=== PATIENT | female | born 1940 | race Caucasian/White ===

== ENCOUNTER 2018-07-02 14:19 | Emergency (ER) | payer OTHER ==
--- OUTSIDE RECORDS SUMMARY | 2018-07-02 14:24 | XMS REPORT | Clinical Summary ---
:1940 Author Organization [facility] Address [address] [place] [address] Care Team Providers Name Role Phone Asked, No Pcp Primary Care Provider Unavailable Allergies Active Allergy Reactions Severity Noted Date Comments Cephalexin Itching 01/17/2017 Current Medications Prescription Sig. Disp. Refills Start Date End Date Status metoprolol tartrate Take 12.5 mg by Active (LOPRESSOR) 25 MG tablet mouth 2 (two) times a day. metFORMIN (GLUCOPHAGE) Take 500 mg by Active 500 MG tablet mouth. haloperidol (HALDOL) 2 Take 2 mg by Active MG tablet mouth nightly. potassium chloride Take 10 mEq by Active (K-DUR,KLOR-CON) 10 MEQ mouth daily. CR tablet furosemide (LASIX) 20 MG Take 40 mg by Active tablet mouth daily. amLODIPine (NORVASC) 5 Take 5 mg by Active MG tablet mouth nightly. atorvastatin (LIPITOR) Take 20 mg by Active 20 MG tablet mouth. mupirocin (BACTROBAN) 2 Apply to the 22 g 0 08/11/2017 08/18/2017 % ointmentIndications: inside of each Primary osteoarthritis nostril BID 5 of right knee days prior to surgery Active Problems Problem Noted Date Primary osteoarthritis of right knee 08/11/2017 Overview: Added automatically from request for surgery [id number] Status post left hip replacement 01/23/2017 Acute blood loss anemia 04/19/2016 Hypophosphatemia 04/19/2016 Stenosis of carotid artery 04/18/2016 Left carotid stenosis 03/08/2016 Carotid artery narrowing 03/08/2016 HTN (hypertension) 03/08/2016 HLD (hyperlipidemia) 03/08/2016 Hyperglycemia due to type 2 diabetes mellitus (HCC) 03/08/2016 Coronary arteriosclerosis in [place] artery 03/08/2016 S/P carotid endarterectomy 03/08/2016 Benign essential hypertension 08/21/2014 Pure hypercholesterolemia 08/21/2014 Overview: Overview: No recent lipids. Diabetes mellitus (HCC) 08/21/2014 Encounters Date Type Specialty Care Team Description 12/28/2017 Telephone Orthopedic Surgery Isaac Mercado MD 10/02/2017 Procedure Pass General Surgery 09/28/2017 Pre-Admit Testing Pre-Admission Isaac Mercado No Show Appointment Testing MD Corie 08/11/2017 Orders Only Orthopedic Surgery Isaac Mercado Primary osteoarthritis MD Corie of right knee (Primary Dx) 08/02/2017 Telephone Orthopedic Surgery Isaac Mercado MD 07/05/2017 Procedure Pass General Surgery after 07/01/2017 Family History Medical History Relation Name Comments Cancer Brother Kidney disease Father Heart disease Mother Heart failure Mother Relation Name Status Comments Brother Father Mother Social History Tobacco Use Types Packs/Day Years Used Date Former Smoker Cigarettes 1 50 Quit: 09/14/2016 Alcohol Use Drinks/Week oz/Week Comments No Sex Assigned at Date Recorded Not on file Last Filed Vital Signs Not on file Plan of Treatment Health Maintenance Due Date Last Done Comments DIABETIC FOOT EXAM 1950 DIABETIC RETINAL EYE EXAM 1950 URINE MICROALBUMIN 1951 SHINGRIX VACCINE (#1) 1991 ZOSTER VACCINE 2001 PNEUMOCOCCAL POLYSACCHARIDE VACCINE AGE 65 AND OVER 2006 PNEUMOCOCCAL-13 2006 INFLUENZA VACCINE 04/04/2018 Implants Implanted Type Area Engraver Apprentice Decorative Device Expiration Model / Identifier Date Serial / Lot Dynasty Bf Shell Primary 54mm Group E - [id number] IPM IMPLANT Left: MICROPORT 12/16/2024 [id number] / Implanted: Qty: 1 on 01/23/2017 by Isaac Mercado MD DEVICES Hip ORTHOPEDICS / [id number] Dynasty A-Class Standard Poly Liner - [id number] [id number] IMPLANT Left: MICROPORT 10/28/2024 [id number] / Implanted: Qty: 1 on 01/23/2017 by Isaac Mercado MD DEVICES Hip ORTHOPEDICS / [id number] Femoral Head Biolox Delta Ceramic 08/17 L - [id number] [id number] IMPLANT Left: MICROPORT 11/17/2024 [id number] / Implanted: Qty: 1 on 01/23/2017 by Isaac Mercado MD DEVICES Hip ORTHOPEDICS / [id number] Profemur Plasma Z Classic Stem Sz 6 Extended Short Neck - [id number] [id number] IMPLANT Left: MICROPORT 08/03/2024 [id number] / Implanted: Qty: 1 on 01/23/2017 by Isaac Mercado MD DEVICES Hip ORTHOPEDICS / [id number] Kit Shunt Crtd Artery Rdopq Line 6in Strl [place] - [id number] Surgical Left: COVIDIEN LOPEZ 03/03/2019 [id number] / Implanted: Qty: 1 on 03/08/2016 by Cory Olivares MD Implants; Neck HEALTHCARE / Expanders; [id number] Extenders; Surgical Wires Fabric Vasclr Grft Velour 3in 3in 0.8cm 7.6cm [place] [employer] - [id number] - [id number] Vascular Left: [employer] 07/04/2020 [id number] / Implanted: Qty: 1 on 03/08/2016 by Cory Olivares MD Graft Neck KAYLIE [id number] / [id number] Fabric Vasclr Grft Velour 3in 3in 0.8cm 7.6cm [place] [employer] - [id number] - [id number] Vascular N/A: [employer] 05/05/2020 [id number] / Implanted: Qty: 1 on 04/18/2016 by Cory Olivares MD Graft N/A KAYLIE [id number] / [id number] Results Not on fileafter 07/01/2017 Insurance Payer Benefit Plan / Group Subscriber ID Type Phone Address MEDICARE MEDICARE PART A AND B xxxxxxxxxx Medicare [place], [place]
--- NOTE | 2018-07-02 18:29 | EDPHYS ---
Physician Documentation [facility] Name: Cristela Arriaza Age: 78 yrs Sex: Female : 1940 Arrival Date: 07/02/2018 Time: 14:20 Bed 30 Private MD: Ryder Kapoor E ED Physician Ricardo Curtis HPI: 07/02 17:57 This 78 yrs old Female presents to ER via Ambulatory with complaints of Back snw Pain. 17:57 The patient presents with pain that is acute. The symptoms are located in the low back snw area and left low back. Onset: The symptoms/episode began/occurred suddenly, and became persistent. The pain does not radiate. Associated signs and symptoms: The patient has no apparent associated signs or symptoms. The problem was sustained when lifting heavy object. Severity of symptoms: At their worst the symptoms were moderate. The patient has not experienced similar symptoms in the past. It is unknown whether or not the patient has recently seen a physician. pt had Tramadol for her knee and took one last pm with relief of s/s. Historical: - Allergies: 14:53 No Known Allergies; ph - PSHx: 14:53 Cholecystectomy; stent; ph - Immunization history:: Adult Immunizations up to date. - Social history:: Smoking status: Patient/guardian denies using tobacco. - Ebola Screening: : No symptoms or risks identified at this time. ROS: 17:56 Constitutional: Negative for fever, chills, and weight loss, Eyes: Negative for injury, snw pain, redness, and discharge, ENT: Negative for injury, pain, and discharge, Neck: Negative for injury, pain, and swelling, Cardiovascular: Negative for chest pain, palpitations, and edema, Respiratory: Negative for shortness of breath, cough, wheezing, and pleuritic chest pain, Abdomen/GI: Negative for abdominal pain, nausea, vomiting, diarrhea, and constipation, : Negative for injury, bleeding, discharge, and swelling, MS/Extremity: Negative for injury and deformity, Skin: Negative for injury, rash, and discoloration, Neuro: Negative for headache, weakness, numbness, tingling, and seizure, Psych: Negative for depression, anxiety, suicide ideation, homicidal ideation, and hallucinations. 17:56 Back: Positive for decreased range of motion, pain at rest, pain with movement, sitting and getting up from standing is painful. Exam: 17:55 Constitutional: This is a well developed, well nourished patient who is awake, alert, snw and in no acute distress. Head/Face: Normocephalic, atraumatic. Eyes: Pupils equal round and reactive to light, extra-ocular motions intact. Lids and lashes normal. Conjunctiva and sclera are non-icteric and not injected. Cornea within normal limits. Periorbital areas with no swelling, redness, or edema. ENT: Nares patent. No nasal discharge, no septal abnormalities noted. Tympanic membranes are normal and external auditory canals are clear. Oropharynx with no redness, swelling, or masses, exudates, or evidence of obstruction, uvula midline. Mucous membranes moist. Neck: Trachea midline, no thyromegaly or masses palpated, and no cervical lymphadenopathy. Supple, full range of motion without nuchal rigidity, or vertebral point tenderness. No Meningismus. Chest/axilla: Normal chest wall appearance and motion. Nontender with no deformity. No lesions are appreciated. Cardiovascular: Regular rate and rhythm with a normal S1 and S2. No gallops, murmurs, or rubs. Normal PMI, no JVD. No pulse deficits. Respiratory: Lungs have equal breath sounds bilaterally, clear to auscultation and percussion. No rales, rhonchi or wheezes noted. No increased work of breathing, no retractions or nasal flaring. Abdomen/GI: Soft, non-tender, with normal bowel sounds. No distension or tympany. No guarding or rebound. No evidence of tenderness throughout. Skin: Warm, dry with normal turgor. Normal color with no rashes, no lesions, and no evidence of cellulitis. MS/ Extremity: Pulses equal, no cyanosis. Neurovascular intact. Full, normal range of motion. Neuro: Awake and alert, GCS 15, oriented to person, place, time, and situation. Cranial nerves II-XII grossly intact. Motor strength 5/5 in all extremities. Sensory grossly intact. Cerebellar exam normal. Normal gait. 17:55 Back: pain, that is moderate, ROM is painful, normal spinal alignment noted, CVA tenderness, is absent, muscle spasm, is not present. Vital Signs: 15:04 BP 112 / 68; Pulse 59; Resp 16; Temp 97.9; Pulse Ox 96% on R/A; Weight 63.5 kg; Height ph 5 ft. 6 in. (167.64 cm); 15:04 Body Mass Index 22.60 (63.50 kg, 167.64 cm) ph MDM: 16:45 Patient medically screened. snw 18:30 Data reviewed: vital signs, nurses notes. Data interpreted: Pulse oximetry: on room air snw is 96 %. Interpretation: acceptable. Counseling: I had a detailed discussion with the patient and/or guardian regarding: the historical points, exam findings, and any diagnostic results supporting the discharge/admit diagnosis, radiology results, the need for outpatient follow up, to return to the emergency department if symptoms worsen or persist or if there are any questions or concerns that arise at home. Special discussion: Based on the history and exam findings, there is no indication for further emergent testing or inpatient evaluation. I discussed with the patient/guardian the need to see the orthopedic surgeon for further evaluation of the symptoms. I discussed with the patient/guardian the need to see the primary care provider for further evaluation of the symptoms. 07/02 17:34 Order name: XRAY Lumbar Spine (3 Views) snw Administered Medications: No medications were administered Disposition: 07/02/18 18:28 Discharged to Home. Impression: Low back pain. - Condition is Stable. - Discharge Instructions: Back Pain, Adult, Musculoskeletal Pain, Back Exercises, [id number]-[id number], Cryotherapy, Heat Therapy. - Prescriptions for Tramadol 50 mg Oral Tablet - take 1 tablet by ORAL route every 8 hours as needed; 12 tablet. orphenadrine citrate 100 mg Oral Tablet Sustained Release - take 1 tablet by ORAL route 2 times per day As needed; 20 tablet. - Medication Reconciliation Form, Thank You Letter, Antibiotic Education, Prescription Opioid Use form. - Follow up: Ryder Kapoor MD; When: 2 - 3 days; Reason: Recheck today's complaints, Continuance of care, Re-evaluation by your physician. Follow up: Emergency Department; When: As needed; Reason: Worsening of condition. Addendum: 07/09/2018 11:48 Co-signature as Attending Physician, Ricardo Curtis MD. g s Signatures: Dispatcher [employer] Magali Ruiz RN RN ajToña Poole RN RN aj Evelyn Mayes, CHIP-C PIANO STRINGER-Csnw Jacinta Hawk, RN RN ph CurtisRicardo MD MD gs Corrections: (The following items were deleted from the chart) 07/02 19:20 18:28 07/02/2018 18:28 Discharged to Home. Impression: Low back pain. Condition is aj1 Stable. Forms are Medication Reconciliation Form, Thank You Letter, Antibiotic Education, Prescription Opioid Use. Follow up: Ryder Kapoor; When: 2 - 3 days; Reason: Recheck today's complaints, Continuance of care, Re-evaluation by your physician. Follow up: Emergency Department; When: As needed; Reason: Worsening of condition. snw
--- NOTE | 2018-07-02 18:29 | ER ---
Nurse's Notes [facility] Name: Cristela Arriaza Age: 78 yrs Sex: Female : 1940 Arrival Date: 07/02/2018 Time: 14:20 Bed 30 Private MD: Ryder Kapoor E Diagnosis: Low back pain Presentation: 07/02 15:02 Presenting complaint: Patient states: " I was picking up a case of water and I hurt my ph back." Pt reports eliza low back pain, denies radiation, numbness, or tingling. Transition of care: patient was not received from another setting of care. Onset of symptoms was July 02, 2018. Risk Assessment: Do you want to hurt yourself or someone else? Patient reports no desire to harm self or others. Initial Sepsis Screen: Does the patient meet any 2 criteria? No. Patient's initial sepsis screen is negative. Does the patient have a suspected source of infection? No. Patient's initial sepsis screen is negative. Care prior to arrival: None. 15:02 Method Of Arrival: Ambulatory ph 15:02 Acuity: CHUCHO 4 ph Historical: - Allergies: 14:53 No Known Allergies; ph - PSHx: 14:53 Cholecystectomy; stent; ph - Immunization history:: Adult Immunizations up to date. - Social history:: Smoking status: Patient/guardian denies using tobacco. - Ebola Screening: : No symptoms or risks identified at this time. Screenin:07 Abuse screen: Denies threats or abuse. Denies injuries from another. Nutritional aj screening: No deficits noted. Tuberculosis screening: No symptoms or risk factors identified. Fall Risk None identified. Assessment: 17:07 General: Appears in no apparent distress. comfortable, Behavior is calm, cooperative, aj appropriate for age. Pain: Complains of pain in low back area. Neuro: Level of Consciousness is awake, alert, obeys commands, Oriented to person, place, time, situation, Appropriate for age. Respiratory: Airway is patent Respiratory effort is even, unlabored, Respiratory pattern is regular, symmetrical. : Denies burning with urination. Derm: Skin is intact, is healthy with good turgor, Skin is pink, warm \\T\\ dry. normal. Musculoskeletal: Reports pain in low back area. Vital Signs: 15:04 BP 112 / 68; Pulse 59; Resp 16; Temp 97.9; Pulse Ox 96% on R/A; Weight 63.5 kg; Height ph 5 ft. 6 in. (167.64 cm); 15:04 Body Mass Index 22.60 (63.50 kg, 167.64 cm) ph ED Course: 14:20 Patient arrived in ED. as 14:20 Ryder Kapoor MD is Private Physician. as 15:04 Triage completed. ph 15:04 Arm band placed on Patient placed in waiting room, Patient notified of wait time. ph 16:29 Evelyn Mayes [facility]-C [facility]. snw 16:29 Ricardo Curtis MD is Attending Physician. snw 16:44 Toña Diaz, RN is Primary Nurse. aj 17:07 Patient has correct armband on for positive identification. aj 18:28 Ryder Kapoor MD is Referral Physician. snw 18:37 XRAY Lumbar Spine (3 Views) In Process Unspecified. EDMS 19:20 No provider procedures requiring assistance completed. Patient did not have IV access aj1 during this emergency room visit. Administered Medications: No medications were administered Outcome: 18:28 Discharge ordered by . snw 19:19 Discharged to home ambulatory. aj1 19:19 Condition: good 19:19 Discharge instructions given to patient, Instructed on discharge instructions, follow up and referral plans. medication usage, Demonstrated understanding of instructions, follow-up care, medications, Prescriptions given X 1. 19:20 Patient left the ED. aj1 Signatures: Dispatcher [employer] EDMS Magali Zamora RN RN aj1 Toña Diaz, RN RN Evelyn Mayes FNP-C FNP-Rosy Wesley as Jaicnta Hawk, RN RN
--- NOTE | 2018-07-02 20:03 | RAD REPORT ---
EXAM DESCRIPTION: RAD - Lumbar Spine 3 Views - 07/02/2018 6:37 pm CLINICAL HISTORY: Back pain following lifting injury COMPARISON: None. FINDINGS: A three-view lumbar spine examination was performed. Lumbar bodies are normal in height an d alignment. No fracture or acute bony process seen. No significant disc space narrowing peer patient has advanced lower lumbar facet joint degenerative change. Endplate degenerative changes are present at multiple levels. No pars defects identified. IMPRESSION: Lumbar spine degenerative changes are present most notable in the lower lumbar facet darcy nts. An acute lumbar finding is not suspected. Concerns for disc herniation, central canal abnormality or occult bone process can be addressed with MR imaging.
[2018-07-02 20:16] VITALS: TEMP 97.8
[2018-07-02 20:17] VITALS: BP 194/101; O2SAT 100
== END 2018-07-02 19:20 | disposition home or self-care (01) ==
LOC: ER 14:19
DX: M54.5 Low back pain (principal)
CPT/HCPCS: 72100; 99283

== ENCOUNTER 2018-11-05 10:38 | Day surgery (SDC) | payer OTHER ==
--- OUTSIDE RECORDS SUMMARY | 2018-11-05 10:42 | XMS REPORT | Clinical Summary ---
:1940 Author Organization [facility] Address [address] [place] [address] Care Team Providers Name Role Phone Asked, No Pcp Primary Care Provider Unavailable Allergies Active Allergy Reactions Severity Noted Date Comments Cephalexin Itching 01/17/2017 Medications Medication Sig Dispensed Refills Start Date End Date Status metoprolol tartrate Take 12.5 mg by 0 Active (LOPRESSOR) 25 MG tablet mouth 2 (two) times a day. metFORMIN (GLUCOPHAGE) Take 500 mg by 0 Active 500 MG tablet mouth. haloperidol (HALDOL) 2 Take 2 mg by 0 Active MG tablet mouth nightly. potassium chloride Take 10 mEq by 0 Active (K-DUR,KLOR-CON) 10 MEQ mouth daily. CR tablet furosemide (LASIX) 20 MG Take 40 mg by 0 Active tablet mouth daily. amLODIPine (NORVASC) 5 Take 5 mg by 0 Active MG tablet mouth nightly. atorvastatin (LIPITOR) Take 20 mg by 0 Active 20 MG tablet mouth. Active Problems Problem Noted Date Primary osteoarthritis of right knee 08/11/2017 Overview: Added automatically from request for surgery [id number] Status post left hip replacement 01/23/2017 Acute blood loss anemia 04/19/2016 Hypophosphatemia 04/19/2016 Stenosis of carotid artery 04/18/2016 Left carotid stenosis 03/08/2016 Carotid artery narrowing 03/08/2016 HTN (hypertension) 03/08/2016 HLD (hyperlipidemia) 03/08/2016 Hyperglycemia due to type 2 diabetes mellitus 03/08/2016 Coronary arteriosclerosis in [place] artery 03/08/2016 S/P carotid endarterectomy 03/08/2016 Benign essential hypertension 08/21/2014 Pure hypercholesterolemia 08/21/2014 Overview: Overview: No recent lipids. Diabetes mellitus 08/21/2014 Encounters Date Type Specialty Care Team Description 12/28/2017 Telephone Orthopedic Surgery Isaac Mercado MD after 11/04/2017 Family History Medical History Relation Name Comments Cancer Brother Kidney disease Father Heart disease Mother Heart failure Mother Relation Name Status Comments Brother Father Mother Social History Tobacco Use Types Packs/Day Years Used Date Former Smoker Cigarettes 1 50 Quit: 09/14/2016 Alcohol Use Drinks/Week oz/Week Comments No Sex Assigned at Date Recorded Not on file Job Start Date Occupation Industry Not on file Not on file Not on file Travel History Travel Start Travel End No recent travel history available. Last Filed Vital Signs Not on file Plan of Treatment Health Maintenance Due Date Last Done Comments DIABETIC RETINAL EYE EXAM 1940 DIABETIC FOOT EXAM 1950 URINE MICROALBUMIN 1951 SHINGLES VACCINES (#1) 1991 65+ PNEUMOCOCCAL VACCINE (1 of 2 - PCV13) 2006 PNEUMOCOCCAL POLYSACCHARIDE VACCINE AGE 65 AND OVER 2006 INFLUENZA VACCINE 04/04/2018 Implants Implanted Type Area Curtain Drier Device Shelf Model / Identifier Expiration Serial / Lot Date Dynasty Bf Shell Primary 54mm Group E - [id number] IPM IMPLANT Left: MICROPORT 12/16/2024 [id number] / Implanted: Qty: 1 on 01/23/2017 by Isaac Mercado MD DEVICES Hip ORTHOPEDICS / [id number] Dynasty A-Class Standard Poly Liner - [id number] IPM IMPLANT Left: MICROPORT 10/28/2024 [id number] / Implanted: Qty: 1 on 01/23/2017 by Isaac Mercado MD DEVICES Hip ORTHOPEDICS / [id number] Femoral Head Biolox Delta Ceramic 08/17 L - [id number] IPM IMPLANT Left: MICROPORT 11/17/2024 [id number] / Implanted: Qty: 1 on 01/23/2017 by Isaac Mercado MD DEVICES Hip ORTHOPEDICS / [id number] Profemur Plasma Z Classic Stem Sz 6 Extended Short Neck - [id number] IPM IMPLANT Left: MICROPORT 08/03/2024 [id number] / Implanted: Qty: 1 on 01/23/2017 by Isaac Mercado MD DEVICES Hip ORTHOPEDICS / [id number] Kit Shunt Crtd Artery Rdopq Line 6in Strl [place] - [id number] Surgical Left: COVIDIEN LOPEZ 03/03/2019 [id number] / Implanted: Qty: 1 on 03/08/2016 by Cory Olivares MD Implants; Neck HEALTHCARE / Expanders; [id number] Extenders; Surgical Wires Fabric Vasclr Grft Velour 3in 3in 0.8cm 7.6cm [place] [employer] - [id number] - [id number] Vascular Left: [employer] 07/04/2020 [id number] / Implanted: Qty: 1 on 03/08/2016 by Cory Olivares MD Graft Neck KAYLIE [id number] / [id number] Fabric Vasclr Grft Velour 3in 3in 0.8cm 7.6cm [place] [employer] - [id number] - [id number] Vascular N/A: [employer] 05/05/2020 [id number] / Implanted: Qty: 1 on 04/18/2016 by Cory Olivares MD Graft N/A KAYLIE [id number] / [id number] Results Not on fileafter 11/04/2017 Insurance Payer Benefit Plan / Group Subscriber ID Type Phone Address MEDICARE MEDICARE PART A AND B xxxxxxxxxx Medicare [place], [place] Advance Directives Patient has advance care planning documents on file. For more information, please contact:[place] [address]
[2018-11-05] MEDS ORDERED: NA CHLORIDE 0.9% 500 ML ONE (11:06)
[2018-11-05] MEDS ORDERED: PHENYLEPHRINE 10% OPTH 5ML ONE (11:06)
[2018-11-05] MEDS ORDERED: CYCLOPENTOLATE 1% OPTH 2 ML ONE (11:07)
[2018-11-05] MEDS ORDERED: CYCLOPENTOLATE 1% OPTH 2 ML OPTH ONE ×2 (11:11→11:27)
[2018-11-05] MEDS ORDERED: PHENYLEPHRINE 10% OPTH 5ML OPTH ONE ×2 (11:11→11:27)
[2018-11-05] MEDS ORDERED: NS 0.9% VIAL 10 ML ONE (11:15)
[2018-11-05 11:58] VITALS: TEMP 97.7
[2018-11-05] MEDS: TETRACAINE HCL 0.5% 2ML OPTH ONE ×2 (12:24→12:48)
[2018-11-05] MEDS: LIDOCAINE 2% MPF 5 ML VIAL ONE ×2 (12:25→12:48)
[2018-11-05] MEDS: BUPIVACAINE 0.25% PF 10 ML VIAL ONE ×2 (12:25→12:48)
[2018-11-05] MEDS ORDERED: PROPOFOL 200 MG/20 ML VIAL IV ONE (12:49)
[2018-11-05] MEDS ORDERED: LIDOCAINE 2% MPF 5 ML VIAL ONE (12:49)
[2018-11-05] MEDS: BALANCED SALT IRRIG PLAIN 500 ML BTL IRR ONE ×2 (12:53→13:19)
[2018-11-05] MEDS: EPINEPHRINE/PF 1 MG/ML AMP ONE ×2 (12:53→13:19)
[2018-11-05] MEDS: MOXIFLOXACIN HCL 10 DROPS/ML **OR USE OPTH ONE ×2 (12:55→13:57)
[2018-11-05] MEDS: DUOVISC 1 KIT OPTH ONE ×2 (12:55→13:19)
--- NOTE | 2018-11-05 14:07 | P.BOP ---
Preoperative diagnosis: Nuclear sclerotic cataract and regular astigmatism OD Postoperative diagnosis: Same Primary procedure: Phacoemulsification with Toric IOL OD Estimated blood loss: None Anesthesia: Local (Subtenon's infusion with anesthesia for cataract surgery) Complications: None Implants: [id number] +17.5 @ 14 degrees Transferred to: Other (Day surgery) Condition: Good
[2018-11-05 14:16] VITALS: BP 177/80; O2SAT 100
--- NOTE | 2018-11-06 00:41 | OP ---
Date of Procedure: 11/05/2018 Surgeon: Bonny Manuel MD Anesthesiologist: Yomi Gonzalez CRNA and Girma Sung MD. Preoperative Diagnosis: Nuclear sclerotic cataract and regular astigmatism, right eye. Operation Performed: Phacoemulsification with toric with intraocular lens implant, right eye. Anesthesia: Per cataract surgery. Complications: None. Description Of Procedure: In day surgery, the patient was prepped with Betadine and draped. A conju nctival incision was made in the inferior nasal quadrant with Fartun scissors. A sub-Tenon block c onsisting of a 1:1 mixture of 2% Xylocaine and 0.25% bupivacaine was placed through the conjunctival incision with a blunt cannula. A Honan balloon was placed over the eye and the patient was transferr ed to the operating room. In the operating room the patient was prepped and draped in the usual sterile fashion for ophthalmic surgery. A lid speculum was placed in the right eye. Two paracentesis sites were made superiorly an d inferiorly in the limbal cornea. Viscoat was placed in the anterior chamber and a crescent blade w as used to make a corneal groove and tunnel, and a keratome was used to enter the anterior chamber. Provisc was placed in the anterior chamber and a 360 degree capsulotomy was performed with a cystitom e. The lens was hydrodissected with BSS and rotated freely. The lens was removed with a stop and ch op technique. 14.69 phaco CDE was used to remove the lens. Residual cortex was removed with the irr igation and aspiration. Provisc was placed in the capsular bag. A [id number] +17.5 at 14 degrees lens w as placed in the capsular bag without complications. Irrigation and aspiration was used to remove re sidual viscoelastic. The paracentesis sites were hydrated with BSS. The wound and paracentesis site s were inspected and found to be watertight. Vigamox 0.07 cc was placed intracamerally at the end of the procedure. The eye was irrigated with balanced salt solution. The eye was patched with a soft cotton patch and Hwang metal shield. The patient was returned to day surgery in good condition. Comments: Discharge Instructions: Ms. Arriaza is discharged to home in good condition and is to follow up with Kenna Manuel in the morning. ELVIN/NANETTE Voice ID: [id number] Report ID: [id number]
== END 2018-11-05 14:38 | disposition home or self-care (01) ==
LOC: OR 10:38
PROVIDERS: ATTEND Ophthalmology Retina Specialist
PROC: 08RJ3JZ Replacement of Right Lens with Synthetic Substitute, Percutaneous Approach (ICD-10-PCS; principal; 2018-11-05 11:15)
DX: H25.11 Age-related nuclear cataract, right eye (principal); H52.221 Regular astigmatism, right eye; H40.20X0 Unspecified primary angle-closure glaucoma, stage unspecified; H40.059 Ocular hypertension, unspecified eye; H04.123 Dry eye syndrome of bilateral lacrimal glands; I10 Essential (primary) hypertension; I25.10 Atherosclerotic heart disease of native coronary artery without angina pectoris; I25.2 Old myocardial infarction; E78.00 Pure hypercholesterolemia, unspecified; Z95.5 Presence of coronary angioplasty implant and graft; Z79.02 Long term (current) use of antithrombotics/antiplatelets; Z79.82 Long term (current) use of aspirin; Z82.49 Family history of ischemic heart disease and other diseases of the circulatory system
CPT/HCPCS: 66984; J2704; J0171; V2630

== ENCOUNTER 2018-12-17 10:24 | Day surgery (SDC) | payer OTHER ==
--- OUTSIDE RECORDS SUMMARY | 2018-12-17 11:30 | XMS REPORT | Clinical Summary ---
:1940 Author Organization [facility] Address [address] [place] [address] Care Team Providers Name Role Phone Asked, [...] Overview: Added automatically from request for surgery [id number] Status post left hip replacement 01/23/2017 Acute blood loss anemia 04/19/2016 Hypophosphatemia 04/19/2016 Stenosis of carotid artery 04/18/2016 Left carotid stenosis 03/08/2016 Carotid artery narrowing 03/08/2016 HTN (hypertension) 03/08/2016 HLD (hyperlipidemia) 03/08/2016 Hyperglycemia due to type 2 diabetes mellitus 03/08/2016 Coronary arteriosclerosis in [place] artery 03/08/2016 S/P carotid endarterectomy 03/08/2016 Benign essential hypertension 08/21/2014 Pure hypercholesterolemia 08/21/2014 Overview: Overview: No recent lipids. 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 Device Shelf Model / Identifier Expiration Serial / Lot Date Dynasty Bf Shell Primary 54mm Group E - [id number] IPM IMPLANT Left: MICROPORT 12/16/2024 [id number] / Implanted: Qty: 1 on 01/23/2017 by Isaac Mercado MD DEVICES Hip ORTHOPEDICS / [id number] Dynasty A-Class Standard Poly Liner - [id number] IPM IMPLANT Left: MICROPORT 10/28/2024 [id number] / Implanted: Qty: 1 on 01/23/2017 by Isaac Mercado MD DEVICES Hip ORTHOPEDICS / [id number] Femoral Head Biolox Delta Ceramic 08/17 L - [id number] IPM IMPLANT Left: MICROPORT 11/17/2024 [id number] / Implanted: Qty: 1 on 01/23/2017 by Isaac Mercado MD DEVICES Hip ORTHOPEDICS / [id number] Profemur Plasma Z Classic Stem Sz 6 Extended Short Neck - [id number] IPM IMPLANT Left: MICROPORT 08/03/2024 [id number] / Implanted: Qty: 1 on 01/23/2017 by Isaac Mercado MD DEVICES Hip ORTHOPEDICS / [id number] Kit Shunt Crtd Artery Rdopq Line 6in Strl [place] - [id number] Surgical Left: COVIDIEN LOPEZ 03/03/2019 [id number] / Implanted: Qty: 1 on 03/08/2016 by Cory Olivares MD Implants; Neck HEALTHCARE / Expanders; [id number] Extenders; Surgical Wires Fabric Vasclr Grft Velour 3in 3in 0.8cm 7.6cm [place] [employer] - [id number] - [id number] Vascular Left: [employer] 07/04/2020 [id number] / Implanted: Qty: 1 on 03/08/2016 by Cory Olivares MD Graft Neck KAYLIE [id number] / [id number] Fabric Vasclr Grft Velour 3in 3in 0.8cm 7.6cm [place] [employer] - [id number] - [id number] Vascular N/A: [employer] 05/05/2020 [id number] / Implanted: Qty: 1 on 04/18/2016 by Cory Olivares MD Graft N/A KAYLIE [id number] / [id number] Results Not on fileafter 12/16/2017 Insurance Payer Benefit Plan / Group Subscriber ID Type Phone Address MEDICARE MEDICARE PART A AND B xxxxxxxxxx Medicare [place], [place] Advance Directives Patient has advance care planning documents on file. For more information, please contact:[place] [address]
[2018-12-17] MEDS: TETRACAINE HCL 0.5% 4ML OPTH ONE ×2 (11:44→13:19)
[2018-12-17] MEDS ORDERED: CYCLOPENTOLATE 1% OPTH 2 ML ONE (11:51)
[2018-12-17] MEDS ORDERED: NA CHLORIDE 0.9% 500 ML ONE (11:52)
[2018-12-17] MEDS ORDERED: PHENYLEPHRINE 10% OPTH 5ML ONE (11:52)
[2018-12-17] MEDS ORDERED: PHENYLEPHRINE 10% OPTH 5ML OPTH ONE ×2 (11:54→12:00)
[2018-12-17] MEDS ORDERED: CYCLOPENTOLATE 1% OPTH 2 ML OPTH ONE ×2 (11:54→12:00)
[2018-12-17] MEDS ORDERED: EPINEPHRINE/PF 1 MG/ML AMP ONE (12:02)
[2018-12-17] MEDS ORDERED: DUOVISC 1 KIT OPTH ONE (12:02)
[2018-12-17] MEDS ORDERED: BALANCED SALT IRRIG PLAIN 500 ML BTL IRR ONE (12:02)
[2018-12-17] MEDS ORDERED: NS 0.9% VIAL 10 ML ONE (12:02)
[2018-12-17] MEDS: BUPIVACAINE 0.25% PF 10 ML VIAL ONE ×2 (12:04→13:20)
[2018-12-17] MEDS: LIDOCAINE 2% MPF 5 ML VIAL ONE ×2 (12:05→13:20)
[2018-12-17] MEDS: MOXIFLOXACIN HCL 10 DROPS/ML **OR USE OPTH ONE ×2 (12:08→14:09)
[2018-12-17] MEDS ORDERED: PROPOFOL 200 MG/20 ML VIAL IV ONE (13:10)
[2018-12-17] MEDS ORDERED: LIDOCAINE 2% MPF 5 ML VIAL ONE (13:10)
--- NOTE | 2018-12-17 14:16 | P.BOP ---
Preoperative diagnosis: Nuclear sclerotic cataract and regular astigmatism OS Postoperative diagnosis: Same Primary procedure: Phacoemulsification with Toric IOL OS Estimated blood loss: None Anesthesia: Local (Subtenon's infusion with anesthesia for cataract surgery) Complications: None Implants: [id number] +18.5 @ 173 Transferred to: Other (Day surgery) Condition: Good
[2018-12-17 14:27] VITALS: BP 166/70; TEMP 97.8; O2SAT 100
--- NOTE | 2018-12-18 00:12 | OP ---
Date of Procedure: 12/17/2018 Surgeon: Bonny Manuel MD Anesthesiologist: Walter Reinoso CRNA and Steve Mack MD. Preoperative Diagnoses: Nuclear sclerotic cataract and regular astigmatism, left eye. Operation Performed: Phacoemulsification with toric intraocular lens implant, left eye. Anesthesia: Per cataract surgery. Complications: None. Description Of Procedure: In day surgery, the patient was prepped with Betadine and draped. A conju nctival incision was made in the inferior nasal quadrant with Fartun scissors. A sub-Tenon block c onsisting of a 1:1 mixture of 2% Xylocaine and 0.25% bupivacaine was placed through the conjunctival incision with a blunt cannula. A [place] balloon was placed over the eye and the patient was transferr ed to the operating room. In the operating room the patient was prepped and draped in the usual sterile fashion for ophthalmic surgery. A lid speculum was placed in the left eye. Two paracentesis sites were made superiorly and inferiorly in the limbal cornea. Viscoat was placed in the anterior chamber and a crescent blade wa s used to make a corneal groove and tunnel, and a keratome was used to enter the anterior chamber. P rovisc was placed in the anterior chamber and a 360 degree capsulotomy was performed with a cystitome . The lens was hydrodissected with BSS and rotated freely. The lens was removed with a stop and cho p technique. 15.47 phaco CDE was used to remove the lens. Residual cortex was removed with the irri gation and aspiration. Provisc was placed in the capsular bag. A ZCT00 +18.5 at 173 degrees lens wa s placed in the capsular bag without complications. Irrigation and aspiration were used to remove re sidual viscoelastic. The paracentesis sites were hydrated with BSS. The wound and paracentesis site s were inspected and found to be watertight. Vigamox 0.07 cc was placed intracamerally at the end of the procedure. The eye was irrigated with balanced salt solution. The eye was patched with a soft cotton patch and Hwang metal shield. The patient was returned to day surgery in good condition. Comments: Discharge Instructions: Ms. Arriaza is discharged to home in good condition and is to follow up with Kenna Manuel in the morning. ELVIN/NANETTE Voice ID: [id number] Report ID: [id number]
== END 2018-12-17 14:42 | disposition home or self-care (01) ==
LOC: PRE 10:24
PROVIDERS: ATTEND Ophthalmology Retina Specialist
PROC: 08RK3JZ Replacement of Left Lens with Synthetic Substitute, Percutaneous Approach (ICD-10-PCS; principal; 2018-12-17 11:30)
DX: H25.12 Age-related nuclear cataract, left eye (principal); H52.222 Regular astigmatism, left eye; E78.00 Pure hypercholesterolemia, unspecified; I10 Essential (primary) hypertension; I25.2 Old myocardial infarction; Z79.02 Long term (current) use of antithrombotics/antiplatelets; Z79.82 Long term (current) use of aspirin; Z79.899 Other long term (current) drug therapy; Z95.5 Presence of coronary angioplasty implant and graft
CPT/HCPCS: 66984; J2704; J0171

== ENCOUNTER 2020-07-06 08:04 | Day surgery (SDC) | payer OTHER ==
[2020-07-02 12:01] LABS: Potassium 4.5 mmol/L (3.5-5.1)
--- OUTSIDE RECORDS SUMMARY | 2020-07-06 08:17 | XMS REPORT | Clinical Summary ---
:1940 Author Organization [facility] Address [address] [place] [address] Care Team Providers Name Role Phone Asked, Pcp Primary Care Provider Unavailable Allergies Active Allergy Reactions Severity Noted Date Comments Cephalexin Itching 01/17/2017 Medications Medication Sig Dispensed Refills Start End Date Status Date potassium chloride Take 10 mEq by 0 Active (K-DUR,KLOR-CON) 10 mouth daily. MEQ CR tablet furosemide (LASIX) Take 40 mg by 0 Active 20 MG tablet mouth daily. amLODIPine Take 5 mg by 0 Active (NORVASC) 5 MG mouth nightly. tablet atorvastatin Take 20 mg by 0 Act scott (LIPITOR) 20 MG mouth. tablet brimonidine-timoloL Administer 1 0 Active (COMBIGAN) 0.2-0.5 drop to both % ophthalmic eyes every 12 solution (twelve) hours. levothyroxine Take 175 mcg 0 Act scott (SYNTHROID) 175 mcg by mouth tablet daily. haloperidoL Take 1 mg by 0 Activ e (HALDOL) 1 MG mouth nightly. tablet clopidogreL Take 1 tablet 0 Acti ve (Plavix) 75 mg (75 mg total) 0 tablet by mouth daily. Starting post-op day 1 metoprolol tartrate Take 0.5 0 Active (LOPRESSOR) 25 mg tablets (12.5 0 tablet mg total) by mouth 2 (two) times a day. Hold for BP < 120/80 aspirin 81 mg Chew 1 tablet 0 Ac tive chewable tablet (81 mg total) 0 daily. Starting post-op day 1 sennosides-docusate Take 1 tablet 30 tablet 11 Active sodium (Senokot-S) by mouth 0 21 8.6-50 mg per daily. tablet metoprolol tartrate Take 12.5 mg 0 0 Discontinued (LOPRESSOR) 25 MG by mouth 2 20 ( Reorder) tablet (two) times a day. metFORMIN Take 500 mg by 0 03/23/20 Disco ntinued (GLUCOPHAGE) 500 MG mouth. 20 (Error) tablet haloperidol Take 1 mg by 0 03/23/20 Disco ntinued (HALDOL) 2 MG mouth nightly. 20 ( Dose tablet adjustment ) levothyroxine Take by mouth. 0 03/23/20 D iscontinued sodium (TIROSINT) 20 (D ose 150 mcg capsule adju stment) clopidogrel Take 75 mg by 0 03/25/20 Disc ontinued bisulfate (PLAVIX mouth. 20 ORAL) aspirin 81 mg Chew 81 mg. 0 03/25/20 Disc ontinued chewable tablet 20 (Reo rder) traMADoL (ULTRAM) Take 1 tablet 28 tablet 0 12/27/19 50 mg (50 mg total) 0 20 tabletIndications: by mouth every acute pain 6 (six) hours as needed for moderate pain for up to 28 days .acute pain. traMADoL (ULTRAM) acute pain. 1 60 tablet 0 01/02/20 50 mg po q 6 hrs prn 0 20 tabletIndications: acute pain traMADoL (ULTRAM) acute pain. 1 30 tablet 0 01/23/20 50 mg po Q 6 hrs prn 0 20 tabletIndications: pain acute pain mupirocin Apply to the 22 g 0 02/13/20 (BACTROBAN) 2 % inside of each 0 20 ointmentIndications nostril BID 5 : Primary days prior to osteoarthritis of surgery right knee traMADoL (ULTRAM) Take 50 mg by 0 05/06/20 Discontinued 50 mg mouth every 6 20 (Reord er) tabletIndications: (six) hours as acute pain needed for moderate pain .acute pain. oxyCODONE Take 1 tablet 0 04/01/20 d (ROXICODONE) 5 MG (5 mg total) 0 20 immediate release by mouth every tabletIndications: 6 (six) hours acute pain as needed for moderate pain or severe pain for up to 7 days .acute pain. Max Daily Amount: 20 mg gabapentin Take 2 90 capsule 11 05/29/20 Disconti nued (Neurontin) 100 mg capsules (200 0 20 capsule mg total) by mouth 3 (three) times a day. pantoprazole Take 1 tablet 30 tablet 0 04/24/20 Exp ired (Protonix) 40 MG EC (40 mg total) 0 20 tablet by mouth daily for 30 days. ondansetron Take 1 tablet 20 tablet 0 05/29/20 Disc ontinued (Zofran) 4 MG (4 mg total) 0 20 tablet by mouth every 8 (eight) hours as needed for nausea or vomiting. ibuprofen (ADVIL) Take 2 tablets 90 tablet 0 0 400 MG tablet (800 mg total) 0 20 by mouth every 6 (six) hours as needed for moderate pain for up to 30 days. traMADoL (ULTRAM) Take 1 tablet 20 tablet 0 05/16/20 50 mg (50 mg total) 0 20 tabletIndications: by mouth every acute pain 6 (six) hours as needed for moderate pain for up to 10 days .acute pain. Active Problems Problem Noted Date Primary osteoarthritis of right knee 08/11/2017 Overview: Added automatically from request for bridget macarena [id number] Status post left hip replacement 01/23/2017 Acute blood loss anemia 04/19/2016 Hypophosphatemia 04/19/2016 Stenosis of carotid artery 04/18/2016 Left carotid stenosis 03/08/2016 Carotid artery narrowing 03/08/2016 HTN (hypertension) 03/08/2016 HLD (hyperlipidemia) 03/08/2016 Hyperglycemia due to type 2 diabetes mellitus 03/08/20 16 Coronary arteriosclerosis in [place] artery 03/08/2016 S/P carotid endarterectomy 03/08/2016 Benign essential hypertension 08/21/2014 Pure hypercholesterolemia 08/21/2014 Overview: Overview: No recent lipids. Diabetes mellitus 08/21/2014 Encounters Date Type Specialty Care Team Description 05/29/2020 Office Visit Orthopedic Surgery Isaac Borges total knee MD Corie replacement, ri ght (Primary Dx) 05/29/2020 Travel 05/06/2020 Refill Orthopedic Surgery Kya Cope MA 04/17/2020 Office Visit Orthopedic Surgery Isaac Borges total knee MD Corie replacement, ri ght (Primary Dx) 04/17/2020 Travel 04/03/2020 Travel 03/30/2020 Travel 03/27/2020 Travel 03/27/2020 Telephone Orthopedic Surgery Stella Chisholm, ILENE 03/26/2020 Telephone Orthopedic Surgery Stella Chisholm PA 03/26/2020 Telephone Anesthesiology Manuela Wild, ECONOMIC SPECIALIST 03/25/2020 Anesthesia Event General Surgery Too Golden MD [place], Laverne Denecia, ECONOMIC SPECIALIST 03/25/2020 Surgery General Surgery Isaac Borges RIGHT TOTAL KNEE MD Corie REPLACEMENT 03/25/2020 Hospital Encounter General Surgery Isaac Borges MD osteoarthritis of right knee 03/19/2020 Travel 03/12/2020 Office Visit Orthopedic Surgery Phan, Primary Stella Wilburn, osteoarthrit is of PA right knee (Ghislaine jeferson Dx) 03/12/2020 Travel 03/05/2020 Travel 02/07/2020 Documentation Medical Records Provider, Unknown 02/07/2020 Travel 02/06/2020 Travel 01/20/2020 Refill Orthopedic Surgery Isaac Borges MD 01/20/2020 Telephone Orthopedic Surgery Isaac Borges MD 01/06/2020 Telephone Orthopedic Surgery Isaac Borges MD 12/23/2019 Orders Only Orthopedic Surgery Kya Cope MA 12/19/2019 Telephone Orthopedic Surgery Isaac Borges MD osteoarthritis of right knee 12/18/2019 Telephone Orthopedic Surgery Isaac Borges MD 12/12/2019 Travel 11/29/2019 Orders Only Orthopedic Surgery Kya Cope MA 11/29/2019 Telephone Orthopedic Surgery Isaac Borges MD 11/29/2019 Travel 11/21/2019 Travel 11/11/2019 Telephone Orthopedic Surgery Isaac Borges MD 11/11/2019 Travel 11/08/2019 Office Visit Orthopedic Surgery Isaac Borges o steoarthritis of right knee (Primary Dx); MD Corie Acute pain of r ight knee; Screening for v iral disease 11/06/2019 Telephone Orthopedic Surgery Isaac Borges MD after 07/06/2019 Surgical History Surgery Date Site/Laterality Comments CORONARY ANGIOPLASTY CARDIAC CATHETERIZATION CHOLECYSTECTOMY CHG ANGIO EXT CAROTD UNI SELECT 02/23/2016 N/A Procedure: Cv arteriogram N/A carotid single; Surgeon: Venita Graves MD ; Location: [facility] Lab Invasive Locatio n; Service: Cardiov ascular VA CATH PLACEMENT & NJX CORONARY 02/23/2016 N/A Procedure: Cv selective ART ANGIO IMG S&I N/A coronary angio graphy; Surgeon: Venita Graves MD; Location: [facility] Lab Invasive Locatio n; Service: Cardiov ascular VA THROMBOENDARTECTMY NECK,NECK 03/08/2016 Neck/Left Procedure: LEFT CAROTID INCIS ENDARTERECTOMY; Surgeon: Cory Olivares MD; Location: [facility] OR; Service: Thoraci c Medical devices from this surgery are in t he Implants section. ENDARTERECTOMY, CAROTID 04/18/2016 Neck/Right Procedur e: RIGHT CAROTID ENDARTERECTOMY, EXCISION OF KERATIN HORN RIG HT AXILLA; Surgeon: Cory Olivares MD; Location: [facility] OR; Service: oracic; Laterality: Righ t; Medical devices from this surgery are in t he Implants section. ARTHROSCOPY, HIP 01/23/2017 Hip/Left Procedure: LEFT TOTAL HIP REPLACEMENT; Beard rgeon: Isaac Borges MD; Location: [facility]; Service: Orthope dics; Laterality: Left ; Medical devices from this surgery are in t he Implants section. ARTHROPLASTY, KNEE, TOTAL 03/25/2020 Knee/Right Proced ure: RIGHT TOTAL KNEE REPLACEMENT; Beard rgeon: Isaac Borges MD; Location: [facility] OR; Servic e: Orthopedics; La terality: Right; Medical devices from this surgery are in t he Implants section. Medical History Medical History Date Comments Hypertension Hyperlipidemia Coronary artery disease Myocardial infarction (HCC) 2012 Wears glasses Immunizations reviewed and up to date 01/17/2017 Wears partial dentures Family History Medical History Relation Name Comments Cancer Brother Kidney disease Father Heart disease Mother Heart failure Mother Relation Name Status Comments Brother Father Mother Social History Tobacco Use Types Packs/Day Years Used Date Former Smoker Cigarettes 1 50 Quit: 09/14/19 17 Smokeless Tobacco: Never Used Alcohol Use Drinks/Week oz/Week Comments No Sex Assigned at Date Recorded Not on file Last Filed Vital Signs Vital Sign Reading Time Taken Comments Blood Pressure 116/61 03/25/2020 7:35 PM CDT Pulse 86 03/25/2020 7:35 PM CDT Temperature 36.6 C (97.9 F) 03/25/2020 7:35 PM CDT Respiratory Rate 19 03/25/2020 7:35 PM CDT Oxygen Saturation 95% 03/25/2020 7:35 PM CDT Inhaled Oxygen Concentration - - Weight 65.8 kg (145 lb) 05/29/2020 11:27 AM CDT Height 167.6 cm (5' 6") 05/29/2020 11:27 AM CDT Body Mass Index 23.4 05/29/2020 11:27 AM CDT Plan of Treatment Health Maintenance Due Date Last Done Comments DIABETES: RETINAL EYE EXAM 1950 DIABETIC FOOT EXAM 1950 URINE MICROALBUMIN 1951 SHINGLES VACCINES (#1) 1991 65+ PNEUMOCOCCAL VACCINE (1 of 1 - PPSV23) 2006 INFLUENZA VACCINE 04/04/2020 Implants Implanted Type Area Technical Publications Writer Device Shelf Model / Identifier Expiration Serial / Lot Date Cement Bone 40gr Smartset Mv Endurance - [id number] Bone Screw Right: DEPUY 02/01/2021 [id number] / Implanted: 03/25/2020 at [facility] (Quantity not on file) Knee ORTHO-KNEES / [id number] Dynasty Bf Shell Primary 54mm Group E - [id number] IPM IMPLANT Left: MICROPORT 12/16/2024 [id number] / Implanted: Qty: 1 on 01/23/2017 by Isaac Borges MD at [facility] DEVICES Hip ORTHOPEDICS / [id number] Dynasty A-Class Standard Poly Liner - [id number] IPM IMPLANT Left: MICROPORT 10/28/2024 [id number] / Implanted: Qty: 1 on 01/23/2017 by Isaac Borges MD at [facility] DEVICES Hip ORTHOPEDICS / [id number] Femoral Head Biolox Delta Ceramic 08/17 L - [id number] IPM I MPLANT Left: MICROPORT 11/17/2024 [id number] / Implanted: Qty: 1 on 01/23/2017 by Isaac Borges MD at [facility] DEVICES Hip ORTHOPEDICS / [id number] Profemur Plasma Z Classic Stem Sz 6 Extended Short Neck - Lo [id number] IPM IMPLANT Left: MICROPORT 08/03/2024 [id number] / Implanted: Qty: 1 on 01/23/2017 by Isaac Borges MD at [facility] DEVICES Hip ORTHOPEDICS / [id number] Evolution Mp Cs Insert Size 5 Standard 10mm Right - [id number] IPM IMPLANT Right: MICROPORT 07/10/2026 [id number] / Implanted: 03/25/2020 at [facility] (Quantity not on file) DE S Knee ORTHOPEDICS / [id number] Evolutionmp Tibial Keeled Nonpor Size 5 Standard Right - Log [id number] IPM IMPLANT Right: MICROPORT 12/20/2027 [id number] / Implanted: 03/25/2020 at [facility] (Quantity not on file) MOORES Knee ORTHOPEDICS / [id number] Evolutionmp Femoral Cs/Cr Non-Por Size 5 Primary Right - Log [id number] IPM IMPLANT Right: MICROPORT 09/09/2027 [id number] / Implanted: 03/25/2020 at [facility] (Quantity not on file) MOORES Knee ORTHOPEDICS / [id number] Kit Shunt Crtd Artery Rdopq Line 6in Strl Negley - [id number] Surg ical Left: COVIDIEN LOPEZ 03/03/2019 [id number] / Implanted: Qty: 1 on 03/08/2016 by Cory Olivares MD at [facility] Implants; Neck HEALTHCARE / Expanders; [id number] Extenders; Surgical Wires Fabric Vasclr Grft Velour 3in 3in 0.8cm 7.6cm [place] [employer] - [id number] - [id number] Vascular Left: [facility] 07/04/2020 [id number] CPUT / Implanted: Qty: 1 on 03/08/2016 by Cory Olivares MD at [facility] Graft Neck KAYLIE [id number] / [id number] Fabric Vasclr Grft Velour 3in 3in 0.8cm 7.6cm [place] [employer] - [id number] - [id number] Vascular N/A: [facility] [facility] 05/05/2020 [id number] CPUT / Implanted: Qty: 1 on 04/18/2016 by Cory Olivares MD at [facility] Graft N/A KAYLIE [id number] / [id number] Procedures Procedure Name Priority Date/Time Associated Diagnosis Comme nts XR KNEE 3 VW RIGHT Routine 04/17/2020 11:23 S/P total knee Res ults for this AM CDT replacement, right procedure are in the results section. XR KNEE 1 OR 2 VW Routine 03/25/2020 4:33 Result s for this RIGHT PM CDT procedure are i n the results section. SURGICAL PATHOLOGY Routine 03/25/2020 3:04 Resul ts for this REQUEST PM CDT procedure are i n the results section. ESTIMATED GFR Routine 03/25/2020 1:51 Results fo r this PM CDT procedure are i n the results section. BASIC METABOLIC Routine 03/25/2020 1:51 Results for this PANEL PM CDT procedure are i n the results section. HC COMPLETE BLD Routine 03/25/2020 1:51 Results for this COUNT W/AUTO DIFF PM CDT procedure are in the results section. VA AN ELECTIVE Routine 03/25/2020 11:18 Results f or this ENDOTRACHEAL AIRWAY AM CDT procedur e are in the results section. ARTHROPLASTY, KNEE, 03/25/2020 10:50 Primary osteoarth ritis TOTAL AM CDT of right knee Special Needs OUTPATIENT, GENERAL, SHAVE P ATIENT, MICROPORT REP CONTACTED, SX ASST REENA CONTACTED, STANDARD OR DR. Gretchen Corral KNEE POSITIONER AND SIDE POST, DR. BORGES KNEE SPECIALS VA AN PERIPHERAL Routine 03/25/2020 8:52 Results for this BLOCK PROCEDURE FOR AM CDT procedur e are in PAIN the results section. VA AN PERIPHERAL Routine 03/25/2020 8:51 Results for this BLOCK PROCEDURE FOR AM CDT procedur e are in PAIN the results section. TYPE AND SCREEN Routine 03/20/2020 1:59 Primary osteoarthriti s Results for this PM CDT of right knee procedure are in the results section. HEMOGLOBIN A1C Routine 03/20/2020 1:29 Pre-op testing Results for this PM CDT procedure are i n the results section. COVID-19 QUALITATIVE Routine 03/20/2020 1:29 Pre-op testing R esults for this PCR PM CDT procedure are i n the results section. XR KNEE 4+ VW RIGHT Routine 11/08/2019 9:20 Acute pain of rig ht Results for this AM DIRECTOR OF RETAIL MERCHANDISING knee procedure are i n the results section. after 07/06/2019 Results XR Knee 3 Vw Right (04/17/2020 11:23 AM CDT) Specimen Narrative Performed At This result has an attachment that is no t available. X-ray of the right knee demonstrates a well-aligned and well-fixed HM RADIANT appearing total knee replacement with no evidence of w ear, osteolysis, or loosening. Performing Organization Address [facility] Phon e Number RADIANT [address] [place] [address] XR Knee 1 Or 2 Vw Right (03/25/2020 4:33 PM CDT) Specimen Narrative Performed At EXAMINATION: XR KNEE 1 OR 2 VW RIGHT HM RADIANT CLINICAL HISTORY: Post operative COMPARISON: Knee x-ray November 08, 2019 IMPRESSION: Interval right knee total arthroplasty with cruciate r etaining prosthesis. No evidence of immediate postoperative com plication. Soft tissue changes consistent with recent surgical manipul ation, vascular calcifications incidentally noted. [facility]-[id number] Dictated and approved by radiology transporter/fellow: Laurie Nagy M.D. I, Tye Strong, personally reviewed the images and r guille's/fellow's findings and agree with the final report. Procedure Note Interface, Radiology Results Incoming - 03/25/2020 4:51 PM CDT EXAMINATION: XR KNEE 1 OR 2 VW RIGHT CLINICAL HISTORY: Post operative COMPARISON: Knee x-ray November 08, 2019 IMPRESSION: Interval right knee total arthroplasty w ith cruciate retaining prosthesis. No evidence of immediate postoperative complication. Soft tissue changes consistent with recent surgical manipulation, vascular calcifications incidentally noted. [facility]-[id number] Dictated and approved by radiology resid ent/fellow: Barrington Nagy M.D. I, Tye Strong, personally reviewed th e images and resident's/fellow's findings and agree with the final report. Performing Organization Address City/[facility] Code Phon e Number RAD[facility] [address] [place] [address] Surgical pathology request (03/25/2020 3:04 PM CDT) [facility] DEPARTMENT OF PATHOLOGY AND GENOMIC MEDICINE Surgical pathology See link below [facility] DEPARTMENT OF report for PDF Lab PATHOLOGY AND Report GENOMIC MEDICINE Result status This is Final [facility] DEPARTMENT OF Report for PATHOLOGY AND [id number] GENOMIC MEDICINE Specimen Performing Organization Address City/State/ZIP Code Phon e Number [facility] DEPARTMENT [facility]OLOGY [address] [facility] [address] [place], [place] [address] AND GENOMIC MEDICINE Estimated GFR (03/25/2020 1:51 PM CDT) Pathologist [facility] Estimated GFR 87 mL/min/1.73 DOYLINE EPISCOPALIAN Comment: m2 [place] Catergory Units Interpretation [facility]ITAL G1 >=90 Normal or high G2 60-89 Mildly decreased G3a 45-59 Mildly to moderately decreas ed G3b 30-44 Moderately to severely decre ased G4 15-29 Severely decreased G5 <15 Kidney failure The eGFR was calculated using the Chronic Kidney Disea se Epidemiology Collaboration (CKD-EPI) equation. Interpretation is based on recommendations of the National Kidney Foundation-Kidney Disease Outcomes Tom lity Initiative (NKF-KDOQI) published in 2014. Specimen Performing Organization Address City/State/ZIP Code Phon e Number [facility] DEPARTMENT OF PATHOLOGY [address] [facility] [address] [place], [place] [address] AND GENOMIC MEDICINE [facility] [address] [facility] [address] [place] [address] [facility] CBC with platelet and differential (03/25/2020 1:51 PM CDT) Pathologist [facility] WBC 17.4 (H) 4.5 - 11.0 [facility] k[facility]uL [facility] RBC 4.29 4.20 - 5.50 DOYLINE EPISCOPALIAN M/uL [facility] HGB 13.6 (L) 14.0 - 18.0 [facility] g/dL [facility] HCT 41.0 37.0 - 47.0 % [facility] MCV 95.6 82.0 - 100.0 [facility] MCH 31.7 27.0 - 34.0 [facility] MCHC 33.2 31.0 - 37.0 [facility] g/dL [facility] RDW - SD 47.8 37.0 - 55.0 [facility] MPV 10.0 8.8 - 13.2 fL [facility] Platelet count 220 150 - 400 [facility] K/uL [facility] Nucleated RBC 0.00 /100 WBC [facility] Neutrophils 82.4 (H) 39.0 - 69.0 % [facility] Lymphocytes 13.7 (L) 25.0 - 45.0 % [facility] Monocytes 1.8 0.0 - 10.0 % [facility] Eosinophils 0.8 0.0 - 5.0 % [facility] Basophils 0.5 0.0 - 1.0 % [facility] Immature granulocytes 0.8Comment: 0.0 - 1.0 % [facility] "Immature [place] granulocytes" [facility] (promyelocyt es, myelocytes, metamyelocyte s) Specimen Blood Performing Organization Address [facility] Phon e Number [facility] DEPARTMENT OF PATHOLOGY [address] [place] [address] AND [employer]ray! [address] Basic metabolic panel (03/25/2020 1:51 PM CDT) Pathologist Sig nature Sodium 141 135 - 148 mEq/L [facility] Potassium 3.9 3.5 - 5.0 mEq/L [facility] Chloride 105 99 - 109 mEq/L [facility] CO2 23 (L) 24 - 31 mEq/L [facility] Anion gap 13@ANIO 7 - 15 mEq/L [facility] BUN 18 8 - 24 mg/dL [facility] Creatinine 0.60 0.50 - 0.90 mg/dL [facility] Glucose 156 (H) 65 - 99 mg/dL [facility] Calcium 8.3 (L) 8.6 - 10.6 mg/dL [facility] Specimen Blood Performing Organization Address [facility] Phon e Number [facility] DEPARTMENT OF PATHOLOGY [address] [place] [address] AND GENOMIC MEDICINE [address] Airway (03/25/2020 11:18 AM CDT) Narrative Performed At Brittanie Powell CRNA 03/25/2020 11:19 AM Airway Performed by: Brittanie Powell CRNA Authorized by: Too Golden MD Location: OR Urgency: Elective Difficult Airway: No Resident/ESCALATOR OPERATOR/AA: Brittanie Powell C RNA Preoxygenated with 100% O2: Yes C-spine Precautions Maintained Throughou t: Yes Mask Ventilation: Not attempted Final Airway Type: Endotracheal airway Final Endotracheal Airway: ETT Cuffed: Yes Technique Used: Video laryngoscopy Devices/Methods Used in Placement: Int ubating stylet Insertion Site: Oral Blade Type: Tamara (Relative.ai) Laryngoscope Blade/Videolaryngoscope Laureano de Size: 3 ETT Size (mm): 7.0 Cuff at minimum occlusion pressure: Yes Measured from: Lips ETT to Lips (cm): 21 Placement Verified by: CO2 detection, di rect visualization and equal breath sounds Laryngoscopic view: Grade IIa - partia l view of glottis Rapid Sequence Induction (RSI): Yes Modified RSI: No Number of Attempts at Approach: 1 Atraumatic, lips and gums intact and unchanged Peripheral Block ipack (03/25/2020 8:52 AM CDT) Narrative Performed At Too Golden MD 03/25/2020 10:0 6 AM Peripheral Block ipack Performed by: Too Golden MD Authorized by: Isaac Borges MD Patient Location: PACU Start Time: 03/25/2020 9:51 AM End Time: 03/25/2020 9:53 AM Reason for Block: at surgeon's request, post-op pain m anagement, procedure for pain Staff: Anesthesiologist: Too Golden MD Preprocedure: patient identified, IV lesa cked, site and side verified, risks and benefits discussed, procedure verified, surgical consent complete, patient position confirmed, mo nitors and equipment checked, pre-op evaluation complete and site tamara ed Peripheral Nerve Block: Patient Position: Supine Prep: ChloraPrep Monitoring: Blood pressure monitoring, continuous pulse oximetry, CO2 and heart rate Block Type: IPACK Laterality: Right Injection Technique: Single injection Procedures: ultrasound guided Ultrasound documentation: Printed/plac ed in chart Needle: Needle Type: Pajunk Needle Gauge: 21 G Needle length: 100mm. Assessment: Injection Assessment: Visualized needle/local ane sthetic surrounding nerve, visualized pertinent vascular str uctures and nerves, needle tip visualized at all times during injection of medication, no symptoms of intraneural/intravenous injection and intermittent asp iration during local anesthetic administration Paresthesia Pain: None Heart Rate Change: No Slow Fractionated Injection: Yes Block outcome: No apparent complica tions, patient comfortable and patient tolerated procedure well Peripheral Block AC (03/25/2020 8:51 AM CDT) Narrative Performed At Too Golden MD 03/25/2020 10:0 6 AM Peripheral Block AC Performed by: Too Golden MD Authorized by: Isaac Borges MD Patient Location: Pre-op Start Time: 03/25/2020 9:54 AM End Time: 03/25/2020 9:56 AM Reason for Block: at surgeon's request, post-op pain m anagement, procedure for pain Staff: Anesthesiologist: Too Golden MD Performed by: Anesthesiologist Preprocedure: patient identified, IV lesa cked, site and side verified, risks and benefits discussed, procedure verified, surgical consent complete, patient position confirmed, mo nitors and equipment checked, pre-op evaluation complete, site marked and timeout performed prior to procedure Peripheral Nerve Block: Patient Position: Supine Prep: ChloraPrep Monitoring: Blood pressure monitoring, continuous pulse oximetry, CO2 and heart rate Block Type: Adductor canal Laterality: Right Injection Technique: Single injection Procedures: ultrasound guided Ultrasound documentation: Printed/plac ed in chart Local Infiltration (See MAR for details) : Lidocaine Needle: Needle Type: Pajunk Needle Gauge: 21 G Needle length: 100mm. Assessment: Injection Assessment: Visualized needle/local ane sthetic surrounding nerve, visualized pertinent vascular str uctures and nerves, needle tip visualized at all times during injection of medication, no symptoms of intraneural/intravenous injection and intermittent asp iration during local anesthetic administration Paresthesia Pain: None Heart Rate Change: No Slow Fractionated Injection: Yes Block outcome: No apparent complica tions, patient comfortable and patient tolerated procedure well Type and screen (03/20/2020 1:59 PM CDT) Pathologist Sig nature ABO grouping A [facility] Rh type POS [facility] Antibody screen (gel) NEG [facility] Specimen Blood Performing Organization Address City/[facility] Phon e Number [facility] DEPARTMENT OF PATHOLOGY [address] [facility] [address] [address] [facility] [address] [facility] [address] [facility] [place] [address] [facility] COVID-19 qualitative PCR (03/20/2020 1:29 PM CDT) Interpretation Negative results do not prec lude 2019-nCoV infection and should not be used as the sole basis for treatment or other patient management decisions. Negative results must be combined with clinical observations, patient history, and epidemiological DOYLINE information. [facility] COVID-19 qualitative Not-Detected Not-Detecte DOYLINE PCR result d [facility] See link below for DOYLINE PCR PDF Lab EPISCOPALIAN ReportComment: Case [facility] Number: [id number] Specimen Nasopharyngeal swab Performing Organization Address [facility] Phon e Number [facility] DEPARTMENT OF PATHOLOGY AND [address] [place], [place] [address] [facility] [address] [place] [address] [facility] Hemoglobin A1c (03/20/2020 1:29 PM CDT) Hemoglobin A1C 5.6 4.0 - 5.6 % [facility] Comment: [place] HbA1c cutoffs for diagnosing diabetes: [facility] 4.0% - 5.6% = normal 5.7% - 6.4% = increased risk for diabetes (prediabetes )9 >=6.5% = diabetes9 Goals for glycemic control (ADA 2016) < 7.0% Target for non adults with diabetes. More or less stringent targets may be appropriate for individual patients. <7.5% Target for Children and adolescents with type 1 diabetes. Specimen Blood Performing Organization Address City/[facility] Phon e Number [facility] [address] [facility]. 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 X-rays of the right knee, 4 views were reviewed today. There is HM [facility] [id number] medial compartment arthritis with subchon dral sclerosis, subchondral cystic changes, varus malalignment, and tr icompartmental secondary changes including marginal osteophytes. Th ere is severe right and less severe left patellofemoral involvement. The re is also severe degenerative changes to the left knee. There is yuliya s demineralization of bone. Significant calcification of the popliteal art eries bilaterally. 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
--- OUTSIDE RECORDS SUMMARY | 2020-07-06 08:18 | XMS REPORT | Continuity of Care Document ---
:1940 Author Organization [facility] t Address [address] [place] [address] Dr. [address]. [address] [place] [address] Care Team Providers Name Role Phone Asked, Pcp Primary Care Physician Unavailable Corie Borges MD Attending Clinician Prisca CARTY Attending Clinician Unavailable Akila Turner Attending Clinician Lennox Wild NP Attending Clinician Fabio Golden MD Attending Clinician Provider Attending Clinician Unavailable KATERINA Admitting Clinician Unavailable Payers Payer Name Policy Type Policy Effective Date Expiration Date Sour ce Number MEDICAREMEDICARE PART [id number] 2006 Wilmer Hernandez AND 00:00:00 [facility]abaptist [id number] 2005- [place], [facility] HospitalGILSHBONWBSCBWxlegd48 [id number] 2018 Sandra matthews 4 2018-PresentMil 00:00:00 Met sheri itary Problems Condition Condition Condition Status Onset Resolution Last Treating Co mments Source Name Details Category Date Date Treatment Clinician Date Primary Primary Disease Active 2016-09 Overview: [place] osteoarthr osteoarthr 2-08 Added [facility] [place] itis of itis of 00:00: automatic st right knee right knee 00 ally from request for surgery [id number] Status Status Disease Active [place] post left post left 5-22 Meth dragan hip hip 00:00: st replacemen replacemen 00 t t Acute Acute Disease Active [place] blood loss blood loss 8-16 Me thodi anemia anemia 00:00: st 00 Hypophosph Hypophosph Disease Active H yo atemia atemia 8-16 Methodi 00:00: st 00 Stenosis Stenosis Disease Active [place] of carotid of carotid 8-15 Me thodi artery artery 00:00: st 00 Left Left Disease Active [place] carotid carotid 7-05 Method[facility] stenosis stenosis 00:00: st 00 Carotid Carotid Disease Active [place] artery artery 7-05 Method[facility] narrowing narrowing 00:00: st 00 HTN HTN Disease Active [place] (hypertens (hypertens 7-05 Me thodi ion) ion) 00:00: st 00 HLD HLD Disease Active [place] (hyperlipi (hyperlipi 7-05 Me thodi demia) demia) 00:00: st 00 Hyperglyce Hyperglyce Disease Active H lewiscassie sowmya due to sowmya due to 7-05 Me thodi type 2 type 2 00:00: st diabetes diabetes 00 mellitus mellitus 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 Diabetes Diabetes Disease Active 2013-09 [place] mellitus mellitus 2-18 Method i 00:00: st 00 Allergies, Adverse Reactions, Alerts Allergy Allergy Status Severity Reaction(s) Onset Inactive Treating Comm ents Source Name Type Date Date Clinician Cephalex Propensi Active Itching [place] in ty to 5-16 Methodi adverse 00:00: st reaction 00 s to drug Family History Family Member Diagnosis Comments Start Date Stop Date Source Natural brother Cancer Hewitt Bryan bryandragan Natural father Kidney disease Jack[place] n [facility]ab[facility] Natural mother Heart disease [place] [facility] Natural mother Heart failure [place] [facility] Social History Social Habit Start Date Stop Date Quantity Comments Source Sex Assigned At [facility] Cigarettes smoked 2020-05-29 2020-05-29 Kash Bronson current (pack per 00:00:00 00:00:00 day) - Reported Cigarette 2020-05-29 2020-05-29 Hewitt Michelle ist pack-years 00:00:00 00:00:00 Tobacco use and 2020-05-29 2020-05-29 Never used Kash Adams ethodist exposure 00:00:00 00:00:00 Alcohol intake 2020-05-29 2020-05-29 Current Kash Santoyo thodist 00:00:00 00:00:00 non-drinker of alcohol (finding) History of tobacco 2016-09-14 Current smoker Wil[place] meadows Anab[facility] use 00:00:00 Smoking Status Start Date Stop Date Source Former smoker 2020-05-29 00:00:00 2020-05-29 00:00:00 Kash Bronson Medications Ordered Filled Start Stop Current Ordering Indication Dosage Frequency Signature Comments Components Source Medication Medication Date Date Medication? Clinician (SIG) Name Name potassium 2019-0 Yes 10meq QD Take 10 [place] chloride 9-25 mEq by Methodi (K-DUR,KLOR 11:27: mouth st -CON) 10 40 daily. MEQ CR tablet furosemide 2019-0 Yes 40mg QD Take 40 mg [place] (LASIX) 20 9-25 by mouth Metho di MG tablet 11:27: daily. st 40 amLODIPine 2020-0 Yes 5mg QD Take 5 mg Ho abdiel (NORVASC) 5 9-25 by mouth Meth dragan MG tablet 11:27: nightly. st 40 atorvastati 2020-0 Yes 20mg Take 20 mg Hewitt n (LIPITOR) 9-25 by mouth. Met hodi 20 MG 11:27: st tablet 40 brimonidine 2020-0 Yes 1[drp] Q12H Administer [place] -timoloL 9-25 1 drop to Method i (COMBIGAN) 11:27: both eyes st 0.2-0.5 % 40 every 12 ophthalmic (twelve) solution hours. levothyroxi 2020-0 Yes 175ug QD Take 175 [place] ne 9-25 mcg by Methodi (SYNTHROID) 11:27: mouth st 175 mcg 40 daily. tablet haloperidoL 2020-0 Yes 1mg QD Take 1 mg [place] (HALDOL) 1 -25 by mouth Metho di MG tablet 11:27: nightly. st 40 traMADoL 2020-0 2019- No acute pain 50mg Q6H Take 50 mg Hewitt (ULTRAM) 50 05-06- by mouth Met hodi mg tablet 16:25: 00:[address] 49 :00 (six) hours as needed for moderate pain .acute pain. traMADoL 2019- No acute pain 50mg Q6H Take 1 [place] (ULTRAM) 50 05-06-12 tablet (50 M ethodi mg tablet 00:00: 23:59 mg total) st 00 :00 by mouth every 6 (six) hours as needed for moderate pain for up to 10 days .acute pain. clopidogreL Yes 75mg QD Take 1 [place] (Plavix) 75 7-23 tablet (75 Me thodi mg tablet 00:00: mg total) st 00 by mouth daily. Starting post-op day 1 aspirin 81 Yes 81mg QD Chew 1 [place] mg chewable 7-23 tablet (81 Me thodi tablet 00:00: mg total) st 00 daily. Starting post-op day 1 metoprolol No 12.5mg Q.5D Take 12.5 [place] tartrate 7- 07-22 mg by Methodi (LOPRESSOR) 14:50: 00:[address] 25 MG 30 :00 (two) tablet times a day. clopidogrel 2019- No 75mg Take 75 mg Hewitt bisulfate 03-25- by mouth. Meth dragan (PLAVIX 14:50: 00:00 st ORAL) 30 :00 aspirin 81 2019- No 81mg Chew 81 Sandra ston mg chewable 7-22 07-22 mg. Methodi tablet 14:50: 00:00 st 30 :00 metoprolol 2019- Yes 12.5mg Q.5D Take 0.5 [place] tartrate 7-22 tablets Methodi (LOPRESSOR) 00:00: (12.[address] 25 mg 00 total) by tablet mouth 2 (two) times a day. Hold for BP < 120/80 sennosides- 2020- No 1{tbl} QD Take 1 [place] docusate 7-22 07-22 tablet by Metho di sodium 00:00: 23:[address] (Senokot-S) 00 :00 daily. 8.6-50 mg per tablet gabapentin 2019- No 200mg [id number] Take 2 [place] (Neurontin) 03-25 [id number] capsules Methodi 100 mg 00:00: 00:00 3D ([address] capsule 00 :00 total) by mouth 3 (three) times a day. ondansetron 2019- No 4mg Q8H Take 1 Sandra ston (Zofran) 4 03-25 tablet (4 Met hodi MG tablet 00:00: 00:00 mg total) st 00 :00 by mouth every 8 (eight) hours as needed for nausea or vomiting. pantoprazol 2019- No 40mg QD Take 1 Sandra ston e 03-25 tablet (40 Methodi (Protonix) 00:00: 23:59 mg total) s t 40 MG EC 00 :00 by mouth tablet daily for 30 days. ibuprofen 2019- No 800mg Q6H Take 2 [place] (ADVIL) 400 03-25 tablets Meth dragan MG tablet 00:00: 23:59 ([address] 00 :00 total) by mouth every 6 (six) hours as needed for moderate pain for up to 30 days. oxyCODONE 2019- No acute pain 5mg Q6H Take 1 [place] (ROXICODONE 03-25 tablet (5 Me thodi ) 5 MG 00:00: 23:59 mg total) st immediate 00 :00 by mouth release every 6 tablet (six) hours as needed for moderate pain or severe pain for up to 7 days .acute pain. Max Daily Amount: 20 mg haloperidol 2019- No 1mg QD Take 1 mg Kash (HALDOL) 2 03-23-20 by mouth Meth dragan MG tablet 17:13: 00:[address] 37 :00 metFORMIN 2019-2019- No 500mg Take 500 [place] (GLUCOPHAGE 7-20 07-20 mg by Method i ) 500 MG 17:12: 00:[address] tablet 35 :00 levothyroxi 2019- No Take by [place] ne sodium -20 07-20 mouth. Methodi (TIROSINT) 17:12: 00:00 st 150 mcg 00 :00 capsule mupirocin 2019- No Primary Apply to [place] (BACTROBAN) 02-05 06-11 osteoarthri the inside Methodi 2 % 00:00: 23:59 tis of of each st ointment 00 :00 right knee nostril BID 5 days prior to surgery traMADoL 2019- No acute pain acute [place] (ULTRAM) 50 5-18 05-21 pain. 1 po M ethodi mg tablet 00:00: 23:[address] 00 :00 prn pain traMADoL 2019- No [facility] 50 4-20 04-30 pain. 1 po M ethodi mg tablet 00:00: 23:[address] 00 :00 prn traMADoL 2019- No acute pain 50mg Q6H Take 1 [place] (ULTRAM) 50 3-27 04-24 tablet (50 M ethodi mg tablet 00:00: 23:59 mg total) st 00 :00 by mouth every 6 (six) hours as needed for moderate pain for up to 28 days .acute pain. Vital Signs Vital Name Observation Time Observation Value Comments Source Body height 2020-05-29 11:27:00 167.6 cm Kash Bronson Body weight 2020-05-29 11:27:00 65.772 kg Kash Bronson BMI 2020-05-29 11:27:00 23.40 kg/m2 Kash Bronson Systolic blood 2020-03-25 19:35:00 116 mm[Hg] Jackito n Anab[facility]ist pressure Diastolic blood 2020-03-25 19:35:00 61 mm[Hg] [place] [facility]ab[facility]ist pressure Heart rate 2020-03-25 19:35:00 86 /min Kash Bronson Body temperature 2020-03-25 19:35:00 36.61 Jen [place] [facility] Respiratory rate 2020-03-25 19:35:00 19 /min [place] [facility] Oxygen saturation in 2020-03-25 19:35:00 95 /min Kash Bronson Arterial blood by Pulse oximetry Procedures Procedure Date / Time Performed Performing Clinician Jone e XR KNEE 3 VW RIGHT 2020-04-17 11:23:54 Isaac Borges ethodist XR KNEE 1 OR 2 VW RIGHT 2020-03-25 16:33:34 Stella Chisholm SURGICAL PATHOLOGY 2020-03-25 15:04:00 Isaac Borges ethodist REQUEST HC COMPLETE BLD COUNT 2020-03-25 13:51:00 Stella Chisholm W/AUTO DIFF Akila BASIC METABOLIC PANEL 2020-03-25 13:51:00 Stella Chisholm ESTIMATED GFR 2020-03-25 13:51:00 Stella Chisholm Nc thodist Akila DC AN ELECTIVE 2020-03-25 11:18:17 Brittanie Powell Nc thodist ENDOTRACHEAL AIRWAY ARTHROPLASTY, KNEE, 2020-03-25 10:50:00 Isaac Borges TOTAL DC AN PERIPHERAL BLOCK 2020-03-25 08:52:34 Too Golden on Anabaptist PROCEDURE FOR PAIN DC AN PERIPHERAL BLOCK 2020-03-25 08:51:26 Too Golden on Anabaptist PROCEDURE FOR PAIN TYPE AND SCREEN 2020-03-20 13:59:00 Isaac Borges Meth odist COVID-19 QUALITATIVE PCR 2020-03-20 13:29:00 Isaac Borges stokaylie Bronson HEMOGLOBIN A1C 2020-03-20 13:29:00 Tawnya Means on Anabaptist XR KNEE 4+ VW RIGHT 2019-11-08 09:20:28 Isaac Borges Plan of Care Planned Activity Planned Date Details Comments Source Future Scheduled 2020-04-04 INFLUENZA VACCINE [facility] n [facility] Test 00:00:00 [code = INFLUENZA VACCINE] Future Scheduled 2006 65+ PNEUMOCOCCAL aKsh Anabaptist Test 00:00:00 VACCINE (1 of 1 - PPSV23) [code = 65+ PNEUMOCOCCAL VACCINE (1 of 1 - PPSV23)] Future Scheduled 1991 SHINGLES VACCINES (#1) [place] [facility] Test 00:00:00 [code = SHINGLES VACCINES (#1)] Future Scheduled 1951 DIABETES: RETINAL EYE Ho [place]diel [facility] Test 00:00:00 EXAM [code = DIABETES: RETINAL EYE EXAM] Future Scheduled 1951 DIABETIC FOOT EXAM [place] [facility] Test 00:00:00 [code = DIABETIC FOOT EXAM] Future Scheduled 1950 URINE MICROALBUMIN [place] [facility] Test 00:00:00 [code = URINE MICROALBUMIN] Encounters Start End Encounter Admission Attending Care Care Encounter Source Date/Time Date/Time Type Type Clinicians Facility Department ID 2020-05-29 2020-05-29 Outpatient ISAAC BORGES [facility] [id number] [place] 00:00:00 00:00:[address] 2020-04-17 2020-04-17 Outpatient ISAAC BORGES [facility] [id number] [place] 00:00:00 00:00:[address] 2020-04-17 2020-04-17 Outpatient ISAAC BORGES [facility] [id number] [place] 00:00:00 00:00:[address] 2020-04-03 2020-04-03 Outpatient [facility] [id number] [place] 00:00:00 00:00:[address] 2020-03-30 2020-03-30 Outpatient [facility] [id number] [place] 00:00:00 00:00:[address] 2020-03-25 2020-03-25 Outpatient ISAAC BORGES [facility] [id number] [place] 00:00:00 00:00:[address] 2020-03-25 2020-03-25 Outpatient ISAAC BORGES [place] [id number] [place] 00:00:00 00:00:[address] 2020-03-20 2020-03-20 Outpatient ISAAC BORGES [facility] [id number] [place] 00:00:00 00:00:[address] 2020-03-12 2020-03-12 Outpatient [facility] [id number] [place] 00:00:00 00:00:[address] 2019-11-08 2019-11-08 Outpatient ISAAC BORGES [facility] [id number] [place] 00:00:00 00:00:[address] 2019-11-08 2019-11-08 Outpatient ISAAC BORGES [facility] [id number] [place] 00:00:00 00:00:[address] Results Test Description Test Time Test Comments Results Result Comments Source Surgical pathology request 2020-03-30 17:02:18 Test Item Value Reference Range Interpretation Comme nts Case number (test code = 3936518) [id number] Surgical pathology report (test code = See link below for PDF Lab R eport 6227) Result status (test code = 0087732) This is Final Report for [id number] [place] MethodistXR Knee 1 Or 2 Vw Hahrj1723-12-32 16:48:44Hm Interface, Radiology Results 03/25/2020 4:51 PM CDTEXAMINATION: XR KNEE 1 OR 2 VW RIGHTCLINICAL HISTORY: Post operativeCOMPARISON: Knee x-ray November 08, 2019IMPRESSION:Interval right knee total arthroplasty with cruciate retaining prosthesis. No evidence of immediate postoperative complication. Soft tissue changes consistent with recent surgical manipulation, vascular calcifications in cidentally noted.[facility]-[id number] and approved by residential property tax appraiser/fellow: Barrington Nagy M.D.I, Tye Strong, personally reviewed the images and resident's/fellow's findings and agree with the final report. [place] MethodistBasic metabolic [id number] 14:19:25 Test Item Value Reference Range Interpretation Comments Sodium (test code = 2951-2) 141 135- 148 mEq/L Potassium (test code = 2823-3) 3.9 3.5- 5.0 mEq/L Chloride (test code = 2075-0) 105 99- 109 mEq/L CO2 (test code = 8-9) 23 24- 31 mEq/L L Anion gap (test code = 94753-3) 13@ANIO 7- 15 mEq/L BUN (test code = 3094-0) 18 mg/dL 8-24 Creatinine (test code = 2160-0) 0.60 mg/dL 0.5-0.9 Glucose (test code = 2345-7) 156 mg/dL 65-99 H Calcium (test code = 31289-1) 8.3 mg/dL 8.6-10.6 L Lab Interpretation (test code = Abnormal 43959-4) [place] MethodistEstimated [id number] 14:19:24 Test Item Value Reference Range Interpretation Comments Estimated GFR (test 87 mL/min/1.73 m2 [facility] Units code = 5488) InterpretationG 1 >=90 Normal or highG2 60-89 Mildly jwqfdyrixG8a 45-59 Mildly to mode rately qpnggvqyvN0e 30-44 Moderately to severely decreasedG4 15-29 Severely decre asedG5 <15 Kidn ey failureThe eGFR was calculated sadie g the Chronic Kidney Disease Epidemiology Co llaboration (CKD-EPI) equat ion. Interpretation is based on recommendations of the National Kidney Foundation-Kidn ey Disease Outcomes Qualit y Initiative (NKF-KDOQI) pub lished in 2014. [place] MethodistCBC with platelet and [id number] 14:03:38 Test Item Value Reference Range Interpretation Comments WBC (test code = 69568-2) 17.4 4.5- 11.0 k/uL H RBC (test code = 31092-9) 4.29 4.20- 5.50 M/uL HGB (test code = 718-7) 13.6 g/dL 14-18 L HCT (test code = 4544-3) 41.0 % 37-47 MCV (test code = 787-2) 95.6 fL 82-100 MCH (test code = 785-6) 31.7 pg 27-34 MCHC (test code = 786-4) 33.2 g/dL 31-37 RDW - SD (test code = 47.8 fL 37-55 16369-5) MPV (test code = 41390-4) 10.0 fL 8.8-13.2 Platelet count (test code 220 K/uL 150-400 = 66204-2) Nucleated RBC (test code 0.00 /100 WBC = 56231-7) Neutrophils (test code = 82.4 % 39-69 H 95835-2) Lymphocytes (test code = 13.7 % 25-45 L 57544-8) Monocytes (test code = 1.8 % 0-10 60229-6) Eosinophils (test code = 0.8 % 0-5 59577-3) Basophils (test code = 0.5 % 0-1 88736-6) Immature granulocytes 0.8 % 0-1 "Immat ure (test code = 80604-3) granul ocytes" (promyelocytes, myelocytes, metamyelocytes) Lab Interpretation (test Abnormal code = 05127-7) Kash [id number] 11:18:17TrBrittanie vu, LANDFILL ATTENDANT 03/25/2020 11:19 AMAirwayPerformed by: Brittanie Powell, CRNAAuthorized by: Too Golden MD Location: ORUrgency: ElectiveDifficult Airway: No Resident/LANDFILL ATTENDANT/AA: Brittanie Powell CRNAPreoxygenated with 100% O2: Yes C- spine Precautions Maintained Throughout: Yes Mask Ventilation: Not attemptedFinal Airway Type: Endotracheal airwayFinal Endotracheal Airway: ETTC uffed: Yes Technique Used: Video laryngoscopyDevices/Methods Used in Placement: Intubating styletInsertion Site: OralBlade Type: Tamara (Flipaste)Laryngoscope Blade/Videolaryngoscope Blade Size: 3ETT Size (mm): 7.0Cuff at minimum occlusion pressure: Yes Measured from: LipsETT to Lips (cm):21Placement Verified by: CO2 detection, direct visualization and equal breath sounds Laryngoscopic view: Grade IIa - partial view of glottisRapid Sequence Induction (RSI): Yes Modified RSI: No Number of Attempts at Approach: 1 Atraumatic, lips and gums intact and unchangedHouston MethodistPeripheral Block [id number] 08:52:34Too Golden MD 03/25/2020 10:06 AMPeripheral Block ipackPerformed by: Too Golden MDAuthorized by: Isaac Borges MD Patient Location: PACUStart Time: 03/25/2020 9:51 AMEnd Time: 03/25/2020 9:53 AMReason for Block: at surgeon's request, post-op pain management, procedure for pain Staff: Anesthesiologist: Too Golden MDPreprocedure: patient identified, IV checked, site and side verified, risks and benefits discussed, procedure verified, surgical consent complete, patient position confirmed, monitors and equipment checked, pre-op evaluation complete and site marked Peripheral Nerve Block: Patient Position: Supine Prep: ChloraPrep Monitoring: Blood pressure monitoring, continuous pulse oximetry, CO2 and heart rateBlock Type: IPACKLaterality: RightInjection Technique: Single injectionProcedures: ultrasound guided Ultrasound documentation: Printed/placed in chartNeedle: Needle Type: Ino Needle Gauge: 21 G Needle length: 100mm.Assessment: Injection Assessment: Visualized needle/local anesthetic surrounding nerve, visualized pertinent vascular struc tures and nerves, needle tip visualized at all times during injection of medication, no symptoms of intraneural/intravenous injection and intermittent aspiration during local anesthetic administrationParesthesia Pain: None Heart Rate Change: No Slow Fractionated Injection: Yes Block outcome: No apparent complications, patient comfortable and patient tolerated procedure well [place] MethodistPeripheral Block [id number] 08:51:26Too Golden MD 03/25/2020 10:06 AMPeripheral Block ACPerformed by: Too Golden MDAuthor ized by: Isaac Borges MD Patient Location: Pre-opStart Time: 03/25/2020 9:54 AMEnd Time: 03/25/2020 9:56 AMReason for Block: at surgeon's request, post- op pain management, procedure for pain Staff: Anesthesiologist: Too Golden MD Performed by: AnesthesiologistPreprocedure: patient identified, IV checked, site and side verified, risks and benefits discussed, procedure verified, surgical consent complete, patient position confirmed, monitors and equipment checked, pre-op evaluation complete, site marked and timeout performed prior to procedure Peripheral Nerve Block: Patient Position: Supine Prep: ChloraPrep Monitoring: Blood pressure monitoring, continuous pulse oximetry, CO2 and heart rateBlock Type: Adductor canalLaterality: RightInjection Technique: Single injectionProcedures: ultrasound guided Ultrasound documentation: Printed/placed in chartLocal Infiltration (See MAR for details): LidocaineNeedle: Needle Type: Ino Needle Gauge: 21 G Needle length: 1 00mm.Assessment: Injection Assessment: Visualized needle/local anesthetic surrounding nerve, visualized pertinent vascular structures and nerves, needle tip visualized at all times during injection of medication, no symptoms of intraneural/intravenous injection and intermittent aspiration during local anesthetic administration Paresthesia Pain: None Heart Rate Change: No Slow Fractionated Injection: Yes Block outcome: No apparent complications, patient comfortable and patient tolerated procedure wellW[place] [facility]
[2020-07-06] MEDS: Ringers Lactate 1,000 ML IV ONE (09:00)
[2020-07-06] MEDS ORDERED: CIPROFLOXACIN 400mg IV 400 MG/200 ML BAG IV ONE (09:25)
[2020-07-06] MEDS ORDERED: FENTANYL CITR 100 MCG/2 ML ONE (09:29)
[2020-07-06] MEDS ORDERED: LIDOCAINE 2% MPF 5 ML VIAL ONE (09:29)
[2020-07-06] MEDS ORDERED: KETOROLAC 30 MG/ML INJ ONE (09:29)
[2020-07-06] MEDS ORDERED: propofoL 200 MG/20 ML VIAL IV ONE (09:29)
[2020-07-06] MEDS ORDERED: ONDANSETRON 4 MG/2 ML VIAL ONE (09:30)
[2020-07-06] MEDS ORDERED: LIDOCAINE 1% MPF 30 ML VIAL ONE (09:48)
--- NOTE | 2020-07-06 11:00 | OP ---
Date of Procedure: 07/06/2020 Surgeon: Mitesh Olivier MD Grill Chef: LUCI Betancourt. Preoperative Diagnosis: Vision changes in left eye, rule out temporal arteritis. Postoperative Diagnosis: Vision changes in left eye, rule out temporal arteritis. Procedure: Left temporal artery biopsy. Estimated Blood Loss: Minimal. Specimen: Left temporal artery. Findings: As above. Anesthesia: MAC. Complications: None. The patient tolerated the procedure in stable condition, taken to Recovery in good general condition. Procedure In Detail: The patient was brought to the OR and placed in supine position. MAC anesthesi a was begun. The patient was prepped and draped in the usual sterile fashion and then lidocaine 1% i nfiltrated locally after doppler device was used to isolate the branch of the temporal artery anterio r and superior to the left ear and then a 4 cm incision was made. Subcutaneous tissue was divided. A branch of temporal artery was identified, proximal and distal control obtained with sharp and blunt dissection and then 4 cm segment excised, sent to Pathology, and then 4-0 silk used to tie off both ends. Wound was irrigated. Bleeding was controlled with cautery and 4-0 chromic was used to approxi mate the subcutaneous tissue and close the skin. Sterile dressing was applied. Patient was awakened and taken to Recovery in good general condition. Discharge Note: The patient will go to Day Surgery and home when stable. Disposition: Home. Condition: Stable. Discharge Instructions: Resume home medications and diet. Activity as tolerated. No heavy lifting. Remove outer dressing in 2 days. Shower. Keep Steri-Strips on at all times. Follow up in my offi ce in 2 weeks. Call for appointment. Tylenol No.3 one tablet p.o. q.4 p.r.n. pain. Follow up with Dr. Manuel in 1 week. /MIGUEL ANGELL Voice ID: [id number] Report ID: [id number]
[2020-07-06 11:11] VITALS: BP 159/78; TEMP 98.6; O2SAT 100
== END 2020-07-06 11:10 | disposition home or self-care (01) ==
LOC: OR 08:04
PROVIDERS: ATTEND Surgery
PROC: 03BT0ZX Excision of Left Temporal Artery, Open Approach, Diagnostic (ICD-10-PCS; principal; 2020-07-06 09:45)
DX: H53.9 Unspecified visual disturbance (principal); I10 Essential (primary) hypertension; I25.10 Atherosclerotic heart disease of native coronary artery without angina pectoris; I25.2 Old myocardial infarction; E07.9 Disorder of thyroid, unspecified; Z88.1 Allergy status to other antibiotic agents; Z20.828 Contact with and (suspected) exposure to other viral communicable diseases
CPT/HCPCS: 80048; 36415; 88305; 37609; U0002; J2704; J3010; J7120; J2405; J0744

== ENCOUNTER 2020-10-11 20:10 | Emergency (ER) | payer OTHER ==
--- OUTSIDE RECORDS SUMMARY | 2020-10-11 20:13 | XMS REPORT | Clinical Summary ---
:1940 Author Organization [facility] Address [address] [place] [address] Care Team Providers Name Role Phone Asked, [...] total) 0 daily. Starting post-op day 1 predniSONE Take 20 mg by 0 Activ e (DELTASONE) 20 mg mouth 2 (two) 0 tabletIndications: times a day. Temporal arteritis (HCC) omeprazole Take 20 mg by 0 Activ e (PriLOSEC) 20 MG mouth daily. 0 capsule brimonidine Administer 1 0 Activ e (ALPHAGAN) 0.15 % drop to both 0 ophthalmic solution eyes every 12 (twelve) hours. nitroglycerin PLACE 1 TABLET 0 A ctive (NITROSTAT) 0.4 MG UNDER THE 0 SL tablet TONGUE NEEDED FOR CHEST PAIN metoprolol tartrate Take 12.5 mg 0 0 [...] hours as needed for nausea or vomiting. sennosides-docusate Take 1 tablet 30 tablet 11 Discontinued sodium (Senokot-S) by mouth 0 20 8.6-50 mg per daily. tablet ibuprofen (ADVIL) Take 2 tablets 90 tablet [...] for up to 10 days .acute pain. traMADoL (ULTRAM) Take 1 tablet 30 tablet 0 08/17/20 50 mg (50 mg total) 0 20 tabletIndications: by mouth every acute pain 6 (six) hours as needed for moderate pain for up to 10 days .acute pain. traMADoL (ULTRAM) Take 1 tablet 5 tablet 0 08/31/20 50 mg (50 mg total) 0 20 tabletIndications: by mouth every acute pain 8 (eight) hours as needed for moderate pain for up to 10 days .acute pain. Active Problems Problem Noted Date Primary osteoarthritis of right knee 08/11/2017 Overview: Added automatically from request for bridget fiore [id number] Status post left hip replacement 01/23/2017 Acute blood loss anemia 04/19/2016 Hypophosphatemia 04/19/2016 Stenosis of carotid artery 04/18/2016 Left carotid stenosis 03/08/2016 Carotid artery narrowing 03/08/2016 HTN (hypertension) 03/08/2016 HLD (hyperlipidemia) 03/08/2016 Hyperglycemia due to type 2 diabetes mellitus 03/08/20 16 Coronary arteriosclerosis in douglas artery 03/08/2016 S/P carotid endarterectomy 03/08/2016 Benign essential hypertension 08/21/2014 Pure hypercholesterolemia 08/21/2014 Overview: Overview: No recent lipids. Diabetes mellitus 08/21/2014 Encounters Date Type Specialty Care Team Description 08/21/2020 Office Visit Rheumatology Bob Garcia ([facility]) (Primary Dx); MD Clara Acute intractab le headache, unspecified headache type; Double vision; Elevated C-reac tive protein (CRP); Spondylosis of lumbar region without myelopathy or radiculopathy; Spondylosis of cervical region without myelopathy or radiculopathy; Encounter for l jeremie-term (current) use of high-risk medication; Chronic fatigue ; Weight loss 08/21/2020 Travel 08/21/2020 Refill Orthopedic Surgery Kya Cope MA 08/07/2020 Refill Orthopedic Surgery Kya Cope MA 05/29/2020 Office Visit Orthopedic Surgery Isaac Borges MD replacement, ri ght (Primary Dx) 05/29/2020 Travel 05/06/2020 Refill Orthopedic Surgery Kya Cope MA 04/17/2020 Office Visit Orthopedic Surgery Isaac Borges MD replacement, ri ght (Primary Dx) 04/17/2020 Travel 04/03/2020 Travel 03/30/2020 Travel 03/27/2020 Travel 03/27/2020 Telephone Orthopedic Surgery Stella Chisholm PA 03/26/2020 Telephone Orthopedic Surgery Stella Chisholm PA 03/26/2020 Telephone Anesthesiology Manuela Wild NP 03/25/2020 Anesthesia Event General Surgery Too Golden MD [place], Laverne Denecia, NP 03/25/2020 Surgery General Surgery Isaac Borges RIGHT [...] Borges MD 12/23/2019 Orders Only Orthopedic Surgery PriscaKya lindo MA 12/19/2019 Telephone Orthopedic Surgery Isaac Borges [...] Telephone Orthopedic Surgery Isaac Borges MD after 10/11/2019 Surgical History Surgery Date Site/Laterality Comments CORONARY ANGIOPLASTY CARDIAC CATHETERIZATION CHOLECYSTECTOMY CHG ANGIO EXT CAROTD UNI SELECT 02/23/2016 N/A Procedure: Cv arteriogram N/A carotid single; Surgeon: Venita Graves MD ; Location: [facility]; Service: Cardiov ascular NC CATH PLACEMENT & NJX CORONARY 02/23/2016 N/A Procedure: Cv selective ART ANGIO IMG S&I N/A coronary angio graphy; Surgeon: Venita Graves MD; Location: [facility]; Service: Cardiov ascular NC THROMBOENDARTECTMY NECK,NECK 03/08/2016 Neck/Left Procedure: LEFT CAROTID INCIS ENDARTERECTOMY; Surgeon: Cory Olivares MD; Location: [facility] OR; Service: Thoraci c Medical devices from this surgery are in t he Implants section. ENDARTERECTOMY, CAROTID 04/18/2016 Neck/Right Procedur e: RIGHT CAROTID ENDARTERECTOMY, EXCISION OF KERATIN HORN RIG HT AXILLA; Surgeon: Cory Olivares MD; Location: [facility] OR; Service: oracic; Laterality: Righ t; Medical devices from this surgery are in t he Implants section. ARTHROSCOPY, HIP 01/23/2017 Hip/Left Procedure: LEFT TOTAL HIP REPLACEMENT; Beard rgeon: Isaac Borges MD; Location: [facility]; Service: Orthope dics; Laterality: Left ; Medical devices from this surgery are in t he Implants section. ARTHROPLASTY, KNEE, TOTAL 03/25/2020 Knee/Right Proced ure: RIGHT TOTAL KNEE REPLACEMENT; Beard rgeon: Isaac Borges MD; Location: [facility]; Servic e: Orthopedics; La terality: Right; Medical devices from this surgery are in t he Implants section. ARTHROPLASTY, HIP, TOTAL Right Medical History Medical History Date Comments Hypertension Hyperlipidemia Coronary artery disease Myocardial infarction (HCC) 2012 Wears glasses Immunizations reviewed and up to date 01/17/2017 Wears partial dentures Family History Medical History Relation Name Comments Prostate cancer Brother Kidney disease Father Heart disease Mother Heart failure Mother Hypertension Sister Relation Name Status Comments Brother Father Mother Sister Alive Social History Tobacco Use Types Packs/Day Years Used Date Current Some Day Smoker Cigarettes 1 50 Quit : 09/14/2016 Smokeless Tobacco: Never Used Alcohol Use Drinks/Week oz/Week Comments No Sex Assigned at Date Recorded Not on file Job Start Date Occupation Industry Not on file Not on file Not on file Obstetrics History Grav Para Term Pre Abrt (TAB) (SAB) (Ect) Mult Lvng Comments 5 5 Date Outcome GA Total Labor/2nd/3rd Weight Sex Delivery Anes PTL Rosanna A 1 A5 Name Clin Labor Para Para Para Para Para Last Filed Vital Signs Vital Sign Reading Time Taken Comments Blood Pressure 126/68 08/21/2020 2:56 PM CREDIT NEGOTIATOR Pulse 71 08/21/2020 2:56 PM CREDIT NEGOTIATOR Temperature 36.6 C (97.9 F) 03/25/2020 7:35 PM CDT Respiratory Rate 18 08/21/2020 2:56 PM CREDIT NEGOTIATOR Oxygen Saturation 96% 08/21/2020 2:56 PM CREDIT NEGOTIATOR Inhaled Oxygen Concentration - - Weight 60.8 kg (134 lb) 08/21/2020 2:56 PM CREDIT NEGOTIATOR Height 167.6 cm (5' 6") 08/21/2020 2:56 PM CREDIT NEGOTIATOR Body Mass Index 21.63 08/21/2020 2:56 PM CREDIT NEGOTIATOR Plan of Treatment Date Type Specialty Care Team Description 10/20/2020 Clinical Support Internal Medicine Health Maintenance Due Date Last Done Comments DIABETES: RETINAL EYE EXAM 1951 DIABETIC FOOT EXAM 1950 URINE MICROALBUMIN 1951 COVID-19 VACCINE (1 of 2) 1957 HEPATITIS C SCREENING 1959 SHINGLES VACCINES (#1) 1991 65+ PNEUMOCOCCAL VACCINE (1 of 1 - PPSV23) 2006 INFLUENZA VACCINE 04/04/2020 Implants Implanted Type Area Crew Dispatcher Device Shelf Model / Identifier Expiration Serial / Lot Date Cement Bone 40gr Smartset Mv Endurance - [id number] Bone Screw Right: DEPUY 02/01/2021 [id number] / Implanted: 03/25/2020 at [facility] (Quantity not on file) Knee ORTHO-KNEES / [id number] Dynasty Bf Shell Primary 54mm Group E - [id number] IPM IMPLANT Left: MICROPORT 12/16/2024 [id number] / Implanted: Qty: 1 on 01/23/2017 by Isaac Borges MD at [facility] DEVICES Hip ORTHOPEDICS / [id number] Dynasty A-Class Standard Poly Liner - [id number] IPM IMPLANT Left: MICROPORT 10/28/2024 [id number] / Implanted: Qty: 1 on 01/23/2017 by Isaac Borges MD at [facility] DEVICES Hip ORTHOPEDICS / [id number] Femoral Head Biolox Delta Ceramic 08/17 L - [id number] IPM I MPLANT Left: MICROPORT 11/17/2024 [id number] / Implanted: Qty: 1 on 01/23/2017 by Isaac Borges MD at [facility] DEVICES Hip ORTHOPEDICS / [id number] Profemur Plasma Z Classic Stem Sz 6 Extended Short Neck - Lo [id number] IPM IMPLANT Left: MICROPORT 08/03/2024 [id number] / Implanted: Qty: 1 on 01/23/2017 by Isaac Borges MD at [facility] DEVICES Hip ORTHOPEDICS / [id number] Evolution Mp Cs Insert Size 5 Standard 10mm Right - [id number] IPM IMPLANT Right: MICROPORT 07/10/2026 [id number] / Implanted: 03/25/2020 at [facility] (Quantity not on file) DE VICES Knee ORTHOPEDICS / [id number] Evolutionmp Tibial Keeled Nonpor Size 5 Standard Right - Log [id number] IPM IMPLANT Right: MICROPORT 12/20/2027 [id number] / Implanted: 03/25/2020 at [facility] (Quantity not on file) DE VICES Knee ORTHOPEDICS / [id number] Evolutionmp Femoral Cs/Cr Non-Por Size 5 Primary Right - Log [id number] IPM IMPLANT Right: MICROPORT 09/09/2027 [id number] / Implanted: 03/25/2020 at [facility] (Quantity not on file) DE VICES Knee ORTHOPEDICS / [id number] Kit Shunt Crtd Artery Rdopq Line 6in Strl [place] - [id number] Surg ical Left: COVIDIEN LOPEZ 03/03/2019 [id number] / Implanted: Qty: 1 on 03/08/2016 by Cory Olivares MD at [facility] Implants; Neck HEALTHCARE / Expanders; [id number] Extenders; Surgical Wires Fabric Vasclr Raphael Velour 3in 3in 0.8cm 7.6cm [place] [employer] - [id number] - [id number] Vascular Left: [facility] 07/04/2020 [id number] CPUT / Implanted: Qty: 1 on 03/08/2016 by Cory Olivares MD at [facility] Graft Neck KAYLIE [id number] / [id number] Fabric Vasclr Grft Velour 3in 3in 0.8cm 7.6cm [place] [employer] - [id number] - [id number] Vascular N/A: [facility] 05/05/2020 [id number] CPUT / Implanted: Qty: 1 on 04/18/2016 by Cory Olivares MD at [facility] Graft N/A KAYLIE [id number] / [id number] Procedures Procedure Name Priority Date/Time [...] CDT procedure are in the results section. NC AN ELECTIVE Routine 03/25/2020 11:18 Results f or this ENDOTRACHEAL AIRWAY AM CDT procedur e are in the results section. ARTHROPLASTY, KNEE, 03/25/2020 10:50 Primary osteoarth ritis TOTAL AM CDT of right knee Special Needs OUTPATIENT, GENERAL, SHAVE P ATIENT, MICROPORT REP CONTACTED, SX ASST REENA CONTACTED, STANDARD OR DR. Gretchen Corral KNEE POSITIONER AND SIDE POST, DR. BORGES KNEE SPECIALS NC AN PERIPHERAL Routine 03/25/2020 8:52 Results for this BLOCK PROCEDURE FOR AM CDT procedur e are in PAIN the results section. NC AN PERIPHERAL Routine 03/25/2020 8:51 Results for [...] of rig ht Results for this AM CREDIT NEGOTIATOR knee procedure are i n the results section. after 10/11/2019 Results XR Knee 3 Vw Right (04/17/2020 11:23 AM CDT) Specimen Narrative Performed At This result has an attachment that is no t available. X-ray of the right knee demonstrates a well-aligned and well-fixed HM RADIANT appearing total knee replacement with no evidence of w ear, osteolysis, or loosening. Performing Organization Address City/[facility] Code Phon e Number RADIANT [address] [place] [address] XR Knee 1 Or 2 Vw Right (03/25/2020 4:33 PM CDT) Specimen Narrative Performed At EXAMINATION: XR KNEE 1 OR 2 VW RIGHT RADIANT CLINICAL HISTORY: Post operative COMPARISON: Knee x-ray November 08, 2019 IMPRESSION: Interval right knee total arthroplasty with cruciate r etaining prosthesis. No evidence of immediate postoperative com plication. Soft tissue changes consistent with recent surgical manipul ation, vascular calcifications incidentally noted. [facility]-[id number] Dictated and approved by residential real estate agent/fellow: Laurie Nagy M.D. I, Tye Strong, personally reviewed the images and r esident's/fellow's findings and agree with the final report. [...] recent surgical manipulation, vascular calcifications incidentally noted. [facility]-[id number] Dictated and approved by radiology resid ent/fellow: Barrington Nagy M.D. I, Tye Strong, personally reviewed th e images and resident's/fellow's findings and agree with the final report. Performing Organization Address City/[facility]/ZIP Code Phon e Number RADIANT [address] [place] [address] Surgical pathology request (03/25/2020 3:04 PM CDT) [facility] DEPARTMENT OF PATHOLOGY AND GENOMIC MEDICINE Surgical pathology See link below [facility] DEPARTMENT OF report for PDF Lab PATHOLOGY AND Report GENOMIC MEDICINE Result status This is Final [facility] DEPARTMENT OF Report for PATHOLOGY AND [id number] GENOMIC MEDICINE Specimen Performing Organization Address City/State/ZIP Code Phon e Number [facility]PARTMENT [facility] PATHOLOGY [address] [facility] [address] [place] [address] AND GENOMIC MEDICINE Estimated GFR (03/25/2020 1:51 PM CDT) Estimated GFR 87 mL/min/1.73 [facility] Comment: m2 JBSA LACKLAND Catergory Units Interpretation HOS PITAL G1 >=90 [...] published in 2014. Specimen Performing Organization Address City/State/[facility] Phon e Number [facility] DEPARTMENT OF PATHOLOGY [address] [facility]. [address] [phone] AND GENOMIC MEDICINE [facility] [address] [facility] [address] [place] [address] [facility] CBC with platelet and differential (03/25/2020 1:51 PM CDT) WBC 17.4 (H) 4.5 - 11.0 [facility] k/uL [facility] RBC 4.29 4.20 - 5.50 [facility] M/uL [facility] HGB 13.6 (L) 14.0 - 18.0 [facility] g/dL [facility] HCT 41.0 37.0 - 47.0 % [facility] MCV 95.6 82.0 - 100.0 [facility] MCH 31.7 27.0 - 34.[address] [facility] pg [facility] MCHC 33.2 31.0 - 37.0 [facility] g/dL [facility] RDW - SD 47.8 37.0 - 55.0 [facility] MPV 10.0 8.8 - 13.2 fL [facility] Platelet count 220 150 - 400 [facility] K/uL [facility] Nucleated RBC 0.00 /100 WBC [facility] Neutrophils 82.4 (H) 39.0 - 69.0 % [facility] Lymphocytes 13.7 (L) 25.0 - 45.0 % [facility] Monocytes 1.8 0.0 - 10.0 % [facility] Eosinophils 0.8 0.0 - 5.0 % [facility] Basophils 0.5 0.0 - 1.0 % [facility] Immature granulocytes 0.8Comment: 0.0 - 1.0 % [facility] "Immature JBSA LACKLAND granulocytes"[facility] (promyelocyt es, myelocytes, metamyelocyte s) Specimen Blood Performing Organization Address City/[facility] Phon e Number [facility] DEPART[facility] OF [facility] [address] [place] [address]. [address] [place], [place] [address] AND GENOMIC MEDICINE [address] [place] [address] [facility] Basic metabolic panel (03/25/2020 1:51 PM CDT) Pathologist Sig nature Sodium 141 135 - 148 mEq/L [facility] Potassium 3.9 3.5 - 5.0 mEq/L [facility] Chloride 105 99 - 109 mEq/L [facility] CO2 23 (L) 24 - 31 mEq/L [facility] Anion gap 13@ANIO 7 - 15 mEq/L [facility] BUN 18 8 - 24 mg/dL [facility] Creatinine 0.60 0.50 - 0.90 mg/dL [facility] Glucose 156 (H) 65 - 99 mg/dL [facility] Calcium 8.3 (L) 8.6 - 10.6 mg/dL [facility] Specimen Blood Performing Organization Address City/[facility] Phon e Number [facility] DEPARTMENT OF PATHOLOGY [address] [address] AND GENOMIC MEDICINE [facility] [place] [address] [facility] [address] [place] [address] HOSPITAL Airway (03/25/2020 11:18 AM CDT) Narrative Performed At Brittanie Powell CRNA 03/25/2020 11:19 AM Airway Performed by: Brittanie Powell CRNA Authorized by: Too Golden MD Location: OR Urgency: Elective Difficult Airway: No Resident/AUTOMATIC LUMP MAKING MACHINE TENDER/AA: Brittanie Powell C RNA Preoxygenated with 100% O2: Yes C-spine Precautions Maintained Throughou t: Yes Mask Ventilation: Not attempted Final Airway Type: Endotracheal airway Final Endotracheal Airway: ETT Cuffed: Yes Technique Used: Video laryngoscopy Devices/Methods Used in Placement: Int ubating stylet Insertion Site: Oral Blade Type: Tamara (Koozoo) Laryngoscope Blade/Videolaryngoscope Laureano de Size: 3 ETT [...] Type and screen (03/20/2020 1:59 PM CDT) [facility] DARLEEN peters A [facility] Rh type POS [facility] Antibody screen (gel) NEG [facility] Specimen Blood Performing Organization Address City/[facility] Phon e Number [facility] DEPARTMENT OF PATHOLOGY [address] [facility]. [address] [place], [place] [address] AND [facility] [address] [facility] [address] [place] [address] [facility] COVID-19 qualitative PCR (03/20/2020 1:29 PM CDT) Interpretation Negative results do not prec lude 2019-nCoV infection and should not be used as the sole basis for treatment or other patient management decisions. Negative results must be combined with clinical observations, patient history, and epidemiological [facility] information. [facility] COVID-19 qualitative Not-Detected Not-Detecte [facility] PCR result d [facility] qualitative See link below for [facility] PCR PDF Lab [facility] ReportComment: Case HOSPITAL Number: [id number] Specimen Nasopharyngeal swab Performing Organization Address City/[facility] Phon e Number [facility] DEPARTMENT OF PATHOLOGY AND [address] [place], [place] [address] [facility] [address] [place] [address] [facility] Hemoglobin A1c (03/20/2020 1:29 PM CDT) Hemoglobin A1C 5.6 4.0 - 5.6 % [facility] Comment: JBSA LACKLAND HbA1c cutoffs for diagnosing diabetes: HO SPITAL [...] 1 diabetes. Specimen Blood Performing Organization Address City/[facility] Phon e Number [facility] DEPARTMENT OF PATHOLOGY [address] [facility]. [address] [address] AND [facility] [address] [facility] [address] [place] [address] [facility] XR Knee 4+ Vw Right (11/08/2019 9:20 AM CREDIT NEGOTIATOR) Specimen Narrative Performed At This result has an attachment that is no t available. X-rays of the right knee, 4 views were reviewed today. There is HM RADIANT [id number] medial compartment arthritis with subchon dral sclerosis, [...] Organization Address City/State/ZIP Code Phon e Number HM RADIANT [address] [place] [address] after 10/11/2019 Insurance Payer Benefit Plan / Subscriber ID Effective Dates Phone Addre ss Type Group MEDICARE MEDICARE PART A [id number] 2006-Present [place], [place] Medicare AND B [id number] 2018-Present [facility] Advance Directives For more information, please contact: [phone] Type Date Recorded Patient Hop Separator Explanati on Advance Directives, Living Will and Medical Power of Manager Of Program Advance Directives, 05/24/2020 10:48 PM Living Will and Medical Power of Manager Of Program Advance Directives, 05/24/2020 10:48 PM Living Will and Medical Power of Manager Of Program
--- OUTSIDE RECORDS SUMMARY | 2020-10-11 20:14 | XMS REPORT | Continuity of Care Document ---
:1940 Author Organization [facility] t Address [address] [place] [address] Dr. Hurley. [address] [place] [address] Care Team Providers Name Role Phone Asked, Pcp Primary Care Physician Unavailable Clara Garcia MD Attending Clinician Prisca CARTY Attending Clinician Unavailable Katerina HURTADO, Corie Attending Clinician Akila Turner Attending Clinician Junito LEDESMA, Lennox Attending Clinician Fabio Golden MD Attending Clinician Provider Attending Clinician Unavailable KATERINA Admitting Clinician Unavailable Payers Payer Name Policy Type Policy Effective Date Expiration Date Sour ce Number MEDICAREMEDICARE PART [id number] 2006 Wilmer Hernandez AND 00:00:00 Yazdanism [id number]/09/2005[place] [id number] 2018 Sandra matthews 4 2018-PresentMi 00:00:00 Met sheri blancoary Problems Condition Condition Condition Status Onset Resolution Last Treating Co mments Source Name Details Category Date Date Treatment Clinician Date Primary Primary Disease Active 2016-09 Overview: [place] osteoarthr osteoarthr 2-08 Added Me thodi itis of itis of 00:00: automatic st right knee right knee 00 ally from request for surgery [id number] Status Status Disease Active [place] post left post left 5-22 Meth dragan hip hip 00:00: st replacemen replacemen 00 t t Acute Acute Disease Active [place] blood loss blood loss 8-16 Me thodi anemia anemia 00:00: st 00 Hypophosph Hypophosph Disease Active [facility] [place] atemia atemia 8-16 Methodi 00:00: st 00 Stenosis Stenosis Disease Active [place] of carotid of carotid 8-15 Me thodi artery artery 00:00: st 00 Left Left Disease Active [place] carotid carotid 7-05 Method[facility] stenosis stenosis 00:00: st 00 Carotid Carotid Disease Active [place] artery artery 7-05 Method[facility] narrowing narrowing 00:00: st 00 HTN HTN Disease Active [place] (hypertens (hypertens 7-05 Me [facility] ion) ion) 00:00: st 00 HLD HLD Disease Active [place] (hyperlipi (hyperlipi 7-05 Me thodi demia) demia) 00:00: st 00 Hyperglyce Hyperglyce Disease Active H yo sowmya due to sowmya due to 7-05 Me thodi type 2 type 2 00:00: st diabetes diabetes 00 mellitus mellitus Coronary Coronary Disease Active [place] arterioscl arterioscl 7-05 Me thodi erosis in erosis in 00:00: [place] 00 artery artery S/P S/P Disease Active [place] carotid carotid 7-05 [facility] endarterec endarterec 00:00: st paolo paolo 00 Benign Benign Disease Active 2013-09 [place] essential essential 2-18 Meth dragan hypertensi hypertensi 00:00: st on on 00 Pure Pure Disease Active 2013-09 Overview: Alison n hyperchole hyperchole 2-18 Overview: [facility] sterolemia [...] Start Date Stop Date Source Natural brother Prostate cancer Jacki braxton Yazdanism Natural father Kidney disease Jackito n Yazdanism Natural mother Heart disease [place] [facility] Natural mother Heart failure [place] [facility] Natural sister Hypertension Kash Bronson Social History Social Habit Start Date Stop Date Quantity Comments Source Sex Assigned At [facility] ethodist Cigarettes smoked 2020-08-27 2020-08-27 Kash Bronson current (pack per 00:00:00 00:00:00 day) - Reported Cigarette 2020-08-27 2020-08-27 Kash Martinez ist pack-years 00:00:00 00:00:00 Tobacco use and 2020-08-27 2020-08-27 Never used Kash Adams ethodist exposure 00:00:00 00:00:00 Alcohol intake 2020-08-27 2020-08-27 Current Kash Santoyo thodist 00:00:00 00:00:00 non-drinker of alcohol (finding) History of tobacco 2016-09-14 Current some day Kash Bronson use 00:00:00 smoker Smoking Status Start Date Stop Date Source Current some day smoker 2020-08-27 00:00:00 Jacki Bronson Medications Ordered Filled Start Stop Current Ordering Indication Dosage Frequency Signature Comments Components Source Medication Medication Date Date Medication? Clinician (SIG) Name Name traMADoL 2019-09- No acute pain 50mg Q8H Take 1 [place] (ULTRAM) 50 2-18 12-28 tablet (50 M ethodi mg tablet 00:00: 23:59 mg total) st 00 :00 by mouth every 8 (eight) hours as needed for moderate pain for up to 10 days .acute pain. traMADoL 2019-09- No acute pain 50mg Q6H Take 1 [place] (ULTRAM) 50 2-04 12-14 tablet (50 M ethodi mg tablet 00:00: 23:59 mg total) st 00 :00 by mouth every 6 (six) hours as needed for moderate pain for up to 10 days .acute pain. omeprazole 2019-09 Yes 20mg QD Take 20 mg [place] (PriLOSEC) 1-20 by mouth Metho di 20 MG 00:00: daily. st capsule 00 nitroglycer 2019-[address] 1 Sandra ston in 1-20 TABLET Methodi (NITROSTAT) 00:00: UNDER THE s t 0.4 MG SL 00 TONGUE tablet NEEDED FOR CHEST PAIN predniSONE 2019-09 Yes Temporal 20mg Q.5D Take 20 mg [place] (DELTASONE) 1-09 arteritis by mouth 2 Methodi 20 mg 00:00: ([facility]) (two) st tablet 00 times a day. brimonidine 2020-1 Yes 1[drp] Q12H Administer [place] (ALPHAGAN) 0-25 1 drop to Meth dragan 0.15 % 00:00: both eyes st ophthalmic 00 every 12 solution (twelve) hours. potassium 2020-0 Yes 10meq QD Take 10 [place] chloride 9-25 mEq by Methodi (K-DUR,KLOR 11:27: mouth st -CON) 10 40 daily. MEQ CR tablet furosemide 2020-0 Yes 40mg QD Take 40 mg [place] (LASIX) 20 9-25 by mouth Metho di MG tablet 11:27: daily. st 40 amLODIPine 2020-0 Yes 5mg QD Take 5 mg [place] (NORVASC) 5 9-25 by mouth Meth dragan [...] Take 1 mg [place] (HALDOL) 1 25 by mouth Metho di MG tablet 11:27: nightly. st 40 traMADoL 2019-0 2020- No acute pain 50mg Q6H Take 50 mg [place] (ULTRAM) 50 05-06 by mouth Met hodi mg tablet 16:25: 00:[address] 49 :00 (six) hours as needed for moderate pain .acute pain. traMADoL 2019-0 2020- No acute pain 50mg Q6H Take 1 [place] (ULTRAM) 50 05-06 tablet (50 M ethodi mg tablet 00:00: 23:59 mg total) st 00 :00 by mouth every 6 (six) hours as needed for moderate pain for up to 10 days .acute pain. clopidogreL 2020-0 Yes 75mg QD Take 1 [place] (Plavix) 75 7-23 tablet (75 Me thodi mg tablet 00:00: mg total) st 00 by mouth daily. Starting post-op day 1 aspirin 81 2019-0 Yes 81mg QD Chew 1 [place] mg chewable -23 tablet (81 Me thodi tablet 00:00: mg total) st 00 daily. Starting post-op day 1 metoprolol 2019- No 12.5mg Q.5D Take 12.5 [place] tartrate 03-25 07-22 mg by Methodi (LOPRESSOR) 14:50: 00:[address] 25 MG 30 :00 (two) tablet times a day. clopidogrel 2019- No 75mg Take 75 mg [place] bisulfate 03-25- by mouth. Meth dragan (PLAVIX 14:50: 00:00 st ORAL) 30 :00 aspirin 81 2019- No 81mg Chew 81 Sandra ston mg chewable 03-25 07-22 mg. Methodi tablet 14:50: 00:00 st 30 :00 metoprolol Yes 12.5mg Q.5D Take 0.5 [place] tartrate -22 tablets Methodi (LOPRESSOR) 00:00: (12.[address] 25 mg 00 total) by tablet mouth 2 (two) times a day. Hold for BP < 120/80 sennosides- 2019- No 1{tbl} QD Take 1 [place] docusate 03-25 12-18 tablet by Metho di sodium 00:00: 00:[address] (Senokot-S) 00 :00 daily. 8.6-50 mg per tablet gabapentin 2019- No 200mg Q.[id number] Take 2 [place] (Neurontin) 03-25 [id number] capsules Methodi 100 mg 00:00: 00:00 3D ([address] capsule 00 :00 total) by mouth 3 (three) times a day. ondansetron 2019- No 4mg Q8H Take 1 Sandra ston (Zofran) 4 03-25-25 tablet (4 Met hodi MG tablet 00:00: [...] Q6H Take 2 [place] (ADVIL) 400 03-25- tablets Meth dragan MG tablet 00:00: 23:59 ([address] 00 :00 total) by mouth every 6 (six) hours as needed for moderate pain for up to 30 days. oxyCODONE 2020- No acute pain 5mg Q6H Take 1 [place] (ROXICODONE 03-25 tablet (5 Me thodi ) 5 MG 00:00: 23:59 mg total) st immediate 00 :00 by mouth release every 6 tablet (six) hours as needed for moderate pain or severe pain for up to 7 days .acute pain. Max Daily Amount: 20 mg haloperidol 2019- No 1mg QD Take 1 mg [place] (HALDOL) 2 03-23-20 by mouth Meth dragan MG tablet 17:13: 00:[address] 37 :00 metFORMIN 2019-2019- No 500mg Take 500 [place] (GLUCOPHAGE 7- 07-20 mg by Method i ) 500 MG 17:12: 00:[address] tablet 35 :00 levothyroxi 2019- No Take by [place] sodium 7-20 07-20 mouth. Methodi (TIROSINT) 17:12: 00:00 st 150 mcg 00 :00 capsule mupirocin 2019- No Primary Apply to [place] (BACTROBAN) 02-05 06-11 osteoarthri the inside Methodi 2 % 00:00: 23:59 tis of of each st ointment 00 :00 right knee nostril BID 5 days prior to surgery traMADoL 2019- 2020- No acute pain acute [place] (ULTRAM) 50 5-18 05-21 pain. 1 po M ethodi mg tablet 00:00: 23:[address] 00 :00 prn pain traMADoL 2019- 2020- No acute pain acute [place] (ULTRAM) 50 4-20 04-30 pain. 1 po M ethodi mg tablet 00:00: 23:[address] 00 :00 prn traMADoL 2019- No acute pain 50mg Q6H Take 1 Kash (ULTRAM) 50 3-27 04-24 tablet (50 M ethodi mg tablet 00:00: 23:59 mg total) st 00 :00 by mouth every 6 (six) hours as needed for moderate pain for up to 28 days .acute pain. Vital Signs Vital Name Observation Time Observation Value Comments Source Systolic blood 2020-08-21 14:56:00 126 mm[Hg] Jackito n Yazdanism pressure Diastolic blood 2020-08-21 14:56:00 68 mm[Hg] Radhames on Yazdanism pressure Heart rate 2020-08-21 14:56:00 71 /min Kash Bronson Respiratory rate 2020-08-21 14:56:00 18 /min Jacki Bronson Body height 2020-08-21 14:56:00 167.6 cm Kash Bronson Body weight 2020-08-21 14:56:00 60.782 kg Kash Bronson BMI 2020-08-21 14:56:00 21.63 kg/m2 Kash Bronson Oxygen saturation in 2020-08-21 14:56:00 96 /min Kash Bronson Arterial blood by Pulse oximetry Body temperature 2020-03-25 19:35:00 36.61 Jen Jacki Bronson Procedures Procedure Date / Time Performed Performing Clinician [facility] 3 VW RIGHT 2020-04-17 11:23:54 Isaac Mercado XR KNEE 1 OR 2 VW RIGHT 2020-03-25 16:33:34 Stella Chisholm SURGICAL PATHOLOGY 2020-03-25 15:04:00 Isaac Mercado REQUEST HC COMPLETE BLD COUNT 2020-03-25 13:51:00 Stella Chisholm W/AUTO DIFF Akila BASIC METABOLIC PANEL 2020-03-25 13:51:00 Stella Chisholm ESTIMATED GFR 2020-03-25 13:51:00 Stella Chisholm GA AN ELECTIVE 2020-03-25 11:18:17 Brittanie Powell ENDOTRACHEAL AIRWAY ARTHROPLASTY, KNEE, 2020-03-25 10:50:00 Isaac Mercado TOTAL GA AN PERIPHERAL BLOCK 2020-03-25 08:52:34 Too Golden on Yazdanism PROCEDURE FOR PAIN GA AN PERIPHERAL BLOCK 2020-03-25 08:51:26 Too Golden on Yazdanism PROCEDURE FOR PAIN TYPE AND SCREEN 2020-03-20 13:59:00 Isaac Mercado Meth odist COVID-19 QUALITATIVE PCR 2020-03-20 13:29:00 Isaac Mercado ston Yazdanism HEMOGLOBIN A1C 2020-03-20 13:29:00 Tawnya Means on Yazdanism XR KNEE 4+ VW RIGHT 2019-11-08 09:20:28 Isaac Mercado Yazdanism Plan of Care Planned Activity Planned Date Details Comments Source Future Scheduled 2020-04-04 INFLUENZA VACCINE [place] [facility] Test 00:00:00 [code = INFLUENZA VACCINE] Future Scheduled 2006 65+ PNEUMOCOCCAL [place] [facility]ism Test 00:00:00 VACCINE (1 of 1 - PPSV23) [code = 65+ PNEUMOCOCCAL VACCINE (1 of 1 - PPSV23)] Future Scheduled 1991 SHINGLES VACCINES (#1) [place] [facility] Test 00:00:00 [code = SHINGLES VACCINES (#1)] Future Scheduled 1959 Hepatitis C screening [place] [facility] Test 00:00:00 (procedure) [code = 585006183] Future Scheduled 1957 COVID-19 VACCINE (1 of [place] [facility] Test 00:00:00 2) [code = COVID-19 VACCINE (1 of 2)] Future Scheduled 1951 DIABETES: RETINAL EYE [place] [facility] Test 00:00:00 EXAM [code = DIABETES: RETINAL EYE EXAM] Future Scheduled 1951 DIABETIC FOOT EXAM [place] [facility] Test 00:00:00 [code = DIABETIC FOOT EXAM] Future Scheduled 1951 URINE MICROALBUMIN [place] [facility]ism Test 00:00:00 [code = URINE MICROALBUMIN] Encounters Start End Encounter Admission Attending Care Care Encounter Source Date/Time Date/Time Type Type Clinicians Facility Department ID 2020-08-21 2020-08-21 Outpatient RAJ [facility] [id number] [facility] 00:00:00 00:00:00 ARNULFO Alcocer [facility] 2020-05-29 2020-05-29 Outpatient LEISAAC [facility] [id number] [place] 00:00:00 00:00:[address] 2020-04-17 2020-04-17 Outpatient LEISAAC [facility] [id number] [place] 00:00:00 00:00:[address] 2020-04-17 2020-04-17 Outpatient LEISAAC [facility] [id number] [place] 00:00:00 00:00:[address] 2020-04-03 2020-04-03 Outpatient [facility] [id number] [place] 00:00:00 00:00:[address] 2020-03-30 2020-03-30 Outpatient [facility] [id number] [place] 00:00:00 00:00:[address] 2020-03-25 2020-03-25 Outpatient LE, ISAAC [facility] [id number] [place] 00:00:00 00:00:[address] 2020-03-25 2020-03-25 Outpatient [place] [id number] [place] 00:00:00 00:00:[address] 2020-03-20 2020-03-20 Outpatient LEISAAC [facility] [id number] [place] 00:00:00 00:00:[address] 2020-03-12 2020-03-12 Outpatient [facility] [id number] [place] 00:00:00 00:00:[address] 2019-11-08 2019-11-08 Outpatient LEISAAC [facility] [id number] [place] 00:00:00 00:00:[address] 2019-11-08 2019-11-08 Outpatient LEISAAC [facility] [id number] [place] 00:00:00 00:00:[address] Results Test Description Test Time Test Comments Results Result Comments Source Surgical pathology request 2020-03-30 17:02:18 Test Item Value Reference Range Interpretation Comme nts Case number (test code = [id number]) [id number] Surgical pathology report (test code = See link below for PDF Lab R eport 9235) Result status (test code = 7885103) This is Final Report for [id number] [place] MethodistXR Knee 1 Or 2 Vw [id number] 16:48:44Hm Interface, Radiology Results - 03/25/2020 4:51 PM CDTEXAMINATION: XR KNEE 1 OR 2 VW RIGHTCLINICAL HISTORY: Post operativeCOMPARISON: Knee x-ray November 08, 2019IMPRESSION:Interval right knee total arthroplasty with cruciate retaining prosthesis. No evidence of immediate postoperative complication. Soft tissue changes consistent with recent surgical manipulation, vascular calcifications in cidentally noted.[facility]-[id number] and approved by student services vice president/fellow: Barrington Nagy M.D.I, Tye Strong, personally reviewed the images and resident's/fellow's findings and agree with the final report. [place] MethodistBasic metabolic [id number] 14:19:25 Test Item Value Reference Range Interpretation Comments Sodium (test code = 2951-2) 141 135- 148 mEq/L Potassium (test code = 2823-3) 3.9 3.5- 5.0 mEq/L Chloride (test code = 2075-0) 105 99- 109 mEq/L CO2 (test code = 8-9) 23 24- 31 mEq/L L Anion gap (test code = 07722-9) 13@ANIO 7- 15 mEq/L BUN (test code = 3094-0) 18 mg/dL 8-24 Creatinine (test code = 2160-0) 0.60 mg/dL 0.5-0.9 Glucose (test code = 2345-7) 156 mg/dL 65-99 H Calcium (test code = 78654-9) 8.3 mg/dL 8.6-10.6 L Lab Interpretation (test code = Abnormal 31371-0) [place] MethodistEstimated [id number] 14:19:24 Test Item Value Reference Range Interpretation Comments Estimated GFR (test 87 mL/min/1.73 m2 [facility] Units code = 5488) InterpretationG 1 >=90 Normal or highG2 60-89 Mildly clldqtranX0j 45-59 Mildly to mode rately eynckkfliR3e 30-44 Moderately to severely decreasedG4 15-29 Severely decre asedG5 <15 Kidn ey failureThe eGFR was calculated usin g the Chronic Kidney Disease Epidemiology Co llaboration (CKD-EPI) equat ion. Interpretation is based on recommendations of the National Kidney Foundation-Kidn ey Disease Outcomes Qualit y Initiative (NKF-KDOQI) pub lished in 2013. [place] MethodistCBC with platelet and [id number] 14:03:38 Test Item Value Reference Range Interpretation Comments WBC (test code = 30299-8) 17.4 4.5- 11.0 k/uL H RBC (test code = 64910-3) 4.29 4.20- 5.50 M/uL HGB (test code = 718-7) 13.6 g/dL 14-18 L HCT (test code = 4544-3) 41.0 % 37-47 MCV (test code = 787-2) 95.6 fL 82-100 MCH (test code = 785-6) 31.7 pg 27-34 MCHC (test code = 786-4) 33.2 g/dL 31-37 RDW - SD (test code = 47.8 fL 37-55 24647-1) MPV (test code = 27557-1) 10.0 fL 8.8-13.2 Platelet count (test code 220 K/uL 150-400 = 66184-7) Nucleated RBC (test code 0.00 /100 WBC = 68455-1) Neutrophils (test code = 82.4 % 39-69 H 89236-6) Lymphocytes (test code = 13.7 % 25-45 L 74426-1) Monocytes (test code = 1.8 % 0-10 41808-4) Eosinophils (test code = 0.8 % 0-5 65728-4) Basophils (test code = 0.5 % 0-1 00129-3) Immature granulocytes 0.8 % 0-1 "Immat ure (test code = 17453-2) granul ocytes" (promyelocytes, myelocytes, metamyelocytes) Lab Interpretation (test Abnormal code = 64739-8) [place] [id number] 11:18:17TrBrittanie vu CRNA 03/25/2020 11:19 AMAirwayPerformed by: Brittanie Powell CRNAAuthorized by: Too Golden MD Location: ORUrgency: ElectiveDifficult Airway: No Resident/RADIATION TECHNICIAN/AA: Brittanie Powell, CRNAPreoxygenated with 100% O2: Yes C- spine Precautions Maintained Throughout: Yes Mask Ventilation: Not attemptedFinal Airway Type: Endotracheal airwayFinal Endotracheal Airway: ETTC uffed: Yes Technique Used: Video laryngoscopyDevices/Methods Used in Placement: Intubating styletInsertion Site: OralBlade Type: Tamara (Shepherd)Laryngoscope Blade/Videolaryngoscope Blade Size: 3ETT Size (mm): 7.0Cuff at minimum occlusion pressure: Yes Measured from: LipsETT to Lips (cm):21Placement Verified by: CO2 detection, direct visualization and equal breath sounds Laryngoscopic view: Grade IIa - partial view of glottisRapid Sequence Induction (RSI): Yes Modified RSI: No Number of Attempts at Approach: 1 Atraumatic, lips and gums intact and unchangedHouston MethodistPeripheral Block [id number] 08:52:34Too Golden MD 03/25/2020 10:06 AMPeripheral Block ipackPerformed by: Too Golden MDAuthorized by: Isaac Mercado MD Patient Location: PACUStart Time: 03/25/2020 9:51 [...] patient comfortable and patient tolerated procedure well [place] MethodroneyPeripheral Block [id number] 08:51:26Too Golden MD 03/25/2020 10:06 AMPeripheral Block ACPerformed by: Too Golden MDAuthor ized by: Isaac Mercado MD Patient Location: Pre-opStart Time: 03/25/2020 9:54 [...] (See MAR for details): LidocaineNeedle: Needle Type: Pajunk Needle Gauge: 21 G Needle length: 1 [...] complications, patient comfortable and patient tolerated procedure [facility]
--- NOTE | 2020-10-11 20:55 | RAD REPORT ---
EXAM DESCRIPTION: CT - Head Brain Wo Cont - 10/11/2020 8:45 pm CLINICAL HISTORY: PAIN Trauma, head injury, headache COMPARISON: Facial Bones W/ Mpr dated 10/11/2020 TECHNIQUE: All CT scans are performed using dose optimization technique as appropriate and may inclu de automated exposure control or mA/KV adjustment according to patient size. FINDINGS: No intracranial hemorrhage, hydrocephalus or extra-axial fluid collection.Mild generalized brain atrophy is present with mild periventricular and deep white matter chronic microvascular ische mariah changes.No areas of brain edema or evidence of midline shift. The paranasal sinuses and mastoids are clear. The calvarium is intact. IMPRESSION: No acute intracranial abnormality.
--- NOTE | 2020-10-11 21:00 | RAD REPORT ---
EXAM DESCRIPTION: RAD - Knee Left 3 View - 10/11/2020 8:36 pm CLINICAL HISTORY: Swelling;Pain COMPARISON: No comparisons FINDINGS: Lucency is seen in the inferior pole of the patella suspicious for nondisplaced fracture. The bones are mildly osteopenic. No joint effusion. Heavy atherosclerosis.
--- NOTE | 2020-10-11 21:09 | RAD REPORT ---
EXAM DESCRIPTION: CT - CTFB CLINICAL HISTORY: PAIN Trauma, pain and swelling COMPARISON: Head Brain Wo Cont dated 10/11/2020 TECHNIQUE: Axial 2 mm thick images of the face were obtained with sagittal and coronal reconstructio n images. All CT scans are performed using dose optimization technique as appropriate and may include automated exposure control or mA/KV adjustment according to patient size. FINDINGS: No acute facial bone fracture is seen.No mandibular fracture. Focal fatty mass is seen ant erior to the left parasymphyseal region of the mandible measuring 20 x 16 mm. There is underlying bon y thinning and remodeling of the mandible. The globes and orbital contents are grossly unremarkable.The paranasal sinuses and mastoids are clear . IMPRESSION: Negative for facial bone fracture. Fat attenuation 2 cm mass along the left anterior margin of the mandible parasymphyseal region. Consi jordana followup MR imaging with contrast to better assess this lesion. Differential considerations inclu de lipoma or low grade liposarcoma.
--- NOTE | 2020-10-11 21:32 | ER ---
Nurse's Notes [facility] Name: Cristela Arriaza Age: 80 yrs Sex: Female : 1940 Arrival Date: 10/11/2020 Time: 20:12 Bed 13 Private MD: Diagnosis: Fall-Mechanical;Facial Contusions;Head Contusion;Nondisplaced longitudinal fracture of left patella Presentation: 10/11 20:21 Chief complaint: Patient states: Reports she was running and fell on her left knee ea reports she hit her nose denies LOC reports she is on plavix. Care prior to arrival: None. Mechanism of Injury: Fall from standing position. Trauma event details: Injury occurred in the [facility], Injury occurred: on a street or highway. Injury occurred: October 11, 2020. 20:21 Acuity: CHUCHO 3 ea 20:21 Method Of Arrival: Ambulatory ea 20:25 Coronavirus screen: At this time, the client does not indicate any symptoms associated ea with coronavirus-19. Ebola Screen: No symptoms or risks identified at this time. Initial Sepsis Screen: Does the patient meet any 2 criteria? No. Patient's initial sepsis screen is negative. Does the patient have a suspected source of infection? No. Patient's initial sepsis screen is negative. Risk Assessment: Do you want to hurt yourself or someone else? Patient reports no desire to harm self or others. Onset of symptoms was October 11, 2020. Trauma Activation: Alert Physician: ED Physician; Name: ; Notified At: ; Arrived At: Physician: General Surgeon; Name: ; Notified At: ; Arrived At: Physician: Radiology; Name: ; Notified At: ; Arrived At: Physician: Respiratory; Name: ; Notified At: ; Arrived At: Physician: Lab; Name: ; Notified At: ; Arrived At: Historical: - Allergies: 20:26 cephalexin; ea - PSHx: 20:26 Cholecystectomy; stent; ea - Immunization history: Last tetanus immunization: unknown. - Social history:: Smoking status: Patient denies any tobacco usage or history of. Screenin:19 Abuse screen: Denies threats or abuse. Nutritional screening: No deficits noted. ea Tuberculosis screening: No symptoms or risk factors identified. Fall Risk No IV (0 pts). Primary Survey: 20:25 NO uncontrolled hemorrhage observed. Breathing/Chest: Respiratory pattern: regular, ea Respiratory effort: spontaneous, unlabored. Circulation: Skin color: pink. Disability Alert. Exposure/Environment: Obvious injury(ies) are noted at this time: abrasion and swelling to left knee, abrasion, swelling and bruising to nose. 22:02 Reassessment Breathing/Chest Respiratory pattern Regular Respiratory effort Spontaneous.ll2 Assessment: 20:24 General: Appears in no apparent distress. Behavior is appropriate for age. Pain: ea Complains of pain in left knee and nose. Neuro: Level of Consciousness is awake, alert, obeys commands, Oriented to person, place, time. Respiratory: Airway is patent Respiratory effort is even, unlabored, Respiratory pattern is regular, symmetrical. Derm: bruising noted to nose, left knee swelling noted. 21:15 Reassessment: Patient and/or family updated on plan of care and expected duration. Pain ll2 level reassessed. Patient is alert, oriented x 3, equal unlabored respirations, skin warm/dry/pink. 22:01 Reassessment: Patient and/or family updated on plan of care and expected duration. Pain ll2 level reassessed. Patient is alert, oriented x 3, equal unlabored respirations, skin warm/dry/pink. Vital Signs: 20:23 BP 127 / 60; Pulse 80; Resp 18; Temp 98.7; Pulse Ox 98% ; Weight 63.5 kg; Height 5 ft. ea 6 in. (167.64 cm); Pain 6/10; 20:23 Body Mass Index 22.60 (63.50 kg, 167.64 cm) ea [place] Coma Score: 20:23 Eye Response: spontaneous(4). Verbal Response: oriented(5). Motor Response: obeys ea commands(6). Total: 15. Trauma Score (Adult): 20:23 Eye Response: spontaneous(1); Verbal Response: oriented(1); Motor Response: obeys ea commands(2); Systolic BP: > 89 mm Hg(4); Respiratory Rate: 10 to 29 per min(4); [place] Score: 15; Trauma Score: 12 ED Course: 20:12 Patient arrived in ED. bp1 20:18 Seamus Schwartz MD is Attending Physician. 7 20:22 Triage completed. ea 20:22 Patient maintains SpO2 saturation greater than 95% on room air. ea 20:26 Arm band placed on right wrist. Patient placed in an exam room, on a stretcher, on ea pulse oximetry. 20:26 Patient has correct armband on for positive identification. Bed in low position. Call ea light in reach. Side rails up X 1. Pulse ox on. NIBP on. 20:36 XRAY Knee LEFT 3 view In Process Unspecified. EDMS 20:39 Veena Hussein, RN is Primary Nurse. ll2 20:45 CT Head Brain wo Cont In Process Unspecified. EDMS 20:45 CT Facial Bones W/O Con In Process Unspecified. EDMS 21:29 Mauricio Mcmahon MD is Referral Physician. 7 22:02 No provider procedures requiring assistance completed. Patient did not have IV access ll2 during this emergency room visit. Administered Medications: No medications were administered Outcome: 21:32 Discharge ordered by . 7 22:02 Discharged to home via wheelchair. ll2 22:02 Condition: stable 22:02 Discharge instructions given to patient, Instructed on discharge instructions, follow up and referral plans. medication usage, Demonstrated understanding of instructions, follow-up care, medications, Prescriptions given X 2. 22:02 Patient's length of stay was not longer than 2 hours. ll2 22:06 Patient left the ED. 2 Signatures: Dispatcher [employer] Alida Delaney, Veena Patton RN, ea, RN PATRICIA 2 Adilia Davenport Maurice, MD MD [facility]
--- NOTE | 2020-10-11 21:32 | EDPHYS ---
Physician Documentation [facility] Name: Cristela Arriaza Age: 80 yrs Sex: Female : 1940 Arrival Date: 10/11/2020 Time: 20:12 Bed 13 Private MD: ED Physician Seamus Schwartz HPI: 10/11 20:46 This 80 yrs old Female presents to ER via Ambulatory with complaints of Fall mh7 Injury, Facial Injury. 20:46 Details of fall: The patient fell from an upright position, while running. Onset: The mh7 symptoms/episode began/occurred today, at 13:30. Associated injuries: The patient sustained injury to the head, swelling, tenderness, left knee, ecchymosis, swelling. Severity of symptoms: At their worst the symptoms were moderate, earlier today, in the emergency department the symptoms have improved, moderately. Running outside and tripped and fell hitting her head, face and left knee on ground. Denies LOC, neck pain, chest pain, abdominal pain. Denies any symptoms prior to fall.. Historical: - Allergies: 20:26 cephalexin; ea - PSHx: 20:26 Cholecystectomy; stent; ea - Immunization history: Last tetanus immunization: unknown. - Social history:: Smoking status: Patient denies any tobacco usage or history of. ROS: 20:46 Constitutional: Negative for fever, chills, and weight loss, Eyes: Negative for injury, mh7 pain, redness, and discharge, Neck: Negative for injury, pain, and swelling, Cardiovascular: Negative for chest pain, palpitations, and edema, Respiratory: Negative for shortness of breath, cough, wheezing, and pleuritic chest pain, Abdomen/GI: Negative for abdominal pain, nausea, vomiting, diarrhea, and constipation, Back: Negative for injury and pain, : Negative for injury, bleeding, discharge, and swelling, Neuro: Negative for headache, weakness, numbness, tingling, and seizure, Psych: Negative for depression, anxiety, suicide ideation, homicidal ideation, and hallucinations, Allergy/Immunology: Negative for hives, rash, and allergies, Endocrine: Negative for neck swelling, polydipsia, polyuria, polyphagia, and marked weight changes, Hematologic/Lymphatic: Negative for swollen nodes, abnormal bleeding, and unusual bruising. Exam: 20:46 Constitutional: This is a well developed, well nourished patient who is awake, alert, mh7 and in no acute distress. 20:46 Eyes: Pupils equal round and reactive to light, extra-ocular motions intact. Lids and lashes normal. Conjunctiva and sclera are non-icteric and not injected. Cornea within normal limits. Periorbital areas with no swelling, redness, or edema. 20:46 Neck: Trachea midline, no thyromegaly or masses palpated, and no cervical lymphadenopathy. Supple, full range of motion without nuchal rigidity, or vertebral point tenderness. No Meningismus. Chest/axilla: Normal chest wall appearance and motion. Nontender with no deformity. No lesions are appreciated. Cardiovascular: Regular rate and rhythm with a normal S1 and S2. No gallops, murmurs, or rubs. Normal PMI, no JVD. No pulse deficits. Respiratory: Lungs have equal breath sounds bilaterally, clear to auscultation and percussion. No rales, rhonchi or wheezes noted. No increased work of breathing, no retractions or nasal flaring. Abdomen/GI: Soft, non-tender, with normal bowel sounds. No distension or tympany. No guarding or rebound. No evidence of tenderness throughout. Back: No spinal tenderness. No costovertebral tenderness. Full range of motion. 20:46 Neuro: Awake and alert, GCS 15, oriented to person, place, time, and situation. Cranial nerves II-XII grossly intact. Motor strength 5/5 in all extremities. Sensory grossly intact. Cerebellar exam normal. Normal gait. Psych: Awake, alert, with orientation to person, place and time. Behavior, mood, and affect are within normal limits. 20:46 Head/face: Noted is contusion, that is superficial, of the forehead and nose, ecchymosis, that is mild, of the nose, swelling, that is mild, of the nose. 20:46 ENT: External ear(s): are unremarkable, Ear canal(s): are normal, TM's: are normal, Nose: abrasion, that is superficial, on the bridge of nose and apex of the nose, Nasal contusion, ecchymosis, and swelling, Mouth: is normal, Posterior pharynx: is normal, Dental exam: normal, Voice: is normal. 20:46 Musculoskeletal/extremity: Extremities: noted in the left knee: decreased ROM, ecchymosis, pain, swelling, tenderness, ROM: limited active range of motion due to pain, in the left knee, limited passive range of motion due to pain, in the left knee, Circulation is intact in all extremities. Pulses: are normal with no appreciated deficits, Perfusion: the patient is normally perfused throughout, Perfusion: the extremity is normally perfused throughout, Sensation intact. Compartment Syndrome exam of affected extremity: is normal. no numbness, no tingling, no sensation deficit, no palor, no weak pulses, Joints: the left knee displays limited range of motion, painful range of motion, swelling, tenderness, Weight bearing: able to fully bear weight, Tendon exam: specific tendon testing normal through active and passive range of motion Calves: are non-tender, have equal circumference. 20:46 Skin: injury, contusion(s), that are superficial, of the nose and left knee. Vital Signs: 20:23 BP 127 / 60; Pulse 80; Resp 18; Temp 98.7; Pulse Ox 98% ; Weight 63.5 kg; Height 5 ft. ea 6 in. (167.64 cm); Pain 6/10; 20:23 Body Mass Index 22.60 (63.50 kg, 167.64 cm) ea [place] Coma Score: 20:23 Eye Response: spontaneous(4). Verbal Response: oriented(5). Motor Response: obeys ea commands(6). Total: 15. Trauma Score (Adult): 20:23 Eye Response: spontaneous(1); Verbal Response: oriented(1); Motor Response: obeys ea commands(2); Systolic BP: > 89 mm Hg(4); Respiratory Rate: 10 to 29 per min(4); [place] Score: 15; Trauma Score: 12 MDM: 21:27 Differential diagnosis: abrasion, closed head injury, contusion, fracture, sprain. Data [facility] reviewed: vital signs, nurses notes, radiologic studies, CT scan, plain films. Data interpreted: Pulse oximetry: on room air is 98 %. Interpretation: normal. 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 Response to treatment: the patient's symptoms have markedly improved after treatment. 21:[address] [facility] 10/11 20:21 Order name: XRAY Knee LEFT 3 view; Complete Time: 21:03 10/11 20:27 Order name: CT Head Brain wo Cont; Complete Time: 21:03 10/11 20:27 Order name: CT Facial Bones W/O Con; Complete Time: 21:19 10/11 21:28 Order name: Knee Immobilizer; Complete Time: 21:29 [facility] Administered Medications: No medications were administered Disposition: 10/11/20 21:32 Discharged to Home. Impression: Fall-Mechanical, Facial Contusions, Head Contusion, Nondisplaced longitudinal fracture of left patella. - Condition is Stable. - Discharge Instructions: Patellar Fracture, Adult, Facial or Scalp Contusion, [id number]. - Prescriptions for Tramadol 50 mg Oral Tablet - take 1 tablet by ORAL route every 8 hours as needed; 12 tablet. - Medication Reconciliation Form, Thank You Letter, Antibiotic Education, Prescription Opioid Use form. - Follow up: Private Physician; When: 1 - 2 days; Reason: Worsening of condition, Recheck today's complaints, Continuance of care, Re-evaluation by your physician. Follow up: Mauricio Mcmahon MD; When: 1 - 2 days; Reason: Worsening of condition, Recheck today's complaints. - Problem is new. - Symptoms have improved. Signatures: Dispatcher [employer] EDAlida Driver RN RN ea [place], Lacie, RN RN 2 Seamus Schwartz MD MD 7 Corrections: (The following items were deleted from the chart) 22:01 21:28 Crutches ordered. 7 ll2 22:06 21:32 10/11/2020 21:32 Discharged to Home. Impression: Fall-Mechanical; Facial ll2 Contusions; Head Contusion; Nondisplaced longitudinal fracture of left patella. Condition is Stable. Forms are Medication Reconciliation Form, Thank You Letter, Antibiotic Education, Prescription Opioid Use. Follow up: Private Physician; When: 1 - 2 days; Reason: Worsening of condition, Recheck today's complaints, Continuance of care, Re-evaluation by your physician. Follow up: Mauricio Mcmahon; When: 1 - 2 days; Reason: Worsening of condition, Recheck today's complaints. Problem is new. Symptoms have improved. mh7
[2020-10-11 22:11] VITALS: BP 127/60; TEMP 98.7; O2SAT 98
== END 2020-10-11 22:06 | disposition home or self-care (01) ==
LOC: ER 20:10
DX: S82.025A Nondisplaced longitudinal fracture of left patella, initial encounter for closed fracture (principal); S00.33XA Contusion of nose, initial encounter; W19.XXXA Unspecified fall, initial encounter; Y93.02 Activity, running; Y92.9 Unspecified place or not applicable; Z88.6 Allergy status to analgesic agent
CPT/HCPCS: 70450; 70486; 76377; 99284; G0390

== ENCOUNTER 2021-02-01 09:44 | Emergency (ER) | payer OTHER ==
--- OUTSIDE RECORDS SUMMARY | 2021-02-01 09:48 | XMS REPORT | Continuity of Care Document ---
:[address] [facility] t Address [address] [place] [address] Dr. Hurley. [address] [place] [address] Care Team Providers Name Role Phone Asked, Pcp Primary Care Physician Unavailable Corie Borges MD Attending Clinician Clara Anthony MD Attending Clinician Prisca CARTY Attending Clinician Unavailable Akila Turner Attending Clinician Lennox Wild NP Attending Clinician Fabio Golden MD Attending Clinician Provider Attending Clinician Unavailable KATERINA Admitting Clinician Unavailable Payers Payer Name Policy Type Policy Effective Date Expiration Date Sour ce Number MEDICAREMEDICARE PART [id number] 2006 Wilmer Hernandez AND 00:00:00 [place] [id number] 2005[place] [id number] 2018 Sandra matthews 4 2018-PresentMil 00:00:00 Met sheri blancoary Problems Condition Condition Condition Status Onset Resolution Last Treating Co mments Source Name Details Category Date Date Treatment Clinician Date Primary Primary Disease Active 2016-09 Overview: [place] osteoarthr osteoarthr 10-12 Formattin [facility] itis of itis of 00:00: g of this st right knee right knee 00 note might be different from the original. Added automatic ally from request for surgery [id number] Status Status Disease Active [place] post left post left 5-22 Meth dragan hip hip 00:00: st replacemen replacemen 00 t t Acute Acute Disease Active [place] blood loss blood loss 8-16 Me thodi anemia anemia 00:00: st 00 Hypophosph Hypophosph Disease Active H yo atemia atemia 8-16 Methodi 00:00: st 00 Stenosis Stenosis Disease Active [place] of carotid of carotid 8-15 Me [place] artery artery 00:00: st 00 Left Left Disease Active [place] carotid carotid 7-05 Method[facility] stenosis stenosis 00:00: st 00 Carotid Carotid Disease Active [place] artery artery 7-05 Method[facility] narrowing narrowing 00:00: st 00 HTN HTN Disease Active [place] (hypertens (hypertens 7-05 Me [place] ion) ion) 00:00: st 00 HLD HLD Disease Active [place] (hyperlipi (hyperlipi 7-05 Me thodi demia) demia) 00:00: st 00 Hyperglyce Hyperglyce Disease Active H yo sowmya due to sowmya due to 7-05 Me thodi type 2 type 2 00:00: st diabetes diabetes 00 mellitus mellitus 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 Overview: No recent lipids. Diabetes Diabetes Disease Active 2013-09 [place] [...] Comments Start Date Stop Date Source Natural mother Heart disease [place] [facility] Natural mother Heart failure [place] [facility] Natural sister Hypertension Kash Bronson Natural brother Prostate cancer [place] Natural father Kidney disease [place] Social History Social Habit Start Date Stop Date Quantity Comments Source Cigarettes smoked 2020-11-10 2020-11-10 Kash Bronson current (pack per 00:00:00 00:00:00 day) - Reported Cigarette 2020-11-10 2020-11-10 Kash Martinez ist pack-years 00:00:00 00:00:00 Tobacco use and 2020-11-10 2020-11-10 Never used Kash Adams ethodist exposure 00:00:00 00:00:00 Alcohol intake 2020-11-10 2020-11-10 Current Kash Santoyo thodist 00:00:00 00:00:00 non-drinker of alcohol (finding) History of tobacco 2016-09-14 Current some day Kash Bronson use 00:00:00 smoker Sex [birth year] Kash Adams ethodist 00:00:00 00:00:00 Smoking Status Start Date Stop Date Source Current some day smoker 2020-11-10 00:00:00 Jacki Bronson Medications Ordered Filled Start Stop Current Ordering Indication Dosage Frequency Signature Comments Components Source Medication Medication Date Date Medication? Clinician (SIG) Name Name potassium Yes 10meq QD Take 10 [place] chloride 3-09 mEq by Methodi (K-DUR,KLOR 11:11: mouth st -CON) 10 32 daily. MEQ CR tablet furosemide Yes 40mg QD Take 40 mg H [place] (LASIX) 20 3-09 by mouth Metho di MG tablet 11:11: daily. st 32 amLODIPine Yes 5mg QD Take 5 mg [place] (NORVASC) 5 3-09 by mouth Meth dragan MG tablet 11:11: nightly. st 32 atorvastati Yes 20mg Take 20 mg Kash lott (LIPITOR) 3-09 by mouth. Met hodi 20 MG 11:11: st tablet 32 brimonidine Yes 1[drp] Q12H Administer [place] -timoloL 3-09 1 drop to Method i (COMBIGAN) 11:11: both eyes st 0.2-0.5 % 32 every 12 ophthalmic (twelve) solution hours. levothyroxi Yes 175ug QD Take 175 [place] ne 3-09 mcg by Methodi (SYNTHROID) 11:11: mouth st 175 mcg 32 daily. tablet haloperidoL Yes 1mg QD Take 1 mg [place] (HALDOL) 1 3-09 by mouth Metho di MG tablet 11:11: nightly. st 32 traMADoL 2019-09- No acute pain 50mg Q8H [...] by mouth 2 Methodi 20 mg 00:00: ([facility]) (two) st tablet 00 times a day. brimonidine 2019-09 Yes 1[drp] Q12H Administer [place] (ALPHAGAN) 0-25 1 drop to Meth dragan 0.15 % 00:00: both eyes st ophthalmic 00 every 12 solution (twelve) hours. traMADoL 2019- No acute pain 50mg Q6H Take 50 mg [place] (ULTRAM) 50 05-06 by mouth Met hodi mg tablet 16:25: 00:[address] 49 :00 (six) hours as needed for moderate pain .acute pain. traMADoL 2019- No acute pain 50mg Q6H Take 1 [place] (ULTRAM) 50 9-02 09-12 tablet (50 M ethodi mg tablet 00:00: 23:59 mg total) st 00 :00 by mouth every 6 (six) hours as needed for moderate pain for up to 10 days .acute pain. clopidogreL 2019-0 Yes 75mg QD Take 1 [place] (Plavix) 75 7-23 tablet (75 Me thodi mg tablet 00:00: mg total) st 00 by mouth daily. Starting post-op day 1 aspirin 81 2019-0 Yes 81mg QD Chew 1 [place] mg chewable 7-23 tablet (81 Me thodi tablet 00:00: mg total) st 00 daily. Starting post-op day 1 metoprolol 2019-2019- No 12.5mg Q.5D Take 12.5 [place] tartrate 03-25 07-22 mg by Methodi (LOPRESSOR) 14:50: 00:[address] 25 MG 30 :00 (two) tablet times a day. clopidogrel 2019-2019- No 75mg Take 75 mg [place] bisulfate 03-25 by mouth. Meth dragan (PLAVIX 14:50: 00:00 st ORAL) 30 :00 aspirin 81 2019-0 2020- No 81mg Chew 81 Sandra ston mg chewable 03-25 07-22 mg. Methodi tablet 14:50: 00:00 st 30 :00 metoprolol 2019-0 Yes 12.5mg Q.5D Take 0.5 [place] tartrate -22 tablets Methodi (LOPRESSOR) 00:00: (12.[address] 25 mg 00 total) by tablet mouth 2 (two) times a day. Hold for BP < 120/80 sennosides- 2020- No 1{tbl} QD Take 1 [place] docusate 03-25 12-18 tablet by Metho di sodium 00:00: 00:[address] (Senokot-S) 00 :00 daily. 8.6-50 mg per tablet gabapentin 2019-2019- No 200mg [id number] Take 2 [place] (Neurontin) 03-25 [id number] capsules Methodi 100 mg 00:00: 00:00 3D [...] pain. Max Daily Amount: 20 mg haloperidol 2019-2019- No 1mg QD Take 1 mg Kash (HALDOL) 2 03-23-20 by mouth Meth dragan MG tablet 17:13: 00:[address] 37 :00 metFORMIN 2019-2019- No 500mg Take 500 [place] (GLUCOPHAGE 7-20 07-20 mg by Method i ) 500 MG 17:12: 00:[address] tablet 35 :00 levothyroxi 2019-2019- No Take by [place] ne sodium 7-20 07-20 mouth. Methodi (TIROSINT) 17:12: 00:00 st 150 mcg 00 :00 capsule mupirocin 2019- No Primary Apply to Kash (BACTROBAN) 02-05 osteoarthri the inside Methodi 2 % 00:00: 23:59 tis of of each st ointment 00 :00 right knee nostril BID 5 days prior to surgery Vital Signs Vital Name Observation Time Observation Value Comments Source Body height 2020-11-10 11:11:00 167.6 cm Kash Bronson Body weight 2020-11-10 11:11:00 63.504 kg Kash Bronson BMI 2020-11-10 11:11:00 22.60 kg/m2 [place] [facility] Systolic blood 2020-08-21 14:56:00 126 mm[Hg] [place] pressure Diastolic blood 2020-08-21 14:56:00 68 mm[Hg] [place] [facility]ish pressure Heart rate 2020-08-21 14:56:00 71 /min Kash Bronson Respiratory rate 2020-08-21 14:56:00 18 /min Jacki irais Amish Oxygen saturation in 2020-08-21 14:56:00 96 /min Kash Bronson Arterial blood by Pulse oximetry Body temperature 2020-03-25 19:35:00 36.61 Jen Jacki Bronson Procedures Procedure Date / Time Performed Performing Clinician Souralfie e XR KNEE 1 OR 2 VW RIGHT 2020-11-10 12:19:59 Isaac Borges XR KNEE 3 VW RIGHT 2020-04-17 11:23:54 Isaac Borges ethodist XR KNEE 1 OR 2 VW RIGHT 2020-03-25 16:33:34 Stella Chisholmton Aiyana Wilburn SURGICAL PATHOLOGY 2020-03-25 15:04:00 Isaac Borges ethodist REQUEST HC COMPLETE BLD COUNT 2020-03-25 13:51:00 Stella Chisholm W/AUTO DIFF Akila BASIC METABOLIC PANEL 2020-03-25 13:51:00 Stella Chisholm ESTIMATED GFR 2020-03-25 13:51:00 Stella Chisholm Me thodist Akila AL AN ELECTIVE 2020-03-25 11:18:17 Brittanie Powell Me thodist ENDOTRACHEAL AIRWAY ARTHROPLASTY, KNEE, 2020-03-25 10:50:00 Isaac Borges TOTAL AL AN PERIPHERAL BLOCK 2020-03-25 08:52:34 Too Golden on Amish PROCEDURE FOR PAIN AL AN PERIPHERAL BLOCK 2020-03-25 08:51:26 Too Golden on Amish PROCEDURE FOR PAIN TYPE AND SCREEN 2020-03-20 13:59:00 Isaac Borges Meth odist COVID-19 QUALITATIVE PCR 2020-03-20 13:29:00 Isaac Borges Sandra wankaylie Amish HEMOGLOBIN A1C 2020-03-20 13:29:00 Tawnya Means on Amish Plan of Care Planned Activity Planned Date Details Comments Source Future Scheduled 2021-04-04 INFLUENZA VACCINE [place] [facility] Test 00:00:00 [code = INFLUENZA VACCINE] Future Scheduled 2020-11-07 COVID-19 VACCINE (2 - [place] [facility] Test 00:00:00 Moderna 2-dose series) [code = COVID-19 VACCINE (2 - Moderna 2-dose series)] Future Scheduled 1996 Screening for [facility] thodist Test 00:00:00 malignant neoplasm of lung (procedure) [code = 133573978] Future Scheduled 1991 SHINGLES VACCINES (#1) [facility] Amish Test 00:00:00 [code = SHINGLES VACCINES (#1)] Future Scheduled 1959 Hepatitis C screening [place] [facility] Test 00:00:00 (procedure) [code = 449417001] Future Scheduled 1951 DIABETES: RETINAL EYE [place] [facility] Test 00:00:00 EXAM [code = DIABETES: RETINAL EYE EXAM] Future Scheduled 1951 DIABETIC FOOT EXAM [place] [facility] Test 00:00:00 [code = DIABETIC FOOT EXAM] Future Scheduled 1951 URINE MICROALBUMIN [place] [facility] Test 00:00:00 [code = URINE MICROALBUMIN] Future Scheduled 1947 65+ PNEUMOCOCCAL [place] [facility] Test 00:00:00 VACCINE (1 of 2 - PPSV23) [code = 65+ PNEUMOCOCCAL VACCINE (1 of 2 - PPSV23)] Encounters Start End Encounter Admission Attending Care Care Encounter Source Date/Time Date/Time Type Type Clinicians Facility Department ID 2020-11-10 2020-11-10 Outpatient ISAAC BORGES [facility] [id number] [place] 00:00:00 00:00:[address] 2020-11-10 2020-11-10 Outpatient ISAAC BORGES [facility] [id number] [place] 00:00:00 00:00:[address] 2020-10-16 2020-10-16 Outpatient ISAAC BORGES [facility] [id number] [place] 00:00:00 00:00:[address] 2020-08-21 2020-08-21 Outpatient ANTHONY, [facility] [id number] [place] 00:00:00 00:00:00 ARNULFO [address] 2020-05-29 2020-05-29 Outpatient LE, ISAAC [facility] [id number] [place] 00:00:00 00:00:[address] 2020-04-17 2020-04-17 Outpatient LE, ISAAC [facility] [id number] [place] 00:00:00 00:00:[address] 2020-04-17 2020-04-17 Outpatient LE, ISAAC [facility] [id number] [place] 00:00:00 00:00:[address] 2020-04-03 2020-04-03 Outpatient [facility] [id number] [place] 00:00:00 00:00:[address] 2020-03-30 2020-03-30 Outpatient [facility] [id number] [place] 00:00:00 00:00:[address] 2020-03-25 2020-03-25 Outpatient LE, ISAAC [facility] [id number] [place] 00:00:00 00:00:[address] 2020-03-25 2020-03-25 Outpatient LE, ISAAC [place] [id number] [place] 00:00:00 00:00:[address] 2020-03-20 2020-03-20 Outpatient LEISAAC [facility] 2100 [id number] [place] 00:00:00 00:00:[address] 2020-03-12 2020-03-12 Outpatient [facility] [id number] [place] 00:00:00 00:00:[address] 2019-11-08 2019-11-08 Outpatient LE, ISAAC [facility] [id number] [place] 00:00:00 00:00:[address] 2019-11-08 2019-11-08 Outpatient LE, ISAAC [facility] [id number] [place] 00:00:00 00:00:[address] Results Test Description Test Time Test Comments Results Result Comments Source Surgical pathology request 2020-03-30 17:02:18 Test Item Value Reference Range Interpretation Comme nts Case number (test code = [id number]) [id number] Surgical pathology report (test code = See link below for PDF Lab R eport 2258) Result status (test code = [id number]) This is Final Report for [id number] [place] [id number] 11:18:17TrBrittanie vu CRNA 03/25/2020 11:19 AMAirwayPerformed by: Brittanie Powell CRNAAuthorized by: Too Golden MD Location: ORUrgency: ElectiveDifficult Airway: No Resident/[employer]/AA: Brittanie Powell CRNAPreoxygenated with 100% O2: Yes C- spine Precautions Maintained Throughout: Yes Mask Ventilation: Not attemptedFinal Airway Type: Endotracheal airwayFinal Endotracheal Airway: ETTC uffed: Yes Technique Used: Video laryngoscopyDevices/Methods Used in Placement: Intubating styletInsertion Site: OralBlade Type: Tamara (UCT Coatings)Laryngoscope Blade/Videolaryngoscope Blade Size: 3ETT Size (mm): 7.0Cuff at minimum occlusion pressure: Yes Measured from: LipsETT to Lips (cm):21Placement Verified by: CO2 detection, direct visualization and equal breath sounds Laryngoscopic view: Grade IIa - partial view of glottisRapid Sequence Induction (RSI): Yes Modified RSI: No Number of Attempts at Approach: 1 Atraumatic, lips and gums intact and unchangedHouston MethodistPeripheral Block [id number] 08:52:34Too Golden MD 03/25/2020 10:06 AMPeripheral Block [...] Ultrasound documentation: Printed/placed in chartNeedle: Needle Type: Pajunk Needle Gauge: 21 G Needle length: 100mm.Assessment: [...] patient comfortable and patient tolerated procedure well [place] MethodistPeripheral Block [id number] 08:51:26VuToo MD 03/25/2020 10:06 AMPeripheral Block ACPerformed by: Too Golden MDAuthwaldo ized by: Isaac Borges MD Patient Location: [...] complications, patient comfortable and patient tolerated procedure wellHoucassie Bronson
--- NOTE | 2021-02-01 11:23 | RAD REPORT ---
EXAM DESCRIPTION: Stephen Single View02/01/2021 10:47 am CLINICAL HISTORY: Cough COMPARISON: 2019 FINDINGS: Bilateral interstitial lung opacities unchanged probably chronic Heart is normal size IMPRESSION: No acute abnormalities displayed
--- NOTE | 2021-02-01 11:52 | EDPHYS ---
Physician Documentation [facility] Name: Cristela Arriaza Age: 80 yrs Sex: Female : 1940 Arrival Date: 02/01/2021 Time: 09:47 Bed 15 Private MD: ED Physician Hemal Mcmanus HPI: 02/01 10:07 This 80 yrs old Female presents to ER via Ambulatory with complaints of jmm Cough, Congestion. 10:07 The patient or guardian reports cough. Onset: The symptoms/episode began/occurred jmm gradually, 3 day(s) ago. Modifying factors: The symptoms are alleviated by nothing, the symptoms are aggravated by nothing. Associated signs and symptoms: Pertinent positives: rhinorrhea. The patient has experienced similar episodes in the past. Patient states family members have similar symptoms. Historical: - Allergies: 10:04 Cephalexin; sv - PMHx: 10:04 Myocardial infarction; Hypertension; sv - PSHx: 10:04 Cholecystectomy; cardiac stent; eliza hip; Knee surgery; eliza carotid; sv - Immunization history:: Client reports receiving the 2nd dose of the Covid vaccine, Client reports receiving the 1st dose of the Covid vaccine. - Social history:: Smoking status: Patient reports the use of cigarette tobacco products, smokes one pack cigarettes per day. ROS: 10:07 Constitutional: Positive for body aches, fatigue. jmm 10:07 Respiratory: Positive for cough. 10:07 All other systems are negative. Exam: 10:07 Constitutional: This is a well developed, well nourished patient who is awake, alert, jmm and in no acute distress. Head/Face: atraumatic. Eyes: EOMI, no conjunctival erythema appreciated ENT: Moist Mucus Membranes Neck: Trachea midline, Supple Chest/axilla: Normal chest wall appearance and motion. Cardiovascular: Regular rate and rhythm. No edema appreciated 10:07 Back: Normal ROM Skin: General appearance color normal MS/ Extremity: Moves all extremities, no obvious deformities appreciated, no edema noted to the lower extremities Neuro: Awake and alert, normal gait Psych: Behavior is normal, Mood is normal, Patient is cooperative and pleasant 10:07 Respiratory: the patient does not display signs of respiratory distress, Respirations: normal, Breath sounds: wheezing: that is mild. Vital Signs: 10:02 Weight 66.68 kg; Height 5 ft. 6 in. (167.64 cm); Pain 0/10; sv 10:11 BP 142 / 75; Pulse 64; Resp 16; Temp 98.0(O); Pulse Ox 98% on R/A; vg1 11:14 BP 111 / 66; Pulse 62; Resp 16; Pulse Ox 98% on R/A; vg1 10:02 Body Mass Index 23.73 (66.68 kg, 167.64 cm) sv MDM: 10:05 Patient medically screened. [facility] 11:48 Data reviewed: vital signs, nurses notes. Counseling: I had a detailed discussion with leah the patient and/or guardian regarding: the historical points, exam findings, and any diagnostic results supporting the discharge/admit diagnosis, radiology results, the need for outpatient follow up, to return to the emergency department if symptoms worsen or persist or if there are any questions or concerns that arise at home. ED course: Patient is alert and non toxic in appearance in the ED. Patient is advised to follow up with pcp and otherwise given strict return precautions. Patient understood and agrees with the plan of care. . 02/01 10:06 Order name: Strep [facility] 02/01 10:06 Order name: Chest Single View XRAY; Complete Time: 11:24 [facility] Administered Medications: No medications were administered Disposition: 15:19 Co-signature as Attending Physician, Hemal Mcmanus MD. rn Disposition: 02/01/21 11:51 Discharged to Home. Impression: Acute upper respiratory infection, unspecified, Acute pharyngitis. - Condition is Stable. - Discharge Instructions: Pharyngitis. - Prescriptions for Prednisone 20 mg Oral Tablet - take 3 tablet by ORAL route once daily for 5 days; 15 tablet. Zithromax Z- Zia 250 mg Oral Tablet - take 1 tablet by ORAL route as directed for 5 days Day 1 - take two (2) tablets one time. Day 2, 3, 4 , 5 take one (1) tablet once daily.; 6 tablet. Albuterol Sulfate 90 mcg/actuation - inhale 1-2 puff by INHALATION route every 4-6 hours; 1 Inhaler. - Medication Reconciliation Form, Thank You Letter, Antibiotic Education, Prescription Opioid Use form. - Follow up: Private Physician; When: 2 - 3 days; Reason: Recheck today's complaints, Continuance of care, Re-evaluation by your physician. Signatures: Dispatcher [employer] Maki Mascorro, RN RN Stanton Rosenberg PA PA jmm Nieto, Roman, MD MD rn Garcia, Victoria, RN RN vg1 Corrections: (The following items were deleted from the chart) 11:57 11:51 02/01/2021 11:51 Discharged to Home. Impression: Acute upper respiratory vg1 infection, unspecified; Acute pharyngitis. Condition is Stable. Forms are Medication Reconciliation Form, Thank You Letter, Antibiotic Education, Prescription Opioid Use. Follow up: Private Physician; When: 2 - 3 days; Reason: Recheck today's complaints, Continuance of care, Re-evaluation by your physician. leah
--- NOTE | 2021-02-01 11:52 | ER ---
Nurse's Notes [facility] Joann Name: Cristela Arriaza Age: 80 yrs Sex: Female : 1940 Arrival Date: 02/01/2021 Time: 09:47 Bed 15 Private MD: Diagnosis: Acute upper respiratory infection, unspecified;Acute pharyngitis Presentation: 02/01 10:02 Chief complaint: Patient states: sneezing, productive cough, congestion, chest pain sv with cough, nasal drainage x 3 days. Denies fever. Coronavirus screen: Client denies travel out of the [place] in the last 14 days. Client presents with at least one sign or symptom that may indicate coronavirus-19. Standard/surgical mask placed on the client. Provider contacted for isolation considerations. Ebola Screen: No symptoms or risks identified at this time. Risk Assessment: Do you want to hurt yourself or someone else? Patient reports no desire to harm self or others. Onset of symptoms was January 29, 2021. 10:02 Method Of Arrival: Ambulatory sv 10:02 Acuity: CHUCHO 3 sv Triage Assessment: 10:05 General: Appears in no apparent distress. uncomfortable, Behavior is cooperative. Pain: sv Complains of pain in chest. Neuro: Level of Consciousness is awake, alert, obeys commands, Gait is steady. Respiratory: Respiratory effort is even, unlabored. Historical: - Allergies: 10:04 Cephalexin; sv - PMHx: 10:04 Myocardial infarction; Hypertension; sv - PSHx: 10:04 Cholecystectomy; cardiac stent; eliza hip; Knee surgery; eliza carotid; sv - Immunization history:: Client reports receiving the 2nd dose of the Covid vaccine, Client reports receiving the 1st dose of the Covid vaccine. - Social history:: Smoking status: Patient reports the use of cigarette tobacco products, smokes one pack cigarettes per day. Screenin:11 Abuse screen: Denies threats or abuse. Nutritional screening: No deficits noted. vg1 Tuberculosis screening: No symptoms or risk factors identified. Fall Risk No fall in past 12 months (0 pts). No secondary diagnosis (0 pts). No IV (0 pts). Ambulatory Aid- None/Bed Rest/Nurse Assist (0 pts). Gait- Normal/Bed Rest/Wheelchair (0 pts) Mental Status- Oriented to own ability (0 pts). Total Molina Fall Scale indicates No Risk (0-24 pts). Assessment: 10:09 General: Appears in no apparent distress. comfortable, Behavior is calm, cooperative. vg1 Pain: Denies pain. Neuro: Level of Consciousness is awake, alert, obeys commands, Oriented to person, place, time, situation. Cardiovascular: Patient's skin is warm and dry. Respiratory: Breath sounds are clear bilaterally. Respiratory: Airway is patent Respiratory effort is even, unlabored. GI: No signs and/or symptoms were reported involving the gastrointestinal system. : No signs and/or symptoms were reported regarding the genitourinary system. EENT: No signs and/or symptoms were reported regarding the EENT system. Derm: Skin is intact, is healthy with good turgor. Musculoskeletal: Circulation, motion, and sensation intact. 11:14 Reassessment: Patient appears in no apparent distress at this time. No changes from vg1 previously documented assessment. Patient and/or family updated on plan of care and expected duration. Pain level reassessed. Patient is alert, oriented x 3, equal unlabored respirations, skin warm/dry/pink. Vital Signs: 10:02 Weight 66.68 kg; Height 5 ft. 6 in. (167.64 cm); Pain 0/10; sv 10:11 BP 142 / 75; Pulse 64; Resp 16; Temp 98.0(O); Pulse Ox 98% on R/A; vg1 11:14 BP 111 / 66; Pulse 62; Resp 16; Pulse Ox 98% on R/A; vg1 10:02 Body Mass Index 23.73 (66.68 kg, 167.64 cm) sv ED Course: 09:47 Patient arrived in ED. ds1 09:55 Stanton Turner PA is PHCP. jmm 09:55 Hemal Mcmanus MD is Attending Physician. jmm 10:00 Mo Kim, RN is Primary Nurse. ll1 10:01 Primary Nurse role handed off by Mo Kim, RN vg1 10:01 Madhavi Glez, RN is Primary Nurse. vg1 10:04 Triage completed. sv 10:04 Arm band placed on. sv 10:11 Patient has correct armband on for positive identification. Bed in low position. Call vg1 light in reach. Side rails up X 1. 10:29 COVID swab sent to lab. Flu and/or RSV swab sent to lab. Strep swab sent to lab. vg1 10:47 Chest Single View XRAY In Process Unspecified. EDMS 11:57 No provider procedures requiring assistance completed. Patient did not have IV access vg1 during this emergency room visit. Administered Medications: No medications were administered Outcome: 11:51 Discharge ordered by . kaelyn 11:57 Discharged to home ambulatory. vg1 11:57 Condition: stable 11:57 Discharge instructions given to patient, Instructed on discharge instructions, follow up and referral plans. medication usage, Demonstrated understanding of instructions, follow-up care, medications, Prescriptions given X 3. 11:57 Patient left the ED. 1 Signatures: Dispatcher [employer] Maki Mascorro, RN RN Stanton Rosenberg PA PA jmm Sanford, Demi ds1 Madhavi Glez RN RN vg1 Mo Kim RN RN ll1
[2021-02-01 12:04] VITALS: TEMP 98; O2SAT 98
[2021-02-01 12:05] VITALS: BP 111/66
[2021-02-01 13:03] LABS: SARS-COV-2 RT PCR NEGATIVE (NEGATIVE)
== END 2021-02-01 11:57 | disposition home or self-care (01) ==
LOC: ER 09:44
DX: J06.9 Acute upper respiratory infection, unspecified (principal); J02.9 Acute pharyngitis, unspecified; I10 Essential (primary) hypertension; I25.2 Old myocardial infarction; F17.210 Nicotine dependence, cigarettes, uncomplicated; Z20.822 Contact with and (suspected) exposure to COVID-19; Z88.1 Allergy status to other antibiotic agents; Z95.818 Presence of other cardiac implants and grafts
CPT/HCPCS: 87070; 87081; 0240U; 71045; 99283

== ENCOUNTER 2021-05-07 06:37 | Day surgery (SDC) | payer OTHER ==
[2021-05-04 15:36] LABS: Absolute Lymphocytes (CBC) 1.1 K/uL (0.7-4.9); Basophils % 0.7 % (0-1.3); Hematocrit 43.9 % (36.0-45.0); MPV 7.2 fL (7.6-11.3); RBC Red Blood Cell Count 4.66 M/uL (3.86-4.86)
[2021-05-04 15:50] LABS: Potassium 3.7 mmol/L (3.5-5.1)
--- NOTE | 2021-05-05 12:52 | EKG ---
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
[2021-05-07] MEDS: Ringers Lactate 1,000 ML IV ONE ×2 (07:00→07:30)
[2021-05-07] MEDS ORDERED: FENTANYL CITR 100 MCG/2 ML ONE (07:28)
[2021-05-07] MEDS ORDERED: BUPIVACAINE 0.5% PF 10 ML VIAL ONE (07:29)
[2021-05-07] MEDS ORDERED: propofoL 200 MG/20 ML VIAL IV ONE (07:29)
[2021-05-07] MEDS ORDERED: LIDOCAINE 1% MPF 5 ML VIAL ONE (07:29)
[2021-05-07] MEDS ORDERED: KETOROLAC 30 MG/ML INJ ONE (08:27)
[2021-05-07 08:50] VITALS: BP 124/65; TEMP 98.2; O2SAT 100
--- NOTE | 2021-05-07 09:41 | OP ---
Date of Procedure: 05/07/2021 Surgeon: Mitesh Olivier MD Curriculum Director: Mike Torrez, surgical clinical reviewer certified. Preoperative Diagnosis: Back mass x2. Postoperative Diagnosis: Back mass x2 with the bottom mass being slightly inflamed. Procedure Performed: Wide excision, back mass x2. The entire incision was 8 x 3 cm with layered kwaku sure. This included both masses as they were next to each other. Estimated Blood Loss: Minimal. Specimen: Back mass x2. Findings: Likely sebaceous cyst. Anesthesia: MAC. Complications: None. Disposition: The patient tolerated the procedure in stable condition and taken to Recovery and [facility] in good, general condition. Operative Note: The patient was brought to the OR and placed in supine position. MAC anesthesia was begun. The patient was placed in left lateral position, prepped and draped in the usual sterile fas hion. The patient had 2 masses that were raised with punctum in the middle consistent with sebaceous cyst. They were next to each other, approximately 1.5 cm in diameter each, and so Marcaine 0.5% was infiltrated locally and I made a vertical incision 8 x 3 cm to include both cysts including the wall down through the deep subcutaneous tissue and excised and sent to Pathology as specimen. The wound was irrigated. Bleeding was controlled with cautery. Flaps created and then 2-0 chromic was used to approximate the deep and the superficial subcutaneous tissues, and then 3-0 nylon was used to close the skin. Sterile dressing was applied. The patient was awakened and taken to Recovery in good, gen eral condition. Discharge Note: The patient will go to Day Surgery and home when stable. Disposition: Home. Condition: Stable. Discharge Instructions: Resume home medications and diet. Activity as tolerated. No heavy lifting. Remove outer dressing in 2 days. Shower. Keep wound clean and dry. Follow up in my office in 2 w eesd, call for appointment. Tylenol No.3 one tablet p.o. q.4 p.r.n. pain, Cipro 500 mg p.o. q.12. /MODL Voice ID: [id number] Report ID: [id number]
== END 2021-05-07 09:07 | disposition home or self-care (01) ==
LOC: OR 06:37
PROVIDERS: ATTEND Surgery
PROC: 0JB70ZZ Excision of Back Subcutaneous Tissue and Fascia, Open Approach (ICD-10-PCS; principal; 2021-05-07 07:30)
DX: D48.5 Neoplasm of uncertain behavior of skin (principal); L72.0 Epidermal cyst; Z20.822 Contact with and (suspected) exposure to COVID-19
CPT/HCPCS: 93005; 85025; 80048; 36415; 88304; 11406; U0003; J2704; J3010; J7120; 88305

== ENCOUNTER 2022-06-24 16:55 | Emergency (ER) | payer OTHER ==
--- OUTSIDE RECORDS SUMMARY | 2022-06-24 16:59 | XMS REPORT | Continuity of Care Document ---
:1940 Author Organization [facility] t Address [address] [place] [address] Dr. Smith [address] [place] [id number] Care Team Providers Name Role Phone Asked, No Pcp Primary Care Physician Unavailable Gloria Attending Clinician Unavailable Maribel Mcdermott Attending Clinician [phone] Therapy, [facility] Infusion Attending Clinician Unavailable Verenice Mckinnon MD Attending Clinician VERENICE MCKINNON Attending Clinician Unavailable Doctor Unassigned, [place] Attending Clinician Unavailable FATMATA VILLASEÑOR Attending Clinician Unavailable Ryder Payton Attending Clinician Unavailable Asha Suarez PA-C Attending Clinician ASHA SUAREZ Attending Clinician Unavailable ISAÍAS COSTA Attending Clinician Unavailable Isaac Borges MD Attending Clinician ARNULFO ANTHONY Attending Clinician Unavailable MD ISAAC BORGES Attending Clinician Unavailable Gloria Admitting Clinician Unavailable Physician, No Primary or Family Admitting Clinician Unavaila ISAAC Figueroa Admitting Clinician Unavailable MD ISAAC BORGES Admitting Clinician Unavailable Payers Payer Name Policy Type Policy Number Effective Date Expiration Date S ource MEDICARE B-[place]: [id number] 2006 [place] 00:00:00 BIBI (BIBI) [id number] 2018 00:00:00 Problems Condition Condition Condition Status Onset Resolution Last Treating Co mments Source Name Details Category Date Date Treatment Clinician Date Primary Primary Disease Active 2016-09 Overview: Meth dragan osteoarthr osteoarthr 2-[address] itis of itis of 00:00: g of this Hospi ta right knee right knee 00 note l might be different from the original. 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 00:00: Hospita replacemen replacemen 00 l t t Acute Acute Disease Active Methodi blood loss blood loss 8-16 st anemia anemia 00:00: Hospita 00 l Hypophosph Hypophosph Disease Active M ethodi atemia atemia 8-16 st 00:00: Hospita 00 l Stenosis Stenosis Disease Active Metho di of carotid of carotid 8-15 st artery artery 00:00: Hospita 00 l Left Left Disease Active Methodi carotid carotid 7-05 st stenosis stenosis 00:00: Hospit a 00 l Carotid Carotid Disease Active Methodi artery artery 7-05 st narrowing narrowing 00:00: Hosp [facility]ad 00 l HTN HTN Disease Active Methodi (hypertens (hypertens 7-05 st ion) ion) 00:00: Hospita 00 l HLD HLD Disease Active Methodi (hyperlipi (hyperlipi 7-05 st demia) demia) 00:00: Hospita 00 l 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 2 00:00: Hospita diabetes diabetes 00 l mellitus mellitus Coronary Coronary Disease Active Metho di arterioscl arterioscl 7-05 st erosis in erosis in 00:00: Hosp behzad agdaagux agdaagux 00 l artery artery S/P S/P Disease Active Methodi carotid carotid 7-[address] endarterec endarterec 00:00: Ho spita paolo paolo 00 l Benign Benign Disease Active 2013-09 Methodi essential essential 2-18 st hypertensi hypertensi 00:00: Ho spita on on 00 l Pure Pure Disease Active 2013-09 Overview: Method i hyperchole hyperchole 2-[address] sterolemia sterolemia 00:00: g of this Hospita 00 note l might be different from the original. Overview: No recent lipids. Diabetes Diabetes Disease Active 2013-09 Metho di mellitus mellitus 2-18 st 00:00: Hospita 00 l Allergies, Adverse Reactions, Alerts Allergy Allergy Status Severity Reaction(s) Onset Inactive Treating Comm ents Source Name Type Date Date Clinician CEPHALEX DRUG Active ITCHING Univers IN INGREDI 6-24 ity of 00:00: [place] 00 [facility] Cephalex Propensi Active Rash Univer s in ty to 6-24 ity of adverse 00:00: [place] reaction 00 [facility] Cephalex Propensi Active Itching Metho di in ty to 5-16 st adverse 00:00: Hospita reaction 00 l s to drug NO KNOWN Drug Active Univers ALLERGIE Class ity of S [facility] Family History Family Member Diagnosis Comments Start Date Stop Date Source Natural brother Prostate cancer [facility] Natural father Kidney disease [facility] Natural mother Heart disease [facility] Natural mother Heart failure [facility] Natural sister [facility] Social History Social Habit Start Date Stop Date Quantity Comments Source Exposure to Not sure University of SARS-CoV-2 (event) [facility] Alcohol intake 2020-11-10 2020-11-10 Current Taoist 00:00:00 00:00:00 non-drinker of Hospital alcohol (finding) Tobacco use and 2020-08-21 2020-08-21 Smokeless Taoist exposure 00:00:00 00:00:00 tobacco non-user Hospital Cigarettes smoked 2020-08-21 2020-08-[address] current (pack per 00:00:00 00:00:00 Hospita l day) - Reported Cigarette 2020-08-21 2020-08-21 Taoist pack-years 00:00:00 00:00:00 Hospital History of tobacco 2016-09-14 Cigarette Smoker Taoist use 00:00:00 Hospital Sex Ass[birth year] At [birth year] Taoist 00:00:00 00:00:00 Hospital Smoking Status Start Date Stop Date Source Occasional tobacco smoker 2020-08-21 00:00:00 [facility] Current every day smoker 2017-07-10 00:00:00 [facility] REMOTVity [facility] Medications Ordered Filled Start Stop Current Ordering Indication Dosage Frequency Signature Comments Components Source Medication Medication Date Date Medication? Clinician (SIG) Name Name mani 2021- No [id number] 500mg 500 mg, IV Univers (XEVUDY) 09-06 Infusion, ity o f 500 mg in 17:45: 17:00 ONCE, [place] NaCl 0.9% 00 :00 Administer Medi candelaria (NS) 50 mL over 30 Branch MINI-BAG Minutes, On Mon09/06/21 at 1145, For [address] able 24 hours refrigerat ed or 6 hours at room temperatur e including transporta tion and infusion time.<b r> CLOPIDOGREL Yes Take by Uni vers BISULFATE 6-24 mouth. ity of (PLAVIX 18:46: [place] ORAL) [address] [place] [address] AMLODIPINE Yes Take by [facility] [place] ers BESYLATE 6-24 mouth. ity of (AMLODIPINE 18:46: [place] ORAL) [address] [place] [address] Levothyroxi Yes Take by Uni vers ne 150 mcg 6-24 mouth. ity of capsule 18:46: [address] aspirin 81 Yes 81mg Take 81 mg U nivers mg chewable -24 by mouth ity of tablet 18:46: daily. [address] METOPROLOL Yes Take by [facility] [place] ers SUCCINATE 6-24 mouth. ity of ORAL 18:46: [address] FUROSEMIDE, Yes [facility] s BULK, MISC 6-24 ity of 18:46: [address] potassium Yes Take by [facility] [place] [facility] rs phosphate 6-24 mouth. ity of Soln oral 18:46: [place] solution [address] [place] [address] haloperidol Yes 1mg Take 1 mg U nivers 1 mg tablet 6-24 by mouth 2 it y of 18:46: (two) [place] 18 times Medical daily. Branch CLOPIDOGREL 0 Yes Take by Uni vers BISULFATE 6-24 mouth. ity of (PLAVIX 18:46: [place] ORAL) 18 Medical Branch AMLODIPINE 0 Yes Take by Univ ers BESYLATE 6-24 mouth. ity of (AMLODIPINE 18:46: [place] ORAL) Medical Branch Levothyroxi Yes Take by Uni vers ne 150 mcg 6-24 mouth. ity of capsule 18:46: [address] Branch aspirin 81 0 Yes 81mg Take 81 mg U nivers mg chewable 6-24 by mouth ity of tablet 18:46: daily. [address] Branch METOPROLOL Yes Take by Univ ers SUCCINATE 6-24 mouth. ity of ORAL 18:46: [address] Branch FUROSEMIDE, 0 Yes Univer s BULK, MISC 6-24 ity of 18:46: [address] Branch potassium Yes Take by Unive rs phosphate 6-24 mouth. ity of Soln oral 18:46: [address] Branch haloperidol Yes 1mg Take 1 mg U nivers 1 mg tablet 6-24 by mouth 2 it y of 18:46: (two) [place] 18 times Medical daily. Branch CLOPIDOGREL Yes Take by Uni vers BISULFATE 6-24 mouth. ity of (PLAVIX 18:46: [place] ORAL) Medical Branch AMLODIPINE Yes Take by Univ ers BESYLATE 6-24 mouth. ity of (AMLODIPINE 18:46: [place] ORAL) Medical Branch Levothyroxi Yes Take by Uni vers ne 150 mcg 6-24 mouth. ity of capsule 18:46: [address] Branch aspirin 81 0 Yes 81mg Take 81 mg U nivers mg chewable 6-24 by mouth ity of tablet 18:46: daily. [address] Branch METOPROLOL 0 Yes Take by Univ ers SUCCINATE 6-24 mouth. ity of ORAL 18:46: [address] Branch FUROSEMIDE, 0 Yes Univer s BULK, MISC 6-24 ity of 18:46: [address] Branch potassium Yes Take by Unive rs phosphate 6-24 mouth. ity of Soln oral 18:46: [place] solution 18 Medical Branch haloperidol 2021-0 Yes 1mg Take 1 mg U nivers 1 mg tablet 6-24 by mouth 2 it y of 18:46: (two) [place] 18 times Medical daily. Branch CLOPIDOGREL 0 Yes Take by Uni vers BISULFATE 6-24 mouth. ity of (PLAVIX 18:46: [place] ORAL) 18 Medical Branch AMLODIPINE Yes Take by Univ ers BESYLATE 6-24 mouth. ity of (AMLODIPINE 18:46: [place] ORAL) 18 Medical Branch Levothyroxi Yes Take by Uni vers ne 150 mcg 6-24 mouth. ity of capsule 18:46: [address] Branch aspirin 81 Yes 81mg Take 81 mg U nivers mg chewable 6-24 by mouth ity of tablet 18:46: daily. [place] [address] Medical Branch METOPROLOL Yes Take by Univ ers SUCCINATE 6-24 mouth. ity of ORAL 18:46: [place] [address] Medical Branch FUROSEMIDE, Yes Univer s BULK, MISC 6-24 ity of 18:46: [place] [address] Medical Branch potassium 0 Yes Take by Unive rs phosphate 6-24 mouth. ity of Soln oral 18:46: [place] solution Medical Branch haloperidol Yes 1mg Take 1 mg U nivers 1 mg tablet 6-24 by mouth 2 it y of 18:46: (two) [place] 18 times Medical daily. Branch CLOPIDOGREL Yes Take by Uni vers BISULFATE 6-24 mouth. ity of (PLAVIX 18:46: [place] ORAL) 18 Medical Branch AMLODIPINE Yes Take by Univ ers BESYLATE 6-24 mouth. ity of (AMLODIPINE 18:46: [place] ORAL) Medical Branch Levothyroxi Yes Take by Uni vers ne 150 mcg 6-24 mouth. ity of capsule 18:46: [address] Branch aspirin 81 0 Yes 81mg Take 81 mg U nivers mg chewable 6-24 by mouth ity of tablet 18:46: daily. [place] [address] Medical Branch METOPROLOL 0 Yes Take by Univ ers SUCCINATE 6-24 mouth. ity of ORAL 18:46: [place] [address] Medical Branch FUROSEMIDE, 0 Yes Univer s BULK, MISC 6-24 ity of 18:46: [place] [address] Medical Branch potassium Yes Take by Unive rs phosphate 6-24 mouth. ity of Soln oral 18:46: [place] [address] Medical Branch haloperidol Yes 1mg Take 1 mg U nivers 1 mg tablet 6-24 by mouth 2 it y of 18:46: (two) [place] 18 times Medical daily. Branch CLOPIDOGREL Yes Take by Uni vers BISULFATE 6-24 mouth. ity of (PLAVIX 13:46: [place] ORAL) Medical Branch AMLODIPINE Yes Take by Univ ers BESYLATE 6-24 mouth. ity of (AMLODIPINE 13:46: [place] ORAL) Medical Branch Levothyroxi Yes Take by Uni vers ne 150 mcg 6-24 mouth. ity of capsule 13:46: [address] aspirin 81 Yes 81mg Take 81 mg U nivers mg chewable 6-24 by mouth ity of tablet 13:46: daily. [address] METOPROLOL Yes Take by Univ ers SUCCINATE 6-24 mouth. ity of ORAL 13:46: [address] FUROSEMIDE, 0 Yes Univer s BULK, MISC 6-24 ity of 13:46: [address] potassium Yes Take by Unive rs phosphate 6-24 mouth. ity of Soln oral 13:46: [address] Branch haloperidol Yes 1mg Take 1 mg U nivers 1 mg tablet 6-24 by mouth 2 it y of 13:46: (two) [place] 18 times Medical daily. Branch CLOPIDOGREL Yes Take by Uni vers BISULFATE 6-24 mouth. ity of (PLAVIX 13:46: [place] ORAL) Medical Branch AMLODIPINE Yes Take by Univ ers BESYLATE 6-24 mouth. ity of (AMLODIPINE 13:46: [place] ORAL) Medical Branch Levothyroxi Yes Take by Uni vers ne 150 mcg 6-24 mouth. ity of capsule 13:46: [address] aspirin 81 0 Yes 81mg Take 81 mg U nivers mg chewable 6-24 by mouth ity of tablet 13:46: daily. [address] METOPROLOL 0 Yes Take by Univ ers SUCCINATE 6-24 mouth. ity of ORAL 13:46: [address] Branch FUROSEMIDE, 0 Yes Univer s BULK, MISC 6-24 ity of 13:46: [place] 18 Medical Branch potassium 0 Yes Take by Unive rs phosphate 6-24 mouth. ity of Soln oral 13:46: [place] solution 18 Medical Branch haloperidol 0 Yes 1mg Take 1 mg U nivers 1 mg tablet 6-24 by mouth 2 it y of 13:46: (two) [place] 18 times Medical daily. Branch traMADoL 50 Yes TAKE 1 Univ ers mg tablet 6-16 TABLET BY ity o f 00:00: MOUTH [place] 00 TWICE Medical DAILY Branch NEEDED traMADoL 50 0 Yes TAKE 1 Univ ers mg tablet 6-16 TABLET BY ity o f 00:00: MOUTH [place] 00 TWICE Medical DAILY Branch NEEDED traMADoL 50 0 Yes TAKE 1 Univ ers mg tablet 6-16 TABLET BY ity o f 00:00: MOUTH [place] 00 TWICE Medical DAILY Branch NEEDED traMADoL 50 0 Yes TAKE 1 Univ ers mg tablet 6-16 TABLET BY ity o f 00:00: MOUTH [place] 00 TWICE Medical DAILY Branch NEEDED traMADoL 50 2020-0 Yes TAKE 1 Univ ers mg tablet 6-16 TABLET BY ity o f 00:00: MOUTH [place] 00 TWICE Medical DAILY Branch NEEDED traMADoL 50 2020-0 Yes TAKE 1 Univ ers mg tablet 6-16 TABLET BY ity o f 00:00: MOUTH [place] 00 TWICE Medical DAILY Branch NEEDED traMADoL 50 2020-0 Yes TAKE 1 Univ ers mg tablet 6-16 TABLET BY ity o f 00:00: MOUTH [place] 00 TWICE Medical DAILY Branch NEEDED predniSONE 2020-0 Yes TAKE 1 Unive rs 5 mg tablet 5-17 TABLET BY ity of 00:00: MOUTH ONCE [place] 00 DAILY Medical DIRECTED Branch predniSONE 2020-0 Yes TAKE 1 Unive rs 5 mg tablet 5-17 TABLET BY ity of 00:00: MOUTH ONCE [place] 00 DAILY Medical DIRECTED Branch predniSONE 2020-0 Yes TAKE 1 Unive rs 5 mg tablet 5-17 TABLET BY ity of 00:00: MOUTH ONCE [place] 00 DAILY Medical DIRECTED Branch predniSONE 2020-0 Yes TAKE 1 Unive rs 5 mg tablet 5-17 TABLET BY ity of 00:00: MOUTH ONCE [place] 00 DAILY Medical DIRECTED Branch predniSONE 2021-0 Yes TAKE 1 Unive rs 5 mg tablet 5-17 TABLET BY ity of 00:00: MOUTH ONCE 00 DAILY Medical DIRECTED Branch predniSONE Yes TAKE 1 Unive rs 5 mg tablet 5-17 TABLET BY ity of 00:00: MOUTH ONCE 00 DAILY Medical DIRECTED Branch predniSONE Yes TAKE 1 Unive rs 5 mg tablet 5-17 TABLET BY ity of 00:00: MOUTH ONCE 00 DAILY Medical DIRECTED Branch brimonidine Yes INSTILL 1 U nivers 0.15 % 5-16 DROP INTO ity of ophthalmic 00:00: BOTH EYES [place] drops 00 EVERY 12 Medical HOURS Branch brimonidine Yes INSTILL 1 U nivers 0.15 % 5-16 DROP INTO ity of ophthalmic 00:00: BOTH EYES [place] drops 00 EVERY 12 Medical HOURS Branch brimonidine Yes INSTILL 1 U nivers 0.15 % 5-16 DROP INTO ity of ophthalmic 00:00: BOTH EYES [place] drops 00 EVERY 12 Medical HOURS Branch brimonidine Yes INSTILL 1 U nivers 0.15 % 5-16 DROP INTO ity of ophthalmic 00:00: BOTH EYES [place] drops 00 EVERY 12 Medical HOURS Branch brimonidine Yes INSTILL 1 U nivers 0.15 % 5-16 DROP INTO ity of ophthalmic 00:00: BOTH EYES [place] drops 00 EVERY 12 Medical HOURS Branch brimonidine Yes INSTILL 1 U nivers 0.15 % 5-16 DROP INTO ity of ophthalmic 00:00: BOTH EYES [place] drops 00 EVERY 12 Medical HOURS Branch brimonidine Yes INSTILL 1 U nivers 0.15 % 5-16 DROP INTO ity of ophthalmic 00:00: BOTH EYES [place] drops 00 EVERY 12 Medical HOURS Branch potassium Yes 10meq QD Take 10 Meth dragan chloride 3-[address] (K-DUR,KLOR 11:11: mouth Hospi ta -CON) 10 32 daily. l MEQ CR tablet furosemide Yes 40mg QD Take 40 mg M ethodi (LASIX) 20 3-[address] MG tablet 11:11: daily. Hospit a 32 l amLODIPine 2021-0 Yes 5mg QD Take 5 mg Me thodi (NORVASC) 5 3-[address] MG tablet 11:11: nightly. Hosp behzad 32 l atorvastati 2020-0 Yes 20mg Take 20 mg Methodi n (LIPITOR) 3-[address] 20 MG 11:11: Hospita tablet 32 l brimonidine 2020-0 Yes 1[drp] Q12H Administer Methodi -timoloL 3-[address] (COMBIGAN) 11:11: both eyes Ho spita 0.2-0.5 % 32 every 12 l ophthalmic (twelve) solution hours. levothyroxi 2020-0 Yes 175ug QD Take 175 M ethodi ne 3-[address] (SYNTHROID) 11:11: mouth Hospi ta 175 mcg 32 daily. l tablet haloperidoL 0 Yes 1mg QD Take 1 mg M ethodi (HALDOL) 1 3-[address] MG tablet 11:11: nightly. Hosp behzad 32 l potassium 2020-0 Yes 10meq QD Take 10 Meth dragan chloride 3-[address] (K-DUR,KLOR 11:11: mouth Hospi ta -CON) 10 32 daily. l MEQ CR tablet furosemide 2020-0 Yes 40mg QD Take 40 mg M ethodi (LASIX) 20 3-[address] MG tablet 11:11: daily. Hospit a 32 l amLODIPine 2020-0 Yes 5mg QD Take 5 mg Me thodi (NORVASC) 5 3-[address] MG tablet 11:11: nightly. Hosp behzad 32 l atorvastati 2020-0 Yes 20mg Take 20 mg Methodi n (LIPITOR) 3-[address] 20 MG 11:11: Hospita tablet 32 l brimonidine 2020-0 Yes 1[drp] Q12H Administer Methodi -timoloL 3-[address] (COMBIGAN) 11:11: both eyes Ho spita 0.2-0.5 % 32 every 12 l ophthalmic (twelve) solution hours. levothyroxi 2020-0 Yes 175ug QD Take 175 M ethodi ne 3-[address] (SYNTHROID) 11:11: mouth Hospi ta 175 mcg 32 daily. l tablet haloperidoL 2021-0 Yes 1mg QD Take 1 mg M ethodi (HALDOL) 1 3-[address] MG tablet 11:11: nightly. Hosp behzad 32 l omeprazole 2019-09 Yes 20mg QD Take 20 mg M ethodi (PriLOSEC) 1-[address] 20 MG 00:00: daily. Hospita capsule 00 l nitroglycer 2019-[address] 1 Met hodi in 1-[address] (NITROSTAT) 00:00: UNDER THE H ospita 0.4 MG SL 00 TONGUE l tablet NEEDED FOR CHEST PAIN omeprazole 2019-09 Yes 20mg QD Take 20 mg M ethodi (PriLOSEC) 1-[address] 20 MG 00:00: daily. Hospita capsule 00 l nitroglycer 2019-[address] 1 Met hodi in 1-[address] (NITROSTAT) 00:00: UNDER THE H ospita 0.4 MG SL 00 TONGUE l tablet NEEDED FOR CHEST PAIN predniSONE 2019-09 Yes [id number] 20mg Q.5D Take 20 mg Methodi (DELTASONE) 1-[address] 20 mg 00:00: (two) Hospita tablet 00 times a l day. predniSONE 2019-09 Yes [id number] 20mg Q.5D Take 20 mg Methodi (DELTASONE) 1-[address] 20 mg 00:00: (two) Hospita tablet 00 times a l day. brimonidine 2019-09 Yes 1[drp] Q12H Administer Methodi (ALPHAGAN) 0-[address] 0.15 % 00:00: both eyes Hospit a ophthalmic 00 every 12 l solution (twelve) hours. brimonidine 2019-09 Yes 1[drp] Q12H Administer Methodi (ALPHAGAN) 0-[address] 0.15 % 00:00: both eyes Hospit a ophthalmic 00 every 12 l solution (twelve) hours. clopidogreL 2019- Yes 75mg QD Take 1 Meth dragan (Plavix) 75 7-23 tablet (75 st mg tablet 00:00: mg total) Hos sophia 00 by mouth l daily. Starting post-op day 1 aspirin 81 2020-0 Yes 81mg QD Chew 1 Metho di mg chewable 7-23 tablet (81 st tablet 00:00: mg total) Hospit a 00 daily. l Starting post-op day 1 clopidogreL 2020-0 Yes 75mg QD Take 1 Meth dragan (Plavix) 75 7-23 tablet (75 st mg tablet 00:00: mg total) Hos sophia 00 by mouth l daily. Starting post-op day 1 aspirin 81 2020-0 Yes 81mg QD Chew 1 Metho di mg chewable 7-23 tablet (81 st tablet 00:00: mg total) Hospit a 00 daily. l Starting post-op day 1 metoprolol 2019-0 Yes 12.5mg Q.5D Take 0.5 M ethodi tartrate 7-[address] (LOPRESSOR) 00:00: (12.5 mg Ho spita 25 mg 00 total) by l tablet mouth 2 (two) times a day. Hold for BP < 120/80 metoprolol 2020-0 Yes 12.5mg Q.5D Take 0.5 M ethodi tartrate 7-[address] (LOPRESSOR) 00:00: (12.5 mg Ho spita 25 mg 00 total) by l tablet mouth 2 (two) times a day. Hold for BP < 120/80 AMLODIPINE 2016-09 Yes Take by [facility] [place] ers BESYLATE 1-06 mouth. ity of (AMLODIPINE 21:41: [place] ORAL) [facility] Levothyroxi 2016-09 Yes Take by Uni vers ne 150 mcg -06 mouth. ity of capsule 21:41: [address] aspirin 81 2016-09 Yes 81mg Take 81 mg U nivers mg chewable 06 by mouth ity of tablet 21:41: daily. [address] METOPROLOL 2016-09 Yes Take by [facility] [place] ers SUCCINATE -06 mouth. ity of ORAL 21:41: [address] FUROSEMIDE, 2016-09 Yes [facility], MISC 09-09 ity of 21:41: [address] potassium 2016-09 Yes Take by [facility] [place] [facility] rs phosphate -06 mouth. ity of Soln oral 21:41: [place] [address] haloperidol 2016-09 Yes 1mg Take 1 mg U nivers 1 mg tablet 06 by mouth 2 it y of 21:41: (two) [place] [id number] times Medical daily. Branch CLOPIDOGREL 2016-09 Yes Take by Uni vers BISULFATE -06 mouth. ity of (PLAVIX 21:41: [place] ORAL) 01 Medical Branch Immunizations Ordered Filled Immunization Date Status Comments [facility] e Immunization Name Name SARS-COV-2 COVID-19 2020-11-30 Completed Unive rsity of MODERNA VACCINE 00:00:00 [place] Med ical Branch SARS-COV-2 COVID-19 2020-11-30 Completed Unive rsity of MODERNA VACCINE 00:00:00 [place] [facility] ical Branch SARS-COV-2 COVID-19 2020-11-30 Completed Unive rsity of MODERNA VACCINE 00:00:00 [place] [facility] ical Branch SARS-COV-2 COVID-19 2020-11-30 Completed Unive rsity of MODERNA VACCINE 00:00:00 [place] [facility] ical Branch SARS-COV-2 COVID-19 2020-11-30 Completed Unive rsity of MODERNA VACCINE 00:00:00 [place] [facility] ical Branch SARS-COV-2 COVID-19 2020-11-30 Completed Unive rsity of MODERNA VACCINE 00:00:00 [place] [facility] ical Branch SARS-COV-2 COVID-19 2020-11-30 Completed Unive rsity of MODERNA VACCINE 00:00:00 [place] [facility] ical Branch SARS-COV-2 COVID-19 2020-11-30 Completed Unive rsity of MODERNA VACCINE 00:00:00 [place] [facility] ical Branch SARS-COV-2 COVID-19 2020-10-10 Completed Unive rsity of MODERNA VACCINE 00:00:00 [facility] ical Branch SARS-COV-2 COVID-19 2020-10-10 Completed Unive rsity of MODERNA VACCINE 00:00:00 [place] [facility] ical Branch SARS-COV-2 COVID-19 2020-10-10 Completed Unive rsity of MODERNA VACCINE 00:00:00 [facility] ical Branch SARS-COV-2 COVID-19 2020-10-10 Completed Unive rsity of MODERNA VACCINE 00:00:00 [place] [facility] ical Branch SARS-COV-2 COVID-19 2020-10-10 Completed Unive rsity of MODERNA VACCINE 00:00:00 [facility] ical Branch SARS-COV-2 COVID-19 2020-10-10 Completed Unive rsity of MODERNA VACCINE 00:00:00 [facility] ical Branch SARS-COV-2 COVID-19 2020-10-10 Completed Unive rsity of MODERNA VACCINE 00:00:00 [facility] ical [place] SARS-COV-2 COVID-19 2020-10-10 Completed Unive rsity of MODERNA VACCINE 00:00:00 [facility] Vital Signs Vital Name Observation Time Observation Value Comments Source Systolic blood 2021-09-06 17:50:00 142 mm[Hg] Univer sity of pressure [facility] Diastolic blood 2021-09-06 17:50:00 73 mm[Hg] Unive rsity of pressure [facility] Heart rate 2021-09-06 17:50:00 56 /min Universi ty of [facility] Body temperature 2021-09-06 17:50:00 35.89 Jen Univ ersity of [facility] Respiratory rate 2021-09-06 17:50:00 16 /min Univ ersity of [facility] Oxygen saturation in 2021-09-06 17:50:00 97 /min University Arterial blood by [facility] Pulse oximetry Branch Body height 2021-09-06 16:07:00 167.6 cm [facility] [place] [facility] Body weight 2021-09-06 16:07:00 63.504 kg [facility] [place] [facility] BMI 2021-09-06 16:07:00 22.60 kg/m2 Universi ty of [facility] Branch Systolic blood 2021-02-25 18:43:00 131 mm[Hg] Univer sity of pressure [facility] Diastolic blood 2021-02-25 18:43:00 67 mm[Hg] Unive rsity of pressure [facility] Heart rate 2021-02-25 18:43:00 64 /min [facility] [place] [facility] Body temperature 2021-02-25 18:43:00 36.72 Jen Univ ersity of [facility] Branch Respiratory rate 2021-02-25 18:43:00 18 /min Univ ersity of [facility] Branch Body height 2021-02-25 18:43:00 167.6 cm [facility] [place] [facility] Body weight 2021-02-25 18:43:00 66.225 kg [facility] [place] [facility] BMI 2021-02-25 18:43:00 23.57 kg/m2 [facility]i ty [facility] Branch BMI 2020-11-10 17:11:00 22.60 kg/m2 [facility] Body height 2020-11-10 17:11:00 167.6 cm [facility] Body weight 2020-11-10 17:11:00 63.504 kg [facility] Procedures Procedure Date / Time Performed Performing Clinician [facility] e CONSENT/REFUSAL FOR 2021-09-06 06:01:00 Doctor Unassigned, No [facility] DIAGNOSIS AND Name Medical Branch TREATMENT US PELVIS COMPLETE 2021-03-15 16:05:22 Asha Suarez [facility] NON-OB Medical Branch ASSIGNMENT OF BENEFITS 2021-02-25 18:30:27 Doctor Unassigned, No [facility] Name Medical Branch XR KNEE 1 OR 2 VW 2020-11-10 18:19:59 Isaac Borges [facility] RIGHT Plan of Care Planned Activity Planned Date Details Comments Source Future Scheduled 2022-05-04 HEPATITIS B VACCINES [facility] Test 16:29:24 (1 of 3 - 3-dose series) [code = HEPATITIS B VACCINES (1 of 3 - 3-dose series)] Future Scheduled 2022-05-04 65+ [facility]CCAL [facility] 16:29:24 VACCINE (1 - PCV) [code = 65+ PNEUMOCOCCAL VACCINE (1 - PCV)] Future Scheduled 2022-05-04 DIABETES: RETINAL EYE [facility] Test 16:29:24 EXAM [code = DIABETES: RETINAL EYE EXAM] Future Scheduled 2022-05-04 DIABETIC FOOT EXAM [facility] Test 16:29:24 [code = DIABETIC FOOT EXAM] Future Scheduled 2022-05-04 URINE MICROALBUMIN [facility] Test 16:29:24 [code = URINE MICROALBUMIN] Future Scheduled 2022-05-04 SHINGLES VACCINES (1 [facility] Test 16:29:24 of 2) [code = SHINGLES VACCINES (1 of 2)] Future Scheduled 2022-05-04 COVID-19 VACCINE (2 - Me [facility] Test 16:29:24 Moderna series) [code = COVID-19 VACCINE (2 - Moderna series)] Future Scheduled 2022-05-04 INFLUENZA VACCINE [facility] Test 16:29:24 [code = INFLUENZA VACCINE] Future Scheduled 2021-08-22 65+ [facility] 02:18:19 VACCINE (1 of 2 - PPSV23) [code = 65+ PNEUMOCOCCAL VACCINE (1 of 2 - PPSV23)] Future Scheduled 2021-08-22 DIABETES: RETINAL EYE [facility] Test 02:18:19 EXAM [code = DIABETES: RETINAL EYE EXAM] Future Scheduled 2021-08-22 DIABETIC FOOT [facility]AM [facility] Test 02:18:19 [code = DIABETIC FOOT EXAM] Future Scheduled 2021-08-22 URINE [facility]ALBUMIN [facility] Test 02:18:19 [code = URINE MICROALBUMIN] Future Scheduled 2021-08-22 SHINGLES VACCINES (#[facility]) [facility] 02:18:19 [code = SHINGLES VACCINES (#1)] Future Scheduled 2021-08-22 [facility] Test 02:18:19 malignant neoplasm of lung (procedure) [code = 131588818] Future Scheduled 2021-08-22 COVID-19 VACCINE (2 - Me [facility] Test 02:18:19 Moderna 3-dose series) [code = COVID-19 VACCINE (2 - Moderna 3-dose series)] Future Scheduled 2021-08-22 INFLUENZA VACCINE [facility] Test 02:18:19 [code = INFLUENZA VACCINE] Encounters Start End Encounter Admission Attending Care Care Encounter Source Date/Time Date/Time Type Type Clinicians Facility Department ID 2022-03-01 2022-03-01 Outpatient FOG_Jones_H AOSM AO [id number] Bev 00:00:00 00:00:00 Frannie [id number] [facility] 2022-02-28 2022-02-28 Outpatient FOG_Jones_H AOSM AO [id number] Bev 12:54:00 12:54:00 Frannie [id number] Orthop e [facility] 2022-02-28 2022-02-28 Outpatient EDITH Mcdermott [id number] 00:00:00 00:00:00 Maribel Stephen [id number] 2022-01-11 2022-01-11 Outpatient FOG_Jones_H AOSM AOSM [id number] Bev 01:46:00 01:46:00 Frannie [id number] Orthop e dic Sports [facility] e 2021-09-06 2021-09-06 Nurse Therapy, Clc Covid Infusion [facility] 1.2.840.114 [id number] Univers 10:30:00 11:30:00 Visit Verenice Mckinnon [facility] [id number] [place] [phone] [facility] 053 Branch OFFICE BUILDING 2021-09-06 2021-09-06 Outpatient Jordan MCKINNON [facility] [id number] Univers 10:30:00 10:30:00 VERENICE william [facility] 2021-09-06 2021-09-06 Orders Doctor ADAM 1.2.840.114 [id number] Univers 00:00:00 00:00:00 Only Unassigned, [place] 350.1.13.10 ity of [place] [facility] 4.2.7.2.686 Haja as [phone] [facility] 009 Branch 2021-06-03 2021-06-03 Outpatient Jordan VILLASEÑOR [facility] [id number] Univers 11:00:00 11:00:00 FATMATA william [facility] 2021-03-25 2021-03-25 Outpatient ABHAY Payton, [facility] RADI [id number] [facility] 11:12:00 11:12:[address] [facility] 2021-03-16 2021-03-16 Telephone [facility] 1.2.840.114 [id number] Univers 00:00:00 00:00:00 Asha Morin 350.1.13.10 [place] [phone] Me dical nal 134 Branch [facility] 2021-03-15 2021-03-15 [facility] MookFormerly [facility] 1.2.840.114 [id number] Univers 10:44:27 23:59:00 Encounter Asha Morin 350.1.13.10 [place] [phone] [facility] 806 Branch 2021-03-15 2021-03-15 [facility] [id number] Univers 00:00:00 00:00:00 ASHA william [facility] 2021-03-15 2021-03-15 Telephone Mookandreanimco [facility] 1.2.840.114 [id number] Univers 00:00:00 00:00:00 Asha Morin 350.1.13.10 [place] [phone] [place] dic[address] 2021-02-25 2021-02-25 Office Daniela [facility] 1.2.997.[id number] [facility] 13:33:40 14:20:34 Visit Asha Morin 350.1.13.10 [place] [phone] [address] 2021-02-25 2021-02-25 [facility] [id number] Univers 13:30:00 13:30:00 ASHA william [facility] 2021-02-25 2021-02-25 Orders Doctor ADAM 1.2.840.114 [id number] Univers 00:00:00 00:00:00 Only Unassigned, SHEILA 350.1.13.10 ity of [place] [facility] 4.2.7.2.686 [place]aja as [phone] [address] 2020-11-30 2020-11-30 Outpatient Jordan COSTA [facility] [id number] Univers 09:00:00 09:00:00 ISAÍAS nataliia [facility] 2020-11-10 2020-11-10 Office Isaac Borges 1.2.840.1 [id number] Methodi 10:35:16 12:44:11 Visit [place] [address].1.[address] 3.430.2.7 Hospit a .3.925818 l .8 2020-11-10 2020-11-10 Outpatient ISAAC BORGES [facility] [id number] [place] 00:00:00 00:00:[address] 2020-11-10 2020-11-10 Travel 1.2.840.1 1.2.191.411 [id number] Methodi 00:00:00 00:00:[address] 3.430.2.7 0.2.7.3.698 Ho spita .3.535801 084.8 l .8 2020-11-07 2020-11-07 [facility] [id number] Univers 09:55:00 09:55[facility] 2020-11-05 2020-11-05 Travel 1.2.840.1 1.2.730.889 [id number] Methodi 00:00:00 00:00:[address] 3.430.2.7 0.2.7.3.698 Ho spita .3.474191 084.8 l .8 2020-11-05 2020-11-05 Telephone Isaac Borges 1.2.840.1 [id number] Methodi 00:00:00 00:00:[address] [place] [address] 3.430.2.7 Hospit a .3.021082 l .8 2020-10-16 2020-10-16 Office Isaac Borges 1.2.840.1 [id number] Methodi 14:06:30 15:46:24 Visit [place] [address]752.1.[address] 3.430.2.7 Hospit a .3.392555 l .8 2020-10-16 2020-10-16 Travel 1.2.840.1 1.2.358.547 [id number] Methodi 00:00:00 00:00:[address] 3.430.2.7 0.2.7.3.698 Ho spita .3.770919 084.8 l .8 2020-10-13 2020-10-13 Telephone Isaac Borges 1.2.840.1 [id number] Methodi 00:00:00 00:00:[address] [place] [address] 3.430.2.7 Hospit a .3.525584 l .8 2020-10-10 2020-10-10 Outpatient [facility] [id number] Univers 09:30:00 09:30:00 [facility] 2020-08-21 2020-08-21 Outpatient ANTHONY, [facility] [id number] [place] 00:00:00 00:00:00 ARNULFO [address] 2020-05-29 2020-05-29 Outpatient LE, ISAAC [facility] 2100 [id number] [place] 00:00:00 00:00:[address] 2020-04-17 2020-04-17 Outpatient LE, ISAAC [facility] 2100 [id number] [place] 00:00:00 00:00:[address] 2020-04-17 2020-04-17 Outpatient LE, ISAAC [facility] 2100 [id number] [place] 00:00:00 00:00:[address] 2020-04-03 2020-04-03 Outpatient [facility] [id number] [place] 00:00:00 00:00:[address] 2020-03-30 2020-03-30 Outpatient [facility] [id number] [place] 00:00:00 00:00:[address] 2020-03-25 2020-03-25 Outpatient LE, ISAAC [facility] 2100 [id number] [place] 00:00:00 00:00:[address] 2020-03-25 2020-03-25 Outpatient LE, ISAAC [place] [address] 2100 [id number] [place] 00:00:00 00:00:[address] 2020-03-20 2020-03-20 Outpatient LE, ISAAC [facility] 2100 [id number] [place] 00:00:00 00:00:[address] 2020-03-12 2020-03-12 Outpatient [facility] [id number] [place] 00:00:00 00:00:[address] 2019-11-08 2019-11-08 Outpatient LE, ISAAC [facility] 2100 [id number] [place] 00:00:00 00:00:[address] 2019-11-08 2019-11-08 Outpatient LE, ISAAC [facility] [id number] [place] 00:00:00 00:00:[address] Results Test Description Test Time Test Comments Results Result [facility] rosaura Comments - XR ENEMA 2021-03-05 2 13:19:00 [facility] 1940 Sex: F Name: TIAN ARRIAZA [facility] : 1940 Age/S: 80 / F [id number] [place] Unit #: [id number] Loc: [place] [address] Phys: Ryder Payton MD Acct: [id number] Dis Date: Status: REG CLI PHONE #: [phone] Exam Date: 03/25/2021 1230 FAX #: Reason: DIVERTICULOSIS OF INTESTINE, PART UNSPECIFIED EXAMS: CPT: [id number] XR ENEMA 36589 Fluoro Time: 354 DAP (Gy m2): Air Kerma (mGy): 30.46 EXAM: - XR ENEMA LOCATION: S17 HISTORY: Incomplete colonoscopy; history of diverticulosis EXAM: Single contrast barium enema. Findings: The watch commander film is unremarkable. After barium was introduced into the rectum, the colon was seen to fill in a retrograde fashion to the splenic flexure. However, patient could not tolerate the examination further. On post void exams, minimal contrast is seen opacifying the transverse colon and portions of the right hemicolon. There is a short segment of mild colonic narrowing in the mid descending colon which appears to demonstrate minimal mucosal irregularity. However, the mucosal irregularity is not seen throughout the entire exam so findings are nonspecific. Extensive diverticulosis noted with very redundant sigmoid colon. Visualized portions of the transverse colon appear grossly unremarkable. IMPRESSION: Patient cannot tolerate the entire exam, limiting evaluation to the left hemicolon. There is a short segment of mild colonic narrowing in the mid descending colon with transient appearance of minimal mucosal irregularity, which is nonspecific. Given failed colonoscopy, recommend supplementation with contrast-enhanced CT abdomen pelvis to assess the right hemicolon and the area noted in the mid descending colon. Extensive diverticulosis. at 1319 Reported and signed by: Kehinde Montenegro D.O. CC: Ryder Kapoor Jr, MD; Ryedr Payton MD PAGE 1 Signed Report Name: TIAN ARRIAZA [place] : 1940 Age/S: 80 / F [address] [address] Unit #: [id number] Loc: [place] [address] Phys: Ryder Payton MD Acct: [id number] Dis Date: Status: REG CLI PHONE #: [phone] Exam Date: 03/25/2021 1230 FAX #: Reason: DIVERTICULOSIS OF INTESTINE, PART UNSPECIFIED EXAMS: CPT: [id number] XR ENEMA 54927 Fluoro Time: 354 DAP (Gy m2): Air Kerma (mGy): 30.46 (Continued) Technologist: Lupillo Monaco, RT(R)(CT) Trnscb Date/Time: 03/25/2021 (1319) [email or web address] Orig Print D/T: S: 03/25/2021 (8951) PAGE 2 Signed Report US PELVIS 2021-03-04 Normal [facility] NON-OB 2 transabdominal pelvic [facility] 16:29:44 ultrasound. Trace Branch free fluid in the pelvis. TRANSABDOMINAL AND TRANSVAGINAL PELVIC ULTRASOUND HISTORY: Follow-up ovarian cyst. Per patient ovarian cyst noted on outsideultrasound. COMPARISON: None. TECHNIQUE: Transabdominal sonography of the pelvis was performed. Thepatient refused transvaginal ultrasound. FINDINGS: The uterus is anteverted and measures 8.0 x 3.0 x 5.1 cm. Expected arcuateartery calcification is noted.The endometrial stripe measures 0.5 cm. The right ovary measures 2.7 x 1.1 x 2.3 cm. No adnexal masses.The left ovary measures 2.6 x 1.7 x 2.6 cm. No adnexal masses. ? Trace fluid is present in the cul-de-sac. ? [facility], Radiant Results Inft User - 03/15/2021 11:30 AM CDT TRANSABDOMIN AL AND TRANSVAGINAL PELVIC ULTRASOUNDHISTORY: Follow-up ovarian cyst. Per patient ovarian cyst noted on outsideultrasound. COMPARISON: None.TECHNIQUE: Transabdominal sonography of the pelvis was performed. Thepatient refused transvaginal ultrasound.FINDINGS: The uterus is anteverted and measures 8.0 x 3.0 x 5.1 cm. Expected arcuateartery calcification is noted.The endometrial stripe measures 0.5 cm. The right ovary measures 2.7 x 1.1 x 2.3 cm. No adnexal masses.The left ovary measures 2.6 x 1.7 x 2.6 cm. No adnexal masses. Trace fluid is present in the cul-de-sac. IMPRESSIONNormal transabdominal pelvic ultrasound.Trace free fluid in the pelvis. SARS-CoV-2 (COVID-19) RNA [Presence] in Respiratory sp ecimen by 2020-03-21 05:03:14 CARMELITA with probe detection Test Item Value Reference Range Interpretation Comme nts SARS-CoV-2 (COVID-19) RNA [Presence] in Respiratory Not detected No t-Detected specimen by CARMELITA with probe detection (test code = 06063-9) [id number]
--- NOTE | 2022-06-24 19:32 | RAD REPORT ---
EXAM DESCRIPTION: CT - CTHCSPWOC - 06/24/2022 7:11 pm CLINICAL HISTORY: left arm numbness, pain COMPARISON: No comparisons TECHNIQUE: Axial 5 mm thick images of the head were obtained. Axial 2 mm thick images of the cervic al spine were obtained with sagittal and coronal reconstruction images generated and reviewed. All CT scans are performed using dose optimization technique as appropriate and may include automated exposure control or mA/KV adjustment according to patient size. FINDINGS: No intracranial hemorrhage, mass, edema or acute intracranial finding. No suspicion for ac tuscarora infarction. Atrophy changes are mild. Ventricles are in proportion to any volume loss. Mild to mo derate chronic ischemic change seen in the cerebral white matter. Mastoid air cells and paranasal sin uses are clear. No globe or orbit abnormality seen. Cervical bodies are normal height. No subluxation abnormalities. C5-6 and C6-7 disc space narrowing s een with endplate spurring. No fracture or acute bony abnormality. Prominent facet joint degenerative change present. Multilevel foraminal. Central canal detail is inherently limited. No paraspinal mass or hematoma. IMPRESSION: No acute intracranial finding. Atrophy is mild with mild to moderate chronic ischemic ch maile. Prominent cervical spine degenerative change with no acute finding.
--- NOTE | 2022-06-24 19:45 | ER ---
Nurse's Notes [facility] Name: Cristela Arriaza Age: 82 yrs Sex: Female : 1940 Arrival Date: 06/24/2022 Time: 16:56 Bed 9 Private MD: Sharita Graves A Diagnosis: Radiculopathy, cervical region Presentation: 06/24 17:06 Chief complaint: Patient states: Patient reports intermittent tingling in left hand and kb3 left arm and intermittent headache x1 week. Coronavirus screen: Vaccine status: Client denies travel out of the [place] in the last 14 days. Ebola Screen: Patient negative for fever greater than or equal to 101.5 degrees Fahrenheit, and additional compatible Ebola Virus Disease symptoms Patient denies exposure to infectious person. Patient denies travel to an Ebola-affected area in the 21 days before illness onset. No symptoms or risks identified at this time. Initial Sepsis Screen: Does the patient meet any 2 criteria? No. Patient's initial sepsis screen is negative. Does the patient have a suspected source of infection? No. Patient's initial sepsis screen is negative. Risk Assessment: Do you want to hurt yourself or someone else? Patient reports no desire to harm self or others. Onset of symptoms was June 18, 2022. 17:06 Method Of Arrival: Ambulatory kb3 17:06 Acuity: CHUCHO 3 kb3 Triage Assessment: 17:08 Headache History: Denies prior headaches. General: Appears in no apparent distress. kb3 Behavior is calm, cooperative. Pain: Complains of pain in forehead Pain does not radiate. Pain currently is 0 out of 10 on a pain scale. Quality of pain is described as aching, Pain began 1 week Also complains of no other associated symptoms. 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 Gait is steady, Speech is normal, Historical: - Allergies: 17:08 Cephalexin; kb3 - PMHx: 17:08 Hypertension; Myocardial infarction; kb3 - PSHx: 17:08 Carotid endarterectomy; Cardiac stents; kb3 - Immunization history:: Adult Immunizations up to date, Client reports receiving the 2nd dose of the Covid vaccine, Last tetanus immunization: up to date. - Social history:: Smoking status: Patient reports the use of cigarette tobacco products, smokes one pack cigarettes per day. Screenin:21 Abuse screen: Denies threats or abuse. Denies injuries from another. Nutritional hb screening: No deficits noted. Tuberculosis screening: No symptoms or risk factors identified. Fall Risk None identified. Assessment: 19:05 General: Appears in no apparent distress. Behavior is calm, cooperative. Pain: Denies hb pain. Neuro: Level of Consciousness is awake, alert, obeys commands, Oriented to person, place, time. Cardiovascular: Patient's skin is warm and dry. Respiratory: Respiratory effort is even, unlabored, Respiratory pattern is regular, symmetrical. GI: No signs and/or symptoms were reported involving the gastrointestinal system. : No signs and/or symptoms were reported regarding the genitourinary system. EENT: No signs and/or symptoms were reported regarding the EENT system. Derm: Skin is pink, warm \T\ dry. Musculoskeletal: Reports generalized weakness. 19:23 Reassessment: Pt ambulating in hallway with steady gait, no apparent distress. hb Vital Signs: 17:06 BP 157 / 73; Pulse 73; Resp 20; Temp 98; Pulse Ox 96% ; Weight 62.6 kg; Height 5 ft. 6 kb3 in. (167.64 cm); Pain 0/10; 17:06 Body Mass Index 22.27 (62.60 kg, 167.64 cm) kb3 ED Course: 16:56 Patient arrived in ED. am2 16:56 Sharita Graves MD is Private Physician. am2 17:08 Triage completed. kb3 17:08 Arm band placed on right wrist. kb3 18:15 Stanton Turner PA is PHCP. jmm 18:15 Frederic Rader MD is Attending Physician. jmm 19:01 Maria Del Carmen Pa, PATRICIA is Primary Nurse. hb 19:13 Head C Spine Mpr Wo Con In Process Unspecified. EDMS 19:44 Gino Hollingsworth MD is Referral Physician. jmm 19:51 Patient has correct armband on for positive identification. hb 19:51 No provider procedures requiring assistance completed. Patient did not have IV access hb during this emergency room visit. Administered Medications: No medications were administered Medication: 19:51 VIS not applicable for this client. hb Outcome: 19:44 Discharge ordered by MD. lynn 19:51 Discharged to home ambulatory. 19:51 Condition: stable 19:51 Discharge instructions given to patient, Instructed on discharge instructions, follow up and referral plans. medication usage, Demonstrated understanding of instructions, follow-up care, medications, Prescriptions given X 1. 19:51 Patient left the ED. hb Signatures: Dispatcher [employer] EDMS Stanton Turner PA PA jmm Baxter, Heather, RN RN Toña Colon [facility] Hyacinth Membreno, PATRICIA RN kb3
--- NOTE | 2022-06-24 19:45 | EDPHYS ---
Physician Documentation [facility] Name: Cristela Arriaza Age: 82 yrs Sex: Female : 1940 Arrival Date: 06/24/2022 Time: 16:56 Bed 9 Private MD: Sharita Graves, A ED Physician Frederic Rader HPI: 06/24 18:20 This 82 yrs old Female presents to ER via Ambulatory with complaints of General jmm Weakness, Arm Problem - weakness/tingling, Headache. 18:20 The patient or guardian complains of weakness. 82-year-old female with history of jmm hypertension CAD the presents emerged part with complaints of numbness tingling and pain to the left arm. Patient also complains of mild headache. Denies any recent injury but does states she did perform heavy lifting approximately a week ago. Denies chest pain, difficulty with speech.. Historical: - Allergies: 17:08 Cephalexin; kb3 - PMHx: 17:08 Hypertension; Myocardial infarction; kb3 - PSHx: 17:08 Carotid endarterectomy; Cardiac stents; kb3 - Immunization history:: Adult Immunizations up to date, Client reports receiving the 2nd dose of the Covid vaccine, Last tetanus immunization: up to date. - Social history:: Smoking status: Patient reports the use of cigarette tobacco products, smokes one pack cigarettes per day. ROS: 18:20 Constitutional: Negative for fever, chills, and weight loss, Cardiovascular: Negative jmm for chest pain, palpitations, and edema, Respiratory: Negative for shortness of breath, cough, wheezing, and pleuritic chest pain, Abdomen/GI: Negative for abdominal pain, nausea, vomiting, diarrhea, and constipation. 18:20 MS/extremity: Positive for paresthesias. 18:20 All other systems are negative. Exam: 18:20 Constitutional: This is a well developed, well nourished patient who is awake, alert, jmm and in no acute distress. Head/Face: atraumatic. Eyes: EOMI, no conjunctival erythema appreciated ENT: Moist Mucus Membranes Neck: Trachea midline, Supple Chest/axilla: Normal chest wall appearance and motion. Cardiovascular: Regular rate and rhythm. No edema appreciated Respiratory: Normal respirations, no respiratory distress appreciated Abdomen/GI: Non distended Back: Normal ROM Skin: General appearance color normal 18:20 Musculoskeletal/extremity: ROM: intact in all extremities, Positive Tinel's sign, full lime supervisor strength, full radial pulse, sensation is intact. 18:20 Skin: Appearance: Color: normal in color. 18:20 Neuro: Orientation: is normal, Mentation: is normal, Memory: is normal. 18:20 Psych: Behavior/mood is pleasant, cooperative. Vital Signs: 17:06 BP 157 / 73; Pulse 73; Resp 20; Temp 98; Pulse Ox 96% ; Weight 62.6 kg; Height 5 ft. 6 kb3 in. (167.64 cm); Pain 0/10; 17:06 Body Mass Index 22.27 (62.60 kg, 167.64 cm) kb3 MDM: 18:20 Patient medically screened. [facility] 19:38 Data reviewed: vital signs, nurses notes. Counseling: I had a detailed discussion with leah the patient and/or guardian regarding: the historical points, exam findings, and any diagnostic results supporting the discharge/admit diagnosis, radiology results, the need for outpatient follow up, to return to the emergency department if symptoms worsen or persist or if there are any questions or concerns that arise at home. Refusal of service: The patient/guardian displays adequate decision making capability and despite a detailed discussion of alternatives, benefits, risks, and consequences refuses: Admission to the hospital for further work-up and treatment, Refused admission for MRI evaluation. . Medical screen evaluation completed. EMTALA emergency medical condition absent. ED course: Patient advised to follow up with neuro/spine for further evaluation. patient otherwise given strict return precautions. Patient understood and agrees with the plan of care. . 06/24 18:42 Order name: Head C Spine Mpr Wo Con; Complete Time: 19:37 EDMS Administered Medications: No medications were administered Disposition Summary: 06/24/22 19:44 Discharge Ordered Location: Home [facility] Condition: Stable leah Diagnosis - Radiculopathy, cervical region [facility] Followup: [facility] - With: Gino Hollingsworth MD - When: 2 - 3 days - Reason: Recheck today's complaints, Continuance of care, Re-evaluation by your physician Discharge Instructions: - Discharge Summary Sheet leah - Cervical Radiculopathy [facility] Forms: - Medication Reconciliation Form leah - Thank You Letter jmm - Antibiotic Education jmm - Prescription Opioid Use [facility] Prescriptions: - orphenadrine citrate 100 mg Oral Tablet Sustained Release - take 1 tablet by ORAL route 2 times per day As needed; 20 tablet; Refills: 0, [facility] Product Selection Permitted Addendum: 06/28/2022 04:11 Co-signature as Attending Physician, Frederic Rader MD I agree with the assessment and c figueredo plan of care. Signatures: Dispatcher [employer] EDFrederic Maza MD MD cha Mickail, Joel, PA PA jmm Bradberry, Kelly, RN RN kb3 Corrections: (The following items were deleted from the chart) 06/24 18:42 18:37 CT HEAD,C-SPINT W/O ordered. [facility] EDMS
[2022-06-24 20:38] VITALS: BP 157/73; TEMP 98; O2SAT 96
== END 2022-06-24 19:51 | disposition home or self-care (01) ==
LOC: ER 16:55
DX: M54.12 Radiculopathy, cervical region (principal); Z88.8 Allergy status to other drugs, medicaments and biological substances; I10 Essential (primary) hypertension; I25.2 Old myocardial infarction; F17.210 Nicotine dependence, cigarettes, uncomplicated
CPT/HCPCS: 70450; 72125; 99283

== ENCOUNTER 2023-08-02 12:39 | Emergency (ER) | payer OTHER ==
--- OUTSIDE RECORDS SUMMARY | 2023-08-02 12:44 | XMS REPORT | Continuity of Care Document ---
:1940 Author Organization [facility] t Address [address] [facility] [address] [place] [id number] Care Team Providers Name Role Phone Asked, No Pcp Primary Care Physician Unavailable Gloria Attending Clinician Unavailable PHAN FOSTER Attending Clinician Unavailable Phan Foster DO Attending Clinician [email or web address]_S Attending Clinician Unavailable GARY PAINTER Attending Clinician Unavailable Gary Mancuso Attending Clinician Bryan Javier MD Attending Clinician Ely HURTADO, Venita Small Attending Clinician [phone] MILAGRO COHEN Attending Clinician Unavailable Milagro Cohen DO Attending Clinician Maribel Mcdermott Attending Clinician [phone] Therapy, [facility] Covid Infusion Attending Clinician Unavailable Grant Mckinnon MD Attending Clinician GRANT MCKINNON Attending Clinician Unavailable Doctor Unassigned, [place] Attending Clinician Unavailable FATMATA VILLASEÑOR Attending Clinician Unavailable Tata, Ryder H Attending Clinician Unavailable Rubens Suarez PA-C Attending Clinician RUBENS SUAREZ Attending Clinician Unavailable ISAÍAS COSTA Attending Clinician Unavailable Isaac Borges MD Attending Clinician ARNULFO ANTHONY Attending Clinician Unavailable MD ISAAC BORGES Attending Clinician Unavailable Gloria Admitting Clinician Unavailable [email or web address]_S Admitting Clinician Unavailable GARY PAINTER Admitting Clinician Unavailable MILAGRO COHEN Admitting Clinician Unavailable Physician, No Primary or Family Admitting Clinician Unavaila ISAAC Figueroa Admitting Clinician Unavailable MD ISAAC BORGES Admitting Clinician Unavailable Payers Payer Name Policy Type Policy Number Effective Date Expiration Date Danielle kim MEDICARE B-[place]: [id number] 2006 [employer] 00:00:00 () [id number] 2018 00:00:00 MEDICARE PART A [id number] 2006 \T\ B 00:00:00 [id number] 2023 00:00:00 [id number] 2022 00:00:00 Problems Condition Condition Condition Status Onset Resolution Last Treating Co mments Source Name Details Category Date Date Treatment Clinician Date Cervical Cervical Problem Active Azale a radiculopa Radiculopa 2-24 Or thope thy thy 00:00: dic 00 Sports Medicin e Gout Gout Problem Active Bev 6-24 Orthope 00:00: dic 00 Sports Medicin e Peripheral Peripheral Problem Active A zalea vascular Vascular 6-24 Orthop e disease Disease 00:00: dic 00 Sports Medicin e 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 Arteritis 6-24 Orth ope without without 00:00: dic polymyalgi Polymyalgi 00 Sp orts a a Medicin rheumatica Rheumatica e Secondary Secondary Problem Active Aza jo ann polycythem Polycythem 4-05 Or thope ia ia 00:00: dic 00 Sports Medicin e Chronic Chronic Problem Active Bev diarrhea Diarrhea 4-05 Orthop e 00:00: dic 00 Sports Medicin e Spasm of Spasm of Problem Active Azale a back Back 1-12 Orthope muscles Muscles 00:00: dic 00 Sports Medicin e Giant cell Giant Cell Problem Active 2019-09 David hanna arteritis Arteritis 2-22 Orth ope 00:00: dic 00 Sports Medicin e Degenerati Degenerati Problem Active 2019-09 David hanna on of on of 2-22 Orthope lumbar Lumbar 00:00: dic interverte Interverte 00 Sp orts bral disc bral Disc Medi keyur e Cramp Cramp Problem Active 2019-09 Bev 2-22 Orthope 00:00: dic 00 Sports Medicin e Osteoporos Osteoporos Problem Active 2019-09 David hanna is is 2-22 Orthope 00:00: dic 00 Sports Medicin e Fatigue Fatigue Problem Active 2019-09 Bev 2-22 Orthope 00:00: dic 00 Sports Medicin e Primary Primary Disease Active 2016-09 Overview: Meth dragan osteoarthr osteoarthr 2-[address] itis of itis of 00:00: g of this Hospi ta right knee right knee 00 note l might be different from the original. 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 [address] erosis in erosis in 00:00: [facility] [place] artery artery S/P S/P Disease Active [facility]i carotid carotid 05 st endarterec endarterec 00:00: Ho spita paolo [...] Disease Active 2013-09 Metho di mellitus mellitus 218 st 00:00: Hospita 00 l Allergies, Adverse Reactions, Alerts Allergy Allergy Status Severity Reaction(s) Onset Inactive Treating Comm ents Source Name Type Date Date Clinician CEPHALEX DRUG Active ITCHING Univers IN INGREDI 24 ity of 00:00: [place] 00 Medical Branch Cephalex Propensi Active Rash Univer s in ty to 6-24 ity of adverse 00:00: [place] reaction 00 Medical s Branch Keflex Allergy Active 2019-09 Bev to 10-26 Orthope substanc 00:00: dic e 00 Sports Medicin e Cephalex Propensi Active Itching Metho di in ty to 5-16 st adverse 00:00: Hospita reaction 00 l s to drug NO KNOWN Drug Active Univers ALLERGIE Class ity of S [place] [facility] [place] Family History Family Member Diagnosis Comments Start Date Stop Date Source Natural brother Prostate cancer [facility] Natural father Kidney disease [facility] Natural mother [facility] Natural mother [facility] Natural sister Hypertension [facility] Social History Social Habit Start Date Stop Date Quantity Comments Source Sexual orientation [facility] Exposure to 2022-07-17 2022-07-27 Not sure University SARS-CoV-2 (event) 00:00:00 14:49:00 [facility] [place] [facility] Alcohol intake 2020-11-10 2020-11-10 Current [facility] 00:00:00 00:00:00 non-drinker of Hospital alcohol (finding) History of Social 2020-11-10 2020-11-[address] function 00:00:00 00:00:00 Hospital Cigarettes smoked 2020-08-21 2020-08-[address] current (pack per 00:00:00 00:00:00 Hospita l day) - Reported Cigarette 2020-08-21 2020-08-21 [facility] pack-years 00:00:00 00:00:00 Hospital Tobacco use and 2017-07-10 2017-07-10 Smokeless Universit y of exposure 00:00:00 00:00:00 tobacco non-user [facility] History of tobacco 2016-09-14 Cigarette Smoker [facility] use 00:00:00 Hospital Sex [birth year] At [birth year] [facility] 00:00:00 00:00:00 Hospital Smoking Status Start Date Stop Date Source Light Tobacco Smoker [facility] Occasional tobacco smoker 2020-08-21 00:00:00 [facility] Smokes tobacco daily 2017-07-10 00:00:00 [facility] Medications Ordered Filled Start Stop Current Ordering Indication Dosage Frequency Signature Comments Components Source Medication Medication Date Date Medication? Clinician (SIG) Name Name clindamycin 2022-09 Yes [id number] 300mg Take 2 Univers 150 mg 1-03 capsules ity of capsule 00:00: by mouth [place] 00 in the Medical morning Branch and 2 capsules at noon and 2 capsules in the evening. clindamycin 2022-09- No [id number] 300mg Take 2 Univers 150 mg 1- 11-03 capsules ity of capsule 00:00: 00:00 by mouth [place] 00 :00 in the Medical morning Branch and 2 capsules at noon and 2 capsules in the evening. Do all this for 10 days. acetaminoph 2023-1 2023- No 650mg 650 mg, U nivers en -18 06-21 Oral, ity of (TYLENOL) 04:45: 04:07 ONCE, 1 [place] tablet 650 00 :00 dose, On Medic al mg Tue Branch 06/20/23 at 2345, LORE ibuprofen 2021-09- No 600mg 600 mg, Uni vers (IBU) 09-26 Oral, ity of tablet 600 21:15: 21:35 ONCE, 1 [place] as mg 00 :00 dose, On Medical Wed Branch 07/27/22 at 1515, LORE prednisone prednisone 2021- No prednisone Bev 1 mg tablet 1 mg tablet 09-07 1 mg Orthope Take 2 Take 2 00:00: 00:00 tablet dic tablet by tablet by 00 :00 Take 2 Spo rts mouth every mouth every tablet by Medicin morning morning mouth e every morning sotrovimab 2021- No [id number] 500mg 500 mg, IV Univers (XEVUDY) 09-06 Infusion, ity o f 500 mg in 17:45: 17:00 ONCE, Srinivasa NaCl 0.9% 00 :00 Administer Medi candelaria (NS) 50 mL over 30 Branch MINI-BAG Minutes, On 09/06/21 at 1145, For [address] able 24 hours refrigerat ed or 6 hours at room temperatur e including transporta tion and infusion time.<b r> CLOPIDOGREL Yes Take by [employer] [facility] BISULFATE 6-24 mouth. ity of (PLAVIX 18:46: [place] ORAL) [address] [place] [address] AMLODIPINE Yes Take by [facility] ers BESYLATE 6-24 mouth. ity of (AMLODIPINE 18:46: [place] ORAL) [address] [place] [address] Levothyroxi Yes Take by [employer] ne 150 mcg 6-24 mouth. ity of capsule 18:46: [address] aspirin 81 Yes 81mg Take 81 mg U nivers mg chewable -24 by mouth ity of tablet 18:46: daily. [address] METOPROLOL Yes Take by [facility] ers SUCCINATE 6-24 mouth. ity of ORAL 18:46: [address] FUROSEMIDE, 2021-0 Yes Univer s BULK, MISC 6-24 ity of 18:46: [place] [address] Medical Branch potassium 0 Yes Take by Unive rs phosphate 6-24 mouth. ity of Soln oral 18:46: [place] solution 18 Medical Branch haloperidol 0 [...] mcg 6-24 mouth. ity of capsule 18:46: [address] Branch aspirin 81 0 Yes 81mg Take 81 mg U nivers mg chewable 6-24 by mouth ity of tablet 18:46: daily. [place] [address] Medical Branch METOPROLOL 0 Yes Take by Univ ers SUCCINATE 6-24 mouth. ity of ORAL 18:46: [place] [address] Medical Branch FUROSEMIDE, 0 Yes Univer s BULK, MISC 6-24 ity of 18:46: [place] [address] Medical Branch potassium 0 Yes Take by Unive rs phosphate 6-24 mouth. ity of Soln oral 18:46: [place] [address] Medical Branch haloperidol Yes 1mg Take 1 [...] (AMLODIPINE 18:46: [place] ORAL) Medical Branch Levothyroxi 0 Yes Take by Uni vers ne 150 mcg 6-24 mouth. ity of capsule 18:46: [address] Branch aspirin 81 0 Yes 81mg Take 81 mg U nivers mg chewable 6-24 by mouth ity of tablet 18:46: daily. [place] [address] Medical Branch METOPROLOL Yes Take by Univ ers SUCCINATE 6-24 mouth. ity of ORAL 18:46: [place] [address] Medical Branch FUROSEMIDE, 0 Yes Univer s BULK, MISC 6-24 ity of 18:46: [address] Branch potassium Yes Take by Unive rs phosphate 6-24 mouth. ity of Soln oral 18:46: [place] [address] Medical Branch haloperidol Yes 1mg Take 1 [...] mcg 6-24 mouth. ity of capsule 18:46: [address] Branch aspirin 81 Yes 81mg Take 81 mg U nivers mg chewable 24 by mouth ity of tablet 18:46: daily. [place] [address] Medical [place] METOPROLOL Yes Take by Univ ers SUCCINATE 6-24 mouth. ity of ORAL 18:46: [address] Branch FUROSEMIDE, 0 Yes Univer s BULK, MISC 6-24 ity of 18:46: [address] potassium Yes Take by Unive rs phosphate 6-24 mouth. ity of Soln oral 18:46: [place] [address] Medical Branch haloperidol Yes 1mg Take 1 [...] mcg 6-24 mouth. ity of capsule 18:46: [address] Branch aspirin 81 0 Yes 81mg Take 81 mg U nivers mg chewable 6-24 by mouth ity of tablet 18:46: daily. [place] [address] Medical Branch METOPROLOL 0 Yes Take by Univ ers SUCCINATE 6-24 mouth. ity of ORAL 18:46: [place] [address] Medical Branch FUROSEMIDE, 0 Yes Univer s BULK, MISC 6-24 ity of 18:46: [place] [address] Medical Branch potassium Yes Take by Unive rs phosphate 6-24 mouth. ity of Soln oral 18:46: [place] [address] Medical Branch haloperidol Yes 1mg Take 1 [...] mcg 6-24 mouth. ity of capsule 13:46: [address] aspirin 81 Yes 81mg Take 81 mg U nivers mg chewable 6-24 by mouth ity of tablet 13:46: daily. [place] [address] Medical Branch METOPROLOL Yes Take by Univ ers SUCCINATE 6-24 mouth. ity of ORAL 13:46: [address] FUROSEMIDE, 0 Yes Univer s BULK, MISC 6-24 ity of 13:46: [place] [address] Medical [place] potassium 0 Yes Take by Unive rs phosphate 6-24 mouth. ity of Soln oral 13:46: [place] [address] Medical Branch haloperidol Yes 1mg Take 1 mg U nivers 1 mg tablet 6-24 by mouth 2 it y of 13:46: (two) [place] 18 times Medical daily. Branch CLOPIDOGREL 0 Yes Take by Un emerita BISULFATE 6-24 mouth. ity of (PLAVIX 13:46: [place] ORAL) Medical Branch AMLODIPINE Yes Take by Univ ers BESYLATE 6-24 mouth. ity of (AMLODIPINE 13:46: [place] ORAL) Medical Branch Levothyroxi Yes Take by Uni vers ne 150 mcg 6-24 mouth. ity of capsule 13:46: [address] aspirin 81 0 Yes 81mg Take 81 mg U nivers mg chewable 6-24 by mouth ity of tablet 13:46: daily. [address] Branch METOPROLOL 0 Yes Take by Univ ers SUCCINATE 6-24 mouth. ity of ORAL 13:46: [address] Branch FUROSEMIDE, 0 Yes Univer s BULK, MISC 6-24 ity of 13:46: [address] Branch potassium Yes Take by Unive rs phosphate 6-24 mouth. ity of Soln oral 13:46: [address] Branch haloperidol Yes 1mg Take 1 mg U nivers 1 mg tablet 6-24 by mouth 2 it y of 13:46: (two) [place] 18 times Medical daily. Branch CLOPIDOGREL Yes Take by Uni vers BISULFATE 6-24 mouth. ity of (PLAVIX 13:46: [place] ORAL) Medical Branch AMLODIPINE Yes Take by Univ ers BESYLATE 6-24 mouth. ity of (AMLODIPINE 13:46: [place] ORAL) [address] [place] [address] Levothyroxi Yes Take by Uni vers ne 150 mcg 6-24 mouth. ity of capsule 13:46: [address] aspirin 81 0 Yes 81mg Take 81 mg U nivers mg chewable 6-24 by mouth ity of tablet 13:46: daily. [address] METOPROLOL 0 Yes Take by Univ ers SUCCINATE 6-24 mouth. ity of ORAL 13:46: [address] Branch FUROSEMIDE, 0 Yes Univer s BULK, MISC 6-24 ity of 13:46: [address] potassium 0 Yes Take by Unive rs phosphate 6-24 mouth. ity of Soln oral 13:46: [address] Branch haloperidol Yes 1mg Take 1 mg U nivers 1 mg tablet 6-24 by mouth 2 it y of 13:46: (two) [place] 18 times Medical daily. Branch CLOPIDOGREL 0 Yes Take by Uni vers BISULFATE 6-24 mouth. ity of (PLAVIX 13:46: [place] ORAL) 18 Medical Branch AMLODIPINE Yes Take by Univ ers BESYLATE 6-24 mouth. ity of (AMLODIPINE 13:46: [place] ORAL) Medical Branch Levothyroxi Yes Take by Uni vers ne 150 mcg 6-24 mouth. ity of capsule 13:46: [address] aspirin 81 0 Yes 81mg Take 81 mg U nivers mg chewable 6-24 by mouth ity of tablet 13:46: daily. [address] Branch METOPROLOL Yes Take by Univ ers SUCCINATE 6-24 mouth. ity of ORAL 13:46: [address] Branch FUROSEMIDE, Yes Univer s BULK, MISC 6-24 ity of 13:46: [place] [address] Medical Branch potassium Yes Take by Unive rs phosphate 6-24 mouth. ity of Soln oral 13:46: [address] Branch haloperidol Yes 1mg Take 1 mg U nivers 1 mg tablet 6-24 by mouth 2 it y of 13:46: (two) [place] 18 times Medical daily. Branch CLOPIDOGREL Yes Take by Uni vers BISULFATE 6-24 mouth. ity of (PLAVIX 13:46: [place] ORAL) Medical Branch AMLODIPINE Yes Take by Univ ers BESYLATE 6-24 mouth. ity of (AMLODIPINE 13:46: [place] ORAL) [address] [place] [address] Branch Levothyroxi Yes Take by Uni vers ne 150 mcg 6-24 mouth. ity of capsule 13:46: [address] aspirin 81 Yes 81mg Take 81 mg U nivers mg chewable 6-24 by mouth ity of tablet 13:46: daily. [address] METOPROLOL Yes Take by Univ ers SUCCINATE 6-24 mouth. ity of ORAL 13:46: [address] Branch FUROSEMIDE, 0 Yes Univer s BULK, MISC 6-24 ity of 13:46: [address] potassium Yes Take by Unive rs phosphate 6-24 mouth. ity of Soln oral 13:46: [place] [address] Medical Branch haloperidol Yes 1mg Take 1 mg U nivers 1 mg tablet 6-24 by mouth 2 it y of 13:46: (two) [place] 18 times Medical daily. Branch traMADoL 50 [...] ONCE 00 DAILY Medical DIRECTED Branch predniSONE 2020-0 Yes TAKE 1 Unive rs 5 mg tablet 5-17 TABLET BY ity of 00:00: MOUTH ONCE 00 DAILY Medical DIRECTED Branch predniSONE 2020-0 Yes TAKE 1 Unive rs 5 mg tablet 5-17 TABLET BY ity of 00:00: MOUTH ONCE 00 DAILY Medical DIRECTED Branch predniSONE 2020-0 Yes TAKE 1 Unive rs 5 mg tablet 5-17 TABLET BY ity of 00:00: MOUTH ONCE 00 DAILY Medical DIRECTED Branch brimonidine 2020-0 Yes INSTILL 1 U nivers 0.15 % 5-16 DROP INTO ity of ophthalmic 00:00: BOTH EYES [place] drops 00 EVERY 12 Medical HOURS Branch brimonidine 2020-0 Yes INSTILL 1 U nivers 0.15 % 5-16 DROP INTO ity of ophthalmic 00:00: BOTH EYES [place] drops 00 EVERY 12 Medical HOURS Branch brimonidine 2020-0 Yes INSTILL 1 U nivers 0.15 % 5-16 DROP INTO ity of ophthalmic 00:00: BOTH EYES [place] drops 00 EVERY 12 Medical HOURS Branch brimonidine 2020-0 Yes INSTILL 1 U nivers 0.15 % 5-16 DROP INTO ity of ophthalmic 00:00: BOTH EYES [place] drops 00 EVERY 12 Medical HOURS Branch brimonidine 2020-0 Yes INSTILL 1 U nivers 0.15 % 5-16 DROP INTO ity of ophthalmic 00:00: BOTH EYES [place] drops 00 EVERY 12 Medical HOURS Branch brimonidine 2020-0 Yes INSTILL 1 U nivers 0.15 % 5-16 DROP INTO ity of ophthalmic 00:00: BOTH EYES [place] drops 00 EVERY 12 Medical HOURS Branch brimonidine 2020-0 Yes INSTILL 1 U nivers 0.15 % 5-16 DROP INTO ity of ophthalmic 00:00: BOTH EYES [place] drops 00 EVERY 12 Medical HOURS Branch brimonidine Yes INSTILL 1 U nivers 0.15 % 5-16 DROP INTO ity of ophthalmic 00:00: BOTH EYES [place] drops 00 EVERY 12 Medical HOURS Branch brimonidine 0 Yes INSTILL 1 U nivers 0.15 % 5-16 DROP INTO ity of ophthalmic 00:00: BOTH EYES [place] drops 00 EVERY 12 Medical HOURS Branch brimonidine 0 Yes INSTILL 1 U nivers 0.15 % 5-16 DROP INTO ity of ophthalmic 00:00: BOTH EYES [place] drops 00 EVERY 12 Medical HOURS Branch furosemide Yes 40mg QD Take 40 mg M ethodi (LASIX) 20 3-[address] MG tablet 11:11: daily. Hospit a 32 l amLODIPine 0 Yes 5mg QD Take 5 mg Me thodi (NORVASC) 5 3-[address] MG tablet 11:11: nightly. Hosp behzad 32 l atorvastati 0 Yes 20mg Take 20 mg Methodi n (LIPITOR) 3-[address] 20 MG 11:11: Hospita tablet 32 l brimonidine 0 Yes 1[drp] Q12H Administer Methodi -timoloL 3-[address] (COMBIGAN) 11:11: both eyes Ho spita 0.2-0.5 % 32 every 12 l ophthalmic (twelve) solution hours. levothyroxi Yes 175ug QD Take 175 M ethodi ne 3-[address] (SYNTHROID) 11:11: mouth Hospi ta 175 mcg 32 daily. l tablet haloperidoL Yes 1mg QD Take 1 mg M [...] 32 daily. l MEQ CR tablet furosemide 0 Yes 40mg QD Take 40 mg M ethodi (LASIX) 20 3-[address] MG tablet 11:11: daily. Hospit a 32 l amLODIPine 2020-0 Yes 5mg QD Take 5 mg Me thodi (NORVASC) 5 3-[address] MG tablet 11:11: nightly. Hosp behazd 32 l atorvastati 2020-0 Yes 20mg Take [...] 175 mcg 32 daily. l tablet haloperidoL Yes 1mg QD Take 1 mg M ethodi (HALDOL) 1 3-[address] MG tablet 11:11: nightly. Hosp behzad 32 l potassium Yes 10meq QD Take 10 Meth dragan chloride 3-[address] (K-DUR,KLOR 11:11: mouth Hospi ta -CON) 10 32 daily. l MEQ CR tablet prednisone prednisone No prednisone Bev 10 mg 10 mg 1-13 10 mg Orthope tablet 3 tablet 3 00:00: tablet 3 d ic tablet by tablet by 00 tablet by Sports mouth every mouth every mouth Medicin morning morning every e morning prednisone prednisone No prednisone Bev 10 mg 10 mg -13 10 mg Orthope tablet 3 tablet 3 00:00: tablet 3 d ic tablet by tablet by 00 tablet by Sports mouth every mouth every mouth Medicin morning morning every e morning omeprazole 2019-09 Yes 20mg QD Take 20 [...] NEEDED FOR CHEST PAIN predniSONE 2019-09 Yes [id number] 20mg Q.5D Take 20 mg Methodi (DELTASONE) 1-[address] 20 mg 00:00: (two) Hospita tablet 00 times a l day. predniSONE 2020-1 Yes [id number] 20mg Q.5D Take 20 mg Methodi (DELTASONE) 1-[address] 20 mg 00:00: (two) Hospita tablet 00 times a l day. predniSONE 2020-1 Yes [id number] 20mg Q.5D Take 20 mg [facility]i (DELTASONE) 1-[address] 20 mg 00:00: (two) Hospita tablet 00 times a l day. brimonidine 2020-1 Yes 1[drp] Q12H Administer [facility]i (ALPHAGAN) 0-[address] 0.15 % 00:00: both eyes Hospit a ophthalmic 00 every 12 l solution (twelve) hours. brimonidine 2020-1 Yes 1[drp] Q12H Administer [facility] (ALPHAGAN) 0-[address] 0.15 % 00:00: both eyes Hospit a ophthalmic 00 every 12 l solution (twelve) hours. brimonidine 2020-1 Yes 1[drp] Q12H Administer [facility]i (ALPHAGAN) 0-[address] 0.15 % 00:00: both eyes Hospit a ophthalmic 00 every 12 l solution (twelve) hours. clopidogreL 2020-0 Yes 75mg QD Take 1 [...] daily. l Starting post-op day 1 metoprolol 2020-0 Yes 12.5mg Q.5D Take 0.5 [...] < 120/80 AMLODIPINE 2016-09 Yes Take by [facility] ers BESYLATE 1-06 mouth. ity of (AMLODIPINE 21:41: [place] ORAL) [address] [place] [address] Levothyroxi 2016-09 Yes Take by Uni vers ne 150 mcg 1-06 mouth. ity of capsule 21:41: [address] aspirin 81 2016-09 Yes 81mg Take 81 mg U nivers mg chewable 06 by mouth ity of tablet 21:41: daily. [address] METOPROLOL 2016-09 Yes Take by [facility] ers SUCCINATE -06 mouth. ity of ORAL 21:41: [address] FUROSEMIDE, 2016-09 Yes [facility]-09 ity of 21:41: [address] potassium 2016-09 Yes Take by [facility] rs phosphate -06 mouth. ity of Soln oral 21:41: [address] haloperidol 2016-09 Yes 1mg Take 1 mg U nivers 1 mg tablet 06 by mouth 2 it y of 21:41: (two) [place] [address] times Medical daily. Branch CLOPIDOGREL 2016-09 Yes Take by Uni vers BISULFATE -06 mouth. ity of (PLAVIX 21:41: [place] ORAL) 01 Medical Branch amlodipine amlodipine No amlodipine Bev 2.5 mg 2.5 mg 2.5 mg Orthope tablet TAKE tablet TAKE tablet dic 1 TABLET BY 1 TABLET BY TAKE 1 Sports MOUTH IN MOUTH IN TABLET BY Me jefferson THE MORNING THE MORNING MOUTH IN e AND 2 TABS AND 2 TABS THE AT NIGHT AT NIGHT MORNING AND 2 TABS AT NIGHT atorvastati atorvastati No atorvastat Bev n 20 mg n 20 mg in 20 mg Ortho pe tablet TAKE tablet TAKE tablet dic 1 TABLET BY 1 TABLET BY TAKE 1 Sports MOUTH ONCE MOUTH ONCE TABLET BY Medicin DAILY DAILY MOUTH ONCE e DAILY brimonidine brimonidine No brimonidin Bev 0.15 % eye 0.15 % eye e 0.15 % Orthope drops drops eye drops dic INSTILL 1 INSTILL 1 INSTILL 1 Sports DROP INTO DROP INTO DROP INTO Medicin EACH EYE EACH EYE EACH EYE e EVERY 12 EVERY 12 EVERY 12 HOURS HOURS HOURS cilostazol cilostazol No cilostazol Bev Orthope dic Sports Medicin e cilostazol cilostazol No cilostazol Bev 100 mg 100 mg 100 mg Orthope tablet TAKE tablet TAKE tablet dic 1 TABLET BY 1 TABLET BY TAKE 1 Sports MOUTH TWICE MOUTH TWICE TABLET BY Medicin DAILY 30 DAILY 30 MOUTH e MINUTES MINUTES TWICE BEFORE OR 2 BEFORE OR 2 DAILY 30 HOURS AFTER HOURS AFTER MINUTES MEALS ( MEALS ( BEFORE OR BREAKFAST BREAKFAST 2 HOURS AND DINNER) AND DINNER) AFTER MEALS ( BREAKFAST AND DINNER) furosemide furosemide No 1 Q1D furosemide Bev 40 mg 40 mg 40 mg Orthope tablet Take tablet Take tablet dic 1 tablet 1 tablet Take 1 Sport s every day every day tablet Med icin by oral by oral every day e route. route. by oral route. haloperidol haloperidol No haloperido Bev 0.5 mg 0.5 mg l 0.5 mg Orthope tablet TAKE tablet TAKE tablet dic 1 TABLET BY 1 TABLET BY TAKE 1 Sports MOUTH AT MOUTH AT TABLET BY Me jefferson BEDTIME BEDTIME MOUTH AT e BEDTIME levothyroxi levothyroxi No levothyrox Bev ne 175 mcg ne 175 mcg ine 175 Orthope tablet TAKE tablet TAKE mcg tablet dic 1 TABLET BY 1 TABLET BY TAKE 1 Sports MOUTH ONCE MOUTH ONCE TABLET BY Medicin DAILY ON AN DAILY ON AN MOUTH ONCE e EMPTY EMPTY DAILY ON STOMACH IN STOMACH IN AN EMPTY THE MORNING THE MORNING STOMACH IN THE MORNING metoprolol metoprolol No 1 BID metoprolol Bev tartrate 25 tartrate 25 tartrate Orthope mg tablet mg tablet 25 mg dic Take 1 Take 1 tablet Sports tablet tablet Take 1 Medicin twice a day twice a day tablet e by oral by oral twice a route. route. day by oral route. montelukast montelukast No montelukas Bev 10 mg 10 mg t 10 mg Orthope tablet TAKE tablet TAKE tablet dic 1 TABLET BY 1 TABLET BY TAKE 1 Sports MOUTH ONCE MOUTH ONCE TABLET BY Medicin DAILY AT DAILY AT MOUTH ONCE e BEDTIME BEDTIME DAILY AT BEDTIME nitroglycer nitroglycer No nitroglyce Bev in 0.4 mg in 0.4 mg rin 0.4 mg Orthope sublingual sublingual sublingual dic tablet tablet tablet Sports PL[address] 1 Medici n TABLET TABLET TABLET e UNDER THE UNDER THE UNDER THE TONGUE TONGUE TONGUE NEEDED FOR NEEDED FOR NEEDED FOR CHEST PAIN CHEST PAIN CHEST PAIN omeprazole omeprazole No omeprazole Bev 20 mg 20 mg 20 mg Orthope capsule,del capsule,del capsule,de dic ayed ayed layed Sports release release release Medici n TAKE 1 TAKE 1 TAKE 1 e CAPSULE BY CAPSULE BY CAPSULE BY MOUTH IN MOUTH IN MOUTH IN THE MORNING THE MORNING THE MORNING potassium potassium No potassium Bev chloride ER chloride ER chloride [facility] 10 mEq 10 mEq ER 10 mEq dic tablet,exte tablet,exte tablet,ext Sports nded nded ended Medicin release release release e TAKE 1 TAKE 1 TAKE 1 TABLET BY TABLET BY TABLET BY MOUTH ONCE MOUTH ONCE MOUTH ONCE DAILY DAILY DAILY prednisone prednisone No 1 Q1D prednisone Bev 10 mg 10 mg 10 mg [facility] tablet Take tablet Take tablet dic 1 tablet 1 tablet Take 1 Sport s every day every day tablet Med icin by oral by oral every day e route. route. by oral route. tramadol 50 tramadol 50 No tramadol Bev mg tablet mg tablet 50 mg [facility] TAKE 1 TAKE 1 tablet dic TABLET BY TABLET BY TAKE 1 Spo rts MOUTH TWICE MOUTH TWICE TABLET BY Medicin DAILY DAILY MOUTH e NEEDED NEEDED TWICE DAILY NEEDED amlodipine amlodipine No amlodipine Bev 2.5 mg 2.5 mg 2.5 mg [facility] tablet TAKE tablet TAKE tablet dic 1 TABLET BY 1 TABLET BY TAKE 1 Sports MOUTH IN MOUTH IN TABLET BY Me dicin THE MORNING THE MORNING MOUTH IN e AND 2 TABS AND 2 TABS THE AT NIGHT AT NIGHT MORNING AND 2 TABS AT NIGHT amoxicillin amoxicillin No amoxicilli Bev [id number] n 875 [facility] mg-potassiu mg-potassiu mg-potassi dic m m um Sports clavulanate clavulanate clavulanat Medicin 125 mg 125 mg e 125 mg e tablet TAKE tablet TAKE tablet 1 TABLET BY 1 TABLET BY TAKE 1 MOUTH EVERY MOUTH EVERY TABLET BY 12 HOURS 12 HOURS MOUTH FOR 10 DAYS FOR 10 DAYS EVERY 12 HOURS FOR 10 DAYS atorvastati atorvastati No atorvastat Bev n 20 mg n 20 mg in 20 mg [facility] pe tablet TAKE tablet TAKE tablet dic 1 TABLET BY 1 TABLET BY TAKE 1 Sports MOUTH ONCE MOUTH ONCE TABLET BY Medicin DAILY DAILY MOUTH ONCE e DAILY brimonidine brimonidine No brimonidin Bev 0.15 % eye 0.15 % eye e 0.15 % [facility] drops drops eye drops dic INSTILL 1 INSTILL 1 INSTILL 1 Sports DROP INTO DROP INTO DROP INTO Medicin EACH EYE EACH EYE EACH EYE e EVERY 12 EVERY 12 EVERY 12 HOURS HOURS HOURS cilostazol cilostazol No cilostazol Bev [facility] Sports Medicin e cilostazol cilostazol No cilostazol Bev 100 mg 100 mg 100 mg [facility] tablet TAKE tablet TAKE tablet dic 1 TABLET BY 1 TABLET BY TAKE 1 Sports MOUTH TWICE MOUTH TWICE TABLET BY Medicin DAILY 30 DAILY 30 MOUTH e MINUTES MINUTES TWICE BEFORE OR 2 BEFORE OR 2 DAILY 30 HOURS AFTER HOURS AFTER MINUTES MEALS ( MEALS ( BEFORE OR BREAKFAST BREAKFAST 2 HOURS AND DINNER) AND DINNER) AFTER MEALS ( BREAKFAST AND DINNER) ciprofloxac ciprofloxac No ciprofloxa Bev in 500 mg in 500 mg keyur 500 mg [facility] tablet TAKE tablet TAKE tablet dic 1 TABLET BY 1 TABLET BY TAKE 1 Sports MOUTH EVERY MOUTH EVERY TABLET BY Medicin 12 HOURS 12 HOURS MOUTH e FOR 10 DAYS FOR 10 DAYS EVERY 12 HOURS FOR 10 DAYS clindamycin clindamycin No clindamyci Bev HCl 150 mg HCl 150 mg n HCl 150 [facility] capsule capsule mg capsule dic TAKE 2 TAKE 2 TAKE 2 Sports CAPSULES BY CAPSULES BY CAPSULES Medicin MOUTH IN MOUTH IN BY MOUTH e THE MORNING THE MORNING IN THE AND 2 AND 2 MORNING CAPSULES AT CAPSULES AT AND 2 NOON AND 2 NOON AND 2 CAPSULES CAPSULES IN CAPSULES IN AT NOON THE THE AND 2 EVENING. EVENING. CAPSULES IN THE EVENING. colchicine colchicine No colchicine Bev 0.6 mg 0.6 mg 0.6 mg [facility] tablet TAKE tablet TAKE tablet dic 2 TABLETS 2 TABLETS TAKE 2 Spo rts BY MOUTH BY MOUTH TABLETS BY M micheleicin IMMEDIATELY IMMEDIATELY MOUTH e , THEN TAKE , THEN TAKE IMMEDIATEL ONE TABLET ONE TABLET Y, THEN ONE HOUR ONE HOUR TAKE ONE LATER (CAN LATER (CAN TABLET ONE REPEAT ONCE REPEAT ONCE HOUR LATER A DAY) A DAY) (CAN REPEAT ONCE A DAY) doxycycline doxycycline No doxycyclin Bev hyclate 100 hyclate 100 e hyclate [facility] mg capsule mg capsule 100 mg d ic TAKE 1 TAKE 1 capsule Sports CAPSULE BY CAPSULE BY TAKE 1 M edicin MOUTH TWICE MOUTH TWICE CAPSULE BY e DAILY FOR DAILY FOR MOUTH 10 DAYS 10 DAYS TWICE DAILY FOR 10 DAYS famotidine famotidine No famotidine Bev 20 mg 20 mg 20 mg [facility] tablet TAKE tablet TAKE tablet dic 1 TABLET BY 1 TABLET BY TAKE 1 Sports MOUTH EVERY MOUTH EVERY TABLET BY Medicin DAY AT DAY AT MOUTH e BEDTIME BEDTIME EVERY DAY AT BEDTIME furosemide furosemide No furosemide Bev 40 mg 40 mg 40 mg [facility] tablet TAKE tablet TAKE tablet dic 1 TABLET BY 1 TABLET BY TAKE 1 Sports MOUTH ONCE MOUTH ONCE TABLET BY Medicin DAILY DAILY MOUTH ONCE e DAILY haloperidol haloperidol No haloperido Bev 0.5 mg 0.5 mg l 0.5 mg [facility] tablet TAKE tablet TAKE tablet dic 1 TABLET BY 1 TABLET BY TAKE 1 Sports MOUTH AT MOUTH AT TABLET BY Pa dicin BEDTIME BEDTIME MOUTH AT e BEDTIME haloperidol haloperidol No haloperido Bev 1 mg tablet 1 mg tablet l 1 mg [facility] TAKE 1 TAKE 1 tablet dic TABLET BY TABLET BY TAKE 1 Spo rts MOUTH AT MOUTH AT TABLET BY Me dicin BEDTIME BEDTIME MOUTH AT e BEDTIME indomethaci indomethaci No indomethac Bev n 50 mg n 50 mg in 50 mg [facility] pe capsule capsule capsule dic TAKE 1 TAKE 1 TAKE 1 Sports CAPSULE BY CAPSULE BY CAPSULE BY Medicin MOUTH THREE MOUTH THREE MOUTH e TIMES TIMES THREE DAILY, TAKE DAILY, TAKE TIMES WITH FOOD WITH FOOD DAILY, OR MILK OR MILK TAKE WITH FOOD OR MILK levothyroxi levothyroxi No levothyrox Bev ne 175 mcg ne 175 mcg ine 175 [facility] tablet TAKE tablet TAKE mcg tablet dic 1 TABLET BY 1 TABLET BY TAKE 1 Sports MOUTH ONCE MOUTH ONCE TABLET BY Medicin DAILY IN DAILY IN MOUTH ONCE e THE MORNING THE MORNING DAILY IN ON AN EMPTY ON AN EMPTY THE STOMACH STOMACH MORNING ON AN EMPTY STOMACH methylpredn methylpredn No methylpred Bev isolone 4 isolone 4 nisolone 4 [facility] mg tablets mg tablets mg tablets dic in a dose in a dose in a dose Sports pack TAKE 6 pack TAKE 6 pack TAKE Medicin TABLETS ON TABLETS ON 6 TABLETS e DAY 1 DAY 1 ON DAY 1 DIRECTED ON DIRECTED ON PACKAGE AND PACKAGE AND DIRECTED DECREASE BY DECREASE BY ON PACKAGE 1 TAB EACH 1 TAB EACH AND DAY FOR A DAY FOR A DECREASE TOTAL OF 6 TOTAL OF 6 BY 1 TAB DAYS DAYS EACH DAY FOR A TOTAL OF 6 DAYS metoprolol metoprolol No metoprolol Bev tartrate 25 tartrate 25 tartrate [facility] mg tablet mg tablet 25 mg dic TAKE 1 TAKE 1 tablet Sports TABLET BY TABLET BY TAKE 1 Med icin MOUTH TWICE MOUTH TWICE TABLET BY e DAILY WITH DAILY WITH MOUTH FOOD FOOD TWICE DAILY WITH FOOD metronidazo metronidazo No metronidaz Bev le 500 mg le 500 mg ole 500 mg [facility] tablet TAKE tablet TAKE tablet dic 1 TABLET BY 1 TABLET BY TAKE 1 Sports MOUTH EVERY MOUTH EVERY TABLET BY Medicin 8 HOURS FOR 8 HOURS FOR MOUTH e 4 DAYS 4 DAYS EVERY 8 HOURS FOR 4 DAYS montelukast montelukast No montelukas Bev 10 mg 10 mg t 10 mg [facility] tablet TAKE tablet TAKE tablet dic 1 TABLET BY 1 TABLET BY TAKE 1 Sports MOUTH ONCE MOUTH ONCE TABLET BY Medicin DAILY AT DAILY AT MOUTH ONCE e BEDTIME BEDTIME DAILY AT BEDTIME mupirocin 2 mupirocin 2 No mupirocin Bev % topical % topical 2 % [facility] pe ointment ointment topical dic APPLY APPLY ointment Sports OINTMENT OINTMENT APPLY Medici n TOPICALLY TOPICALLY OINTMENT e TWICE DAILY TWICE DAILY TOPICALLY FOR 5 DAYS FOR 5 DAYS TWICE DAILY FOR 5 DAYS naproxen naproxen No naproxen Aza jo ann 500 mg 500 mg 500 mg [facility] tablet TAKE tablet TAKE tablet dic 1 TABLET BY 1 TABLET BY TAKE 1 Sports MOUTH EVERY MOUTH EVERY TABLET BY Medicin 12 HOURS 12 HOURS MOUTH e NEEDED NEEDED EVERY 12 HOURS NEEDED nitroglycer nitroglycer No nitroglyce Bev in 0.4 mg in 0.4 mg rin 0.4 mg [facility] sublingual sublingual sublingual dic tablet tablet tablet Sports PLACE [address] 1 Medici n TABLET TABLET TABLET e UNDER THE UNDER THE UNDER THE TONGUE TONGUE TONGUE NEEDED FOR NEEDED FOR NEEDED FOR CHEST PAIN CHEST PAIN CHEST PAIN omeprazole omeprazole No omeprazole Bev 20 mg 20 mg 20 mg [facility] capsule,del capsule,del capsule,de dic ayed ayed layed Sports release release release Medici n TAKE 1 TAKE 1 TAKE 1 e CAPSULE BY CAPSULE BY CAPSULE BY MOUTH IN MOUTH IN MOUTH IN THE MORNING THE MORNING THE MORNING potassium potassium No potassium Bev chloride ER chloride ER chloride [facility] 10 mEq 10 mEq ER 10 mEq dic tablet,exte tablet,exte tablet,ext Sports nded nded ended Medicin release release release e TAKE 1 TAKE 1 TAKE 1 TABLET BY TABLET BY TABLET BY MOUTH ONCE MOUTH ONCE MOUTH ONCE DAILY DAILY DAILY prednisone prednisone No prednisone Bev 1 mg tablet 1 mg tablet 1 mg O [facility]ope TAKE 4 TAKE 4 tablet dic TABLETS BY TABLETS BY TAKE 4 S ports MOUTH ONCE MOUTH ONCE TABLETS BY Medicin DAILY DAILY MOUTH ONCE e -TAPER DOWN -TAPER DOWN DAILY BY 1 TABLET BY 1 TABLET -TAPER EVERY 4 EVERY 4 DOWN BY 1 WEEKS WHEN WEEKS WHEN TABLET SYMPTOMS SYMPTOMS EVERY 4 ALLOW ALLOW WEEKS WHEN DIRECTED BY DIRECTED BY SYMPTOMS YOUR DOCTOR YOUR DOCTOR ALLOW DIRECTED BY YOUR DOCTOR prednisone prednisone No 1 Q1D prednisone Bev 10 mg 10 mg 10 mg [facility] tablet Take tablet Take tablet dic 1 tablet 1 tablet Take 1 Sport s every day every day tablet Med icin by oral by oral every day e route. route. by oral route. prednisone prednisone No prednisone Bev 20 mg 20 mg 20 mg [facility] tablet TAKE tablet TAKE tablet dic 1 TABLET BY 1 TABLET BY TAKE 1 Sports MOUTH ONCE MOUTH ONCE TABLET BY Medicin DAILY FOR 5 DAILY FOR 5 MOUTH ONCE e DAYS DAYS DAILY FOR 5 DAYS prednisone prednisone No 4 Q1D prednisone Bev 5 mg tablet 5 mg tablet 5 mg O [facility] Take 4 Take 4 tablet dic tablets tablets Take 4 Sports every day every day tablets Me dicin by oral by oral every day e route as route as by oral directed directed route as for 90 for 90 directed days. days. for 90 days. sulfamethox sulfamethox No sulfametho Bev azole 800 azole 800 xazole 800 [facility] mg-trimetho mg-trimetho mg-trimeth dic prim 160 mg prim 160 mg oprim 160 Sports tablet TAKE tablet TAKE mg tablet Medicin 1 TABLET BY 1 TABLET BY TAKE 1 e MOUTH TWICE MOUTH TWICE TABLET BY A DAY FOR 7 A DAY FOR 7 MOUTH DAYS DAYS TWICE A DAY FOR 7 DAYS tramadol 50 tramadol 50 No tramadol Bev mg tablet mg tablet 50 mg [facility] TAKE 1 TAKE 1 tablet dic TABLET BY TABLET BY TAKE 1 Spo rts MOUTH TWICE MOUTH TWICE TABLET BY Medicin A DAY A DAY MOUTH e NEEDED FOR NEEDED FOR TWICE A 30 DAYS 30 DAYS DAY NEEDED FOR 30 DAYS amlodipine amlodipine No amlodipine Bev 2.5 mg 2.5 mg 2.5 mg [facility] tablet TAKE tablet TAKE tablet dic 1 TABLET BY 1 TABLET BY TAKE 1 Sports MOUTH IN MOUTH IN TABLET BY Me dicin THE MORNING THE MORNING MOUTH IN e AND 2 TABS AND 2 TABS THE AT NIGHT AT NIGHT MORNING AND 2 TABS AT NIGHT amlodipine amlodipine No amlodipine Bev 5 mg tablet 5 mg tablet 5 mg O [facility]ope TAKE 1 TAKE 1 tablet dic TABLET BY TABLET BY TAKE 1 Spo rts MOUTH TWICE MOUTH TWICE TABLET BY Medicin DAILY DAILY MOUTH e TWICE DAILY atorvastati atorvastati No atorvastat Bev n 20 mg n 20 mg in 20 mg [facility] pe tablet TAKE tablet TAKE tablet dic 1 TABLET BY 1 TABLET BY TAKE 1 Sports MOUTH ONCE MOUTH ONCE TABLET BY Medicin DAILY DAILY MOUTH ONCE e DAILY azelastine- azelastine- No azelastine Bev fluticasone fluticasone -fluticaso [facility] 137 mcg-50 137 mcg-50 ne 137 d ic mcg/spray mcg/spray mcg-50 Spo rts nasal spray nasal spray mcg/spray Medicin USE 1 USE 1 nasal e SPRAY(S) SPRAY(S) spray USE INTO EACH INTO EACH 1 SPRAY(S) NOSTRIL NOSTRIL INTO EACH TWICE DAILY TWICE DAILY NOSTRIL TWICE DAILY azithromyci azithromyci No azithromyc Bev n 250 mg n 250 mg in 250 mg Or [facility] tablet TAKE tablet TAKE tablet dic 2 TABLETS 2 TABLETS TAKE 2 Spo rts BY MOUTH ON BY MOUTH ON TABLETS BY Medicin DAY 1, AND DAY 1, AND MOUTH ON e THEN TAKE 1 THEN TAKE 1 DAY 1, AND TABLET BY TABLET BY THEN TAKE MOUTH ONCE MOUTH ONCE 1 TABLET A DAY ON A DAY ON BY MOUTH DAY 2 DAY 2 ONCE A DAY THROUGH DAY THROUGH DAY ON DAY 2 5 5 THROUGH DAY 5 brimonidine brimonidine No brimonidin Bev 0.15 % eye 0.15 % eye e 0.15 % [facility] drops drops eye drops dic INSTILL 1 INSTILL 1 INSTILL 1 Sports DROP INTO DROP INTO DROP INTO Medicin EACH EYE EACH EYE EACH EYE e EVERY 12 EVERY 12 EVERY 12 HOURS HOURS HOURS cilostazol cilostazol No cilostazol Bev [facility] Sports Medicin e cilostazol cilostazol No cilostazol Bev 100 mg 100 mg 100 mg [facility] tablet TAKE tablet TAKE tablet dic 1 TABLET BY 1 TABLET BY TAKE 1 Sports MOUTH TWICE MOUTH TWICE TABLET BY Medicin DAILY 30 DAILY 30 MOUTH e MINUTES MINUTES TWICE BEFORE OR 2 BEFORE OR 2 DAILY 30 HOURS AFTER HOURS AFTER MINUTES MEALS ( MEALS ( BEFORE OR BREAKFAST BREAKFAST 2 HOURS AND DINNER) AND DINNER) AFTER MEALS ( BREAKFAST AND DINNER) ciprofloxac ciprofloxac No ciprofloxa Bev in 500 mg in 500 mg keyur 500 mg [facility] tablet TAKE tablet TAKE tablet dic 1 TABLET BY 1 TABLET BY TAKE 1 Sports MOUTH EVERY MOUTH EVERY TABLET BY Medicin 12 HOURS 12 HOURS MOUTH e EVERY 12 HOURS clopidogrel clopidogrel No clopidogre Bev 75 mg 75 mg l 75 mg [facility] tablet TAKE tablet TAKE tablet dic 1 TABLET BY 1 TABLET BY TAKE 1 Sports MOUTH ONCE MOUTH ONCE TABLET BY Medicin DAILY DAILY MOUTH ONCE e DAILY cyclobenzap cyclobenzap No cyclobenza Bev rine 5 mg rine 5 mg nallely 5 mg [facility] tablet TAKE tablet TAKE tablet dic 1 TABLET BY 1 TABLET BY TAKE 1 Sports MOUTH ONCE MOUTH ONCE TABLET BY Medicin DAILY AT DAILY AT MOUTH ONCE e BEDTIME BEDTIME DAILY AT NEEDED NEEDED BEDTIME NEEDED Euthyrox Euthyrox No Euthyrox Aza jo ann 175 mcg 175 mcg 175 mcg [facility] e tablet TAKE tablet TAKE tablet dic 1 TABLET BY 1 TABLET BY TAKE 1 Sports MOUTH ONCE MOUTH ONCE TABLET BY Medicin DAILY ON AN DAILY ON AN MOUTH ONCE e EMPTY EMPTY DAILY ON STOMACH IN STOMACH IN AN EMPTY THE MORNING THE MORNING STOMACH IN THE MORNING famotidine famotidine No famotidine Bev 40 mg 40 mg 40 mg [facility] tablet TAKE tablet TAKE tablet dic 1 TABLET BY 1 TABLET BY TAKE 1 Sports MOUTH AT MOUTH AT TABLET BY Pa dicin BEDTIME BEDTIME MOUTH AT e BEDTIME furosemide furosemide No furosemide Bev 40 mg 40 mg 40 mg [facility] tablet TAKE tablet TAKE tablet dic 1 TABLET BY 1 TABLET BY TAKE 1 Sports MOUTH ONCE MOUTH ONCE TABLET BY Medicin DAILY DAILY MOUTH ONCE e DAILY haloperidol haloperidol No haloperido Bev 0.5 mg 0.5 mg l 0.5 mg [facility] tablet TAKE tablet TAKE tablet dic 1 TABLET BY 1 TABLET BY TAKE 1 Sports MOUTH AT MOUTH AT TABLET BY Pa dicin BEDTIME BEDTIME MOUTH AT e BEDTIME haloperidol haloperidol No haloperido Bev 1 mg tablet 1 mg tablet l 1 mg [facility] TAKE 1 TAKE 1 tablet dic TABLET BY TABLET BY TAKE 1 Spo rts MOUTH AT MOUTH AT TABLET BY Pa dicin BEDTIME BEDTIME MOUTH AT e BEDTIME indomethaci indomethaci No indomethac Bev n 50 mg n 50 mg in 50 mg [facility] pe capsule capsule capsule dic TAKE 1 TAKE 1 TAKE 1 Sports CAPSULE BY CAPSULE BY CAPSULE BY Medicin MOUTH THREE MOUTH THREE MOUTH e TIMES DAILY TIMES DAILY THREE WITH FOOD WITH FOOD TIMES OR MILK FOR OR MILK FOR DAILY WITH 3 DAYS 3 DAYS FOOD OR MILK FOR 3 DAYS metoprolol metoprolol No metoprolol Bev tartrate 25 tartrate 25 tartrate [facility] mg tablet mg tablet 25 mg dic TAKE 1 TAKE 1 tablet Sports TABLET BY TABLET BY TAKE 1 Med icin MOUTH TWICE MOUTH TWICE TABLET BY e DAILY WITH DAILY WITH MOUTH FOOD FOOD TWICE DAILY WITH FOOD metoprolol metoprolol No metoprolol Bev tartrate 50 tartrate 50 tartrate [facility] mg tablet mg tablet 50 mg dic TAKE 1 TAKE 1 tablet Sports TABLET BY TABLET BY TAKE 1 Med icin MOUTH TWICE MOUTH TWICE TABLET BY e DAILY WITH DAILY WITH MOUTH FOOD FOOD TWICE DAILY WITH FOOD montelukast montelukast No montelukas Bev 10 mg 10 mg t 10 mg [facility] tablet TAKE tablet TAKE tablet dic 1 TABLET BY 1 TABLET BY TAKE 1 Sports MOUTH ONCE MOUTH ONCE TABLET BY Medicin DAILY AT DAILY AT MOUTH ONCE e BEDTIME BEDTIME DAILY AT BEDTIME nitroglycer nitroglycer No nitroglyce Bev in 0.4 mg in 0.4 mg rin 0.4 mg [facility] sublingual sublingual sublingual dic tablet tablet tablet Sports PLACE [address] 1 Medici n TABLET TABLET TABLET e UNDER THE UNDER THE UNDER THE TONGUE TONGUE TONGUE NEEDED FOR NEEDED FOR NEEDED FOR CHEST PAIN CHEST PAIN CHEST PAIN orphenadrin orphenadrin No orphenadri Bev e citrate e citrate ne citrate [facility] ER 100 mg ER 100 mg ER 100 mg dic tablet,exte tablet,exte tablet,ext Sports nded nded ended Medicin release release release e TAKE 1 TAKE 1 TAKE 1 TABLET BY TABLET BY TABLET BY MOUTH TWICE MOUTH TWICE MOUTH DAILY DAILY TWICE NEEDED NEEDED DAILY NEEDED oseltamivir oseltamivir No oseltamivi Bev 75 mg 75 mg r 75 mg [facility] capsule capsule capsule dic TAKE 1 TAKE 1 TAKE 1 Sports CAPSULE BY CAPSULE BY CAPSULE BY Medicin MOUTH TWICE MOUTH TWICE MOUTH e DAILY DAILY TWICE DAILY potassium potassium No potassium Bev chloride ER chloride ER chloride [facility] 10 mEq 10 mEq ER 10 mEq dic tablet,exte tablet,exte tablet,ext Sports nded nded ended Medicin release release release e TAKE 1 TAKE 1 TAKE 1 TABLET BY TABLET BY TABLET BY MOUTH ONCE MOUTH ONCE MOUTH ONCE DAILY DAILY DAILY prednisone prednisone No prednisone Bev 1 mg tablet 1 mg tablet 1 mg O [facility] TAKE 2 TAKE 2 tablet dic TABLETS BY TABLETS BY TAKE 2 S ports MOUTH ONCE MOUTH ONCE TABLETS BY Medicin DAILY IN DAILY IN MOUTH ONCE e THE MORNING THE MORNING DAILY IN THE MORNING prednisone prednisone No 1 Q1D prednisone Bev 5 mg tablet 5 mg tablet 5 mg O [facility] Take 1 Take 1 tablet dic tablet tablet Take 1 Sports every day every day tablet Med icin by oral by oral every day e route. route. by oral route. tramadol 50 tramadol 50 No tramadol Bev mg tablet mg tablet 50 mg [facility] TAKE 1 TAKE 1 tablet dic TABLET BY TABLET BY TAKE 1 Spo rts MOUTH TWICE MOUTH TWICE TABLET BY Medicin DAILY DAILY MOUTH e NEEDED FOR NEEDED FOR TWICE 30 DAYS 30 DAYS DAILY NEEDED FOR 30 DAYS varenicline varenicline No vareniclin Bev 0.5 mg 0.5 mg e 0.5 mg [facility] tablet TAKE tablet TAKE tablet dic 1 TABLET BY 1 TABLET BY TAKE 1 Sports MOUTH ONCE MOUTH ONCE TABLET BY Medicin DAILY DAILY MOUTH ONCE e DAILY cilostazol cilostazol No cilostazol Bev [facility] dic Sports Medicin e Immunizations Ordered Filled Date Status Comments Source Immunization Name Immunization Name SARS-COV-2 COVID-19 2020-11-30 Completed [facility] [...] COVID-19 2020-11-30 Completed [facility] of [facility] 12+ YRS 00:00:00 [place] [facility] SARS-COV-2 COVID-19 2020-11-30 Completed [facility] VACC[facility] 00:00:00 [place] [facility] SARS-COV-2 COVID-19 2020-11-30 Completed [facility] VACCINE 00:00:00 [place] [facility] SARS-COV-2 COVID-19 2020-11-30 Completed [facility] VACCINE 00:00:00 [place] [facility] SARS-COV-2 COVID-19 2020-10-10 Completed [facility] VACCINE 00:00:00 [place] [facility] SARS-COV-2 COVID-19 2020-10-10 Completed [facility] VACCINE 00:00:00 [place] [facility] SARS-COV-2 COVID-19 2020-10-10 Completed [facility] VACCINE 00:00:00 [place] [facility] SARS-COV-2 COVID-19 2020-10-10 Completed [facility] VACCINE 00:00:00 [place] [facility] SARS-COV-2 COVID-19 2020-10-10 Completed [facility] VACCINE 00:00:00 [place] [facility] SARS-COV-2 COVID-19 2020-10-10 Completed [facility] 12+ YRS 00:00:00 [place] [facility] SARS-COV-2 COVID-19 2020-10-10 Completed [facility] VACCINE 00:00:00 [place] [facility] SARS-COV-2 COVID-19 2020-10-10 Completed [facility] VACCINE 00:00:00 [place] [facility] SARS-COV-2 COVID-19 2020-10-10 Completed [facility] VACCINE 00:00:00 [place] [facility] SARS-COV-2 COVID-19 Unknown Completed [facility] 12+ YRS [place] [facility] SARS-COV-2 COVID-19 Unknown Completed [facility] 12+ YRS [place] [facility] SARS-COV-2 COVID-19 Unknown Completed [facility] 12+ YRS [place] [facility] SARS-COV-2 COVID-19 Unknown Completed [facility] 12+ YRS [place] [facility] Vital Signs Vital Name Observation Time Observation Value Comments Source Height 2023-07-18 00:00:00 66 [in_i] [facility] BMI (Body Mass 2023-07-18 00:00:00 22.1 kg/m2 [facility] BP Systolic 2023-07-18 00:00:00 164 mm[Hg] [facility] Body Weight 2023-07-18 00:00:00 137 [lb_av] [facility] BP Diastolic 2023-07-18 00:00:00 84 mm[Hg] [facility] Systolic blood 2023-07-08 00:08:00 142 mm[Hg] [facility] Diastolic blood 2023-07-08 00:08:00 81 mm[Hg] [facility]ive rsity of pressure [facility] Heart rate 2023-07-08 00:08:00 85 /min [facility] Body temperature 2023-07-08 00:08:00 37 Jen [facility] ersity [facility] Respiratory rate 2023-07-08 00:08:00 16 /min [facility] height 2023-07-08 00:08:00 165.1 cm [facility] Body weight 2023-07-08 00:08:00 63.776 kg [facility] BMI 2023-07-08 00:08:00 23.40 kg/m2 [facility] Oxygen saturation in 2023-07-08 00:08:00 97 /min [facility] Arterial blood by [facility] Pulse oximetry Branch Systolic blood 2023-06-21 05:35:00 149 mm[Hg] [facility] pressure [facility] Diastolic blood 2023-06-21 05:35:00 77 mm[Hg] [facility] pressure [facility] Heart rate 2023-06-21 05:35:00 77 /min [facility] Respiratory rate 2023-06-21 05:35:00 20 /min [facility] Oxygen saturation in 2023-06-21 05:35:00 96 /min [facility] Arterial blood by [facility] Pulse oximetry Branch Body temperature 2023-06-21 03:58:00 36.78 Jen [facility] Body height 2023-06-21 03:58:00 165.1 cm [facility] Body weight 2023-06-21 03:58:00 62.143 kg [facility] BMI 2023-06-21 03:58:00 22.80 kg/m2 [facility] BP Diastolic 2022-10-28 00:00:00 66 mm[Hg] [facility] Height 2022-10-28 00:00:00 65 [in_i] [facility] BMI (Body Mass 2022-10-28 00:00:00 22.7 kg/m2 [facility] BP Systolic 2022-10-28 00:00:00 125 mm[Hg] [facility] Body Weight 2022-10-28 00:00:00 136.2 [lb_av] [facility] Systolic blood 2022-07-27 20:49:00 127 mm[Hg] [facility] Diastolic blood 2022-07-27 20:49:00 80 mm[Hg] [facility] Heart rate 2022-07-27 20:49:00 92 /min [facility] Body temperature 2022-07-27 20:49:00 37.39 Jen [facility] Respiratory rate 2022-07-27 20:49:00 16 /min [facility] Body height 2022-07-27 20:49:00 167.6 cm [facility] Body weight 2022-07-27 20:49:00 61.236 kg [facility] BMI 2022-07-27 20:49:00 21.79 kg/m2 [facility] Oxygen saturation in 2022-07-27 20:49:00 97 /min [facility] Arterial blood by [facility] Pulse oximetry Branch BP Diastolic 2022-06-27 00:00:00 69 mm[Hg] [facility] Height 2022-06-27 00:00:00 65 [in_i] [facility] BMI (Body Mass 2022-06-27 00:00:00 22 kg/m2 [facility] BP Systolic 2022-06-27 00:00:00 139 mm[Hg] [facility] Body Weight 2022-06-27 00:00:00 132 [lb_av] [facility] BP Diastolic 2022-02-28 00:00:00 55 mm[Hg] [facility] Height 2022-02-28 00:00:00 65 [in_i] [facility] BMI (Body Mass 2022-02-28 00:00:00 23.1 kg/m2 [facility] BP Systolic 2022-02-28 00:00:00 97 mm[Hg] [facility] Body Weight 2022-02-28 00:00:00 139 [lb_av] [facility] Systolic blood 2021-09-06 17:50:00 142 mm[Hg] [facility] Diastolic blood 2021-09-06 17:50:00 73 mm[Hg] [facility]ive [facility] Heart rate 2021-09-06 17:50:00 56 /min [facility] Body temperature 2021-09-06 17:50:00 35.89 Jen [facility] Respiratory rate 2021-09-06 17:50:00 16 /min [facility] Oxygen saturation in 2021-09-06 17:50:00 97 /min [facility] blood by [facility] Pulse oximetry Branch Body height 2021-09-06 16:07:00 167.6 cm [facility] [place] Body weight 2021-09-06 16:07:00 63.504 kg [facility] BMI 2021-09-06 16:07:00 22.60 kg/m2 [facility] Systolic blood 2021-02-25 18:43:00 131 mm[Hg] [facility] Diastolic blood 2021-02-25 18:43:00 67 mm[Hg] [facility] Heart rate 2021-02-25 18:43:00 64 /min [facility] [place] Body temperature 2021-02-25 18:43:00 36.72 Jen [facility] Respiratory rate 2021-02-25 18:43:00 18 /min [facility] Body height 2021-02-25 18:43:00 167.6 cm [facility] [place] Body weight 2021-02-25 18:43:00 66.225 kg [facility] [place] BMI 2021-02-25 18:43:00 23.57 kg/m2 [facility] Body height 2020-11-10 17:11:00 167.6 cm [facility] Body weight 2020-11-10 17:11:[address] [facility] BMI 2020-11-10 17:11:00 22.60 kg/m2 [facility] Procedures Procedure Date / Time Performing Clinician Source Performed CONSENT/REFUSAL FOR 2023-07-08 00:01:25 Doctor Unassigned, No [facility] DIAGNOSIS AND [facility] [place] TREATMENT ASSIGNMENT OF BENEFITS 2023-06-21 05:23:28 Doctor Unassigned, No [facility] XR FOOT 3+ VW RIGHT 2023-06-21 05:06:29 Gary [facility] CONSENT/REFUSAL FOR 2023-06-21 03:44:36 Doctor Unassigned, No [facility] [place] [facility] Name Medical Branch TREATMENT CT CHEST WO CONTRAST 2023-05-11 15:36:01 Bryan Javier [facility] CT CHEST WO CONTRAST 2022-11-17 18:20:00 Bryan Javier [facility] DEXA, axial skeleton + 2022-10-28 00:00:00 Azale a Orthopedic vertebral fracture Sports Medici ne assessment XR CHEST 2 VW 2022-10-19 21:08:00 Bryan Javier Ho spital XR CHEST 2 VW 2022-08-25 20:19:00 Venita Graves Ho spital Karen-Jose XR HIPS 3 VW RIGHT 2022-07-27 21:45:41 Milagro Cohen [facility] CONSENT/REFUSAL FOR 2022-07-27 20:45:23 Doctor Unassigned, No [facility] [place] [facility] AND Name Medical Branch TREATMENT CONSENT/REFUSAL FOR 2021-09-06 06:01:00 [facility] Branch TREATMENT US PELVIS COMPLETE 2021-03-15 16:05:22 Daniela [facility] NON-OB Medical Branch ASSIGNMENT OF BENEFITS 2021-02-25 18:30:27 Doctor Unassigned, No [facility] XR KNEE 1 OR 2 VW 2020-11-10 18:19:59 Isaac Borges [facility] RIGHT Plan of Care Planned Activity Planned Date Details Comments Source Diagnostic Test 2023-07-18 erythrocyte Bev Ortho pedic Pending 00:00:00 sedimentation rate by Sports Medicine westergren method [code = erythrocyte sedimentation rate by westergren method] Diagnostic Test 2023-07-18 CBC [code = CBC] Bev O rthopedic Pending 00:00:00 Sports Medicine Diagnostic Test 2023-07-18 CMP, serum or plasma [facility]opedic Pending 00:00:00 [code = CMP, serum or Sports Medicine plasma] Diagnostic Test 2023-07-18 vitamin D, 25-hydroxy, Az sandee Orthopedic Pending 00:00:00 total, serum [code = Sports Medicine vitamin D, 25-hydroxy, total, serum] Future Scheduled 2023-06-29 65+ PNEUMOCOCCAL [facility] Test 09:43:22 VACCINE (1 - PCV) [code = 65+ PNEUMOCOCCAL VACCINE (1 - PCV)] Future Scheduled 2023-06-29 DIABETES: RETINAL EYE Me [facility] Hospital Test 09:43:22 EXAM [code = DIABETES: RETINAL EYE EXAM] Future Scheduled 2023-06-29 DIABETIC FOOT EXAM [facility] Test 09:43:22 [code = DIABETIC FOOT EXAM] Future Scheduled 2023-06-29 URINE MICROALBUMIN [facility] Test 09:43:22 [code = URINE MICROALBUMIN] Future Scheduled 2023-06-29 SHINGLES VACCINES (1 Met [facility] Test 09:43:22 of 2) [code = SHINGLES VACCINES (1 of 2)] Future Scheduled 2023-06-29 COVID-19 VACCINE (5 - [facility] Hospital Test 09:43:22 season) [code = COVID-19 VACCINE (5 - season)] Future Scheduled 2023-06-29 INFLUENZA VACCINE (#1) M [facility] Hospital Test 09:43:22 [code = INFLUENZA VACCINE (#1)] Future Scheduled 2022-05-04 HEPATITIS B VACCINES Met [facility] Test 16:29:24 (1 of 3 - 3-dose series) [code = HEPATITIS B VACCINES (1 of 3 - 3-dose series)] Future Scheduled 2022-05-04 65+ [facility]CCAL [facility] Test 16:29:24 VACCINE (1 - PCV) [code = 65+ PNEUMOCOCCAL VACCINE (1 - PCV)] Future Scheduled 2022-05-04 DIABETES: RETINAL EYE Me [facility] Hospital Test 16:29:24 EXAM [code = DIABETES: RETINAL EYE EXAM] Future Scheduled 2022-05-04 DIABETIC FOOT EXAM [facility] Test 16:29:24 [code = DIABETIC FOOT EXAM] Future Scheduled 2022-05-04 URINE MICROALBUMIN [facility] Test 16:29:24 [code = URINE MICROALBUMIN] Future Scheduled 2022-05-04 SHINGLES VACCINES (1 Met [facility] Hospital Test 16:29:24 of 2) [code = SHINGLES VACCINES (1 of 2)] Future Scheduled 2022-05-04 COVID-19 VACCINE (2 - [facility] Test 16:29:24 Moderna series) [code = COVID-19 VACCINE (2 - Moderna series)] Future Scheduled 2022-05-04 INFLUENZA VACCINE [facility] Test 16:29:24 [code = INFLUENZA VACCINE] Future Scheduled 2021-08-22 65+ [facility]OCOCCAL [facility] Test 02:18:19 VACCINE (1 of 2 - PPSV23) [code = 65+ PNEUMOCOCCAL VACCINE (1 of 2 - PPSV23)] Future Scheduled 2021-08-22 DIABETES: RETINAL EYE [facility] Test 02:18:19 EXAM [code = DIABETES: RETINAL EYE EXAM] Future Scheduled 2021-08-22 DIABETIC FOOT EXAM [facility] Test 02:18:19 [code = DIABETIC FOOT EXAM] Future Scheduled 2021-08-22 URINE MICROALBUMIN [facility] Test 02:18:19 [code = URINE MICROALBUMIN] Future Scheduled 2021-08-22 SHINGLES VACCINES (#1) [facility] Test 02:18:19 [code = SHINGLES VACCINES (#1)] Future Scheduled 2021-08-22 [facility] Test 02:18:19 malignant neoplasm of lung (procedure) [code = 444277452] Future Scheduled 2021-08-22 COVID-19 VACCINE (2 - [facility] Test 02:18:19 Moderna 3-dose series) [code = COVID-19 VACCINE (2 - Moderna 3-dose series)] Future Scheduled 2021-08-22 INFLUENZA VACCINE [facility] Test 02:18:19 [code = INFLUENZA VACCINE] Future Appointment 2024-01-16 Maribel Mcdermott, [address] Bev Orthopedic 10:30:00 [facility] , [place], [place] Sports Med icine [id number] Encounters Start End Encounter Admission Attending Care Care Encounter Source Date/Time Date/Time Type Type Clinicians Facility Department ID 2023-07-18 2023-07-18 Maribel Stephen [facility] [place] - Ortho [id number] Bev 00:00:00 00:00:00 MD Baldemar: Liliane Carson - Orthope [address] FOG_Ofc dic [facility] [place] [phone] , Ph. [phone] 2023-07-17 2023-07-17 Outpatient FOG_Jones_H AOSM AOSM 604 [id number] Bev 00:00:00 00:00:00 Frannie [id number] Orthop e dic Sports Medicin e 2023-07-17 2023-07-17 Outpatient FOG_Jones_H AOSM AOSM 604 8949-20 Bev 00:00:00 00:00:00 Frannie [id number] Orthop e dic Sports Medicin e 2023-07-07 2023-07-07 Emergency X FOSTER, [facility] ERT [id number] Univers 19:11:00 20:03:00 PHAN [facility] 2023-07-07 2023-07-07 Emergency [facility] [id number] Univers 19:11:00 20:03:00 Phan MENDOZA 350.1.13.10 i ty [facility] 4.2.7.2.686 [facility] [phone] [address] 2023-07-04 2023-07-04 Outpatient GC_GCBZW_Ka PRIV PRIV [id number] [facility] 00:00:00 00:00:00 diyala_S [id number] Medic al 2023-07-03 2023-07-03 Outpatient GC_GCBZW_Ka PRIV PRIV [id number] [facility] 00:00:00 00:00:00 diyala_S [id number] Medic al 2023-06-20 2023-06-21 Emergency X RIDDLE, [facility] ERT [id number] Univers 23:04:00 00:39:00 GARY coley [facility] 2023-06-20 2023-06-21 Emergency Banks, [facility] 1.2.843.911 [id number] Univers 23:04:00 00:39:00 Gary MENDOZA 350.1.13.10 ity [facility] 4.2.7.2.686 [facility] [phone] [address] 2023-05-11 2023-05-11 Bryan Arreola 1.2.840.1 [id number] Methodi 09:30:00 23:59:00 Encounter Annette 68703.1.[address] 3.430.2.7 Hospit a .3.659241 l .8 2023-05-11 2023-05-11 Bryan Jimenez [facility] [id number] [facility] 00:00:00 00:00:[address] 2023-03-20 2023-03-20 Kenneth Javier, M G 1.2.840.1 [id number] Methodi 00:00:00 00:00:00 Only Annette 91648.1.[address] 3.430.2.7 Hospit a .3.530773 l .8 2023-03-16 2023-03-16 Bryan Lobo G 1.2.840.1 [id number] 2 [id number] Methodi 00:00:00 00:00:[address] 3.430.2.7 Hospit a .3.583147 l .8 2023-03-13 2023-03-13 Kenneth Javier, M G 1.2.840.1 [id number] Methodi 00:00:00 00:00:00 Only Annette 18108.1.[address] 3.430.2.7 Hospit a .3.367858 l .8 2023-03-03 2023-03-03 Eriberto Javier, M G 1.2.840.1 [id number] 2 [id number] Methodi 00:00:00 00:00:[address] 3.430.2.7 Hospit a .3.241530 l .8 2023-03-01 2023-03-01 Eriberto Javier, M G 1.2.840.1 [id number] 2 [id number] Methodi 00:00:00 00:00:[address] 3.430.2.7 Hospit a .3.659394 l .8 2022-11-29 2022-11-29 Bryan Arreola G 1.2.840.1 [id number] 21 [id number] Methodi 15:33:57 23:59:00 Encounter Annette 85485.1.[address] 3.430.2.7 Hospit a .3.326199 l .8 2022-11-29 2022-11-29 Outpatient Bryan JAVIER [facility] [id number] [facility] 00:00:00 00:00:[address] 2022-11-29 2022-11-29 Orders Bryan Javier G 1.2.840.1 [id number] Methodi 00:00:00 00:00:00 Only Annette 11663.1.[address] 3.430.2.7 Hospit a .3.004695 l .8 2022-11-17 2022-11-17 [facility] Bryan Javier G 1.2.840.1 [id number] 21 [id number] Methodi 12:09:09 23:59:00 Encounter Annette 28087.1.[address] 3.430.2.7 Hospit a .3.693602 l .8 2022-11-17 2022-11-17 Outpatient Bryan JAVIER [facility] [id number] [facility] 00:00:00 00:00:[address] 2022-11-17 2022-11-17 Travel 1.2.840.1 1.2.028.353 [id number] [id number] Methodi 00:00:00 00:00:[address] 3.430.2.7 0.2.7.3.698 Ho spita .3.691461 084.8 l .8 2022-10-28 2022-10-28 Maribel Stephen AO [place] - Ortho [id number] Bev 00:00:00 00:00:00 MD Baldemar: [place] - Orthope [address] FOG_Ofc dic [facility] S[facility], [place] [address] , Ph. [phone] 2022-10-27 2022-10-27 Outpatient FOG_Baldemar_H AO AO 604 8949-20 Bev 00:00:00 00:00:00 Frannie [id number] Orthop e dic Sports Medicin e 2022-10-27 2022-10-27 Outpatient FOG_Jones_H AOSM AOSM 604 8949-20 Bev 00:00:00 00:00:00 Frannie [id number] Orthop e dic Sports Medicin e 2022-10-27 2022-10-27 Outpatient FOG_Jones_H AOSM AOSM 604 8949-20 Bev 00:00:00 00:00:00 Frannie [id number] Orthop e dic Sports Medicin e 2022-10-27 2022-10-27 Outpatient FOG_Jones_H AOSM AOSM 604 8949-20 Bev 00:00:00 00:00:00 Frannie [id number] Orthop e dic Sports Medicin e 2022-10-27 2022-10-27 Outpatient FOG_Jones_H AOSM AOSM 604 8949-20 Bev 00:00:00 00:00:00 Frannie [id number] Orthop e dic Sports Medicin e 2022-10-27 2022-10-27 Outpatient FOG_Jones_H AOSM AOSM 604 8949-20 Bve 00:00:00 00:00:00 Frannie [id number] Orthop e dic Sports Medicin e 2022-10-19 2022-10-19 Hospital Concepcion Bryan G 1.2.840.1 [id number] 21 [id number] Methodi 14:53:28 23:59:00 Encounter Annette 58146.1.[address] 3.430.2.7 Hospit a .3.805721 l .8 2022-10-19 2022-10-19 Outpatient Bryan JAVIER [facility] [id number] [facility] 00:00:00 00:00:[address] 2022-10-19 2022-10-19 Documentat Bryan Javier G 1.2.840.1 [id number] Methodi 00:00:00 00:00:00 [address] Annette 77018.1.[address] 3.430.2.7 Hospit a .3.795382 l .8 2022-10-19 2022-10-19 Orders Bryan Javier G 1.2.840.1 [id number] 076 [id number] Methodi 00:00:00 00:00:00 Only Annette 12867.1.[address] 3.430.2.7 Hospit a .3.875586 l .8 2022-10-19 2022-10-19 Travel 1.2.840.1 1.2.435.122 9710 [id number] Methodi 00:00:00 00:00:[address] 3.430.2.7 0.2.7.3.698 Ho spita .3.461413 084.8 l .8 2022-10-19 2022-10-19 TranscriBryan Ayers 1.2.840.1 [id number] Methodi 00:00:00 00:00:00 Orders Annette 41521.1.[address] 3.430.2.7 Hospit a .3.998042 l .8 2022-08-25 2022-08-25 [facility], 1.2.840.1 [id number] Methodi 14:00:00 23:59:00 Encounter [address]iroor 74710.1.[address] Karen-Jose 3.430.2.7 Ho spita .3.333137 l .8 2022-08-25 2022-08-25 [facility] [id number] 318 [facility] 00:00:00 00:00:[address] 2022-08-25 2022-08-25 Travel 1.2.840.1 1.2.868.440 2464 [id number] Methodi 00:00:00 00:00:[address] 3.430.2.7 0.2.7.3.698 Ho spita .3.866907 084.8 l .8 2022-08-25 2022-08-25 [facility] 1.2.840.1 [id number] 587 [id number] Methodi 00:00:00 00:00:00 Orders [address]roor 76655.1.[address] Akren-Jose 3.430.2.7 Ho spita .3.172964 l .8 2022-07-27 2022-07-27 Emergency [facility] [id number] Univers 14:57:00 16:12:00 MILAGRO [facility] 2022-07-27 2022-07-27 Emergency [facility] 1.2.840.114 [id number] Univers 14:57:00 16:12:00 Milagro MENDOZA 350.1.13.10 itvianca [facility] 4.2.7.2.686 [facility] [phone] [address] 2022-06-27 2022-06-27 Outpatient FOG_Jones_H AOSM AOSM 604 8949-20 Bev 00:00:00 00:00:00 Frannie [id number] Orthop e dic Sports Medicin e 2022-06-27 2022-06-27 Maribel BAUTISTA [place] - Ortho [id number] Bev 00:00:00 00:00:00 MD Baldemar: Liliane Carson - Orthope [address] FOG_Ofc dic [facility] [place] [address] , Ph. [phone] 2022-03-01 2022-03-01 Outpatient FOG_Jones_H AOSM AOSM 604 8949-20 Bev 00:00:00 00:00:00 Frannie [id number] Orthop e dic Sports Medicin e 2022-02-28 2022-02-28 Outpatient FOG_Jones_H AOSM AOSM 604 8949-20 Bev 12:54:00 12:54:00 Frannie [id number] Orthop e dic Sports Medicin e 2022-02-28 2022-02-28 Maribel BAUTISTA [place] - Ortho [id number] Bev 00:00:00 00:00:00 MD Baldemar: Liliane Carson - Orthope [address] FOG_Ofc dic [facility] [place] [id number] , Ph. [phone] 2022-02-28 2022-02-28 Outpatient EDITH McdermottSM [id number] 6-f 00:00:00 00:00:00 Maribel Stephen [id number] 2022-01-11 2022-01-11 Outpatient FOG_Jones_H AOSM AOSM 604 8949-20 Bev 01:46:00 01:46:00 Frannie [id number] Orthop e dic Sports Medicin e 2021-09-06 2021-09-06 Nurse Therapy, Clc Covid Infusion [facility] 1.2.840.114 [id number] Univers 10:30:00 11:30:00 Visit Grant Mckinnon [facility] 350.1.13.10 it[place] [phone] [facility] [address] OFFICE BUILDING 2021-09-06 2021-09-06 Outpatient Jordan MCKINNON [facility] [id number] Univers 10:30:00 10:30:00 GRANT [facility] 2021-09-06 2021-09-06 Orders Doctor ADAM 1.2.840.114 [id number] Univers 00:00:00 00:00:00 Only Unassigned, SHEILA 350.1.13.10 ity of [place] [facility] 4.2.7.2.686 Haja as [phone] [facility] [address] 2021-06-03 2021-06-03 Outpatient Jordan VILLASEÑOR [facility] [id number] Univers 11:00:00 11:00:00 FATMATA [facility] 2021-03-25 2021-03-25 Outpatient ABHAY De La Vegat, HCAPM RADI [id number] [facility] 11:12:00 11:12:00 Ryder Rodriguez [facility] 2021-03-16 2021-03-16 Telephone [facility] 1.2.840.114 [id number] Univers 00:00:00 00:00:00 Rubens Mendoza 350.1.13.10 i ty [place] [phone] Me dical nal [address] 2021-03-15 2021-03-15 [facility] 1.2.840.114 [id number] Univers 10:44:27 23:59:00 Encounter Rubens Mendoza 350.1.13.10 it[place] [phone] [facility] [address] [place] 2021-03-15 2021-03-15 Outpatient R DAINELA [facility] [id number] Univers 00:00:00 00:00:00 RUBENS [facility] 2021-03-15 2021-03-15 Telephone [facility] 1.2.840.114 [id number] Univers 00:00:00 00:00:00 Rubensmelissa [place] 350.1.13.10 i ty [place] [phone] Pa dic[address] 2021-02-25 2021-02-25 Office Daniela [facility] 1.2.870.715 [id number] Univers 13:33:40 14:20:34 Visit Rubens Mendoza 350.1.13.10 i ty [place] [phone] Pa dic[address] 2021-02-25 2021-02-25 Outpatient R DANIELA [facility] [id number] Univers 13:30:00 13:30:00 RUBENS [facility] 2021-02-25 2021-02-25 Orders Doctor ADAM 1.2.840.114 [id number] Univers 00:00:00 00:00:00 Only Unassigned, SHEILA 350.1.13.10 ity of [place] [facility] 4.2.7.2.686 Haja as [phone] [facility] [address] 2020-11-30 2020-11-30 Outpatient R JULISSA [facility] [id number] Univers 09:00:00 09:00:00 ISAÍAS nataliia [facility] 2020-11-10 2020-11-10 Office Isaac Borges 1.2.840.1 [id number] 097 [id number] Methodi 10:35:16 12:44:11 Visit [place] 45610.1.[address] 3.430.2.7 Hospit a .3.225145 l .8 2020-11-10 2020-11-10 Outpatient ISAAC BORGES [facility] [id number] [facility] 00:00:00 00:00:[address] 2020-11-10 2020-11-10 Travel 1.2.840.1 1.2.855.441 2092 [id number] Methodi 00:00:00 00:00:[address] 3.430.2.7 0.2.7.3.698 Ho spita .3.353217 084.8 l .8 2020-11-07 2020-11-07 Outpatient [facility] [id number] Univers 09:55:00 09:55[facility] 2020-11-05 2020-11-05 Travel 1.2.840.1 1.2.900.888 5705 [id number] Methodi 00:00:00 00:00:[address] 3.430.2.7 0.2.7.3.698 Ho spita .3.486242 084.8 l .8 2020-11-05 2020-11-05 Telephone Isaac Borges 1.2.840.1 [id number] 2 [id number] Methodi 00:00:00 00:00:[address] [place] [address] 3.430.2.7 Hospit a .3.069520 l .8 2020-10-16 2020-10-16 Office Isaac Borges 1.2.840.1 [id number] 013 [id number] Methodi 14:06:30 15:46:24 Visit [place] 58381.1.[address] 3.430.2.7 Hospit a .3.887040 l .8 2020-10-16 2020-10-16 Travel 1.2.840.1 1.2.160.516 6110 [id number] Methodi 00:00:00 00:00:[address] 3.430.2.7 0.2.7.3.698 Ho spita .3.290746 084.8 l .8 2020-10-13 2020-10-13 Telephone LeIsaac 1.2.840.1 [id number] 2 [id number] Methodi 00:00:00 00:00:[address] [place] [address] 3.430.2.7 Hospit a .3.854339 l .8 2020-10-10 2020-10-10 Outpatient [facility] [id number] Univers 09:30:00 09:30:00 [facility] 2020-08-21 2020-08-21 Outpatient RAJ, [facility] [id number] 361 [facility] 00:00:00 00:00:00 [address]NULFO [address] 2020-05-29 2020-05-29 Outpatient ISAAC BORGES [facility] [id number] [facility] 00:00:00 00:00:[address] 2020-04-17 2020-04-17 Outpatient LEISAAC [facility] [id number] [id number] [facility] 00:00:00 00:00:[address] 2020-04-17 2020-04-17 Outpatient LEISAAC [facility] [id number] [id number] [facility] 00:00:00 00:00:[address] 2020-04-03 2020-04-03 Outpatient [facility] [id number] [facility] 00:00:00 00:00:[address] 2020-03-30 2020-03-30 Outpatient [facility] [id number] 214 [facility] 00:00:00 00:00:[address] 2020-03-25 2020-03-25 Outpatient LEISAAC [facility] 2099 [id number] [facility] 00:00:00 00:00:[address] 2020-03-25 2020-03-25 Outpatient LEISAAC [place] [id number] [facility] 00:00:00 00:00:[address] 2020-03-20 2020-03-20 Outpatient ISAAC BORGES [facility] 2099 [id number] [facility] 00:00:00 00:00:[address] 2020-03-12 2020-03-12 Outpatient [facility] [id number] [facility] 00:00:00 00:00:[address] 2019-11-08 2019-11-08 Outpatient ISAAC BORGES [facility] 2099 [id number] [facility] 00:00:00 00:00:[address] 2019-11-08 2019-11-08 Outpatient ISAAC BORGES [facility] 2100 [id number] [facility] 00:00:00 00:00:[address] Results Test Description Test Time Test Comments Results Result Sourc e Comments CT Chest Wo EXAMINATION:CT CHEST Met sheri Hayden 7 WO CONTRAST CLINICAL Hosp ital 16:29:47 HISTORY: R91.1 Solitary pulmonary nodule, Abnormal xray - lung nodule > 1 cm, f u 1.4 cm lung nodule and another ground glass lesion. on last CT TECHNIQUE:Multiple axial images of the chest were obtained without contrast. Sagittal and coronal computerized reformatted images were also obtained. All CT images were acquired using radiation dose lowering technique with automated exposure control and / or iterative reconstruction.The chest acquisition includes a dedicated high-resolution dataset (less than 2 mm slice thickness with high frequency reconstruction kernel). COMPARISON:CT 11/17/2022 IMPRESSION:1.Solid noncalcified 11 mm nodule superior right lower lobe with adjacent mild bronchial dilation, is stable. Adjacent tree-in-bud nodularity and groundglass density is likewise stable. This could be focal bronchial plugging and bronchiolitis, though additional follow-up in 3 months is advised. 2.A part solid 9 mm nodule anteriorly in the superior left lower lobe abutting the fissure, is slightly more discrete than the prior, though overall stable in size. The solid component is 7 mm, which is minimally increased since prior however. 3 month follow-up is recommended. 3.A 3 mm right lung apex nodule on series 301 image 17 is new. Attention on follow-up. 4.Similar-sized tiny nodules elsewhere are stable. Mild bibasilar atelectasis and or scarring. 5.Scattered cystic changes centrally in the lungs is stable. Moderate centrilobular emphysema likewise stable. 6.Upper normal mediastinal lymph nodes are likely reactive, stable. No axillary or definite hilar lymphadenopathy detected on noncontrast exam 7.Heart is upper normal. No pericardial or pleural effusion 8.Heavy coronary calcifications. Mild to moderate calcified thoracic aorta. 9.Stippled breast calcifications can be correlated with a mammogram 10.Persistent pneumobilia and mild to moderate intrahepatic bile duct dilation, suggests sphincterotomy. This could be confirmed with the clinical history and correlated with liver enzymes. MRI/MRCP could be obtained for further evaluation if indicated 11.Vertebral body hemangioma midthoracic spine. Visualized bones show no suspicious lesion. SUMMARY:A part solid 9 mm nodule in the left lower lobe, with the solid component minimally increased since prior. A stable 11 mm right lower lobe nodule with adjacent bronchial dilation and tree-in-bud nodularity, suggests mucous plugging and bronchiolar dilation. Additional follow-up in 3 months for each of these findings is recommended. A 3 mm right lung apex nodule is new, though additional numerous similar size nodules elsewhere are stable, likely all benign, attention on follow-up Stable moderate centrilobular emphysema scattered cystic changes. Persistent pneumobilia and bile duct dilation, may be from reservoir effect post cholecystectomy and sphincterotomy. Details and other findings see above [id number] XR Chest 2 2022-10-05 EXAMINATION: XR CHEST [facility] 5 2 [facility] 21:11:06 HISTORY: J84.9 Interstitial pulmonary disease unspecified, J84.9 COMPARISON: 08/25/2022 IMPRESSION: Heart size and pulmonary vasculature are normal. Mild interstitial thickening throughout both lungs is similar to prior study accounting for differences in technique. Correlation with chest CT can be obtained for further evaluation. No focal infiltrate, pleural effusion or pneumothorax seen. Visualized osseous structures are intact. [id number] - XR ENEMA 2021-03-05 2 13:19:00 [facility] 1940 Sex: F Name: TIAN ARRIAZA [facility] : 1940 Age/S: 80 / F [id number] Unit #: [id number] Loc: [place] [address] Phys: Ryder Payton MD Acct: [id number] Dis Date: Status: REG CLI PHONE #: [phone] Exam Date: 03/25/2021 1230 FAX #: Reason: DIVERTICULOSIS OF INTESTINE, PART UNSPECIFIED EXAMS: CPT: [id number] XR ENEMA [id number] Fluoro Time: 354 DAP (Gy m2): Air Kerma (mGy): 30.46 EXAM: - XR ENEMA LOCATION: S17 HISTORY: Incomplete colonoscopy; history of diverticulosis EXAM: Single contrast barium enema. Findings: The certified medicine aide film is unremarkable. After barium was introduced [...] Montenegro D.O. CC: Ryder Kapoor Jr, MD; Ryder Payton MD PAGE 1 Signed Report Name: TIAN ARRIAZA [facility] : 1940 Age/S: 80 / F [id number] Unit #: [id number] Loc: [place] [address] Phys: Ryder Payton MD Acct: [id number] Dis Date: Status: REG CLI PHONE #: [phone] Exam Date: 03/25/2021 1230 FAX #: Reason: DIVERTICULOSIS OF INTESTINE, PART UNSPECIFIED EXAMS: CPT: [id number] XR ENEMA [id number] Fluoro Time: 354 DAP (Gy m2): Air Kerma (mGy): 30.46 (Continued) Technologist: Lupillo Monaco, RT(R)(CT) Trnscb Date/Time: 03/25/2021 (1318) [email or web address] Orig Print D/T: S: 03/25/2021 (8894) PAGE 2 Signed Report US PELVIS 2021-03-04 Normal [facility] NON-OB 2 transabdominal pelvic [facility] 16:29:44 ultrasound. Trace Branch free [...] CARMELITA with probe detection (test code = 42607-9) [id number]
[2023-08-02 13:11] LABS: Hematocrit 44.6 % (36.0-45.0); Lymphocytes % 13.5 % (15.3-44.8); MCV 93.7 fL (80-100); MPV 7.5 fL (7.6-11.3); Platelets 203 thou/uL (152-406); RBC Red Blood Cell Count 4.76 M/uL (3.86-4.86)
[2023-08-02 13:12] LABS: Protime INR 1.05
[2023-08-02 13:20] LABS: Specific Gravity 1.014 (1.005-1.030); Urine Bacteria None Seen /HPF (<20); Urine Bilirubin NEGATIVE (Negative); Urine Blood 1+ (Negative); Urine Clarity Clear (Clear); Urine Color Light-Yellow (Yellow); Urine Glucose NEGATIVE (Negative); Urine Protein NEGATIVE (Negative); Urine Urobilinogen Normal (Normal); Urine pH 6.5 (5.0-7.0)
[2023-08-02] MEDS ORDERED: NA CHLORIDE 0.9% 1,000 ML ONE (13:33)
[2023-08-02 13:46] LABS: Albumin 3.2 g/dL (3.4-5.0); Bilirubin Direct 0.2 mg/dL (0-0.2); Bilirubin Indirect, Calculated 0.5 mg/dL (0.2-0.8); Bilirubin Total 0.7 mg/dL (0.2-1.0); Magnesium 2.3 mg/dL (1.6-2.4); Potassium 3.2 mEq/L (3.5-5.1); Protein, Total 6.7 g/dL (6.4-8.2); Troponin High Sensitivity 7.6 pg/mL (<58.9)
--- NOTE | 2023-08-02 14:37 | RAD REPORT ---
EXAM DESCRIPTION: CT - Abdomen Pelvis W Contrast - 08/02/2023 1:56 pm CLINICAL HISTORY: ABD PAIN COMPARISON: Abdomen Pelvis W Contrast dated 02/11/2021; CT ABD PELVIS W CONTRAST dated 05/27/2015 TECHNIQUE: Thin cut axial CT imaging of the abdomen and pelvis was performed following intravenous a dministration of 100 mL Isovue 300. Multiplanar reformats were generated and reviewed. All CT scans are performed using dose optimization technique as appropriate and may include automated exposure control or mA/KV adjustment according to patient size. FINDINGS: No suspicious findings in the lung bases. The liver, spleen, adrenal glands, and pancreas show no suspicious findings. Gallbladder was surgical ly removed. Stable central pneumobilia and prominence of the common bile duct and central intrahepati c biliary radicles, compatible with post cholecystectomy status. Essentially stable thin wall fluid density cyst along the left retroperitoneum, today measuring 3.3 c m, may be of ovarian origin or representing an inclusion cyst. Symmetric renal function is seen with no hydronephrosis or suspicious renal mass. No dilated bowel loops. Colonic diverticulosis. Essentially stable segment of apparent wall thickenin g along the proximal to mid sigmoid colon, nonspecific and may relate to underdistention or sequelae of prior attacks of diverticulitis. Appendix is unremarkable. No free air, free fluid or inflammatory stranding. No hernia, mass or bulky lymphadenopathy. The urinary bladder is without significant find ing. No suspicious bony findings. Bilateral hip arthroplasty in place, resulting in some streak artifact w hich limits evaluation. IMPRESSION: Stable appearance of segmental wall thickening of the proximal to mid sigmoid colon. Thi s may relate to underdistention or sequelae of prior attacks of diverticulitis. No focal masses. Plea se correlate with colonoscopic findings if patient is eligible for screening colonoscopy. No acute intra-abdominal process. Stable findings as above including a left retroperitoneal low-density 3.3 cm cyst, which may be of ad nexal origin.
[2023-08-02] MEDS ORDERED: CIPROFLOXACIN 400mg IV 400 MG/200 ML BAG IV ONE (14:47)
[2023-08-02] MEDS ORDERED: METRONIDAZOLE 500mg IVPB 500 MG/100 ML BAG IV ONE (14:47)
--- NOTE | 2023-08-02 14:52 | RAD REPORT ---
EXAM DESCRIPTION: RADChest Single View08/02/2023 1:45 pm CLINICAL HISTORY: COUGH COMPARISON: Chest Single View dated 02/01/2021; Chest Pa And Lat (2 Views) dated 03/05/2020; CHEST SING LE VIEW dated 08/15/2013; Abdomen Pelvis W/Wo Contrast dated 05/31/2023; Abdomen Pelvis W Contrast dated 08/02/2023 TECHNIQUE: Portable AP view of the chest. FINDINGS: The lungs show no focal consolidation. Diffuse reticular opacities, may be acute or chroni c. No pneumothorax or effusion. The cardiomediastinal contours are unremarkable. IMPRESSION: No focal consolidation. Reticular opacities which may relate to interstitial pneumonitis , of acute or chronic nature.
--- NOTE | 2023-08-02 15:32 | EDPHYS ---
Physician Documentation [facility] Name: Cristela Arriaza Age: 83 yrs Sex: Female : 1940 Arrival Date: 08/02/2023 Time: 12:39 Bed 16 Private MD: ED Physician Frederic Rader HPI: 08/02 15:14 This 83 yrs old Female presents to ER via Ambulatory with complaints of monica Rectal Bleeding, Urinary Problem. 15:14 The patient presents to the emergency department with bleeding from the rectum/anus, monica that is moderate. Onset: The symptoms/episode began/occurred 3 day(s) ago. Context: the patient has no known special context relating to the rectal area complaint(s). Modifying factors: The symptoms are alleviated by. Associate signs and symptoms: Pertinent positives: abdominal pain in the left lower quadrant, constipation. The patient has experienced similar episodes in the past, several times. Historical: - Allergies: 12:49 Cephalexin; aa5 - PMHx: 12:49 Myocardial infarction; Hypertension; aa5 - PSHx: 12:49 cardiac stents; Carotid endarterectomy; aa5 - Immunization history:: Adult Immunizations unknown. - Social history:: Smoking status: Patient reports the use of cigarette tobacco products. ROS: 15:20 Constitutional: Negative for fever, chills, and weight loss, Eyes: Negative for injury, monica pain, redness, and discharge, ENT: Negative for injury, pain, and discharge, Neck: Negative for injury, pain, and swelling, Cardiovascular: Negative for chest pain, palpitations, and edema, Respiratory: Negative for shortness of breath, cough, wheezing, and pleuritic chest pain, Back: Negative for injury and pain, : Negative for injury, bleeding, discharge, and swelling, MS/Extremity: Negative for injury and deformity, Skin: Negative for injury, rash, and discoloration, Neuro: Negative for headache, weakness, numbness, tingling, and seizure, Psych: Negative for depression, anxiety, suicide ideation, homicidal ideation, and hallucinations, Allergy/Immunology: Negative for hives, rash, and allergies, Endocrine: Negative for neck swelling, polydipsia, polyuria, polyphagia, and marked weight changes, Hematologic/Lymphatic: Negative for swollen nodes, abnormal bleeding, and unusual bruising, 15:20 Abdomen/GI: Positive for abdominal pain, of the left lower quadrant, Exam: 15:20 Constitutional: This is a well developed, well nourished patient who is awake, alert, monica and in no acute distress. Head/Face: Normocephalic, atraumatic. Eyes: Pupils equal round and reactive to light, extra-ocular motions intact. Lids and lashes normal. Conjunctiva and sclera are non-icteric and not injected. Cornea within normal limits. Periorbital areas with no swelling, redness, or edema. ENT: Nares patent. No nasal discharge, no septal abnormalities noted. Tympanic membranes are normal and external auditory canals are clear. Oropharynx with no redness, swelling, or masses, exudates, or evidence of obstruction, uvula midline. Mucous membranes moist. Neck: Trachea midline, no thyromegaly or masses palpated, and no cervical lymphadenopathy. Supple, full range of motion without nuchal rigidity, or vertebral point tenderness. No Meningismus. Chest/axilla: Normal chest wall appearance and motion. Nontender with no deformity. No lesions are appreciated. Cardiovascular: Regular rate and rhythm with a normal S1 and S2. No gallops, murmurs, or rubs. Normal PMI, no JVD. No pulse deficits. Respiratory: Lungs have equal breath sounds bilaterally, clear to auscultation and percussion. No rales, rhonchi or wheezes noted. No increased work of breathing, no retractions or nasal flaring. Back: No spinal tenderness. No costovertebral tenderness. Full range of motion. Female : Normal external genitalia. Skin: Warm, dry with normal turgor. Normal color with no rashes, no lesions, and no evidence of cellulitis. MS/ Extremity: Pulses equal, no cyanosis. Neurovascular intact. Full, normal range of motion. Neuro: Awake and alert, GCS 15, oriented to person, place, time, and situation. Cranial nerves II-XII grossly intact. Motor strength 5/5 in all extremities. Sensory grossly intact. Cerebellar exam normal. Normal gait. Psych: Awake, alert, with orientation to person, place and time. Behavior, mood, and affect are within normal limits. 15:20 Abdomen/GI: Inspection: abdomen appears normal, Bowel sounds: normal, Palpation: moderate abdominal tenderness, in the left lower quadrant, Liver: no appreciated palpable abnormalities, Hernia: not appreciated, 15:29 ECG was reviewed by the Attending Physician. [facility] Vital Signs: 12:47 BP 130 / 77; Pulse 91; Resp 15 S; Temp 98.2(TE); Pulse Ox 99% on R/A; Weight 62.14 kg aa5 (R); Height 5 ft. 6 in. (R); 13:00 BP 135 / 72; Pulse 88; Resp 16; Pulse Ox 100% ; ko1 12:47 Body Mass Index 22.11 (62.14 kg, 167.64 cm) aa5 MDM: 12:47 Patient medically screened. monica 15:21 Differential diagnosis: hemorrhoids, fissure, abscess, bowel obstruction, monica diverticulitis, gastritis, Mesenteric ischemia or infarction, non-specific abd pain, pancreatitis, Peritonitis, Ureterolithiasis, urinary tract infection. Data reviewed: vital signs, nurses notes, lab test result(s), EKG, radiologic studies, plain films. Consideration of Admission/Observation Patient was admitted/placed on observation. Escalation of care including admission/observation considered. I considered the following discharge prescriptions or medication management in the emergency department Medications were administered in the Emergency Department. See MAR. Test considered but Not performed: EKG: no abd usg. Care significantly affected by the following chronic conditions: Hypertension. 15:24 Historians other than the Patient: pt well informed. Counseling: I had a detailed [facility] discussion with the patient and/or guardian regarding the historical points, exam findings, and any diagnostic results supporting the discharge/admit diagnosis, lab results, radiology results. 08/02 12:50 Order name: Basic Metabolic Panel; Complete Time: 14:23 [facility] 08/02 12:50 Order name: CBC with Diff; Complete Time: 14: [facility] 08/02 12:50 Order name: LFT's; Complete Time: 14:23 [facility] 08/02 12:50 Order name: Magnesium; Complete Time: 14:23 [facility] 08/02 12:50 Order name: NT PRO-BNP; Complete Time: 14:23 [facility] 08/02 12:50 Order name: PT-INR; Complete Time: 14:23 [facility] 08/02 12:50 Order name: Troponin HS; Complete Time: 14:23 [facility] 08/02 12:50 Order name: Lipase; Complete Time: 14: [facility] 08/02 12:50 Order name: Urinalysis w/ reflexes; Complete Time: 14:23 [facility] 08/02 12:50 Order name: XRAY Chest (1 view); Complete Time: 15:00 [facility] 08/02 12:50 Order name: CT Abd/Pelvis - IV Contrast Only; Complete Time: 15:00 [facility] 08/02 12:50 Order name: EKG; Complete Time: 12:53 [facility] 08/02 12:50 Order name: Cardiac monitoring; Complete Time: 13:11 [facility] 08/02 12:50 Order name: EKG - Nurse/Tech; Complete Time: 13:12 [facility] 08/02 12:50 Order name: IV Saline Lock; Complete Time: 13:11 [facility] 08/02 12:50 Order name: Labs collected and sent; Complete Time: 13:11 [facility] 08/02 12:50 Order name: O2 Per Protocol; Complete Time: 13:12 [facility] 08/02 12:50 Order name: O2 Sat Monitoring; Complete Time: 13:12 [facility] EC: Rate is 86 beats/min. Rhythm is regular. QRS [place] is Normal. LA interval is normal. QRS monica interval is normal. QT interval is normal. No Q waves. No ST changes noted. Clinical impression: NSR w/ Non-specific ST/T Changes and No evidence of ischemia. Interpreted by me. Reviewed by me. Administered Medications: 13:24 Drug: NS 0.9% IV 500 ml IV at bolus once Route: IV; Rate: bolus; Site: left forearm; ko1 14:13 Drug: NS 0.9% IV 1000 ml IV at 125 ml/hr continuous Route: IV; Rate: 125 ml/hr; Site: ko1 left antecubital; 14:33 Drug: Ciprofloxacin IVPB 400 mg 200 ml IVPB once over 60 mins Volume: 200 ml; Route: ko1 IVPB; Infused Over: 60 mins; Site: left forearm; 15:13 Drug: metroNIDAZOLE IVPB 500 mg 100 ml IVPB at 200 ml/hr once over 30 mins Volume: 100 ko1 ml; Route: IVPB; Rate: 200 ml/hr; Infused Over: 30 mins; Site: left forearm; 15:38 Not Given (being dischargedd): nicoderm cqpatch 21 mg/24 hr 21 mg Transdermal once ll1 15:43 Drug: Potassium PO Effervescent Tablet 25 mEq PO once; dissolve in 4 ounces of water or ll1 juice Route: PO; Disposition Summary: 08/02/23 15:31 Discharge Ordered Notes: Location: Home monica Problem: new monica Symptoms: have improved monica Condition: Stable monica Diagnosis - GI Bleed/ Gastrointestinal hemorrhage, unspecified - lower monica - Left sided colitis with rectal bleeding monica - Tobacco abuse counseling monica - Tobacco use monica - Hypokalemia monica - Elevated white blood cell count monica Followup: monica - With: Private Physician - When: 2 - 3 days - Reason: Recheck today's complaints, Continuance of care, Re-evaluation by your physician Discharge Instructions: - Discharge Summary Sheet monica - Potassium Content of Foods monica - Gastrointestinal Bleeding monica - Rectal Bleeding monica - Steps to Quit Smoking monica - Steps to Quit Smoking, Jjyr-fc-Swor monica - Rectal Bleeding, Uppz-su-Rtct monica - Colitis monica - Lower Gastrointestinal Bleeding [facility] Forms: - Medication Reconciliation Form [facility] - Thank You Letter [facility] - Antibiotic Education monica - Prescription Opioid Use monica - Patient Portal Instructions monica - Leadership Thank You Letter monica Prescriptions: - Flagyl 500 mg Oral Tablet - take 1 tablet ORAL route every 8 hours for 10 days; 30 tablet; Refills: 0, [facility] Product Selection Permitted - Cipro 500 mg Oral tablet - take 1 tablet ORAL route every 12 hours for 10 days; 20 tablet; Refills: 0, [facility] Product Selection Permitted - dicyclomine 20 mg Oral tablet - take 1 tablet ORAL route 4 times per day; 20 tablet; Refills: 0, Product [facility] Selection Permitted Signatures: Dispatcher [employer] Frederic Javier MD MD cha Calderon, Audri RN RN aa5 Mo Kim RN RN ll1 Alesha Chapa RN RN ko1
--- NOTE | 2023-08-02 15:32 | ER ---
Nurse's Notes [facility] Name: Cristela Arriaza Age: 83 yrs Sex: Female : 1940 Arrival Date: 08/02/2023 Time: 12:39 Bed 16 Private MD: Diagnosis: GI Bleed/ Gastrointestinal hemorrhage, unspecified-lower ;Left sided colitis with rectal bleeding;Tobacco abuse counseling;Tobacco use;Hypokalemia;Elevated white blood cell count Presentation: 08/02 12:47 Chief complaint: Patient states: "I've been constipated and today I was straining a aa5 little bit and noticed some dark blood in the toilet". Pt also reports some abd pain. Coronavirus screen: At this time, the client does not indicate any symptoms associated with coronavirus-19. Ebola Screen: Patient denies travel to an Ebola-affected area in the 21 days before illness onset. Initial Sepsis Screen: Does the patient meet any 2 criteria? No. Patient's initial sepsis screen is negative. Does the patient have a suspected source of infection? No. Patient's initial sepsis screen is negative. Risk Assessment: Do you want to hurt yourself or someone else? Patient reports no desire to harm self or others. Onset of symptoms was August 02, 2023. 12:47 Acuity: CHUCHO 3 aa5 12:47 Method Of Arrival: Ambulatory aa5 Historical: - Allergies: 12:49 Cephalexin; aa5 - PMHx: 12:49 Myocardial infarction; Hypertension; aa5 - PSHx: 12:49 cardiac stents; Carotid endarterectomy; aa5 - Immunization history:: Adult Immunizations unknown. - Social history:: Smoking status: Patient reports the use of cigarette tobacco products. Screenin:00 [facility] ED Fall Risk Assessment (Adult) History of falling in the last 3 months, ko1 including since admission No falls in past 3 months (0 pts) Confusion or Disorientation No (0 pts) Intoxicated or Sedated No (0 pts) Impaired Gait No (0 pts) Mobility Assist Device Used No (0 pt) Altered Elimination No (0 pt) Score/Fall Risk Level 0 - 2 = Low Risk Oriented to surroundings, Maintained a safe environment, Educated pt \\T\\ family on fall prevention, incl call for assistance when getting out of bed, Assessed \\T\\ reinforced patient's understanding of fall precautions, Provided non-skid footwear, Hourly rounding (assess needs \\T\\ fall precautionary measures) done, Used ambulatory aids as needed (educated on \\T\\ assisted with). Abuse screen: Denies threats or abuse. Denies injuries from another. Nutritional screening: No deficits noted. Tuberculosis screening: No symptoms or risk factors identified. Assessment: 13:00 Pain: Denies pain. ko1 15:11 Reassessment: Patient went to the restroom, I smelled cigarette smoke as I walked by, ko1 informed charge nurse and went to tell the patient to come out of the restroom, at that point patient was coming out of the bathroom and when told she could not smoke in the hospital she stated that "I didn't know". Vital Signs: 12:47 BP 130 / 77; Pulse 91; Resp 15 S; Temp 98.2(TE); Pulse Ox 99% on R/A; Weight 62.14 kg aa5 (R); Height 5 ft. 6 in. (R); 13:00 BP 135 / 72; Pulse 88; Resp 16; Pulse Ox 100% ; ko1 12:47 Body Mass Index 22.11 (62.14 kg, 167.64 cm) aa5 ED Course: 12:44 Patient arrived in ED. mg5 12:47 Frederic Rader MD is Attending Physician. [facility] 12:47 Arm band placed on. aa5 12:49 Triage completed. aa5 13:00 Alesha Chapa, PATRICIA is Primary Nurse. ko1 13:00 Patient has correct armband on for positive identification. Bed in low position. Call ko1 light in reach. Side rails up X 1. Provided Education on: medications, labs, not smoking in the hospital. Pulse ox on. NIBP on. Door closed. Noise minimized. Lights dimmed. Warm blanket given. 13:00 No provider procedures requiring assistance completed. ko1 13:11 Urinalysis w/ reflexes Sent. bc6 13:11 Basic Metabolic Panel Sent. bc6 13:11 LFT's Sent. bc6 13:12 Magnesium Sent. bc6 13:12 NT PRO-BNP Sent. bc6 13:12 Troponin HS Sent. bc6 13:12 Inserted saline lock: 20 gauge in left forearm, using aseptic technique. Blood bc6 collected. 13:47 XRAY Chest (1 view) In Process Unspecified. EDMS 13:58 CT Abd/Pelvis - IV Contrast Only In Process Unspecified. EDMS 15:51 IV discontinued, intact, bleeding controlled, No redness/swelling at site. Pressure ko1 dressing applied. Administered Medications: 13:24 Drug: NS 0.9% IV 500 ml IV at bolus once Route: IV; Rate: bolus; Site: left forearm; ko1 14:13 Drug: NS 0.9% IV 1000 ml IV at 125 ml/hr continuous Route: IV; Rate: 125 ml/hr; Site: ko1 left antecubital; 14:33 Drug: Ciprofloxacin IVPB 400 mg 200 ml IVPB once over 60 mins Volume: 200 ml; Route: ko1 IVPB; Infused Over: 60 mins; Site: left forearm; 15:13 Drug: metroNIDAZOLE IVPB 500 mg 100 ml IVPB at 200 ml/hr once over 30 mins Volume: 100 ko1 ml; Route: IVPB; Rate: 200 ml/hr; Infused Over: 30 mins; Site: left forearm; 15:38 Not Given (being dischargedd): nicoderm cqpatch 21 mg/24 hr 21 mg Transdermal once ll1 15:43 Drug: Potassium PO Effervescent Tablet 25 mEq PO once; dissolve in 4 ounces of water or ll1 juice Route: PO; Medication: 13:00 VIS not applicable for this client. ko1 Outcome: 15:31 Discharge ordered by . monica 15:51 Discharged to home ambulatory, ko1 15:51 Condition: stable 15:51 Discharge instructions given to patient, Instructed on discharge instructions, follow up and referral plans. medication usage, benefits of quitting smoking, Demonstrated understanding of instructions, follow-up care, medications, Prescriptions given X 3, 15:51 Patient left the ED. ko1 Signatures: Dispatcher [employer] EDMS Frederic Rader MD MD cha Calderon, Audri, RN RN minerva5 Mo Kim RN RN ll1 Alesha Chapa RN RN ko1 Monica Chavez [facility] Paulette Grimaldo mg5
[2023-08-02] MEDS ORDERED: POTASSIUM 25 MEQ EFFERV TAB ONE (15:53)
[2023-08-02 16:00] VITALS: TEMP 98.2
[2023-08-02 16:14] VITALS: BP 135/72; O2SAT 100
--- NOTE | 2023-08-03 15:15 | EKG ---
Test Date: 2023-08-02 Test Time: 13:06:50 Aeronautical Inspector: JULIO MEASUREMENT RESULTS: Intervals: Rate: 84 ME: 176 QRSD: 100 QT: 380 QTc: 449 [place]: P: 267 ME: 176 QRS: 59 T: 56 INTERPRETIVE STATEMENTS: Unusual P axis, possible ectopic atrial rhythm Abnormal ECG Compared to ECG 08/02/2023 13:05:25 No significant changes Electronically Signed On 08-03-23 15:11:34 TELESCOPE OPERATOR by Jonah Rivera
--- NOTE | 2023-08-03 15:15 | EKG ---
Test Date: 2023-08-02 Test Time: 13:05:25 Tents Assembler: JULIO MEASUREMENT RESULTS: Intervals: Rate: 82 KS: 156 QRSD: 96 QT: 364 QTc: 425 [place]: P: 265 KS: 156 QRS: 63 T: 58 INTERPRETIVE STATEMENTS: Unusual P axis, possible ectopic atrial rhythm Abnormal ECG Compared to ECG 05/04/2021 14:00:21 Sinus rhythm no longer present Electronically Signed On 08-03-23 15:11:38 TELECOM BILLING ANALYST by Jonah Rivera
== END 2023-08-02 15:51 | disposition home or self-care (01) ==
LOC: ER 12:39
DX: K51.50 Left sided colitis without complications (principal); E87.6 Hypokalemia; D72.829 Elevated white blood cell count, unspecified; Z72.0 Tobacco use; Z71.6 Tobacco abuse counseling
CPT/HCPCS: 93005 ×2; 85025; 81001; 80048; 36415; 83735; 85610; 80076; 84484; 83690; 83880; 74177; 71045; 96375; 96374; 99284; Q9967; J0744; J7030

== ENCOUNTER 2024-05-04 08:26 | Emergency (ER) | payer OTHER ==
[2024-05-04 09:29] LABS: Specific Gravity 1.022 (1.005-1.030); Sqamous Epithelial <5 /HPF (None Seen); Urine Bacteria <20 /HPF (<20); Urine Bilirubin NEGATIVE (Negative); Urine Blood Trace (Negative); Urine Clarity Turbid (Clear); Urine Color Light-Yellow (Yellow); Urine Culture Reflex Order NOT NEEDED; Urine Glucose NEGATIVE (Negative); Urine Ketones NEGATIVE (Negative); Urine Microscopic Reflex YN ORDER UMIC; Urine Mucus Slight /HPF (None Seen); Urine Nitrite NEGATIVE (Negative); Urine Protein NEGATIVE (Negative); Urine RBC <5 /HPF (None Seen); Urine Urobilinogen Normal (Normal); Urine WBC None Seen /HPF (<5); Urine pH 6.5 (5.0-7.0)
[2024-05-04 09:39] LABS: Absolute Basophils 0.1 K/uL (0-0.5); Absolute Eosinophils 0.1 K/uL (0-0.5); Absolute Lymphocytes (CBC) 1.5 K/uL (0.7-4.9); Absolute Monocytes 0.4 K/uL (0.1-1.3); Basophils % 0.8 % (0-1.3); Eosinophils % 2.2 % (0-4.4); Hematocrit 44.4 % (36.0-45.0); Hemoglobin 14.7 g/dL (12.0-15.0); Lymphocytes % 24.2 % (15.3-44.8); MCH 32.1 pg (27.0-35.0); MCHC 33.2 g/dL (32.0-36.0); MCV 96.5 fL (80-100); MPV 8.3 fL (7.6-11.3); Monocytes % 6.8 % (3.3-12.3); Platelets 176 thou/uL (152-406); Red Cell Distribution Width 13.5 % (12.1-15.2)
[2024-05-04 09:54] LABS: Albumin 3.4 g/dL (3.4-5.0); Anion Gap 6.8 mEq/L (5.0-15.0); Bilirubin Total 0.6 mg/dL (0.2-1.0); Globulin 3.3 g/dL (2.3-3.5); Potassium 3.8 mEq/L (3.5-5.1); Protein, Total 6.7 g/dL (6.4-8.2)
--- NOTE | 2024-05-04 10:26 | RAD REPORT ---
EXAM DESCRIPTION: CT - Abdomen Pelvis W Contrast - 05/04/2024 10:11 am CLINICAL HISTORY: Abdominal pain COMPARISON: 2022 TECHNIQUE: Computed axial tomography of the abdomen pelvis was obtained. 100 cc Isovue-300 was admin istered intravenously. Oral contrast was not requested which limits evaluation of bowel and appendix All CT scans are performed using dose optimization technique as appropriate and may include automated exposure control or mA/KV adjustment according to patient size. FINDINGS: Chronic pneumobilia. Cholecystectomy hepatic granuloma Spleen, pancreas, adrenals kidneys unremarkable Bilateral hip arthroplasties Diverticula stem from the colon. Thickening of wall of the sigmoid colon. No stranding within adjacen t fat. 4.4 x 3.9 centimeter left adnexal cystic mass mildly enlarged from prior exam No ascites Appendix is normal caliber and contains contrast IMPRESSION: Thickening of the wall of the sigmoid colon probably muscular hypertrophy secondary to d iverticulosis 4.4 centimeter left adnexal cystic mass. Pelvic ultrasound is recommended to assess internal characte ristics
--- NOTE | 2024-05-04 10:59 | EDPHYS ---
Physician Documentation [facility] Name: Cristela Arriaza Age: 83 yrs Sex: Female : 1940 Arrival Date: 05/04/2024 Time: 08:26 Bed 7 Private MD: ED Physician Eddie Torres HPI: 05/04 11:22 This 83 yrs old Female presents to ER via Ambulatory with complaints of Abdominal Pain. rt 11:22 Patient presents to the ED with right lower quadrant pain starting overnight. Patient rt states this is similar to when she has had previous episodes of diverticulitis. Reports nausea no vomiting. States that symptoms have been, not completely resolved. Also reports a sinusitis for about a week. Denies other acute complaint at this time, symptoms are moderate in severity, no other aggravating or elevating factors.. Historical: - Allergies: 09:02 Cephalexin; hb - Home Meds: 09:02 Metoprolol Tartrate Oral [Active]; amlodipine oral [Active]; atorvastatin oral hb [Active]; Lasix Oral [Active]; Aspirin Oral [Active]; - PMHx: 09:02 Hypertension; Myocardial infarction; hb - PSHx: 09:02 cardiac stents; Carotid endarterectomy; hb 09:05 Hip - Bilateral; Knee - Right; hb 09:08 Cholecystectomy; hb - Immunization history:: Adult Immunizations up to date. - Infectious Disease History:: Denies. - Social history:: Smoking status: Patient reports the use of cigarette tobacco products, smokes 1.5 packs per day. - Family history:: not pertinent. ROS: 11:22 Constitutional: Negative for fever, chills, and weight loss, Cardiovascular: Negative rt for chest pain, palpitations, and edema, Respiratory: Negative for shortness of breath, cough, wheezing, and pleuritic chest pain, MS/Extremity: Negative for injury and deformity, Skin: Negative for injury, rash, and discoloration, Neuro: Negative for headache, weakness, numbness, tingling, and seizure, 11: ENT: Positive for ear pain, sinus pain, : Abdomen/GI: Positive for abdominal pain, nausea, Exam: 11: Constitutional: This is a well developed, well nourished patient who is awake, alert, rt and in no acute distress. Head/Face: Normocephalic, atraumatic. Chest/axilla: Normal chest wall appearance and motion. Nontender with no deformity. No lesions are appreciated. Cardiovascular: Regular rate and rhythm with a normal S1 and S2. No gallops, murmurs, or rubs. Normal PMI, no JVD. No pulse deficits. Respiratory: Lungs have equal breath sounds bilaterally, clear to auscultation and percussion. No rales, rhonchi or wheezes noted. No increased work of breathing, no retractions or nasal flaring. Abdomen/GI: Soft, non-tender, with normal bowel sounds. No distension or tympany. No guarding or rebound. No evidence of tenderness throughout. Skin: Warm, dry with normal turgor. Normal color with no rashes, no lesions, and no evidence of cellulitis. MS/ Extremity: Pulses equal, no cyanosis. Neurovascular intact. Full, normal range of motion. 11:22 ENT: Cerumen in the right EAC, left EAC is clear. Vital Signs: 08:55 BP 188 / 81; Pulse 69; Resp 16 S; Temp 98.2(O); Pulse Ox 96% on R/A; Weight 59.87 kg; hb Height 5 ft. 6 in. ; Pain 6/10; 09:34 BP 137 / 81; Pulse 59; Resp 16; Pulse Ox 97% ; ko1 10:59 BP 158 / 74; Pulse 59; Resp 16; Pulse Ox 97% ; ko1 08:55 Body Mass Index 21.31 (59.87 kg, 167.64 cm) hb 08:55 Pain Scale: Adult hb MDM: 08:55 Patient medically screened. rt 11:22 Differential Diagnosis Nonspecific abdominal pain, diverticulitis, bowel obstruction, rt sinusitis. Data reviewed: vital signs, nurses notes, lab test result(s), radiologic studies. I considered the following discharge prescriptions or medication management in the emergency department Medications were administered in the Emergency Department. See MAR. Independent interpretation of the following test(s) in the Emergency Department CT Scan: My interpretation is No bowel obstruction seen on interpretation of CT scan images. Care significantly affected by the following chronic conditions: Hypertension. Counseling: I had a detailed discussion with the patient and/or guardian regarding the historical points, exam findings, and any diagnostic results supporting the discharge/admit diagnosis, lab results, radiology results, the need for outpatient follow up, to return to the emergency department if symptoms worsen or persist or if there are any questions or concerns that arise at home. Response to treatment: the patient's symptoms have markedly improved after treatment. 05/04 09:01 Order name: CBC with Diff; Complete Time: 09:58 rt 05/04 09:01 Order name: CMP; Complete Time: 09:58 rt 05/04 09:01 Order name: Lipase; Complete Time: 09:58 rt 05/04 09:01 Order name: Urinalysis w/ reflexes; Complete Time: 09:58 rt 05/04 09:01 Order name: CT Abd/Pelvis - IV Contrast Only; Complete Time: 10:43 rt 05/04 09:01 Order name: IV Saline Lock; Complete Time: :33 rt 05/04 09:01 Order name: Labs collected and sent; Complete Time: :33 rt Administered Medications: : Drug: NS 0.9% IV 1000 ml IV at 1 bolus Per protocol; 1000 mL bolus Route: IV; Rate: 1 ko1 bolus; Site: left antecubital; 10:59 Follow up: Response: No adverse reaction; IV Status: Completed infusion; IV Intake: ko1 1000ml Disposition Summary: 05/04/24 10:58 Discharge Ordered Notes: Location: Home rt Problem: new rt Symptoms: have improved rt Condition: Stable rt Diagnosis - Abdominal pain, unspecified rt - Other acute sinusitis rt Followup: rt - With: Private Physician - When: 2 - 3 days - Reason: Discharge Instructions: - Discharge Summary Sheet rt - Abdominal Pain, Adult rt - Diverticulitis rt - Sinusitis, Adult rt Forms: - Medication Reconciliation Form rt - Antibiotic Education rt - Prescription Opioid Use rt - Patient Portal Instructions rt - Leadership Thank You Letter rt Prescriptions: - Augmentin 875-125 mg Oral Tablet - take 1 tablet ORAL route every 12 hours for 10 days; 20 tablet; Refills: 0, rt Product Selection Permitted - Prednisone 20 mg Oral Tablet - take 2 tablets ORAL route once daily for 5 days; 10 tablet; Refills: 0, Product rt Selection Permitted Signatures: Dispatcher [employer] Maria Del Carmen Conteh RN RN hb Oliver, Kathy, RN RN ko1 Eddie Torres MD MD rt Corrections: (The following items were deleted from the chart) 09:02 09:02 CBC+H.LAB.BRZ ordered. EDMS EDMS 09:02 09:02 COMPREHENSIVE METABOLIC PANEL+C.LAB.BRZ ordered. EDMS EDMS :02 09:02 LIPASE+C.LAB.BRZ ordered. EDMS EDMS 09:02 09:02 Urinalysis+U.LAB.BRZ ordered. EDMS EDMS :02 09:02 Abdomen Pelvis W Con+CT.RAD.BRZ ordered. EDMS EDMS
--- NOTE | 2024-05-04 10:59 | ER ---
Nurse's Notes [facility] Name: Cristela Arriaza Age: 83 yrs Sex: Female : 1940 Arrival Date: 05/04/2024 Time: 08:26 Bed 7 Private MD: Diagnosis: Abdominal pain, unspecified;Other acute sinusitis Presentation: 05/04 08:55 Chief complaint: RLQ pain that radiates to back and nausea since this morning. hb Coronavirus screen: At this time, the client does not indicate any symptoms associated with coronavirus-19. Ebola Screen: No symptoms or risks identified at this time. Initial Sepsis Screen: Does the patient meet any 2 criteria? No. Patient's initial sepsis screen is negative. Does the patient have a suspected source of infection? No. Patient's initial sepsis screen is negative. Risk Assessment: Do you want to hurt yourself or someone else? Patient reports no desire to harm self or others. Onset of symptoms was May 04, 2024. 08:55 Method Of Arrival: Ambulatory hb 08:55 Acuity: CHUCHO 3 hb Historical: - Allergies: 09:02 Cephalexin; hb - Home Meds: 09:02 Metoprolol Tartrate Oral [Active]; amlodipine oral [Active]; atorvastatin oral hb [Active]; Lasix Oral [Active]; Aspirin Oral [Active]; - PMHx: 09:02 Hypertension; Myocardial infarction; hb - PSHx: 09:02 cardiac stents; Carotid endarterectomy; hb 09:05 Hip - Bilateral; Knee - Right; hb 09:08 Cholecystectomy; hb - Immunization history:: Adult Immunizations up to date. - Infectious Disease History:: Denies. - Social history:: Smoking status: Patient reports the use of cigarette tobacco products, smokes 1.5 packs per day. - Family history:: not pertinent. Screenin:34 [facility] ED Fall Risk Assessment (Adult) History of falling in the last 3 months, ko1 including since admission No falls in past 3 months (0 pts) Confusion or Disorientation No (0 pts) Intoxicated or Sedated No (0 pts) Impaired Gait No (0 pts) Mobility Assist Device Used No (0 pt) Altered Elimination No (0 pt) Score/Fall Risk Level 0 - 2 = Low Risk Oriented to surroundings, Maintained a safe environment, Educated pt \T\ family on fall prevention, incl call for assistance when getting out of bed, Assessed \T\ reinforced patient's understanding of fall precautions, Provided non-skid footwear, Hourly rounding (assess needs \T\ fall precautionary measures) done, Used ambulatory aids as needed (educated on \T\ assisted with), Used gait belt as appropriate. Abuse screen: Denies threats or abuse. Denies injuries from another. Nutritional screening: No deficits noted. Tuberculosis screening: No symptoms or risk factors identified. Assessment: 09:05 General: Appears in no apparent distress. Behavior is calm, cooperative, appropriate ko1 for age. Pain: Complains of pain in abdomen. Neuro: No deficits noted. Cardiovascular: No deficits noted. Respiratory: No deficits noted. GI: Bowel sounds present X 4 quads. Abd is soft and non tender X 4 quads. : No deficits noted. EENT: No deficits noted. Derm: No deficits noted. Musculoskeletal: No deficits noted. 10:07 Reassessment: Patient and/or family updated on plan of care and expected duration. Pain rs5 level reassessed. Patient is alert, oriented x 3, equal unlabored respirations, skin warm/dry/pink. Patient denies pain at this time. Patient states feeling better. Patient states symptoms have improved. 11:00 Reassessment: No changes from previously documented assessment. rs5 Vital Signs: 08:55 BP 188 / 81; Pulse 69; Resp 16 S; Temp 98.2(O); Pulse Ox 96% on R/A; Weight 59.87 kg; hb Height 5 ft. 6 in. ; Pain 6/10; 09:34 BP 137 / 81; Pulse 59; Resp 16; Pulse Ox 97% ; ko1 10:59 BP 158 / 74; Pulse 59; Resp 16; Pulse Ox 97% ; ko1 08:55 Body Mass Index 21.31 (59.87 kg, 167.64 cm) hb 08:55 Pain Scale: Adult hb ED Course: 08:45 Patient arrived in ED. mg5 08:54 Eddie Torres MD is Attending Physician. rt 09:02 Triage completed. hb 09:05 No provider procedures requiring assistance completed. ko1 09:08 Yoel Zacarias, PATRICIA is Primary Nurse. rs5 09:08 Arm band placed on. hb 09:33 CBC with Diff Sent. ko1 09:33 CMP Sent. ko1 :33 Lipase Sent. ko1 09:34 Patient has correct armband on for positive identification. Allergy band placed. Bed in ko1 low position. Call light in reach. Provided Education on: labs, tests, call light. Pulse ox on. NIBP on. Door closed. Noise minimized. Lights dimmed. Warm blanket given. Pillow given. Assisted to bathroom. :34 Inserted saline lock: 20 gauge in left antecubital area, using aseptic technique. Blood ko1 collected. Flushed with 10 mL NS. 10:13 CT Abd/Pelvis - IV Contrast Only In Process Unspecified. EDMS 11:03 IV discontinued, intact, bleeding controlled, No redness/swelling at site. Pressure ko1 dressing applied. Administered Medications: : Drug: NS 0.9% IV 1000 ml IV at 1 bolus Per protocol; 1000 mL bolus Route: IV; Rate: 1 ko1 bolus; Site: left antecubital; :59 Follow up: Response: No adverse reaction; IV Status: Completed infusion; IV Intake: ko1 1000ml Medication: 09: VIS not applicable for this client. ko1 Intake: :59 IV: 1000ml; Total: 1000ml. ko1 Outcome: 10:58 Discharge ordered by . rt 11:03 Discharged to home ambulatory, with family, ko1 11:03 Condition: stable 11:03 Discharge instructions given to patient, family, Instructed on discharge instructions, follow up and referral plans. medication usage, Demonstrated understanding of instructions, follow-up care, medications, Prescriptions given X 2, 11:03 Patient left the ED. ko1 Signatures: Dispatcher [employer] EDNC Maria Del Carmen Pa, PATRICIA GOMEZ Alesha Chapa RN RN ko1 Eddie Torres MD MD rt Yeol Zacarias RN RN 5 Paulette Grimaldo mg5
[2024-05-04 11:35] VITALS: TEMP 98.2
[2024-05-04 11:37] VITALS: O2SAT 97
[2024-05-04 11:39] VITALS: BP 158/74
== END 2024-05-04 11:03 | disposition home or self-care (01) ==
LOC: ER 08:26
DX: R10.31 Right lower quadrant pain (principal); J01.80 Other acute sinusitis; I10 Essential (primary) hypertension; F17.210 Nicotine dependence, cigarettes, uncomplicated; Z95.818 Presence of other cardiac implants and grafts; Z79.82 Long term (current) use of aspirin
CPT/HCPCS: 85025; 81001; 36415; 83690; 80053; 74177; 96360; 99284; Q9967

== ENCOUNTER 2024-08-31 14:43 | Emergency (ER) | payer OTHER ==
--- NOTE | 2024-08-31 15:57 | RAD REPORT ---
EXAM: Chest Single View HISTORY: ABDOMINAL DISTENTION COMPARISON: 02/01/2021 FINDINGS: LUNGS/PLEURA: Similar coarsening of the pulmonary interstitium as was seen on the radiograph from . No new acute process identified. No consolidation. No definite edema. MEDIASTINUM: The mediastinal silhouette is within normal limits. CARDIAC: Within normal limits. UPPER ABDOMEN: No significant abnormality. BONES: No acute fracture. LINES/TUBES/OTHER: N/A IMPRESSION: Chronic appearing findings without evidence of a new superimposed acute process.
[2024-08-31 16:42] LABS: Absolute Basophils 0.1 K/uL (0-0.5); Absolute Eosinophils 0.2 K/uL (0-0.5); Absolute Lymphocytes (CBC) 1.8 K/uL (0.7-4.9); Absolute Monocytes 0.6 K/uL (0.1-1.3); Absolute Neutrophil 4.6 K/uL (1.8-8.0); Basophils % 0.8 % (0-1.3); Eosinophils % 2.8 % (0-4.4); Hematocrit 50.1 % (36.0-45.0); Lymphocytes % 24.3 % (15.3-44.8); MCHC 33.8 g/dL (32.0-36.0); MCV 97.4 fL (80-100); MPV 7.7 fL (7.6-11.3); Monocytes % 8.3 % (3.3-12.3); Neutrophils % 63.8 % (41.7-73.7); Platelets 198 thou/uL (152-406); RBC Red Blood Cell Count 5.14 M/uL (3.86-4.86); Red Cell Distribution Width 13.6 % (12.1-15.2)
[2024-08-31 16:50] LABS: Specific Gravity 1.013 (1.005-1.030); Sqamous Epithelial <5 /HPF (None Seen); Urine Bacteria None Seen /HPF (<20); Urine Bilirubin NEGATIVE (Negative); Urine Blood Trace (Negative); Urine Clarity Clear (Clear); Urine Color Light-Yellow (Yellow); Urine Culture Reflex Order NOT NEEDED; Urine Glucose NEGATIVE (Negative); Urine Ketones NEGATIVE (Negative); Urine Microscopic Reflex YN ORDER UMIC; Urine Nitrite NEGATIVE (Negative); Urine Protein NEGATIVE (Negative); Urine RBC <5 /HPF (None Seen); Urine Urobilinogen Normal (Normal); Urine WBC <5 /HPF (<5); Urine pH 6.5 (5.0-7.0)
[2024-08-31] MEDS ORDERED: NA CHLORIDE 0.9% 1,000 ML ONE (16:50)
--- NOTE | 2024-08-31 17:08 | ER ---
Nurse's Notes [facility] Name: Cristela Arriaza Age: 84 yrs Sex: Female : 1940 Arrival Date: 08/31/2024 Time: 14:43 Bed 10 Private MD: Diagnosis: Abdominal pain, unspecified-right LQ Presentation: 08/31 14:55 Chief complaint: Upper abdominal pain x 1 week. Coronavirus screen: At this time, the hb client does not indicate any symptoms associated with coronavirus-19. Ebola Screen: No symptoms or risks identified at this time. Initial Sepsis Screen: Does the patient meet any 2 criteria? No. Patient's initial sepsis screen is negative. Does the patient have a suspected source of infection? No. Patient's initial sepsis screen is negative. Risk Assessment: Do you want to hurt yourself or someone else? Patient reports no desire to harm self or others. Onset of symptoms was August 24, 2024. 14:55 Method Of Arrival: Ambulatory 14:55 Acuity: CHUCHO 3 hb Triage Assessment: 15:00 General: Appears in no apparent distress. comfortable, Behavior is calm, cooperative. rs5 Historical: - Allergies: 14:56 Cephalexin; hb - PMHx: 14:56 Hypertension; Myocardial infarction; hb - PSHx: 14:56 cardiac stents; Carotid endarterectomy; Cholecystectomy; Hip - bilateral; Knee - Right; hb - Immunization history:: Adult Immunizations up to date. - Infectious Disease History:: Denies. - Social history:: Smoking status: Patient reports the use of cigarette tobacco products. - Family history:: not pertinent. Screenin:00 [facility] ED Fall Risk Assessment (Adult) History of falling in the last 3 months, rs5 including since admission No falls in past 3 months (0 pts) Confusion or Disorientation No (0 pts) Intoxicated or Sedated No (0 pts) Impaired Gait No (0 pts) Mobility Assist Device Used No (0 pt) Altered Elimination No (0 pt) Score/Fall Risk Level 0 - 2 = Low Risk Oriented to surroundings, Maintained a safe environment. Abuse screen: Denies threats or abuse. Nutritional screening: No deficits noted. Tuberculosis screening: No symptoms or risk factors identified. Assessment: 15:10 General: Appears in no apparent distress. uncomfortable, Behavior is calm, cooperative. rs5 15:10 Pain: Complains of pain in abdomen Pain currently is 3 out of 10 on a pain scale. rs5 Quality of pain is described as aching, Is continuous. Neuro: Level of Consciousness is awake, alert, obeys commands, Oriented to person, place, time, situation. Cardiovascular: Patient's skin is warm and dry. Respiratory: Airway is patent Respiratory effort is even, unlabored, Respiratory pattern is regular, symmetrical. GI: Abdomen is round non-distended, Abd is soft and non tender X 4 quads. : No signs and/or symptoms were reported regarding the genitourinary system. EENT: No signs and/or symptoms were reported regarding the EENT system. Derm: Skin is intact, Skin is pink, warm \T\ dry. Musculoskeletal: Range of motion: intact in all extremities. 16:15 Reassessment: Patient and/or family updated on plan of care and expected duration. Pain rs5 level reassessed. Patient is alert, oriented x 3, equal unlabored respirations, skin warm/dry/pink. 16:40 Reassessment: pt brought back to room . rs5 17:10 Reassessment: Patient and/or family updated on plan of care and expected duration. Pain rs5 level reassessed. Patient is alert, oriented x 3, equal unlabored respirations, skin warm/dry/pink. Vital Signs: 14:55 BP 140 / 81; Pulse 70; Resp 16; Temp 97.2(TE); Pulse Ox 100% on R/A; Pain 7/10; hb 17:15 BP 145 / 79; Pulse 77; Resp 17; Pulse Ox 99% on R/A; rs5 14:55 Pain Scale: Adult hb ED Course: 14:48 Patient arrived in ED. im 14:56 Triage completed. hb 14:56 Arm band placed on. hb 15:00 Patient has correct armband on for positive identification. Placed in gown. Bed in low rs5 position. Call light in reach. Side rails up X2. 15:00 No provider procedures requiring assistance completed. rs5 15:01 Frederic Rdaer MD is Attending Physician. monica 15:07 Inserted saline lock: 20 gauge in right forearm, using aseptic technique. Blood rs5 collected. Flushed with 10 mL NS. 15:53 XRAY Chest (1 view) In Process Unspecified. EDMS 16:15 Provided Education on: discharge instructions . rs5 16:40 Yoel Zacarias, RN is Primary Nurse. rs5 16:48 EKG done, by ED staff. kb4 17:20 IV discontinued, intact, bleeding controlled, No redness/swelling at site. Pressure rs5 dressing applied. Administered Medications: 15:05 Drug: NS 0.9% IV 500 ml IV at bolus once; to be given as a bolus over 30 minutes Route: rs5 IV; Rate: bolus; Site: right forearm; 16:01 Follow up: IV Status: Completed infusion; IV Intake: 500ml rs5 15:10 Drug: NS 0.9% IV 500 ml 500 ml IV at 125 ml/hr once Volume: 500 ml; Route: IV; Rate: rs5 125 ml/hr; Site: right forearm; 16:20 Follow up: Response: No adverse reaction; IV Status: IV converted to saline lock; IV rs5 Intake: 222ml 17:21 Not Given (Patient Refused): [id number] mg 200 ml IVPB once over 60 mins rs5 17:21 Not Given (Patient Refused): [id number] mg 100 ml IVPB at 200 ml/hr once over 30 rs5 mins Medication: 17:59 VIS not applicable for this client. rs5 Intake: 16:01 IV: 500ml; Total: 500ml. rs5 16:20 IV: 222ml; Total: 722ml. rs5 Outcome: 17:07 Discharge ordered by . monica 17:20 Discharged to home ambulatory, rs5 17:20 Condition: stable 17:20 Discharge instructions given to patient, family, Instructed on discharge instructions, follow up and referral plans. Demonstrated understanding of instructions, follow-up care, 17:25 Patient left the ED. rs5 Signatures: Dispatcher [employer] EDIL Frederic Rader MD MD cha Baxter, Heather, RN RN Yoel Zacarias RN RN rs5 Iliana Moncada Kayla kb4 Corrections: (The following items were deleted from the chart) 17:58 15:01 BP 145 / 79; Pulse 77bpm; Resp 17bpm; Pulse Ox 99% RA; rs5 rs5 18:59 16:30 Inserted saline lock: 20 gauge in right forearm, using aseptic technique. Blood rs5 collected. Flushed with 10 mL NS kb4 18:59 16:30 Initial lab(s) drawn, by me, sent to lab. Urine collected: clean catch specimen, rs5 clear, kb4
--- NOTE | 2024-08-31 17:08 | EDPHYS ---
Physician Documentation [facility] Name: Cristela Arriaza Age: 84 yrs Sex: Female : 1940 Arrival Date: 08/31/2024 Time: 14:43 Bed 10 Private MD: ED Physician Frederic Rader HPI: 08/31 17:00 This 84 yrs old Female presents to ER via Ambulatory with complaints of monica Abdominal Pain. 17:00 The patient presents with abdominal pain in the lower abdomen. Onset: The monica symptoms/episode began/occurred 2 day(s) ago. The symptoms do not radiate. Associated signs and symptoms: Pertinent positives: nausea. The symptoms are described as crampy, intermittent. Modifying factors: The symptoms are alleviated by nothing, the symptoms are aggravated by nothing. Severity of pain: At its worst the pain was moderate in the emergency department the pain is unchanged. The patient has experienced similar episodes in the past, several times. Historical: - Allergies: 14:56 Cephalexin; hb - PMHx: 14:56 Hypertension; Myocardial infarction; hb - PSHx: 14:56 cardiac stents; Carotid endarterectomy; Cholecystectomy; Hip - bilateral; Knee - Right; hb - Immunization history:: Adult Immunizations up to date. - Infectious Disease History:: Denies. - Social history:: Smoking status: Patient reports the use of cigarette tobacco products. - Family history:: not pertinent. ROS: 17:00 Constitutional: Negative for fever, chills, and weight loss, Eyes: Negative for injury, monica pain, redness, and discharge, ENT: Negative for injury, pain, and discharge, Neck: Negative for injury, pain, and swelling, Cardiovascular: Negative for chest pain, palpitations, and edema, Respiratory: Negative for shortness of breath, cough, wheezing, and pleuritic chest pain, Back: Negative for injury and pain, : Negative for injury, bleeding, discharge, and swelling, MS/Extremity: Negative for injury and deformity, Skin: Negative for injury, rash, and discoloration, Neuro: Negative for headache, weakness, numbness, tingling, and seizure, Psych: Negative for depression, anxiety, suicide ideation, homicidal ideation, and hallucinations, Allergy/Immunology: Negative for hives, rash, and allergies, Endocrine: Negative for neck swelling, polydipsia, polyuria, polyphagia, and marked weight changes, Hematologic/Lymphatic: Negative for swollen nodes, abnormal bleeding, and unusual bruising, 17:00 Abdomen/GI: Positive for abdominal pain, nausea, abdominal cramps, of the right lower quadrant, Exam: 17:00 Constitutional: This is a well developed, well nourished patient who is awake, alert, monica and in no acute distress. Head/Face: Normocephalic, atraumatic. Eyes: Pupils equal round and reactive to light, extra-ocular motions intact. Lids and lashes normal. Conjunctiva and sclera are non-icteric and not injected. Cornea within normal limits. Periorbital areas with no swelling, redness, or edema. ENT: Nares patent. No nasal discharge, no septal abnormalities noted. Tympanic membranes are normal and external auditory canals are clear. Oropharynx with no redness, swelling, or masses, exudates, or evidence of obstruction, uvula midline. Mucous membranes moist. Neck: Trachea midline, no thyromegaly or masses palpated, and no cervical lymphadenopathy. Supple, full range of motion without nuchal rigidity, or vertebral point tenderness. No Meningismus. Chest/axilla: Normal chest wall appearance and motion. Nontender with no deformity. No lesions are appreciated. Cardiovascular: Regular rate and rhythm with a normal S1 and S2. No gallops, murmurs, or rubs. Normal PMI, no JVD. No pulse deficits. Respiratory: Lungs have equal breath sounds bilaterally, clear to auscultation and percussion. No rales, rhonchi or wheezes noted. No increased work of breathing, no retractions or nasal flaring. Back: No spinal tenderness. No costovertebral tenderness. Full range of motion. Female : Normal external genitalia. Skin: Warm, dry with normal turgor. Normal color with no rashes, no lesions, and no evidence of cellulitis. MS/ Extremity: Pulses equal, no cyanosis. Neurovascular intact. Full, normal range of motion., bilateral aka Neuro: Awake and alert, GCS 15, oriented to person, place, time, and situation. Cranial nerves II-XII grossly intact. Motor strength 5/5 in all extremities. Sensory grossly intact. Cerebellar exam normal. Normal gait. Psych: Awake, alert, with orientation to person, place and time. Behavior, mood, and affect are within normal limits. 17:00 Abdomen/GI: Inspection: abdomen appears normal, Bowel sounds: normal, Palpation: moderate abdominal tenderness, in the right lower quadrant, Liver: no appreciated palpable abnormalities, Hernia: not appreciated, 17:06 ECG was reviewed by the Attending Physician. [facility] Vital Signs: 14:55 BP 140 / 81; Pulse 70; Resp 16; Temp 97.2(TE); Pulse Ox 100% on R/A; Pain 7/10; hb 17:15 BP 145 / 79; Pulse 77; Resp 17; Pulse Ox 99% on R/A; rs5 14:55 Pain Scale: Adult hb MDM: 15:01 Medical Screening Exam initiated monica 17:02 Differential diagnosis: appendicitis, diverticulitis, gastritis, gastroesophageal monica reflux disease, Mesenteric ischemia or infarction, non-specific abd pain, pancreatitis, Peptic Ulcer Disease, Peritonitis, Pyelonephritis, Ureterolithiasis, urinary tract infection. Data reviewed: vital signs, nurses notes, lab test result(s), EKG. Consideration of Admission/Observation Escalation of care including admission/observation considered. I considered the following discharge prescriptions or medication management in the emergency department Medications were administered in the Emergency Department. See MAR. Independent interpretation of the following test(s) in the Emergency Department EKG: See my EKG interpretation above. Test considered but Not performed: Ultrasound no abd usg. Historians other than the Patient: pt well informed. Care significantly affected by the following chronic conditions: Hypertension, mi. Counseling: I had a detailed discussion with the patient and/or guardian regarding the historical points, exam findings, and any diagnostic results supporting the discharge/admit diagnosis, lab results, radiology results, the need for outpatient follow up, for definitive care, 17:04 ED course: PT DOES NOT WANT TO WAIT, DOES NOT WANT THE CT SCAN, EXPLAINED CANT SAT monica DIVERTICULITIS VS APPENDICITIS OR OTHER PATHOLOGY, PT UNDERSTAND , WANTS TO GO , NO TEST , NO MEDICINES. 08/31 15:03 Order name: Basic Metabolic Panel [facility] 08/31 15:03 Order name: CBC with Diff; Complete Time: 16:56 [facility] 08/31 15:03 Order name: LFT's [facility] 08/31 15:03 Order name: Magnesium [facility] 08/31 15:03 Order name: NT PRO-BNP [facility] 08/31 15:03 Order name: Troponin HS [facility] 08/31 15:03 Order name: Lipase [facility] 08/31 15:03 Order name: Urinalysis w/ reflexes; Complete Time: 16:56 [facility] 08/31 15:03 Order name: XRAY Chest (1 view); Complete Time: 16:56 [facility] 08/31 15:03 Order name: Cardiac monitoring; Complete Time: 16:48 [facility] 08/31 15:03 Order name: EKG - Nurse/Tech; Complete Time: 16:48 [facility] 08/31 15:03 Order name: IV Saline Lock; Complete Time: 16:48 [facility] 08/31 15:03 Order name: Labs collected and sent; Complete Time: 16:48 [facility] 08/31 15:03 Order name: O2 Per Protocol; Complete Time: 16:48 [facility] 08/31 15:03 Order name: O2 Sat Monitoring; Complete Time: 16:48 [facility] 08/31 16:48 Order name: Labs - recollect needed: recollect blue top/ short per Isaac; Complete eb Time: 18:00 EC:06 Rate is 72 beats/min. Rhythm is regular. QRS [place] is Normal. SC interval is normal. QRS monica interval is normal. QT interval is normal. No Q waves. T waves are Normal. No ST changes noted. Clinical impression: NSR w/ Non-specific ST/T Changes and No evidence of ischemia. Interpreted by me. Reviewed by me. Administered Medications: 15:05 Drug: NS 0.9% IV 500 ml IV at bolus once; to be given as a bolus over 30 minutes Route: rs5 IV; Rate: bolus; Site: right forearm; 16:01 Follow up: IV Status: Completed infusion; IV Intake: 500ml rs5 15:10 Drug: NS 0.9% IV 500 ml 500 ml IV at 125 ml/hr once Volume: 500 ml; Route: IV; Rate: rs5 125 ml/hr; Site: right forearm; 16:20 Follow up: Response: No adverse reaction; IV Status: IV converted to saline lock; IV rs5 Intake: 222ml 17:21 Not Given (Patient Refused): [id number] mg 200 ml IVPB once over 60 mins rs5 17:21 Not Given (Patient Refused): [id number] mg 100 ml IVPB at 200 ml/hr once over 30 rs5 mins Disposition Summary: 08/31/24 17:07 Discharge Ordered Notes: Location: Home monica Problem: new monica Symptoms: have improved monica Condition: Stable monica Diagnosis - Abdominal pain, unspecified - right LQ monica Followup: monica - With: Private Physician - When: 2 - 3 days - Reason: Recheck today's complaints, Continuance of care, Re-evaluation by your physician Discharge Instructions: - Discharge Summary Sheet monica - Abdominal Pain, Adult monica - Diverticulitis monica - Diverticulosis monica - Pain Without a Known Cause monica - Diverticulitis, [id number] monica Forms: - Medication Reconciliation Form monica - Antibiotic Education monica - Prescription Opioid Use monica - Patient Portal Instructions monica - Leadership Thank You Letter monica Signatures: Dispatcher [employer] EDMS Frederic Rader MD MD cha Baxter, Heather, RN RN Maria Victoria Estrella Ricky, RN RN rs5 Corrections: (The following items were deleted from the chart) 15:04 15:04 BASIC METABOLIC PANEL+C.LAB.BRZ ordered. EDMS EDMS 15:04 15:04 CBC+H.LAB.BRZ ordered. EDMS EDMS 15:04 15:04 HEPATIC FUNCTION+C.LAB.BRZ ordered. EDMS EDMS 15:04 15:04 MAGNESIUM+C.LAB.BRZ ordered. EDMS EDMS 15:04 15:04 PROBNP+C.LAB.BRZ ordered. EDMS EDMS 15:04 15:04 PROTIME (+INR)+COAG.LAB.BRZ ordered. EDMS EDMS 15:04 15:04 Troponin High Sensitivity+C.LAB.BRZ ordered. EDMS EDMS 15:04 15:04 LIPASE+C.LAB.BRZ ordered. EDMS EDMS 15:04 15:04 Urinalysis+U.LAB.BRZ ordered. EDMS EDMS 15:04 15:04 Chest Single View+RAD.RAD.BRZ ordered. EDMS EDMS 15:04 15:04 Abdomen Pelvis W Con+CT.RAD.BRZ ordered. EDMS EDMS 16:09 15:04 Abdomen Limited+US.RAD.BRZ ordered. EDMS EDMS
[2024-08-31 17:10] LABS: Albumin 3.9 g/dL (3.4-5.0); Albumin/Globulin Ratio 1.1 (1.1-1.8); Anion Gap 9.9 mEq/L (5.0-15.0); Bilirubin Direct 0.3 mg/dL (0-0.2); Bilirubin Indirect, Calculated 0.3 mg/dL (0.2-0.8); Bilirubin Total 0.6 mg/dL (0.2-1.0); Globulin 3.4 g/dL (2.3-3.5); Magnesium 2.4 mg/dL (1.6-2.4); Potassium 2.9 mEq/L (3.5-5.1); Protein, Total 7.3 g/dL (6.4-8.2); Troponin High Sensitivity 8.1 pg/mL (<58.9)
[2024-08-31 17:57] VITALS: BP 140/81; TEMP 97.2; O2SAT 100
--- NOTE | 2024-09-02 11:13 | EKG ---
Test Date: 2024-08-31 Test Time: 16:40:40 Regulatory Compliance Manager: EVENS MEASUREMENT RESULTS: Intervals: Rate: 72 MA: 194 QRSD: 108 QT: 410 QTc: 448 [place]: P: 54 MA: 194 QRS: 71 T: 60 INTERPRETIVE STATEMENTS: Sinus rhythm with premature atrial complexes Septal infarct, age undetermined Abnormal ECG Compared to ECG 08/02/2023 13:06:50 Atrial premature complex(es) now present Myocardial infarct finding now present Electronically Signed On 09-02-24 11:09:50 SALES PROJECT MANAGER by Guilherme Hodgson
== END 2024-08-31 17:25 | disposition home or self-care (01) ==
LOC: ER 14:43
DX: R10.31 Right lower quadrant pain (principal); Z95.818 Presence of other cardiac implants and grafts; Z72.0 Tobacco use
CPT/HCPCS: 93005; 85025; 81001; 80048; 36415; 83735; 80076; 84484; 83690; 83880; 71045; 96360; 99284; J7040

== ENCOUNTER 2025-01-11 19:03 | Emergency (ER) | payer OTHER ==
[2025-01-11 19:52] LABS: Absolute Basophils 0.1 K/uL (0-0.5); Absolute Eosinophils 0.2 K/uL (0-0.5); Absolute Lymphocytes (CBC) 2.1 K/uL (0.7-4.9); Absolute Monocytes 0.6 K/uL (0.1-1.3); Absolute Neutrophil 3.4 K/uL (1.8-8.0); Basophils % 1.1 % (0-1.3); Eosinophils % 3.2 % (0-4.4); Hematocrit 41.3 % (36.0-45.0); Hemoglobin 14.6 g/dL (12.0-15.0); Lymphocytes % 32.6 % (15.3-44.8); MCH 33.2 pg (27.0-35.0); MCHC 35.4 g/dL (32.0-36.0); MCV 93.9 fL (80-100); MPV 7.7 fL (7.6-11.3); Monocytes % 9.7 % (3.3-12.3); Neutrophils % 53.4 % (41.7-73.7); Platelets 177 thou/uL (152-406); Red Cell Distribution Width 13.5 % (12.1-15.2)
[2025-01-11] MEDS ORDERED: NA CHLORIDE 0.9% 1,000 ML ONE (19:54)
[2025-01-11 19:57] LABS: PT Prothrombin Time 11.4 SECONDS (10-13.0)
[2025-01-11 20:02] LABS: Specific Gravity 1.023 (1.005-1.030); Sqamous Epithelial <5 /HPF (None Seen); Urine Bacteria <20 /HPF (<20); Urine Bilirubin NEGATIVE (Negative); Urine Blood Negative (Negative); Urine Clarity Extremely Turbid (Clear); Urine Color Yellow (Yellow); Urine Culture Reflex Order REFLEXED; Urine Glucose NEGATIVE (Negative); Urine Ketones NEGATIVE (Negative); Urine Microscopic Reflex YN ORDER UMIC; Urine Mucus Slight /HPF (None Seen); Urine Nitrite NEGATIVE (Negative); Urine Protein NEGATIVE (Negative); Urine RBC <5 /HPF (None Seen); Urine Urobilinogen Normal (Normal); Urine pH 5.5 (5.0-7.0)
[2025-01-11 20:08] LABS: Albumin 3.3 g/dL (3.4-5.0); Albumin/Globulin Ratio 1.1 (1.1-1.8); Anion Gap 7.7 mEq/L (5.0-15.0); Bilirubin Direct 0.2 mg/dL (0-0.2); Bilirubin Indirect, Calculated 0.3 mg/dL (0.2-0.8); Bilirubin Total 0.5 mg/dL (0.2-1.0); Magnesium 2.5 mg/dL (1.6-2.4); Potassium 3.7 mEq/L (3.5-5.1); Protein, Total 6.3 g/dL (6.4-8.2); Troponin High Sensitivity 7.3 pg/mL (<58.9)
--- NOTE | 2025-01-11 21:10 | RAD REPORT ---
EXAM: Chest Abdomen Pelvis W Cont CLINICAL INDICATION: Chest and abdominal pain TECHNIQUE: CT chest, abdomen and pelvis was performed, with 100 cc Isovue-300 IV contrast, as per de partment protocol. Axial, sagittal and coronal reconstructions were obtained. One or more of the following dose reduction techniques were used: Automated exposure control, adjustment of the mA and/o r kV according to the patient size, and/or iterative reconstruction. Unless otherwise specified, incidental findings do not require dedicated imaging follow-up. [id number]. Oral contrast not given. This limits evaluation of the bowel. COMPARISON: [address] abdomen [address] CT chest FINDINGS: Moderate COPD. 14 mm nodule superior right lower lobe. 11 mm part solid nodule left lower lobe. 12 mm left hilar lymph node. No mediastinal lymphadenopathy. Coronary arterial calcifications. No pleural effusion.. No pericardial effusion Cholecystectomy. Chronic pneumobilia with chronic dilatation of the biliary tree. Spleen, pancreas, adrenals and left kidney unremarkable. Small right renal cyst. There is no evidence of diverticulitis 3.8 cm left ovarian cyst without significant change. Bilateral hip arthroplasties. Diverticula stem from colon without visualization of diverticulitis. Normal appendix. Stippled lesion T9 vertebral body has the appearance of a hemangioma. IMPRESSION: 14 mm right lung nodule. 11 mm left lung nodule Mild left hilar lymphadenopathy. PET scan recommended for further evaluation 3.8 cm left ovarian cystic mass unchanged probably benign. This also can be evaluated with the PET sc an.
[2025-01-11] MEDS ORDERED: CIPROFLOXACIN 400mg IV 400 MG/200 ML BAG IV ONE (21:12)
--- NOTE | 2025-01-11 21:14 | RAD REPORT ---
Procedure: Chest Single View HISTORY: Cough COMPARISON: 2023 FINDINGS: Lungs are moderately hyperaerated. 14 mm nodule superior to the right hilum. It is better seen on the CT chest same date. Previous descr ibed left lung nodule on the CT is not clearly visualized on this exam. No significant pleural effusion noted. The heart is normal size. Please refer to the CT chest same date for recommendation
--- NOTE | 2025-01-11 21:52 | EDPHYS ---
Physician Documentation [facility] Name: Cristela Arriaza Age: 84 yrs Sex: Female : 1940 Arrival Date: 01/11/2025 Time: 19:03 Bed 18 Private MD: ED Physician Frederic Rader HPI: 01/11 20:28 This 84 yrs old Other Female presents to ER via Ambulatory with complaints of Abdominal monica Pain, Back Pain. 20:28 The patient presents with pain that is acute, with no known mechanism of injury. The monica symptoms are located in the low back, right low back. Onset: The symptoms/episode began/occurred 2 day(s) ago. The pain does not radiate. Associated signs and symptoms: The patient has no apparent associated signs or symptoms. The problem was sustained from unknown cause. Modifying factors: The patient symptoms are alleviated by nothing, the patient symptoms are aggravated by any movement, bending. Severity of symptoms: At their worst the symptoms were mild, in the emergency department the symptoms are unchanged. The patient has not experienced similar symptoms in the past. Historical: - Allergies: 19:16 Cephalexin; kd3 - PMHx: 19:16 Hypertension; Myocardial infarction; kd3 - PSHx: 19:16 cardiac stents; Carotid endarterectomy; Cholecystectomy; Hip - bilateral; Knee - Right; kd3 - Immunization history:: Adult Immunizations up to date. - Infectious Disease History:: Denies. - Social history:: Smoking status: Patient reports the use of cigarette tobacco products, smokes one pack cigarettes per day. - Family history:: not pertinent. ROS: 20:28 Constitutional: Negative for fever, chills, and weight loss, Eyes: Negative for injury, monica pain, redness, and discharge, ENT: Negative for injury, pain, and discharge, Neck: Negative for injury, pain, and swelling, Cardiovascular: Negative for chest pain, palpitations, and edema, Respiratory: Negative for shortness of breath, cough, wheezing, and pleuritic chest pain, : Negative for injury, bleeding, discharge, and swelling, MS/Extremity: Negative for injury and deformity, Skin: Negative for injury, rash, and discoloration, Neuro: Negative for headache, weakness, numbness, tingling, and seizure, Psych: Negative for depression, anxiety, suicide ideation, homicidal ideation, and hallucinations, Allergy/Immunology: Negative for hives, rash, and allergies, Endocrine: Negative for neck swelling, polydipsia, polyuria, polyphagia, and marked weight changes, Hematologic/Lymphatic: Negative for swollen nodes, abnormal bleeding, and unusual bruising, 20:28 Abdomen/GI: Positive for abdominal pain, 20:28 Back: Positive for pain at rest, pain with movement, of the lumbar area and right low back, Exam: 20:27 ECG was reviewed by the Attending Physician. monica 20:28 Constitutional: This is a well developed, well nourished patient who is awake, alert, monica and in no acute distress. Head/Face: Normocephalic, atraumatic. Eyes: Pupils equal round and reactive to light, extra-ocular motions intact. Lids and lashes normal. Conjunctiva and sclera are non-icteric and not injected. Cornea within normal limits. Periorbital areas with no swelling, redness, or edema. ENT: Nares patent. No nasal discharge, no septal abnormalities noted. Tympanic membranes are normal and external auditory canals are clear. Oropharynx with no redness, swelling, or masses, exudates, or evidence of obstruction, uvula midline. Mucous membranes moist. Neck: Trachea midline, no thyromegaly or masses palpated, and no cervical lymphadenopathy. Supple, full range of motion without nuchal rigidity, or vertebral point tenderness. No Meningismus. Chest/axilla: Normal chest wall appearance and motion. Nontender with no deformity. No lesions are appreciated. Cardiovascular: Regular rate and rhythm with a normal S1 and S2. No gallops, murmurs, or rubs. Normal PMI, no JVD. No pulse deficits. Respiratory: Lungs have equal breath sounds bilaterally, clear to auscultation and percussion. No rales, rhonchi or wheezes noted. No increased work of breathing, no retractions or nasal flaring. Abdomen/GI: Soft, non-tender, with normal bowel sounds. No distension or tympany. No guarding or rebound. No evidence of tenderness throughout. Female : Normal external genitalia. Skin: Warm, dry with normal turgor. Normal color with no rashes, no lesions, and no evidence of cellulitis. MS/ Extremity: Pulses equal, no cyanosis. Neurovascular intact. Full, normal range of motion., bilateral aka Neuro: Awake and alert, GCS 15, oriented to person, place, time, and situation. Cranial nerves II-XII grossly intact. Motor strength 5/5 in all extremities. Sensory grossly intact. Cerebellar exam normal. Normal gait. Psych: Awake, alert, with orientation to person, place and time. Behavior, mood, and affect are within normal limits. 20:28 Back: pain, that is mild, ROM is painful, normal spinal alignment noted, CVA tenderness, is absent, vertebral tenderness, is not appreciated, Vital Signs: 19:12 BP 133 / 71; Pulse 79; Resp 18; Pulse Ox 98% on R/A; Weight 58.97 kg; Height 5 ft. 0 kd3 in. ; 20:00 BP 138 / 74; Pulse 70; Resp 18; Pulse Ox 98% on R/A; Pain 4/10; rg5 19:12 Body Mass Index 25.39 (58.97 kg, 152.4 cm) kd3 20:00 Pain Scale: Adult rg5 MDM: 19:09 Medical Screening Exam initiated monica 20:31 Differential diagnosis: Cholelithiasis chronic back pain, Fatigue Fracture Metastatic monica Disease Myeloma Neoplasm Osteoarthritis Osteoporosis Pyelonephritis Renal Infarction ruptured disc, Scoliosis sprain, Ureterolithiasis vertebral fracture. Data reviewed: vital signs, nurses notes, lab test result(s), EKG, radiologic studies, CT scan, plain films. Consideration of Admission/Observation Escalation of care including admission/observation considered. I considered the following discharge prescriptions or medication management in the emergency department Medications were administered in the Emergency Department. See MAR. Independent interpretation of the following test(s) in the Emergency Department CT Scan: My interpretation is ct c/a/p. Historians other than the Patient: pt well informed. Care significantly affected by the following chronic conditions: Hypertension, cad, no trauma. Counseling: I had a detailed discussion with the patient and/or guardian regarding the historical points, exam findings, and any diagnostic results supporting the discharge/admit diagnosis, lab results, radiology results, the need for outpatient follow up, for definitive care, a family practitioner. 01/11 19:20 Order name: Basic Metabolic Panel; Complete Time: 20:50 [facility] 01/11 19:20 Order name: CBC with Diff; Complete Time: 20:50 [facility] 01/11 19:20 Order name: LFT's; Complete Time: 20:50 [facility] 01/11 19:20 Order name: Magnesium; Complete Time: 20:50 [facility] 01/11 19:20 Order name: NT PRO-BNP; Complete Time: 20:50 [facility] 01/11 19:20 Order name: PT-INR; Complete Time: 20:50 [facility] 01/11 19:20 Order name: Troponin HS; Complete Time: 20:50 [facility] 01/11 19:20 Order name: Lipase; Complete Time: 20:50 [facility] 01/11 19:20 Order name: UA Rfx Hank Cult if indicated; Complete Time: 20:50 [facility] 01/11 20:09 Order name: Urine Culture EDMS 05 19:20 Order name: XRAY Chest (1 view); Complete Time: 21:49 [facility] 01/11 19:21 Order name: CT Chest, Abdomen, Pelvis - W/Contrast; Complete Time: 21:49 [facility] 01/11 19:20 Order name: Cardiac monitoring; Complete Time: 20:11 [facility] 01/11 19:20 Order name: EKG - Nurse/Tech; Complete Time: 20:11 [facility] 01/11 19:20 Order name: IV Saline Lock; Complete Time: 20:11 [facility] 01/11 19:20 Order name: Labs collected and sent; Complete Time: 20:11 [facility] 01/11 19:20 Order name: O2 Per Protocol; Complete Time: 20:11 [facility] 01/11 19:20 Order name: O2 Sat Monitoring; Complete Time: 20:11 [facility] EC:27 Rate is 66 beats/min. Rhythm is regular. QRS [place] is Normal. NC interval is normal. QRS monica interval is normal. QT interval is normal. No Q waves. T waves are Normal. No ST changes noted. Clinical impression: Normal ECG and No evidence of ischemia. Interpreted by me. Reviewed by me. Administered Medications: 19:45 Drug: NS 0.9% IV 500 ml 500 ml IV at 1 bolus once; to be given as a bolus over 30 rg5 minutes Volume: 500 ml; Route: IV; Rate: 1 bolus; Site: right forearm; 20:30 Follow up: IV Status: Completed infusion; IV Intake: 500ml rg5 20:58 Drug: NS 0.9% IV 500 ml 500 ml IV at 125 ml/hr once Volume: 500 ml; Route: IV; Rate: rg5 125 ml/hr; Site: right antecubital; 22:04 Follow up: IV Status: Completed infusion; IV Intake: 500ml rg5 21:13 Drug: Ciprofloxacin IVPB 400 mg 200 ml IVPB once over 60 mins Volume: 200 ml; Route: rg5 IVPB; Infused Over: 60 mins; Site: right forearm; Disposition Summary: 01/11/25 21:51 Discharge Ordered Notes: Location: Home monica Problem: new monica Symptoms: have improved monica Condition: Stable monica Diagnosis - Abdominal tenderness monica - Low back pain monica - UTI/ Urinary tract infection, site not specified monica Followup: monica - With: Private Physician - When: 2 - 3 days - Reason: Recheck today's complaints, Continuance of care, Re-evaluation by your physician Discharge Instructions: - Discharge Summary Sheet monica - Abdominal Pain, Adult monica - Chronic Back Pain monica - Musculoskeletal Pain monica - Urinary Tract Infection, Adult monica - Back Injury Prevention, [id number] monica - Urinary Tract Infection, Adult, Vpki-[id number] monica - Abdominal Pain, Adult, [id number] monica - Chronic Back Pain, [id number] [facility] Forms: - Medication Reconciliation Form [facility] - Antibiotic Education monica - Prescription Opioid Use monica - Patient Portal Instructions [facility] - Leadership Thank You Letter [facility] Prescriptions: - Cipro 250 mg Oral tablet - take 1 tablet ORAL route every 12 hours; 14 tablet; Refills: 0, Product [facility] Selection Permitted - Tylenol-Codeine #3 300mg-30mg Oral tablet - take 1 tablet ORAL route every 4 hours As needed; 20 tablet; Refills: 0, [facility] Product Selection Permitted Signatures: Dispatcher [employer] EDFrederic Maza MD MD cha Doucette, Kyli RN RN kd3 Gino Wilkerson, PATRICIA RN rg5 Corrections: (The following items were deleted from the chart) 19:20 19:20 BASIC METABOLIC PANEL+C.LAB.BRZ ordered. EDMS EDMS 19:20 19:20 CBC+H.LAB.BRZ ordered. EDMS EDMS 19:20 19:20 HEPATIC FUNCTION+C.LAB.BRZ ordered. EDMS EDMS 19:20 19:20 MAGNESIUM+C.LAB.BRZ ordered. EDMS EDMS 19:20 19:20 PROBNP+C.LAB.BRZ ordered. EDMS EDMS 19:20 19:20 PROTIME (+INR)+COAG.LAB.BRZ ordered. EDMS EDMS 19:20 19:20 Troponin High Sensitivity+C.LAB.BRZ ordered. EDMS EDMS 19:20 19:20 LIPASE+C.LAB.BRZ ordered. EDMS EDMS 19:20 19:20 UA Rfx Hank Cult if indicated+U.LAB.BRZ ordered. EDMS EDMS 19:20 19:20 Chest Single View+RAD.RAD.BRZ ordered. EDMS EDMS
--- NOTE | 2025-01-11 21:52 | ER ---
Nurse's Notes [facility] Name: Cristela Arriaza Age: 84 yrs Sex: Female : 1940 Arrival Date: 01/11/2025 Time: 19:03 Bed 18 Private MD: Diagnosis: Abdominal tenderness;Low back pain;UTI/ Urinary tract infection, site not specified Presentation: 01/11 19:13 Chief complaint: Patient states: I have pain in my right lower belly and it goes around kd3 to my right back. 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 The pain started Monday night and has progressed since then. I have had no bloody stools. My appetite is poor because of the discomfort. Coronavirus screen: Vaccine status: Patient reports being unvaccinated. Ebola Screen: No symptoms or risks identified at this time. Initial Sepsis Screen: Does the patient meet any 2 criteria? No. Patient's initial sepsis screen is negative. Does the patient have a suspected source of infection? No. Patient's initial sepsis screen is negative. Risk Assessment: Do you want to hurt yourself or someone else? Patient reports no desire to harm self or others. Onset of symptoms was January 07, 2025. 19:13 Method Of Arrival: Ambulatory kd3 19:13 Acuity: CHUCHO 3 kd3 Triage Assessment: 19:16 General: Appears in no apparent distress. Behavior is calm, cooperative. Pain: Pain kd3 currently is 5 out of 10 on a pain scale. at worst was 8 out of 10 on a pain scale. GI: Abdomen is non-distended. Historical: - Allergies: 19:16 Cephalexin; kd3 - PMHx: 19:16 Hypertension; Myocardial infarction; kd3 - PSHx: 19:16 cardiac stents; Carotid endarterectomy; Cholecystectomy; Hip - bilateral; Knee - Right; kd3 - Immunization history:: Adult Immunizations up to date. - Infectious Disease History:: Denies. - Social history:: Smoking status: Patient reports the use of cigarette tobacco products, smokes one pack cigarettes per day. - Family history:: not pertinent. Screenin:30 [facility] ED Fall Risk Assessment (Adult) History of falling in the last 3 months, rg5 including since admission No falls in past 3 months (0 pts) Confusion or Disorientation No (0 pts) Intoxicated or Sedated No (0 pts) Impaired Gait No (0 pts) Mobility Assist Device Used No (0 pt) Altered Elimination No (0 pt) Score/Fall Risk Level 0 - 2 = Low Risk Oriented to surroundings, Maintained a safe environment, Hourly rounding (assess needs \T\ fall precautionary measures) done. Abuse screen: Denies threats or abuse. Nutritional screening: No deficits noted. Tuberculosis screening: No symptoms or risk factors identified. Assessment: 19:30 General: Appears in no apparent distress. comfortable, Behavior is calm, cooperative, rg5 appropriate for age. Pain: Complains of pain in right lower quadrant. Neuro: Level of Consciousness is awake, alert, obeys commands, Oriented to person, place, time, situation. 19:30 Cardiovascular: Denies chest pain. Respiratory: Airway is patent Trachea midline. GI: rg5 Abdomen is flat, non-distended, Bowel sounds present in left lower quadrant Abd is soft and non tender. GI: Reports lower abdominal pain, constipation, cramping. : No signs and/or symptoms were reported regarding the genitourinary system. EENT: No deficits noted. Derm: Skin is intact, Skin is dry, Skin is normal. Musculoskeletal: Circulation, motion, and sensation intact. Range of motion: intact in all extremities. 20:30 Reassessment: Patient and/or family updated on plan of care and expected duration. Pain rg5 level reassessed. Patient is alert, oriented x 3, equal unlabored respirations, skin warm/dry/pink. Patient states symptoms have improved. 21:25 Reassessment: Patient and/or family updated on plan of care and expected duration. Pain rg5 level reassessed. Patient is alert, oriented x 3, equal unlabored respirations, skin warm/dry/pink. Patient states feeling better. 22:00 Reassessment: No changes from previously documented assessment. Patient and/or family rg5 updated on plan of care and expected duration. Pain level reassessed. Patient states feeling better. Vital Signs: 19:12 BP 133 / 71; Pulse 79; Resp 18; Pulse Ox 98% on R/A; Weight 58.97 kg; Height 5 ft. 0 kd3 in. ; 20:00 BP 138 / 74; Pulse 70; Resp 18; Pulse Ox 98% on R/A; Pain 4/10; rg5 19:12 Body Mass Index 25.39 (58.97 kg, 152.4 cm) kd3 20:00 Pain Scale: Adult rg5 ED Course: 19:08 Patient arrived in ED. mr 19:09 Frederic Rader MD is Attending Physician. [facility] 19:16 Triage completed. kd3 19:16 Arm band placed on right wrist. kd3 19:21 Gino Wilkerson, RN is Primary Nurse. rg5 19:30 Patient has correct armband on for positive identification. Bed in low position. Door rg5 closed. Noise minimized. Warm blanket given. 19:30 No provider procedures requiring assistance completed. Inserted saline lock: 20 gauge rg5 in right forearm, using aseptic technique. Blood collected. Flushed with 10 mL NS. Patient maintains SpO2 saturation greater than 95% on room air. 19:56 XRAY Chest (1 view) In Process Unspecified. EDMS 20:41 CT Chest, Abdomen, Pelvis - W/Contrast In Process Unspecified. EDMS 22:08 Provided Education on: post er care. rg5 22:08 IV discontinued, bleeding controlled, No redness/swelling at site. Pressure dressing rg5 applied. Administered Medications: 19:45 Drug: NS 0.9% IV 500 ml 500 ml IV at 1 bolus once; to be given as a bolus over 30 rg5 minutes Volume: 500 ml; Route: IV; Rate: 1 bolus; Site: right forearm; 20:30 Follow up: IV Status: Completed infusion; IV Intake: 500ml rg5 20:58 Drug: NS 0.9% IV 500 ml 500 ml IV at 125 ml/hr once Volume: 500 ml; Route: IV; Rate: rg5 125 ml/hr; Site: right antecubital; 22:04 Follow up: IV Status: Completed infusion; IV Intake: 500ml rg5 21:13 Drug: Ciprofloxacin IVPB 400 mg 200 ml IVPB once over 60 mins Volume: 200 ml; Route: rg5 IVPB; Infused Over: 60 mins; Site: right forearm; Medication: 19:30 VIS not applicable for this client. rg5 Intake: 20:30 IV: 500ml; Total: 500ml. rg5 22:04 IV: 500ml; Total: 1000ml. rg5 Outcome: 21:51 Discharge ordered by . [facility] 22:08 Discharged to home ambulatory, rg5 22:08 Condition: stable rg5 22:08 Discharge instructions given to patient, Instructed on discharge instructions, Demonstrated understanding of instructions, Prescriptions given X 2, 22:09 Patient left the ED. rg5 Signatures: Dispatcher [employer] Frederic Javier MD MD cha Rivera Leonela, [facility] Reg Anthony, Zoila, RN RN kd3 Gino Wilkerson, RN RN rg5
[2025-01-11 22:18] VITALS: O2SAT 98
[2025-01-11 22:20] VITALS: BP 138/74
--- NOTE | 2025-01-13 12:00 | EKG ---
Test Date: 2025-01-11 Test Time: 20:06:27 Chipping Machine Operator: WINSOME MEASUREMENT RESULTS: Intervals: Rate: 66 WI: 164 QRSD: 96 QT: 408 QTc: 427 Geronimo: P: 261 WI: 164 QRS: 47 T: 54 INTERPRETIVE STATEMENTS: Unusual P axis, possible ectopic atrial rhythm Septal infarct, age undetermined Abnormal ECG Compared to ECG 08/31/2024 16:40:40 Sinus rhythm no longer present Atrial premature complex(es) no longer present Myocardial infarct finding still present Electronically Signed On 01-13-25 11:57:07 CDT by Guilherme Hodgson
== END 2025-01-11 22:09 | disposition home or self-care (01) ==
LOC: ER 19:03
DX: N39.0 Urinary tract infection, site not specified (principal); R10.819 Abdominal tenderness, unspecified site; I10 Essential (primary) hypertension; F17.210 Nicotine dependence, cigarettes, uncomplicated; Z95.818 Presence of other cardiac implants and grafts
CPT/HCPCS: 96361; 93005; 87088; 85025; 81001; 87086; 80048; 36415; 83735; 85610; 80076; 84484; 83690; 83880; 71260; 74177; 71045; 96374; 99284; Q9967; J0744; J7030